=== PATIENT | male | born 1960 | race Caucasian/White ===

== ENCOUNTER 2017-04-27 00:42 | Inpatient (IN) | payer BC ==
[~2017-04-27] VITALS: Ht 233.7 cm; Wt 84.9 kg
[2017-04-27] VITALS (7 sets, daily range): BP systolic 104–166; BP diastolic 61–104; PULSE 52–72; RESP 16–20; TEMP 98–98.3; O2SAT 96–99
[~2017-04-27 00:42] MED LIST: Z.0.NO CURRENT MEDS
--- NOTE | 2017-04-27 03:53 | PD ---
HPI Chief Complaint: Pain: Acute or Chronic Time Seen by Provider: 03:51 Travel History International Travel<30 days: No Contact w/Intl Traveler<30days: No Traveled to known affect area: No History of Present Illness HPI Patient is a 56-year-old male who 3 days ago went to an urgent care for right- sided pain that they diagnosed as pneumonia was put on prednisone Levaquin and an anti-inflammatory now tonight the pain is on the left side it is a dull pressure without radiation he denies chest pain he denies dysuria denies fever denies nausea vomit or diarrhea pain is intermittent without radiation he has not seen another doctor since this left pain started however he did see someone for the right sided pain that was diagnosed as pneumonia [facility] Social History Tobacco Use: No Allergies-Medications (Allergen,Severity, Reaction): Coded Allergies: No Known Allergies (Verified Allergy, Unknown, 04/27/17) Reported Meds & Prescriptions Reported Meds & Active Scripts Active Review of Systems Except as stated in HPI: all other systems reviewed are Neg Gastrointestinal: Positive: Abdominal Pain Genitourinary: Positive: Flank Pain (left sided ) Physical Exam Narrative GENERAL: Patient is nontoxic-appearing nonseptic appearing afebrile holding his left side seems to be lying in the stretcher in a way to avoid. SKIN: Warm and dry. HEAD: Atraumatic. Normocephalic. EYES: Pupils equal and round. No scleral icterus. No injection or drainage. ENT: No nasal bleeding or discharge. Mucous membranes pink and moist. NECK: Trachea midline. No JVD. CARDIOVASCULAR: Regular rate and rhythm. RESPIRATORY: No accessory muscle use. Clear to auscultation. Breath sounds equal bilaterally. GASTROINTESTINAL: Abdomen palpation of his lower ribs does not elicit the pain palpation of his left lower abdomen does not elicit the pain however percussion of the CVA area does re-create the pain in the lateral CVA area soft, LLQ and CVA tender, nondistended. MUSCULOSKELETAL: Extremities without clubbing, cyanosis, or edema. No obvious deformities. NEUROLOGICAL: Awake and alert. No obvious cranial nerve deficits. Motor grossly within normal limits. Five out of 5 muscle strength in the arms and legs. Normal speech. PSYCHIATRIC: Appropriate mood and affect; insight and judgment normal. Data Data Last Documented VS Vital Signs Date Time Temp Pulse Resp B/P (MAP) Pulse Ox O2 Delivery O2 Flow Rate FiO2 04/27/17 05:26 18 04/27/17 03:56 72 166/75 (105) 98 Room Air 04/27/17 00:48 98.0 Orders Orders Complete Blood Count With Diff (04/27/17 03:53) Comprehensive Metabolic Panel (04/27/17 03:53) Troponin I (04/27/17 03:53) Lipase (04/27/17 03:53) Urinalysis - C+S If Indicated (04/27/17 03:53) Chest, Pa & Lat (04/27/17 03:53) Ketorolac Inj (Toradol Inj) (04/27/17 04:30) Morphine Inj (Morphine Inj) (04/27/17 04:30) Ct Abd/Pel W/O Iv Contrast (04/27/17 ) Ondansetron Inj (Zofran Inj) (04/27/17 04:28) Ondansetron Odt (Zofran Odt) (04/27/17 04:45) Hydromorphone Pf Inj (Dilaudid Pf Inj) (04/27/17 05:30) Ct Abd/Pel W Iv Contrast(Rout) (04/27/17 ) Ct Thorax/ Chest W Iv Contrast (04/27/17 ) Hydromorphone Pf Inj (Dilaudid Pf Inj) (04/27/17 05:45) Place In Observation (04/27/17 ) Vital Signs (Adult) Q4H (04/27/17 05:42) Activity Oob Ad Azucena (04/27/17 05:42) Intake + Output JAZZMINE.QSHIFT (04/27/17 05:42) Sodium Chlor 0.9% 1000 Ml Inj (Ns 1000 M (04/27/17 05:42) Sodium Chloride 0.9% Flush (Ns Flush) (04/27/17 05:45) Sodium Chloride 0.9% Flush (Ns Flush) (04/27/17 09:00) Ondansetron Inj (Zofran Inj) (04/27/17 05:45) Basic Metabolic Panel (Bmp) (04/28/17 06:00) Complete Blood Count With Diff (04/28/17 06:00) Case Management Consult (04/27/17 05:42) Scd Bilateral/Knee High JAZZMINE.BID (04/27/17 05:42) Naloxone Inj (Narcan Inj) (04/27/17 05:45) Consult Medical Oncology (04/27/17 ) Hydromorphone Pf Inj (Dilaudid Pf Inj) (04/27/17 05:45) Admit Order (Ed Use Only) (04/27/17 05:52) Labs Laboratory Tests Test 04/27/17 04:00 White Blood Count 10.7 TH/MM3 Red Blood Count 5.23 MIL/MM3 Hemoglobin 16.1 GM/DL Hematocrit 46.9 % Mean Corpuscular Volume 89.7 FL Mean Corpuscular Hemoglobin 30.8 PG Mean Corpuscular Hemoglobin Concent 34.4 % Red Cell Distribution Width 13.1 % Platelet Count 349 TH/MM3 Mean Platelet Volume 6.4 FL Neutrophils (%) (Auto) 77.4 % Lymphocytes (%) (Auto) 13.9 % Monocytes (%) (Auto) 8.0 % Eosinophils (%) (Auto) 0.2 % Basophils (%) (Auto) 0.5 % Neutrophils # (Auto) 8.3 TH/MM3 Lymphocytes # (Auto) 1.5 TH/MM3 Monocytes # (Auto) 0.9 TH/MM3 Eosinophils # (Auto) 0.0 TH/MM3 Basophils # (Auto) 0.0 TH/MM3 CBC Comment DIFF FINAL Differential Comment Urine Color YELLOW Urine Turbidity HAZY Urine pH 5.5 Urine Specific [place] 1.026 Urine Protein 30 mg/dL Urine Glucose (UA) NEG mg/dL Urine Ketones NEG mg/dL Urine Occult Blood TRACE Urine Nitrite NEG Urine Bilirubin NEG Urine Urobilinogen LESS THAN 2.0 MG/DL Urine Leukocyte Esterase NEG Urine RBC LESS THAN 1 /hpf Urine WBC 2 /hpf Urine Bacteria OCC /hpf Urine Mucus MANY /lpf Microscopic Urinalysis Comment CULT NOT INDICATED Blood Urea Nitrogen 26 MG/DL Creatinine 1.45 MG/DL Random Glucose 102 MG/DL Total Protein 7.7 GM/DL Albumin 3.6 GM/DL Calcium Level 9.3 MG/DL Alkaline Phosphatase 121 U/L Aspartate Amino Transf (AST/SGOT) 87 U/L Alanine Aminotransferase (ALT/SGPT) 39 U/L Total Bilirubin 0.5 MG/DL Sodium Level 138 MEQ/L Potassium Level 4.1 MEQ/L Chloride Level 102 MEQ/L Carbon Dioxide Level 27.2 MEQ/L Anion Gap 9 MEQ/L Estimat Glomerular Filtration Rate 50 ML/MIN Lactate Dehydrogenase 1124 U/L Troponin I LESS THAN 0.02 NG/ML Lipase 162 U/L [facility] Medical Decision Making Medical Screen Exam Complete: Yes Emergency Medical Condition: Yes Differential Diagnosis pt has Tenderness reported to his left flank area , and left abdo ddx could be renal colic, gastritis pancreatitis , GB disease , PNA, Bronchitis other Narrative Course pt has flank pain and I order CT to rule out renal cause possible stone hydronephosis, --> CT shows lesions throughout liver very worrisome for metastatic disease no primary identified on non contrast CT , I sent pt back for CT with IV contrast and then pancreatic mass identified as well as Pulmonary Embolisms which explain his bilateral lung pain right and left lower , I heparinize 5000 Units and start heparin drip to prophylax against further clots and I admit to medicine for ONCOLOGY consult and possible liver biopsy. I gently explain first findings to patient and and need for IV CT for confirmation of liver CA and search for source ,, They understand, asks if Dr Perez is available for ONC doctor and I place consult for Dr Perez Diagnosis Primary Impression: Pulmonary embolism Qualified Codes: I26.99 - Other pulmonary embolism without acute cor pulmonale Additional Impressions: Liver mass Pancreatic mass Admitting Information Admitting Physician Requests: Admit Philip Flores MD Apr 27, 2017 03:53
[2017-04-27 04:09] LABS: AUTOMATED NEUTROPHIL # 8.3 TH/MM3 (1.8-7.7); BASOPHIL % 0.5 % (0.0-2.0); EOSINOPHIL % 0.2 % (0.0-4.0); HEMATOCRIT 46.9 % (39.0-51.0); HEMOGLOBIN 16.1 GM/DL (13.0-17.0); LYMPH % 13.9 % (9.0-44.0); LYMPHOCYTE # 1.5 TH/MM3 (1.0-4.8); MEAN CELL VOLUME 89.7 FL (80.0-100.0); MEAN CORPUSCULAR HEMOGLOBIN 30.8 PG (27.0-34.0); MEAN CORPUSCULAR HGB CONC 34.4 % (32.0-36.0); MEAN PLATELET VOLUME 6.4 FL (7.0-11.0); MONOCYTE # 0.9 TH/MM3 (0-0.9); NEUT % 77.4 % (16.0-70.0); PLATELET COUNT 349 TH/MM3 (150-450); RED BLOOD COUNT 5.23 MIL/MM3 (4.50-5.90); RED CELL DISTRIBUTION WIDTH 13.1 % (11.6-17.2); WHITE BLOOD COUNT 10.7 TH/MM3 (4.0-11.0)
[2017-04-27 04:14] LABS: BACTERIA, URINE OCC /hpf; BILIRUBIN, URINE NEG (NEG); BLOOD, URINE TRACE (NEG); GLUCOSE,URINE NEG (NEG); KETONE, URINE NEG (NEG); MUCUS URINE MANY /lpf (OCC); NITRITE,URINE NEG (NEG); PH, URINE 5.5 (5.0-8.5); URINE COLOR YELLOW (YELLW/STRAW); URINE LEUKOCYTE ESTERASE NEG (NEG)
[2017-04-27] MEDS ORDERED: ONDANSETRON HCL 4 MG/2 ML VIAL ONE (04:28)
[2017-04-27 04:30] LABS: ALBUMIN 3.6 GM/DL (3.4-5.0); AST (GOT) 87 U/L (15-37); BICARBONATE 27.2 MEQ/L (21.0-32.0); BLOOD UREA NITROGEN 26 MG/DL (7-18); CALCIUM 9.3 MG/DL (8.5-10.1); CHLORIDE 102 MEQ/L (98-107); CREATININE 1.45 MG/DL (0.60-1.30); GLOMERULAR FILTRATION RATE 50 ML/MIN (>89); GLUCOSE,RANDOM 102 MG/DL (74-106); SODIUM (NA) 138 MEQ/L (136-145)
[2017-04-27] MEDS ORDERED: KETOROLAC TROMETHAMINE 30 MG/ML (IVP) VIAL IV PUSH ONE (04:30)
[2017-04-27] MEDS ORDERED: MORPHINE SULFATE 2 MG/ML INJ IV PUSH ONE (04:30)
--- NOTE | 2017-04-27 04:40 | RADRPT ---
EXAM DATE/TIME: 04/27/2017 04:02 [facility] COMPARISON: No previous studies available for comparison. INDICATIONS : Severe left flank pain, anterior, and lateral. MEDICAL HISTORY : None. SURGICAL HISTORY : None. ENCOUNTER: Initial ACUITY: 2 days PAIN SCORE: 7/10 LOCATION: Left chest FINDINGS: PA and lateral views of the chest demonstrate the lungs to be symmetrically aerated with linear plate like atelectatic changes posterior and medially in the right lung base. Lungs are otherwise clear wit h no confluent infiltrate or effusion. The cardiomediastinal contours are unremarkable. Osseous str uctures are intact with some degenerative spurring of the dorsal spine. CONCLUSION: 1. Isolated platelike atelectasis posteromedially in the right lung base. Lungs otherwise clear. 2. Degenerative spurring of the dorsal spine. Damon Oden MD on April 27, 2017 at 4:37 Board Certified Radiologist. This report was verified electronically.
[2017-04-27] MEDS ORDERED: ONDANSETRON ODT 4 MG TAB PO ONE (04:45)
[2017-04-27 04:51] LABS: ALKALINE PHOSPHATASE 121 U/L (45-117); ALT (GPT) 39 U/L (12-78); TOTAL BILIRUBIN ADULT 0.5 MG/DL (0.2-1.0); TOTAL PROTEIN 7.7 GM/DL (6.4-8.2); TROPONIN I LESS THAN 0.02 NG/ML (0.02-0.05)
--- NOTE | 2017-04-27 04:54 | RADRPT ---
EXAM DATE/TIME: 04/27/2017 04:34 [facility] COMPARISON: No previous studies available for comparison. INDICATIONS : Left flank pain. ORAL CONTRAST: No oral contrast ingested. RADIATION DOSE: 8.67 CTDIvol (mGy) MEDICAL HISTORY : None SURGICAL HISTORY : None. ENCOUNTER: Initial ACUITY: 2 days PAIN SCALE: 7/10 LOCATION: Left flank TECHNIQUE: Volumetric scanning of the abdomen and pelvis was performed. Using automated exposure control and ad justment of the mA and/or kV according to patient size, radiation dose was kept as low as reasonably achievable to obtain optimal diagnostic quality images. DICOM format image data is available electro nically for review and comparison. FINDINGS: LOWER LUNGS: The visualized lower lungs are clear. LIVER: Multiple low density lesions throughout the liver concerning for extensive metastatic disease. Larges t lesion is seen on the first image bridging the left and right hepatic lobes measuring 10.8 x 12.8 c m. There is no dilation of the biliary tree. No calcified gallstones. SPLEEN: Normal size without lesion. PANCREAS: Within normal limits. KIDNEYS: Normal in size and shape. Bilateral renal cortical cysts, the largest in the medial right upper pole measuring 5.5 cm in diameter. ADRENAL GLANDS: Within normal limits. VASCULAR: There is no aortic aneurysm. BOWEL/MESENTERY: The stomach, small bowel, and colon demonstrate no acute abnormality. There is no free intraperitone al air or fluid. A few diverticula in the sigmoid colon without diverticulitis ABDOMINAL WALL: Within normal limits. RETROPERITONEUM: There is no lymphadenopathy. BLADDER: No wall thickening or mass. REPRODUCTIVE: Within normal limits. INGUINAL: Bilateral inguinal hernias measuring 2.8 cm on the right and 2.3 on the left, both of which only cont ain fat. MUSCULOSKELETAL: Within normal limits for patient age. Bridging osteophyte at the right SI joint. CONCLUSION: 1. Multiple low density lesions scattered throughout the visualized portions of the liver very concer jason for extensive metastatic disease. Primary source is not identified. 2. Mild disease of the sigmoid colon without diverticulitis. 3. Bilateral inguinal hernias which only contains fat. Damon Oden MD on April 27, 2017 at 4:46 Board Certified Radiologist. This report was verified electronically.
[2017-04-27] MEDS ORDERED: HYDROmorphone HCL PF 1 MG/ML VIAL IV PUSH ONE (05:30)
[2017-04-27] MEDS ORDERED: NALOXONE HCL 0.4 MG/ML AMP IV PUSH PRN (05:45)
[2017-04-27] MEDS ORDERED: HYDROmorphone HCL PF 2 MG/ML VIAL IV PUSH ONE (05:45)
[2017-04-27] MEDS ORDERED: SODIUM CHLORIDE 0.9% FLUSH 10 ML FLUSH IV FLUSH PRN (05:45)
[2017-04-27] MEDS ORDERED: IOHEXOL 350 MG/ML 10 ML VIAL (for RAD DIAG) IVCONTRAST ONE (05:55)
[2017-04-27] MEDS: SODIUM CHLOR 0.9% 1000 ML INJ 1,000 ML IV SCH ×2 (06:02→15:42)
--- NOTE | 2017-04-27 06:08 | RADRPT ---
EXAM DATE/TIME: 04/27/2017 05:33 [facility] COMPARISON: CT ABDOMEN & PELVIS W/O CONTRAST, April 27, 2017, 4:34. INDICATIONS : Abdominal pain. Evaluate possible metastatic disease seen on prior scan. IV CONTRAST: 100 cc Omnipaque 350 (iohexol) IV ; Cumulative dose for multiple exams. ORAL CONTRAST: No oral contrast ingested. RADIATION DOSE: 17.38 CTDIvol (mGy) ; Combined studies - Thorax/Abdomen/Pelvis MEDICAL HISTORY : None SURGICAL HISTORY : None. ENCOUNTER: Initial ACUITY: 1 day PAIN SCALE: 6/10 LOCATION: Abdomen. TECHNIQUE: Volumetric scanning of the abdomen and pelvis was performed. Using automated exposure control and ad justment of the mA and/or kV according to patient size, radiation dose was kept as low as reasonably achievable to obtain optimal diagnostic quality images. DICOM format image data is available electro nically for review and comparison. FINDINGS: LOWER LUNGS: Airspace consolidation in the right base. There appear to be bilateral pulmonary emboli. LIVER: Multiple heterogeneous enhancing mass lesions, largest in the dome measuring 13.9 x 11 cm. SPLEEN: Normal size without lesion. PANCREAS: Mass lesion in the tail of the pancreas which invades into the hilum of the spleen measuring 6.2 x 6. 9 cm. There is nonocclusive thrombus identified in the adjacent splenic vein. KIDNEYS: Normal in size and shape. There is no mass, stone or hydronephrosis. Bilateral renal cortical cysts. ADRENAL GLANDS: Within normal limits. VASCULAR: There is no aortic aneurysm. BOWEL/MESENTERY: The stomach, small bowel, and colon demonstrate no acute abnormality. There is no free intraperitone al air or fluid. ABDOMINAL WALL: Within normal limits. RETROPERITONEUM: There is no lymphadenopathy. BLADDER: No wall thickening or mass. REPRODUCTIVE: Within normal limits. INGUINAL: Bilateral inguinal hernias only contain fat. MUSCULOSKELETAL: Within normal limits for patient age. CONCLUSION: 1. Postcontrast CT scan confirms multiple enhancing mass lesions characteristic of metastatic disease . Largest lesion in the hepatic dome measures 14 x 11 cm. 2. I believe the source of the metastatic disease is the pancreatic tail where there is a 6.2 x 6.9 c m mass lesion invading the splenic hilum and regional parenchyma. Concomitant nonocclusive thrombus i n the adjacent splenic vein. 3. Bilateral pulmonary emboli. 4. Bilateral benign-appearing renal cortical cysts. 5. Bilateral inguinal hernias which only contains fat. Damon dOen MD on April 27, 2017 at 5:59 Board Certified Radiologist. This report was verified electronically.
--- NOTE | 2017-04-27 06:12 | RADRPT ---
EXAM DATE/TIME: 04/27/2017 05:33 [facility] COMPARISON: No previous studies available for comparison. INDICATIONS : Rightt side chest pain. Recently diagnosed with pneumonia. IV CONTRAST: 100 cc Omnipaque 350 (iohexol) IV ; Cumulative dose for multiple exams. RADIATION DOSE: 17.38 CTDIvol (mGy) ; Combined studies - Thorax/Abdomen/Pelvis MEDICAL HISTORY : None SURGICAL HISTORY : None. ENCOUNTER: Initial ACUITY: 3 days PAIN SCALE: 7/10 LOCATION: chest TECHNIQUE: Volumetric scanning of the chest was performed. Using automated exposure control and adjustment of t he mA and/or kV according to patient size, radiation dose was kept as low as reasonably achievable to obtain optimal diagnostic quality images. DICOM format image data is available electronically for review and comparison. Follow-up recommendations for detected pulmonary nodules are based at a minimum on nodule size and pa tient risk factors according to Fleischner Society Guidelines. FINDINGS: LUNGS: Airspace consolidation posteriorly in the right base. PLEURA: There is no pleural thickening or pleural effusion. MEDIASTINUM: The heart and great vessels demonstrate no acute abnormality. There is no mediastinal or hilar lymph adenopathy. Bilateral pulmonary emboli, predominately in the lower lobe pulmonary arteries. AXILLAE: Within normal limits. No lymphadenopathy. SKELETAL: Within normal limits for patient age. MISCELLANEOUS: The visualized upper abdominal organs demonstrate extensive metastatic disease to the liver with an a pparent mass lesion in the pancreatic tail invading the splenic hilum. Please see the report on CT sc an of the abdomen for further characterization. CONCLUSION: 1. Bilateral pulmonary emboli, predominately involving the lower lobe pulmonary arteries. 2. Airspace consolidation posteriorly in the right base. While this could represent acute infiltrate, findings could also be associated with the right lower lobe pulmonary artery embolus. 3. Extensive metastatic disease to the liver. Mass lesion in the tail of the pancreas invading the sp lenic hilum. Damon Oden MD on April 27, 2017 at 6:07 Board Certified Radiologist. This report was verified electronically.
[2017-04-27] MEDS: ONDANSETRON HCL 4 MG/2 ML VIAL IVP PRN ×2 (06:46→17:02)
[2017-04-27] MEDS ORDERED: HEPARIN SODIUM - IV 10,000 UNITS/10 ML VIAL IV PUSH ONE (07:30)
[2017-04-27] MEDS: SODIUM CHLORIDE 0.9% FLUSH 10 ML FLUSH IV FLUSH SCH ×2 (09:00→21:00)
[2017-04-27 09:12] LABS: INTERNATIONAL NORMALIZED RATIO 1.1 RATIO; PROTHROMBIN TIME - PATIENT 11.1 SEC (9.8-11.6)
[2017-04-27] MEDS: HEPARIN-D5W 25,000 U/250 ML 250 ML IV PRN ×2 (09:21→23:28)
[2017-04-27] MEDS: HYDROmorphone HCL PF 2 MG/ML VIAL IV PUSH PRN ×4 (11:38→23:22)
--- NOTE | 2017-04-27 15:04 | HHI.HP ---
[facility] Service [facility] Primary Care Physician No Primary Care Physician Admission Diagnosis Liver lesion ? cancer Diagnoses: Chief Complaint: Left chest pain, flank pain Travel History International Travel<30 Days: No Contact w/Intl Traveler <30 Da: No Traveled to Known Affected Are: No History of Present Illness Written by Jorge Clark, acting as scribe for Dr. Collier on 04/27/17 at 15:04. Patient is a pleasant 56-year-old male with no significant primary medical history who came into the hospital for evaluation of left chest pain, flank pain. at the bedside. Patient states that a few weeks ago he had right chest pain and went to the urgent care center was diagnosed with pneumonia and he was given prednisone and Levaquin. Then 2 days ago, he started to have left chest pain, flank pain described as stabbing, pinching pain. He denies any shortness of breath or dyspnea. Denies any fevers, chills , nausea, vomiting, diarrhea. States he continues to have some chest discomfort , left-sided, radiating to his back, 07/22, does not know what aggravates or alleviates the problem. Patient also states that he has not been eating well within the past 2 weeks and attributes it to having the pneumonia. CT of the chest showed 1. Bilateral pulmonary emboli, predominantly involving the lower lobe pulmonary arteries. 2. Airspace consolidation posteriorly in the right base. While this could represent acute infiltrate, findings could also be associated with a right lower lobe pulmonary artery embolus. 3. Extensive metastatic disease to the liver. Mass lesion in the tail the pancreas invading the splenic helium CT of the abdomen and pelvis showed 1. Post contrast CT scan confirms multiple enhancing mass lesions characteristic of metastatic disease. Largest lesion in the hepatic dome measures 14 x 11 cm. 2. It is believed that the source of the metastatic disease is the pancreatic tail where there is a 6.2 x 6.9 cm mass lesion invading the splenic helium and regional parenchyma. Concomitant nonocclusive thrombus in the adjacent splenic vein. 3. Bilateral pulmonary emboli. 4. Bilateral benign appearing renal cortical cyst.5. Bilateral inguinal hernias which only contains fat. Chest x-ray showed 1. Isolated platelike atelectasis posterior medially in the right lung base. Lungs otherwise clear. 2. Degenerative spurring of the dorsal spine. 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 fall in construction site Reported Medications None Allergies: Coded Allergies: No Known Allergies (Verified Allergy, Unknown, 04/27/17) Active Ordered Medications Current Medications Medications (Trade) Dose Ordered Sig/Mago Route Start Time Stop Time Status Last Admin Sodium Chloride 1,000 ml @ 100 mls/hr Q10H IV 04/27/17 05:42 04/27/17 06:02 (NS Flush) 2 ml UNSCH PRN IV FLUSH 04/27/17 05:45 (NS Flush) 2 ml BID IV FLUSH 04/27/17 09:00 (Zofran Inj) 4 mg Q6H PRN IVP 04/27/17 05:45 04/27/17 06:46 (Narcan Inj) 0.4 mg UNSCH PRN IV PUSH 04/27/17 05:45 (Dilaudid Pf Inj) 1 mg Q4H PRN IV PUSH 04/27/17 05:45 04/27/17 11:38 Heparin Sodium/ Dextrose 250 ml @ 18 mls/hr TITRATE PRN IV 04/27/17 07:30 04/27/17 09:21 Family History Mother with breast cancer, brother with lung cancer who is a smoker Father has heart disease Social History Occasional alcohol use Denies tobacco use Denies illicit drug use Physical Exam Vital Signs Vital Signs Date Time Temp Pulse Resp B/P (MAP) Pulse Ox O2 Delivery O2 Flow Rate FiO2 04/27/17 12:42 54 18 105/64 (78) 98 Room Air 04/27/17 12:24 18 04/27/17 09:00 52 18 104/61 (75) 98 Room Air 04/27/17 06:04 16 04/27/17 06:02 64 16 136/67 (90) 97 Room Air 04/27/17 05:26 18 04/27/17 04:57 16 04/27/17 03:56 72 16 166/75 (105) 98 Room Air 04/27/17 00:48 98.0 66 18 152/104 (120) 99 Physical Exam GENERAL: This is a well-nourished, well-developed patient, in no apparent distress. SKIN: No rashes, ecchymoses or lesions. Cool and dry. HEAD: Atraumatic. Normocephalic. No temporal or scalp tenderness. EYES: Pupils equal round and reactive. Extraocular motions intact. No scleral icterus. No injection or drainage. ENT: Nose without bleeding. Throat without erythema. Uvula midline. Airway patent. NECK: Trachea midline. CARDIOVASCULAR: Regular rate and rhythm without murmurs, gallops, or rubs. RESPIRATORY: Diminished bases. No wheezes, rales, or rhonchi. Tenderness to palpate left flank area. GASTROINTESTINAL: Abdomen soft, non-tender, nondistended. No hepato-splenomegaly , or palpable masses. No guarding. MUSCULOSKELETAL: Extremities without clubbing, cyanosis, or edema. NEUROLOGICAL: Awake and alert. Cranial nerves II through XII intact. Motor and sensory grossly within normal limits. Normal speech. Laboratory Laboratory Tests Test 04/27/17 04:00 04/27/17 07:00 White Blood Count 10.7 Red Blood Count 5.23 Hemoglobin 16.1 Hematocrit 46.9 Mean Corpuscular Volume 89.7 Mean Corpuscular Hemoglobin 30.8 Mean Corpuscular Hemoglobin Concent 34.4 Red Cell Distribution Width 13.1 Platelet Count 349 Mean Platelet Volume 6.4 Neutrophils (%) (Auto) 77.4 Lymphocytes (%) (Auto) 13.9 Monocytes (%) (Auto) 8.0 Eosinophils (%) (Auto) 0.2 Basophils (%) (Auto) 0.5 Neutrophils # (Auto) 8.3 Lymphocytes # (Auto) 1.5 Monocytes # (Auto) 0.9 Eosinophils # (Auto) 0.0 Basophils # (Auto) 0.0 CBC Comment DIFF FINAL Differential Comment Urine Color YELLOW Urine Turbidity HAZY Urine pH 5.5 Urine Specific Brownell 1.026 Urine Protein 30 Urine Glucose (UA) NEG Urine Ketones NEG Urine Occult Blood TRACE Urine Nitrite NEG Urine Bilirubin NEG Urine Urobilinogen LESS THAN 2.0 Urine Leukocyte Esterase NEG Urine RBC LESS THAN 1 Urine WBC 2 Urine Bacteria OCC Urine Mucus MANY Microscopic Urinalysis Comment CULT NOT INDICATED Blood Urea Nitrogen 26 Creatinine 1.45 Random Glucose 102 Total Protein 7.7 Albumin 3.6 Calcium Level 9.3 Alkaline Phosphatase 121 Aspartate Amino Transf (AST/SGOT) 87 Alanine Aminotransferase (ALT/SGPT) 39 Total Bilirubin 0.5 Sodium Level 138 Potassium Level 4.1 Chloride Level 102 Carbon Dioxide Level 27.2 Anion Gap 9 Estimat Glomerular Filtration Rate 50 Troponin I LESS THAN 0.02 Lipase 162 Prothrombin Time 11.1 Prothromb Time International Ratio 1.1 Activated Partial Thromboplast Time 24.0 Result Diagram: 04/27/17 0400 04/27/17 0400 Imaging Last Impressions Chest X-Ray 04/27/17 0353 Signed Impressions: Service Date/Time: Thursday, April 27, 2017 04:02 - CONCLUSION: 1. Isolated platelike atelectasis posteromedially in the right lung base. Lungs otherwise clear. 2. Degenerative spurring of the dorsal spine. Damon Oden MD Chest CT 04/27/17 0000 Signed Impressions: Service Date/Time: Thursday, April 27, 2017 05:33 - CONCLUSION: 1. Bilateral pulmonary emboli, predominately involving the lower lobe pulmonary arteries. 2. Airspace consolidation posteriorly in the right base. While this could represent acute infiltrate, findings could also be associated with the right lower lobe pulmonary artery embolus. 3. Extensive metastatic disease to the liver. Mass lesion in the tail of the pancreas invading the splenic hilum. Damon Oden MD Abdomen/Pelvis CT 04/27/17 0000 Signed Impressions: Service Date/Time: Thursday, April 27, 2017 05:33 - CONCLUSION: 1. Postcontrast CT scan confirms multiple enhancing mass lesions characteristic of metastatic disease. Largest lesion in the hepatic dome measures 14 x 11 cm. 2. I believe the source of the metastatic disease is the pancreatic tail where there is a 6.2 x 6.9 cm mass lesion invading the splenic hilum and regional parenchyma. Concomitant nonocclusive thrombus in the adjacent splenic vein. 3. Bilateral pulmonary emboli. 4. Bilateral benign-appearing renal cortical cysts. 5. Bilateral inguinal hernias which only contains fat. MD Jaleel Simmons VTE Risk Assessment Caprini VTE Risk Assessment: Mod/High Risk (score >= 2) Caprini Risk Assessment Model Point Value = 1 Point Value = 2 Point Value = 3 Point Value = 5 Age 41-60 Minor surgery BMI > 25 kg/m2 Swollen legs Varicose veins or History of unexplained or recurrent spontaneous Oral contraceptives or hormone replacement Sepsis (< 1 month) Serious lung disease, including pneumonia (< 1 month) Abnormal pulmonary function Acute myocardial infarction Congestive heart failure (< 1 month) History of inflammatory bowel disease Medical patient at bed rest Age 61-74 Arthroscopic surgery Major open surgery (> 45 min) Laparoscopic surgery (> 45 min) Malignancy Confined to bed (> 72 hours) Immobilizing plaster cast Central venous access Age >= 75 History of VTE Family history of VTE Factor V Leiden Prothrombin [id number] Lupus anticoagulant Anticardiolipin antibodies Elevated serum homocysteine Heparin-induced thrombocytopenia Other congenital or acquired thrombophilia Stroke (< 1 month) Elective arthroplasty Hip, pelvis, or leg fracture Acute spinal cord injury (< 1 month) Prophylaxis Regimen Total Risk Factor Score Risk Level Prophylaxis Regimen 0-1 Low Early ambulation 2 Moderate Order ONE of the following: *Sequential Compression Device (SCD) *Heparin 5000 units SQ BID 3-4 Higher Order ONE of the following medications: *Heparin 5000 units SQ TID *Enoxaparin/Lovenox 40 mg SQ daily (WT < 150 kg, CrCl > 30 mL/min) *Enoxaparin/Lovenox 30 mg SQ daily (WT < 150 kg, CrCl > 10-29 mL/min) *Enoxaparin/Lovenox 30 mg SQ BID (WT < 150 kg, CrCl > 30 mL/min) AND/OR *Sequential Compression Device (SCD) 5 or more Highest Order ONE of the following medications: *Heparin 5000 units SQ TID (Preferred with Epidurals) *Enoxaparin/Lovenox 40 mg SQ daily (WT < 150 kg, CrCl > 30 mL/min) *Enoxaparin/Lovenox 30 mg SQ daily (WT < 150 kg, CrCl > 10-29 mL/min) *Enoxaparin/Lovenox 30 mg SQ BID (WT < 150 kg, CrCl > 30 mL/min) AND *Sequential Compression Device (SCD) Assessment and Plan Problem List: (1) Pulmonary embolism ICD Code: I26.99 - Other pulmonary embolism without acute cor pulmonale (2) Liver mass ICD Code: R16.0 - Hepatomegaly, not elsewhere classified (3) Pancreatic mass ICD Code: K86.9 - Disease of pancreas, unspecified Assessment and Plan Patient is a pleasant 56 year old male with no significant primary medical history who came into the hospital for evaluation of left chest, flank pain. Pulmonary embolism, acute -CT of the chest showed 1. Bilateral pulmonary emboli, predominantly involving the lower lobe pulmonary arteries. 2. Airspace consolidation posteriorly in the right base. While this could represent acute infiltrate, findings could also be associated with a right lower lobe pulmonary artery embolus. 3. Extensive metastatic disease to the liver. Mass lesion in the tail the pancreas invading the splenic helium -CT of the abdomen and pelvis showed 1. Post contrast CT scan confirms multiple enhancing mass lesions characteristic of metastatic disease. Largest lesion in the hepatic dome measures 14 x 11 cm. 2. It is believed that the source of the metastatic disease is the pancreatic tail where there is a 6.2 x 6.9 cm mass lesion invading the splenic helium and regional parenchyma. Concomitant nonocclusive thrombus in the adjacent splenic vein. 3. Bilateral pulmonary emboli. 4. Bilateral benign appearing renal cortical cyst.5. Bilateral inguinal hernias which only contains fat. -Chest x-ray showed 1. Isolated platelike atelectasis posterior medially in the right lung base. Lungs otherwise clear. 2. Degenerative spurring of the dorsal spine. -Heparin drip for now. Monitor PTT -Discussed extensively with patient and plan for switching to p.o. anticoagulant after recommendations from oncology. -Monitor lab values. Monitor respiratory status. Liver mass Pancreatic mass Metastatic disease -No known diagnosis of any cancer, mass or lesion. This is new to the patient. -Oncology consulted for further evaluation and recommendations. -Pain management as needed DVT prop on heparin drip This note was transcribed by EZEQUIEL Sylvester. I, Dr. Aneta Collier personally performed the history, physical exam, and medical decision making; and confirmed the accuracy of the information in the transcribed note. Authenticated by Dr. Aneta Collier on 04/27/17 at 15:04. Code Status Full Code Discussed Condition With Patient, , nursing Jorge Fatima Apr 27, 2017 15:04 Aneta Collier MD Apr 27, 2017 15:06
[2017-04-27 16:53] LABS: HEMATOCRIT 40.5 % (39.0-51.0); HEMOGLOBIN 13.9 GM/DL (13.0-17.0); MEAN CORPUSCULAR HEMOGLOBIN 30.5 PG (27.0-34.0); MEAN CORPUSCULAR HGB CONC 34.3 % (32.0-36.0); MEAN PLATELET VOLUME 7.2 FL (7.0-11.0); PLATELET COUNT 311 TH/MM3 (150-450); RED BLOOD COUNT 4.56 MIL/MM3 (4.50-5.90); RED CELL DISTRIBUTION WIDTH 13.2 % (11.6-17.2); WHITE BLOOD COUNT 8.7 TH/MM3 (4.0-11.0)
--- NOTE | 2017-04-27 18:30 | PD.CONS ---
History of Present Illness Service Hematology/oncology Consult Requested By Hospitalist service Reason for Consult Mass involving the tail of the pancreas with extensive bulky liver metastases. Bilateral submassive pulmonary emboli. Primary Care Physician No Primary Care Physician Diagnoses: (1) Pancreatic mass (2) Liver mass (3) Pulmonary embolism History of Present Illness Chief complaint: 1. Two-week history of right upper quadrant abdominal pain. 2. Increasing difficulty breathing associated with cough and right-sided pleuritic chest pain. History of presenting illness: Mr. John is a very pleasant 56-year-old male who reports being in his usual excellent state of health up until 2 weeks ago. He denies having any medical comorbid conditions, he rarely sees a PCP but tells me he does going for routine blood work at [facility] where he undergoes CBC, CMP as well as cholesterol checks. The patient reports noticing a right upper quadrant abdominal pain/right-sided flank pain initially about 2 weeks ago. He tells me he had lifted his granddaughter and felt he may have pulled a muscle. The symptoms persisted and in fact worsened, he developed worsening pain involving his right lower chest posteriorly, this was associated with a cough producing scant blood. He presented to a local urgent care where he was diagnosed with pneumonia and was provided Levaquin oral antibiotic. 48 hours later he noticed worsening pain in his left upper quadrant. Overall his symptoms continue to worsen and breathing became more and more difficult. He was brought into the emergency department by his late at night on 04/26/[address] angiogram performed in the emergency department on 04/26/2017 revealed bilateral pulmonary emboli, the CT imaging which evaluated the upper portion of the abdomen revealed massive tumors within the liver. A dedicated CT scan of the abdomen with IV contrast performed on 04/27/2017 revealed Multiple enhancing masses within the liver with the largest lesion measuring 14 x 11 cm, a pancreatic tail mass was noted measuring 6.2 x 6.9 cm which invaded the splenic hilum directly. The patient has been initiated on IV heparin infusion for management of his pulmonary emboli and the oncology service has been asked to see him for further workup and management. Review of Systems ROS Limitations: Clinical Condition Constitutional: COMPLAINS OF: Fatigue (None.), Weight loss, Change in appetite (Decreased appetite), DENIES: Diaphoretic episodes, Fever, Weight gain, Chills, Dizziness, Night Sweats Endocrine: DENIES: Heat/cold intolerance, Polydipsia, Polyuria, Polyphagia Eyes: DENIES: Blurred vision, Diplopia, Eye inflammation, Eye pain, Vision loss , Photosensitivity, Double Vision Ears, nose, mouth, throat: DENIES: Tinnitus, Hearing loss, Vertigo, Nasal discharge, Oral lesions, Throat pain, Hoarseness, Ear Pain, Running Nose, Epistaxis, Sinus Pain, Toothache, Odynophagia Respiratory: COMPLAINS OF: Cough, Hemoptysis, Shortness of breath, DENIES: Apneas, Snoring, Wheezing, Sputum production Cardiovascular: COMPLAINS OF: Chest pain, Palpitations, Dyspnea on Exertion, DENIES: Syncope, PND, Lower Extremity Edema, Orthopnea, Claudication Gastrointestinal: COMPLAINS OF: Abdominal pain, DENIES: Black stools, Bloody stools, Constipation, Diarrhea, Nausea, Vomiting, Difficulty Swallowing, Anorexia Genitourinary: DENIES: Sexual dysfunction, Urinary frequency, Urinary incontinence, Urgency, Hematuria, Dysuria, Nocturia, Penile Discharge, Testicular Pain, Testicular Swelling Musculoskeletal: DENIES: Joint pain, Muscle aches, Stiffness, Joint Swelling, Back pain, Neck pain Integumentary: DENIES: Abnormal pigmentation, Nail changes, Pruritus, Rash Hematologic/lymphatic: DENIES: Bruising, Lymphadenopathy Immunologic/allergic: DENIES: Eczema, Urticaria Neurologic: DENIES: Abnormal gait, Headache, Localized weakness, Paresthesias, Seizures, Speech Problems, Tremor, Poor Balance Psychiatric: DENIES: Anxiety, Confusion, Mood changes, Depression, Hallucinations, Agitation, Suicidal Ideation, Homicidal Ideation, Delusions Past Family Social History Allergies: Coded Allergies: No Known Allergies (Verified Allergy, Unknown, 04/27/17) Past Medical History Denies any chronic medical conditions. Past Surgical History Polytrauma involving leg fractures at the age of 19. Did not require surgical intervention. 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 Reported Medications He is not on oral outpatient medications. Active Ordered Medications Inpatient medications: 1. Heparin infusion per protocol Normal saline 100 cc/h Dilaudid 1 mg IV every 4 hours as needed for pain Dilaudid 0.5 mg IV 1 Ketorolac 30 mg IV 1 Ondansetron 4 mg IV every 6 hours needed for nausea and vomiting. Family History Mother: at the age of 84, she had a history of breast cancer and colonic polyps. Father at the age of 64 of myocardial infarction. Brother is living with lung cancer, he is an active smoker. Social History Patient is originally from [place], he has lived in [place] for about 14 years, he is to his current of 12 years who is with him at bedside. The patient had one biologic son who last year of drug overdose. Patient reports being a lifelong non-smoker, he denies alcohol abuse. 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 Physical Exam Vital Signs Vital Signs Date Time Temp Pulse Resp B/P (MAP) Pulse Ox O2 Delivery O2 Flow Rate FiO2 04/27/17 16:29 98.2 68 20 148/90 (109) 96 04/27/17 12:42 54 18 105/64 (78) 98 Room Air 04/27/17 12:24 18 04/27/17 09:00 52 18 104/61 (75) 98 Room Air 04/27/17 06:04 16 04/27/17 06:02 64 16 136/67 (90) 97 Room Air 04/27/17 05:26 18 04/27/17 04:57 16 04/27/17 03:56 72 16 166/75 (105) 98 Room Air 04/27/17 00:48 98.0 66 18 152/104 (120) 99 Physical Exam GENERAL: Mr. John is a middle-aged male, he short and muscular build, he appears to be no acute distress is a pleasant disposition. SKIN: No rashes, ecchymoses or lesions. Cool and dry. HEAD: Atraumatic. Normocephalic. No temporal or scalp tenderness. EYES: Pupils equal round and reactive. Extraocular motions intact. No scleral icterus. No injection or drainage. ENT: Nose without bleeding, purulent drainage or septal hematoma. Throat without erythema, tonsillar hypertrophy or exudate. Uvula midline. Airway patent. NECK: Trachea midline. No JVD or lymphadenopathy. Supple, nontender, no meningeal signs. CARDIOVASCULAR: Regular rate and rhythm without murmurs, gallops, or rubs. RESPIRATORY: Pleural rub auscultated at the right base, good air movement bilaterally otherwise without any added rhonchi wheezes or crepitus. GASTROINTESTINAL: Abdomen is without distention, there is no obvious organ enlargement and no definite tenderness, positive bowel sounds, splenomegaly is not noted, the liver is palpable 2 cm below the costal margin on the right side with inspiration. MUSCULOSKELETAL: Extremities without clubbing, cyanosis, or edema. No joint tenderness, effusion, or edema noted. No calf tenderness. Negative Homans sign bilaterally. NEUROLOGICAL: Awake and alert. Cranial nerves II through XII intact. Motor and sensory grossly within normal limits. Five out of 5 muscle strength in all muscle groups. Normal speech. Laboratory Laboratory Tests Test 04/27/17 04:00 04/27/17 07:00 04/27/17 15:06 White Blood Count 10.7 8.7 Red Blood Count 5.23 4.56 Hemoglobin 16.1 13.9 Hematocrit 46.9 40.5 Mean Corpuscular Volume 89.7 89.0 Mean Corpuscular Hemoglobin 30.8 30.5 Mean Corpuscular Hemoglobin Concent 34.4 34.3 Red Cell Distribution Width 13.1 13.2 Platelet Count 349 311 Mean Platelet Volume 6.4 7.2 Neutrophils (%) (Auto) 77.4 Lymphocytes (%) (Auto) 13.9 Monocytes (%) (Auto) 8.0 Eosinophils (%) (Auto) 0.2 Basophils (%) (Auto) 0.5 Neutrophils # (Auto) 8.3 Lymphocytes # (Auto) 1.5 Monocytes # (Auto) 0.9 Eosinophils # (Auto) 0.0 Basophils # (Auto) 0.0 CBC Comment DIFF FINAL Differential Comment Urine Color YELLOW Urine Turbidity HAZY Urine pH 5.5 Urine Specific [place] 1.026 Urine Protein 30 Urine Glucose (UA) NEG Urine Ketones NEG Urine Occult Blood TRACE Urine Nitrite NEG Urine Bilirubin NEG Urine Urobilinogen LESS THAN 2.0 Urine Leukocyte Esterase NEG Urine RBC LESS THAN 1 Urine WBC 2 Urine Bacteria OCC Urine Mucus MANY Microscopic Urinalysis Comment CULT NOT INDICATED Blood Urea Nitrogen 26 Creatinine 1.45 Random Glucose 102 Total Protein 7.7 Albumin 3.6 Calcium Level 9.3 Alkaline Phosphatase 121 Aspartate Amino Transf (AST/SGOT) 87 Alanine Aminotransferase (ALT/SGPT) 39 Total Bilirubin 0.5 Sodium Level 138 Potassium Level 4.1 Chloride Level 102 Carbon Dioxide Level 27.2 Anion Gap 9 Estimat Glomerular Filtration Rate 50 Troponin I LESS THAN 0.02 Lipase 162 Prothrombin Time 11.1 Prothromb Time International Ratio 1.1 Activated Partial Thromboplast Time 24.0 35.2 Result Diagram: 04/27/17 1506 04/27/[address] chest dated 04/27/2017: Bilateral pulmonary emboli prominently involving the lower lobe pulmonary arteries. Airspace consolidation posteriorly in the right base, while this could represent acute infiltrates, findings could be associated with the right lower lobe pulmonary artery embolus. Extensive metastatic disease throughout the liver, mass noted in the tail the pancreas with invasion of the splenic hilum. CT scan of the abdomen pelvis with IV contrast dated 04/27/2017: Postcontrast CT scan confirms multiple enhancing masses characteristic of metastatic carcinoma involving the liver, the largest lesion measures 14 x 11 cm. There is also a mass involving the pancreatic tail which measures 6.2 x 6.9 cm, this is likely the primary, the pancreatic tail tumor directly invades the splenic hilum. Assessment and Plan Assessment and Plan 56-year-old male who had been in otherwise excellent health developed right upper quadrant abdominal pain 2 weeks ago, this was followed by pain along the right lower posterior chest associate with cough and difficulty breathing. He presented to a local urgent care where he was assessed to have pneumonia and was initiated on oral antibiotic therapy. Over the next 4 days his condition worsened and his pain in particular progressed. He presented to [facility] emergency department where he underwent imaging studies the chest abdomen pelvis, he was found to have massive enhancing lesions involving the liver as well as a mass involving the tail of the pancreas with direct invasion into the splenic hilum. Bilateral pulmonary emboli were also noted. The oncology service and asked to see him for further workup and management. Plan: 1. Bilateral pulmonary emboli: Continue heparin infusion for now, obtain echocardiogram to rule out right heart strain. The goal is to maintain PTT at twice the upper limit of normal. Should he have right heart strain I would hesitate to recommend TPA administration given his malignancy in the abdomen. 2. Pancreatic tail mass associated with extensive liver masses: He will need an image guided biopsy of 1 of the liver lesions; this will be a diagnostic and stage defining biopsy. The biopsy will need to be timed in such a manner so that the minimum duration of heparin infusion interruption is caused. I will request baseline labs including CEA and CA-19-9 levels. LDH level will also be obtained. I did talk to the patient and his in detail at bedside, we reviewed labs as well as CT images of the chest and abdomen. I highlighted the pulmonary emboli as well as the pancreatic tail mass and massive liver metastases. Their questions were answered to their satisfaction. I have purposely not discussed prognosis because we at this point do not have a diagnostic biopsy. Problem Qualifiers (1) Pulmonary embolism: Toño Galindo MD Apr 27, 2017 18:30
[2017-04-27 21:05] LABS: CARCINOEMBRYONIC ANTIGEN 0.4 NG/ML (0.2-5.0)
[2017-04-27 21:43] LABS: CA 19-9 31.8 U/ML (0.0-35.0)
--- NOTE | 2017-04-27 22:32 | RADRPT ---
EXAM DATE/TIME: 04/27/2017 19:23 [place] COMPARISON: No previous studies available for comparison. INDICATIONS : Bilateral pulmonary embolism. MEDICAL HISTORY : Palpitations. Cough. Dyspnea. Abdominal pain. SURGICAL HISTORY : None. ENCOUNTER: Initial ACUITY: 3 days PAIN SCORE: 2/10 LOCATION: Bilateral legs. TECHNIQUE: Venous ultrasound of the left and right leg was performed from the inguinal ligament to the proximal calf. Real-time, color Doppler and spectral tracing, compression and augmentation techniques were us ed. FINDINGS: RIGHT LEG: There is normal compressibility of the deep venous system from the inguinal region to the proximal ca lf. No echogenic clot is seen in the lumen of the common femoral, femoral, popliteal, and posterior tibial veins. There is a normal response of the venous system to proximal and distal augmentation an d respiration. LEFT LEG: There is normal compressibility of the deep venous system from the inguinal region to the proximal ca lf. No echogenic clot is seen in the lumen of the common femoral, femoral, popliteal, and posterior tibial veins. There is a normal response of the venous system to proximal and distal augmentation an d respiration. CONCLUSION: Negative study. No venous thrombosis of either lower extremity. Gregor Santiago MD on April 27, 2017 at 22:29 Board Certified Radiologist. This report was verified electronically.
[2017-04-28] VITALS (25 sets, daily range): BP systolic 123–135; BP diastolic 73–78; PULSE 60–76; RESP 16–18; TEMP 97.9–99.5; O2SAT 94–100
[2017-04-28] MEDS: ONDANSETRON HCL 4 MG/2 ML VIAL IVP PRN (00:07)
[2017-04-28] MEDS: SODIUM CHLOR 0.9% 1000 ML INJ 1,000 ML IV SCH ×3 (00:49→20:15)
[2017-04-28] MEDS: HYDROmorphone HCL PF 2 MG/ML VIAL IV PUSH PRN ×4 (03:54→20:12)
[2017-04-28 04:49] LABS: AUTOMATED NEUTROPHIL # 6.1 TH/MM3 (1.8-7.7); BASOPHIL % 0.4 % (0.0-2.0); EOSINOPHIL % 0.2 % (0.0-4.0); HEMATOCRIT 38.7 % (39.0-51.0); HEMOGLOBIN 13.1 GM/DL (13.0-17.0); LYMPH % 16.7 % (9.0-44.0); LYMPHOCYTE # 1.4 TH/MM3 (1.0-4.8); MEAN CELL VOLUME 90.1 FL (80.0-100.0); MEAN CORPUSCULAR HEMOGLOBIN 30.5 PG (27.0-34.0); MEAN CORPUSCULAR HGB CONC 33.9 % (32.0-36.0); MEAN PLATELET VOLUME 6.9 FL (7.0-11.0); MONO % 9.8 % (0.0-8.0); MONOCYTE # 0.8 TH/MM3 (0-0.9); NEUT % 72.9 % (16.0-70.0); PLATELET COUNT 276 TH/MM3 (150-450); RED CELL DISTRIBUTION WIDTH 13.1 % (11.6-17.2); WHITE BLOOD COUNT 8.4 TH/MM3 (4.0-11.0)
[2017-04-28 05:21] LABS: BICARBONATE 21.7 MEQ/L (21.0-32.0); CALCIUM 8.2 MG/DL (8.5-10.1); CREATININE 1.22 MG/DL (0.60-1.30)
--- NOTE | 2017-04-28 08:59 | PD.ONC.PN ---
Subjective Subjective Remarks Afebrile overnight. Patient denies pain at present. tolerating heparin gtt. hoping to go for biopsy today. no bleeding. Objective Data Date Time Temp Pulse Resp B/P (MAP) Pulse Ox O2 Delivery O2 Flow Rate FiO2 04/28/17 06:00 66 04/28/17 05:00 62 04/28/17 04:00 98.4 65 16 127/74 (91) 97 04/28/17 04:00 63 04/28/17 00:48 60 04/28/17 00:20 98.0 60 16 126/76 (93) 100 04/27/17 19:42 98.3 64 16 143/73 (96) 98 04/27/17 16:29 98.2 68 20 148/90 (109) 96 04/27/17 12:42 54 18 105/64 (78) 98 Room Air 04/27/17 12:24 18 04/27/17 09:00 52 18 104/61 (75) 98 Room Air 04/28/17 04/28/17 04/28/17 07:00 15:00 23:00 Intake Total 1250 ml Balance 1250 ml Result Diagram: 04/28/17 0330 04/28/17 0330 Laboratory Results Laboratory Tests Test 04/27/17 15:06 04/27/17 20:11 04/28/17 01:12 04/28/17 03:30 White Blood Count 8.7 TH/MM3 8.4 TH/MM3 Red Blood Count 4.56 MIL/MM3 4.30 MIL/MM3 Hemoglobin 13.9 GM/DL 13.1 GM/DL Hematocrit 40.5 % 38.7 % Mean Corpuscular Volume 89.0 FL 90.1 FL Mean Corpuscular Hemoglobin 30.5 PG 30.5 PG Mean Corpuscular Hemoglobin Concent 34.3 % 33.9 % Red Cell Distribution Width 13.2 % 13.1 % Platelet Count 311 TH/MM3 276 TH/MM3 Mean Platelet Volume 7.2 FL 6.9 FL Activated Partial Thromboplast Time 35.2 SEC 35.0 SEC Carcinoembryonic Antigen 0.4 NG/ML CA 19-9 Antigen 31.8 U/ML Neutrophils (%) (Auto) 72.9 % Lymphocytes (%) (Auto) 16.7 % Monocytes (%) (Auto) 9.8 % Eosinophils (%) (Auto) 0.2 % Basophils (%) (Auto) 0.4 % Neutrophils # (Auto) 6.1 TH/MM3 Lymphocytes # (Auto) 1.4 TH/MM3 Monocytes # (Auto) 0.8 TH/MM3 Eosinophils # (Auto) 0.0 TH/MM3 Basophils # (Auto) 0.0 TH/MM3 CBC Comment DIFF FINAL Differential Comment Blood Urea Nitrogen 29 MG/DL Creatinine 1.22 MG/DL Random Glucose 94 MG/DL Calcium Level 8.2 MG/DL Sodium Level 138 MEQ/L Potassium Level 4.2 MEQ/L Chloride Level 106 MEQ/L Carbon Dioxide Level 21.7 MEQ/L Anion Gap 10 MEQ/L Estimat Glomerular Filtration Rate 61 ML/MIN Administered Medications Medications (Trade) Dose Ordered Sig/Mago Route PRN Reason Start Time Stop Time Status Last Admin Dose Admin Sodium Chloride 1,000 ml @ 100 mls/hr Q10H IV 04/27/17 05:42 04/28/17 00:49 Ondansetron HCl (Zofran Inj) 4 mg Q6H PRN IVP NAUSEA OR VOMITING 04/27/17 05:45 04/28/17 00:07 Hydromorphone HCl (Dilaudid Pf Inj) 1 mg Q4H PRN IV PUSH pain 04/27/17 05:45 04/28/17 03:54 Heparin Sodium/ Dextrose 250 ml @ 18 mls/hr TITRATE PRN IV Coagulation Management 04/27/17 07:30 04/27/17 23:28 Objective Remarks GENERAL: Middle aged male, sitting up in bed in [facility]. SKIN: Warm and dry. HEAD: Normocephalic. EYES: No injection or drainage. NECK: Supple, trachea midline. CARDIOVASCULAR: Regular rate and rhythm RESPIRATORY: Breath sounds equal bilaterally. No accessory muscle use. GASTROINTESTINAL: Abdomen soft, non-tender, nondistended. EXTREMITIES: No cyanosis NEUROLOGICAL: awake and alert. normal speech. Assessment/Plan Assessment 56y/o male with pancreatic mass and liver lesions as well as newly diagnosed bilateral pulmonary emboli. Plan 1. continue heparin gtt. 2. await liver biopsy 3. once liver biopsy is obtained, I will switch the patient to Lovenox 1mg/kg BID. Attending Statement The exam, history, and the medical decision-making described in the above note were completed with the assistance of the mid-level provider. I reviewed and agree with the findings presented. I attest that I had a [id number] encounter with the patient on the same day, and personally performed and documented my assessment and findings in the medical record. doing well and comfortable on heparin. marker studies not helpful. will need liver bx which should take place next week. abdomen soft and no swelling of legs. Filomena Quezada Apr 28, 2017 08:59 Eloy Baptiste MD Apr 28, 2017 13:43
[2017-04-28] MEDS: SODIUM CHLORIDE 0.9% FLUSH 10 ML FLUSH IV FLUSH SCH ×2 (10:11→20:13)
--- NOTE | 2017-04-28 11:53 | HHI.PR ---
Subjective Remarks Follow-up pancreatic mass with liver lesion/bilateral pulmonary emboli 04/28/17-patient seen and examined, some abdominal and chest pain with deep inspiration. Currently afebrile. Awaiting for possible CT-guided biopsy. Family by the bedside Objective Vitals Vital Signs Date Time Temp Pulse Resp B/P (MAP) Pulse Ox O2 Delivery O2 Flow Rate FiO2 04/28/17 10:00 97.9 04/28/17 08:00 65 16 123/73 (90) 95 04/28/17 06:00 66 04/28/17 05:00 62 04/28/17 04:00 98.4 65 16 127/74 (91) 97 04/28/17 04:00 63 04/28/17 00:48 60 04/28/17 00:20 98.0 60 16 126/76 (93) 100 04/27/17 19:42 98.3 64 16 143/73 (96) 98 04/27/17 16:29 98.2 68 20 148/90 (109) 96 04/27/17 12:42 54 18 105/64 (78) 98 Room Air 04/27/17 12:24 18 I/O 04/27/17 04/27/17 04/27/17 04/28/17 04/28/17 04/28/17 07:00 15:00 23:00 07:00 15:00 23:00 Intake Total 1250 ml Balance 1250 ml Intake IV Total 1250 ml # Voids 1 Result Diagram: 04/28/17 0330 04/28/17 0330 Imaging Last Impressions Chest X-Ray 04/27/17 0353 Signed Impressions: Service Date/Time: Thursday, April 27, 2017 04:02 - CONCLUSION: 1. Isolated platelike atelectasis posteromedially in the right lung base. Lungs otherwise clear. 2. Degenerative spurring of the dorsal spine. Damon Oden MD Lower Extremity Ultrasound 04/27/17 0000 Signed Impressions: Service Date/Time: Thursday, April 27, 2017 19:23 - CONCLUSION: Negative study. No venous thrombosis of either lower extremity. Gregor Santiago MD Chest CT 04/27/17 0000 Signed Impressions: Service Date/Time: Thursday, April 27, 2017 05:33 - CONCLUSION: 1. Bilateral pulmonary emboli, predominately involving the lower lobe pulmonary arteries. 2. Airspace consolidation posteriorly in the right base. While this could represent acute infiltrate, findings could also be associated with the right lower lobe pulmonary artery embolus. 3. Extensive metastatic disease to the liver. Mass lesion in the tail of the pancreas invading the splenic hilum. Damon Oden MD Abdomen/Pelvis CT 04/27/17 0000 Signed Impressions: Service Date/Time: Thursday, April 27, 2017 05:33 - CONCLUSION: 1. Postcontrast CT scan confirms multiple enhancing mass lesions characteristic of metastatic disease. Largest lesion in the hepatic dome measures 14 x 11 cm. 2. I believe the source of the metastatic disease is the pancreatic tail where there is a 6.2 x 6.9 cm mass lesion invading the splenic hilum and regional parenchyma. Concomitant nonocclusive thrombus in the adjacent splenic vein. 3. Bilateral pulmonary emboli. 4. Bilateral benign-appearing renal cortical cysts. 5. Bilateral inguinal hernias which only contains fat. Damon Oden MD Objective Remarks GENERAL: NAD SKIN: Warm and dry. HEAD: Normocephalic. EYES: No scleral icterus. No injection or drainage. NECK: Supple, trachea midline. No JVD or lymphadenopathy. CARDIOVASCULAR: Regular rate and rhythm without murmurs, gallops, or rubs. RESPIRATORY: Breath sounds equal bilaterally. No accessory muscle use. GASTROINTESTINAL: Abdomen soft, non-tender, nondistended. MUSCULOSKELETAL: No cyanosis, or edema. BACK: Nontender without obvious deformity. No CVA tenderness. A/P Problem List: (1) Pulmonary embolism ICD Code: I26.99 - Other pulmonary embolism without acute cor pulmonale (2) Liver mass ICD Code: R16.0 - Hepatomegaly, not elsewhere classified (3) Pancreatic mass ICD Code: K86.9 - Disease of pancreas, unspecified Assessment and Plan 56 year-old man with Bilateral pulmonary emboli Currently on heparin drip Switch to Lovenox subcutaneous every 12 hours after biopsy Pancreatic mass with liver lesions Appreciate input from oncology Awaiting for CT-guided biopsy of lesion Elevated LDH, normal CA-19-9 DVT prophylaxis: Heparin Problem Qualifiers (1) Pulmonary embolism: Modesto Grover MD Apr 28, 2017 11:53
[2017-04-28] MEDS: HEPARIN-D5W 25,000 U/250 ML 250 ML IV PRN (13:14)
[2017-04-29] VITALS (13 sets, daily range): BP systolic 132–139; BP diastolic 77–90; PULSE 64–78; RESP 16–18; TEMP 98.2–99.4; O2SAT 94–96
[2017-04-29] MEDS: HEPARIN-D5W 25,000 U/250 ML 250 ML IV PRN ×2 (03:48→17:55)
[2017-04-29] MEDS: SODIUM CHLOR 0.9% 1000 ML INJ 1,000 ML IV SCH (05:45)
[2017-04-29] MEDS: SODIUM CHLORIDE 0.9% FLUSH 10 ML FLUSH IV FLUSH SCH ×2 (09:00→21:00)
--- NOTE | 2017-04-29 10:24 | PD.ONC.PN ---
Subjective Subjective Remarks Afebrile overnight. Patient feeling constipated. He does not ordinarily get constipated at home. Pain is well controlled on current regimen. waiting for biopsy. Objective Data Date Time Temp Pulse Resp B/P (MAP) Pulse Ox O2 Delivery O2 Flow Rate FiO2 04/29/17 08:00 99.1 74 18 139/90 (106) 96 04/29/17 04:00 98.8 67 16 138/86 (103) 95 04/29/17 02:58 68 04/29/17 02:00 68 04/29/17 01:00 66 04/29/17 00:26 99.4 69 16 135/77 (96) 94 04/29/17 00:03 65 04/28/17 23:00 68 04/28/17 22:00 68 04/28/17 21:00 68 04/28/17 20:40 18 04/28/17 20:16 99.5 69 18 126/78 (94) 94 04/28/17 20:00 68 04/28/17 19:00 70 04/28/17 18:00 72 04/28/17 17:00 70 04/28/17 16:00 72 04/28/17 15:09 98.4 66 18 135/76 (95) 96 04/28/17 15:00 74 04/28/17 14:00 70 04/28/17 13:00 76 04/28/17 12:04 98.9 67 18 127/78 (94) 95 04/28/17 12:00 64 04/28/17 11:00 64 04/29/17 04/29/17 04/29/17 07:00 15:00 23:00 Intake Total 900 ml Output Total 1700 ml Balance -800 ml Result Diagram: 04/28/17 0330 04/28/17 0330 Laboratory Results Laboratory Tests Test 04/28/17 11:10 04/28/17 18:45 04/29/17 04:00 Activated Partial Thromboplast Time 42.0 SEC 29.8 SEC 40.5 SEC Administered Medications Medications (Trade) Dose Ordered Sig/Mago Route PRN Reason Start Time Stop Time Status Last Admin Dose Admin Sodium Chloride 1,000 ml @ 100 mls/hr Q10H IV 04/27/17 05:42 04/29/17 05:45 Sodium Chloride (NS Flush) 2 ml BID IV FLUSH 04/27/17 09:00 04/28/17 20:13 Ondansetron HCl (Zofran Inj) 4 mg Q6H PRN IVP NAUSEA OR VOMITING 04/27/17 05:45 04/28/17 00:07 Hydromorphone HCl (Dilaudid Pf Inj) 1 mg Q4H PRN IV PUSH pain 04/27/17 05:45 04/28/17 20:12 Heparin Sodium/ Dextrose 250 ml @ 18 mls/hr TITRATE PRN IV Coagulation Management 04/27/17 07:30 04/29/17 03:48 Objective Remarks GENERAL: Middle aged male, upright in bed in [facility]. SKIN: Warm and dry. HEAD: Normocephalic. EYES: No injection or drainage. NECK: Supple, trachea midline. CARDIOVASCULAR: Regular rate and rhythm RESPIRATORY: Breath sounds equal bilaterally. No accessory muscle use. GASTROINTESTINAL: Abdomen soft, non-tender, nondistended. EXTREMITIES: No cyanosis NEUROLOGICAL: awake, alert. no obvious focal deficit. Assessment/Plan Assessment 56y/o male with pancreatic mass and liver lesions as well as newly diagnosed bilateral pulmonary emboli. Plan 1. continue heparin gtt. 2. monitor CBC 3. start estefani-colace scheduled and PRN laxatives. Attending Statement The exam, history, and the medical decision-making described in the above note were completed with the assistance of the mid-level provider. I reviewed and agree with the findings presented. I attest that I had a [id number] encounter with the patient on the same day, and personally performed and documented my assessment and findings in the medical record. doing well. no sob or abd pain. hopefully will have liver bx sunday and will need heparin held prior to bx. Dr. Galindo will be back in am. Filomena Quezada Apr 29, 2017 10:24 Eloy Baptiste MD Apr 29, 2017 13:50
[2017-04-29] MEDS ORDERED: BISACODYL 10 MG SUPP RECTAL PRN (10:30)
[2017-04-29] MEDS ORDERED: SENNOSIDES 8.6 MG TAB PO PRN (10:30)
[2017-04-29] MEDS ORDERED: LACTULOSE SYRUP 20 GM/30 ML CUP PO PRN (10:30)
[2017-04-29] MEDS ORDERED: MAGNESIUM HYDROXIDE SUSP 30 ML CUP PO PRN (10:30)
--- NOTE | 2017-04-29 11:37 | HHI.PR ---
Subjective Remarks Follow-up pancreatic mass with liver lesion/bilateral pulmonary emboli 04/28/17-patient seen and examined, some abdominal and chest pain with deep inspiration. Currently afebrile. Awaiting for possible CT-guided biopsy. Family by the bedside 04/29/17-patient seen and examined, reports some improvement of shortness of breath and denies any chest pain. No acute event overnight. Objective Vitals Vital Signs Date Time Temp Pulse Resp B/P (MAP) Pulse Ox O2 Delivery O2 Flow Rate FiO2 04/29/17 10:00 78 04/29/17 09:00 68 04/29/17 08:00 99.1 74 18 139/90 (106) 96 04/29/17 08:00 76 04/29/17 07:00 72 04/29/17 04:00 98.8 67 16 138/86 (103) 95 04/29/17 02:58 68 04/29/17 02:00 68 04/29/17 01:00 66 04/29/17 00:26 99.4 69 16 135/77 (96) 94 04/29/17 00:03 65 04/28/17 23:00 68 04/28/17 22:00 68 04/28/17 21:00 68 04/28/17 20:40 18 04/28/17 20:16 99.5 69 18 126/78 (94) 94 04/28/17 20:00 68 04/28/17 19:00 70 04/28/17 18:00 72 04/28/17 17:00 70 04/28/17 16:00 72 04/28/17 15:09 98.4 66 18 135/76 (95) 96 04/28/17 15:00 74 04/28/17 14:00 70 04/28/17 13:00 76 04/28/17 12:04 98.9 67 18 127/78 (94) 95 04/28/17 12:00 64 I/O 04/28/17 04/28/17 04/28/17 04/29/17 04/29/17 04/29/17 07:00 15:00 23:00 07:00 15:00 23:00 Intake Total 1250 ml 1080 ml 900 ml Output Total 1700 ml Balance 1250 ml 1080 ml -800 ml Intake Oral 1080 ml 900 ml IV Total 1250 ml Output Urine Total 1700 ml # Voids 4 Result Diagram: 04/28/17 0330 04/28/17 0330 Objective Remarks GENERAL: NAD SKIN: Warm and dry. HEAD: Normocephalic. EYES: No scleral icterus. No injection or drainage. NECK: Supple, trachea midline. No JVD or lymphadenopathy. CARDIOVASCULAR: Regular rate and rhythm without murmurs, gallops, or rubs. RESPIRATORY: Breath sounds equal bilaterally. No accessory muscle use. GASTROINTESTINAL: Abdomen soft, non-tender, nondistended. MUSCULOSKELETAL: No cyanosis, or edema. BACK: Nontender without obvious deformity. No CVA tenderness. A/P Problem List: (1) Pulmonary embolism ICD Code: I26.99 - Other pulmonary embolism without acute cor pulmonale (2) Liver mass ICD Code: R16.0 - Hepatomegaly, not elsewhere classified (3) Pancreatic mass ICD Code: K86.9 - Disease of pancreas, unspecified Assessment and Plan 56 year-old man with Bilateral pulmonary emboli Currently on heparin drip Switch to Lovenox subcutaneous every 12 hours after biopsy 04/30/17 Pancreatic mass with liver lesions Appreciate input from oncology Awaiting for CT-guided biopsy of lesion possible 04/30/17 Elevated LDH, normal CA-19-9 DVT prophylaxis: Heparin Problem Qualifiers (1) Pulmonary embolism: Modesto Grover MD Apr 29, 2017 11:37
[2017-04-29] MEDS: DOCUSATE SODIUM 50 MG/SENNA 8.6 MG TAB PO SCH ×2 (12:00→21:00)
[2017-04-30] VITALS (10 sets, daily range): BP systolic 102–141; BP diastolic 52–87; PULSE 70–77; RESP 16–18; TEMP 97.5–99.2; O2SAT 90–98
[2017-04-30 07:18] LABS: HEMATOCRIT 40.9 % (39.0-51.0); HEMOGLOBIN 14.1 GM/DL (13.0-17.0); MEAN CORPUSCULAR HEMOGLOBIN 30.3 PG (27.0-34.0); MEAN CORPUSCULAR HGB CONC 34.4 % (32.0-36.0); MEAN PLATELET VOLUME 6.9 FL (7.0-11.0); PLATELET COUNT 343 TH/MM3 (150-450); RED BLOOD COUNT 4.65 MIL/MM3 (4.50-5.90); RED CELL DISTRIBUTION WIDTH 12.9 % (11.6-17.2); WHITE BLOOD COUNT 7.7 TH/MM3 (4.0-11.0)
--- NOTE | 2017-04-30 07:47 | PD.ONC.PN ---
Subjective Subjective Remarks Patient seen and examined, vital signs, labs, medications and events over the weekend were reviewed. Subjectively; Mr. Chavez reports feeling well, he tells me his breathing is back to normal and the pain he was experiencing along his right posterior chest wall has resolved. He has been getting up out of bed and walking, he denies chest pain, overt bleeding, abdominal pain, nausea or vomiting. He remains on a heparin drip, awaiting CT guided liver biopsy later today. Objective Data Date Time Temp Pulse Resp B/P (MAP) Pulse Ox O2 Delivery O2 Flow Rate FiO2 04/30/17 00:00 70 16 141/87 (105) 98 04/29/17 20:00 98.7 72 16 135/82 (99) 96 04/29/17 16:02 98.2 71 16 132/80 (97) 96 04/29/17 12:58 98.9 64 16 133/82 (99) 04/29/17 10:00 78 04/29/17 09:00 68 04/29/17 08:00 99.1 74 18 139/90 (106) 96 04/29/17 08:00 76 Result Diagram: 04/30/17 0606 04/28/17 0330 Laboratory Results Laboratory Tests Test 04/29/17 10:39 04/30/17 06:06 Activated Partial Thromboplast Time 41.4 SEC 45.9 SEC White Blood Count 7.7 TH/MM3 Red Blood Count 4.65 MIL/MM3 Hemoglobin 14.1 GM/DL Hematocrit 40.9 % Mean Corpuscular Volume 88.0 FL Mean Corpuscular Hemoglobin 30.3 PG Mean Corpuscular Hemoglobin Concent 34.4 % Red Cell Distribution Width 12.9 % Platelet Count 343 TH/MM3 Mean Platelet Volume 6.9 FL Culture Results Microbiology Date/Time Source Procedure Growth Status 04/29/17 13:08 Stool Stool Stool Occult Blood (ANGLE) - Final HEMOCCULT NEGATIVE Complete Administered Medications Medications (Trade) Dose Ordered Sig/Mago Route PRN Reason Start Time Stop Time Status Last Admin Dose Admin Sodium Chloride (NS Flush) 2 ml BID IV FLUSH 04/27/17 09:00 04/28/17 20:13 Ondansetron HCl (Zofran Inj) 4 mg Q6H PRN IVP NAUSEA OR VOMITING 04/27/17 05:45 04/28/17 00:07 Hydromorphone HCl (Dilaudid Pf Inj) 1 mg Q4H PRN IV PUSH pain 04/27/17 05:45 04/28/17 20:12 Heparin Sodium/ Dextrose 250 ml @ 18 mls/hr TITRATE PRN IV Coagulation Management 04/27/17 07:30 04/29/17 17:55 Senna/Docusate Sodium (Amairani-Colace) 1 tab BID PO 04/29/17 10:30 04/29/17 12:00 Objective Remarks GENERAL: Mr. John is a middle-aged male, he short and muscular build, he appears to be no acute distress is a pleasant disposition. SKIN: No rashes, ecchymoses or lesions. Cool and dry. HEAD: Atraumatic. Normocephalic. No temporal or scalp tenderness. EYES: Pupils equal round and reactive. Extraocular motions intact. No scleral icterus. No injection or drainage. ENT: Nose without bleeding, purulent drainage or septal hematoma. Throat without erythema, tonsillar hypertrophy or exudate. Uvula midline. Airway patent. NECK: Trachea midline. No JVD or lymphadenopathy. Supple, nontender, no meningeal signs. CARDIOVASCULAR: Regular rate and rhythm without murmurs, gallops, or rubs. RESPIRATORY: Pleural rub auscultated at the right base, good air movement bilaterally otherwise without any added rhonchi wheezes or crepitus. GASTROINTESTINAL: Abdomen is without distention, there is no obvious organ enlargement and no definite tenderness, positive bowel sounds, splenomegaly is not noted, the liver is palpable 2 cm below the costal margin on the right side with inspiration. MUSCULOSKELETAL: Extremities without clubbing, cyanosis, or edema. No joint tenderness, effusion, or edema noted. No calf tenderness. Negative Homans sign bilaterally. NEUROLOGICAL: Awake and alert. Cranial nerves II through XII intact. Motor and sensory grossly within normal limits. Five out of 5 muscle strength in all muscle groups. Normal speech. Assessment/Plan Assessment 56y/o male with pancreatic tail mass and liver lesions as well as newly diagnosed bilateral pulmonary emboli. Awaiting CT guided biopsy of one of the shared services representative liver masses later today. He remains on heparin drip for management of his bilateral pulmonary emboli. CA-19-9 level, CEA levels within normal limits. LDH level is raised more than 4 times the upper limit of normal. Plan 1. Pancreatic tail mass associated with liver masses: Await CT guided biopsy later today. Heparin drip will be put on hold 3-4 hours prior to procedure. I have communicated with the nursing staff as well as the invasive radiology department to communicate timing of the procedure. The patient has expressed his wishes to be discharged home after the procedure. Because he has no insurance, I will request our continuous pillowcase cutter to provide him with a coupon for either Eliquis or Xarelto that he may initiate as an outpatient hopefully free of charge or minimal cost. 2. Bilateral pulmonary emboli: Currently on heparin infusion, I will can transition him from heparin drip to an oral factor X a inhibitor after he completes the CT-guided biopsy. Outpatient follow-up will be scheduled me later this week to review the results of the biopsy and planned outpatient therapy. From an oncologic standpoint he may be discharged home after both of the following have been accomplished:1. he has safely undergone CT-guided liver biopsy and after he has been monitored to assess for bleeding as per interventional radiology protocols. 2. Arrangements for outpatient anticoagulation with either an oral factor X a inhibitor through a coupon or Lovenox with bridging to warfarin. Toño Galindo MD Apr 30, 2017 07:47
[2017-04-30] MEDS: DOCUSATE SODIUM 50 MG/SENNA 8.6 MG TAB PO SCH ×2 (09:00→21:00)
--- NOTE | 2017-04-30 09:59 | HHI.PR ---
Subjective Remarks Follow-up pancreatic mass with liver lesion/bilateral pulmonary emboli 04/28/17-patient seen and examined, some abdominal and chest pain with deep inspiration. Currently afebrile. Awaiting for possible CT-guided biopsy. Family by the bedside 04/29/17-patient seen and examined, reports some improvement of shortness of breath and denies any chest pain. No acute event overnight. 04/30/17-patient seen and examined, no acute event overnight and stable. Pending CT-guided biopsy Objective Vitals Vital Signs Date Time Temp Pulse Resp B/P (MAP) Pulse Ox O2 Delivery O2 Flow Rate FiO2 04/30/17 08:13 73 18 122/76 (91) 96 04/30/17 08:11 99.2 04/30/17 00:00 70 16 141/87 (105) 98 04/29/17 20:00 98.7 72 16 135/82 (99) 96 04/29/17 16:02 98.2 71 16 132/80 (97) 96 04/29/17 12:58 98.9 64 16 133/82 (99) 04/29/17 10:00 78 I/O 04/29/17 04/29/17 04/29/17 04/30/17 04/30/17 04/30/17 07:00 15:00 23:00 07:00 15:00 23:00 Intake Total 900 ml 240 ml Output Total 1700 ml 550 ml 550 ml Balance -800 ml -550 ml -310 ml Intake Oral 900 ml 240 ml Output Urine Total 1700 ml 550 ml 550 ml Result Diagram: 04/30/17 0606 04/28/17 0330 Objective Remarks GENERAL: NAD SKIN: Warm and dry. HEAD: Normocephalic. EYES: No scleral icterus. No injection or drainage. NECK: Supple, trachea midline. No JVD or lymphadenopathy. CARDIOVASCULAR: Regular rate and rhythm without murmurs, gallops, or rubs. RESPIRATORY: Breath sounds equal bilaterally. No accessory muscle use. GASTROINTESTINAL: Abdomen soft, non-tender, nondistended. MUSCULOSKELETAL: No cyanosis, or edema. BACK: Nontender without obvious deformity. No CVA tenderness. A/P Problem List: (1) Pulmonary embolism ICD Code: I26.99 - Other pulmonary embolism without acute cor pulmonale (2) Liver mass ICD Code: R16.0 - Hepatomegaly, not elsewhere classified (3) Pancreatic mass ICD Code: K86.9 - Disease of pancreas, unspecified Assessment and Plan 56 year-old man with Bilateral pulmonary emboli Currently on heparin drip Switch to Lovenox subcutaneous every 12 hours after biopsy 04/30/17 Pancreatic mass with liver lesions Appreciate input from oncology Awaiting for CT-guided biopsy of lesion today 04/30/17 Elevated LDH, normal CA-19-9 DVT prophylaxis: Heparin Problem Qualifiers (1) Pulmonary embolism: Modesto Grover MD Apr 30, 2017 09:59
[2017-04-30] MEDS ORDERED: LIDOCAINE HCL 1% 20 ML VIAL ONE (14:02)
[2017-04-30] MEDS ORDERED: MIDAZOLAM HCL 2 MG/2 ML VIAL ONE ×2 (14:17→14:51)
--- NOTE | 2017-04-30 15:30 | RADRPT ---
EXAM DATE/TIME: 04/30/2017 14:46 [facility] COMPARISON: No previous studies available for comparison. INDICATIONS : Liver mass. SEDATION TIME: 40 minutes BIOPSY SITE: liver MEDICATION(S): 1.) 4 mg midazolam (Versed) IV 2.) 200 mcg fentanyl (Sublimaze) IV DEVICE(S): 1.) 16 gauge Temno core biopsy needle MEDICAL HISTORY : pulmonary embolism SURGICAL HISTORY : None. ENCOUNTER: Initial ACUITY: 1 day PAIN SCORE: 0/10 LOCATION: Bilateral abdomen A total of one core specimen(s) were obtained and sent to the laboratory for pathologic evaluation. PROCEDURE: 1. CT guided liver biopsy. 2. Conscious sedation with continuous EKG and oximetry monitoring. 3. EKG and oximetry remained stable throughout the procedure. Prior to the procedure informed consent was obtained. Any appropriate prior imaging studies were rev iewed. Using automated exposure control and adjustment of the mA and/or kV according to patient size, radiat ion dose was kept as low as reasonably achievable to obtain optimal diagnostic quality images. DICOM format image data is available electronically for review and comparison. The site was prepped in a sterile fashion. Full sterile technique was used, including cap, mask, freeman rile gloves and gown and a large sterile sheet. Hand hygiene and 2% chlorhexidine and/or betadine/al cohol prep was utilized per protocol for cutaneous antisepsis. The skin and subcutaneous tissues wer e infiltrated with local anesthetic solution. With CT guidance the previously identified target was localized. Biopsy was performed using the presc ribed needle as above. Adequate hemostasis was obtained with compression at the puncture site. Follow-up CT scan reveals no hemorrhage. The patient tolerated the procedure well and there were no complications. The patient was returned to the Radiology Outpatient Unit in stable condition. CONCLUSION: Uncomplicated CT guided core liver mass biopsy. Gregor Lance MD on April 30, 2017 at 15:26 Board Certified Radiologist. This report was verified electronically.
--- NOTE | 2017-04-30 19:51 | ECHRPT ---
Indication: chf assessment CONCLUSIONS Normal left ventricular size. The left ventricular systolic function is low normal with an estimated ejection fraction in the rang e of 55- 60%. Mild mitral valve regurgitation. There is mild tricuspid valve regurgitation. The estimated pulmonary arterial pressure is 33 mmHg. BP: / HR: Rhythm: MEASUREMENTS (Male / Female) Normal Values Technical Quality:Good 2D ECHO LV Diastolic Diameter PLAX 4.1 cm 4.2 - 5.9 / 3.9 - 5.3 cm LV Systolic Diameter PLAX 3.2 cm IVS Diastolic Thickness 1.6 cm 0.6 - 1.0 / 0.6 - 0.9 cm LVPW Diastolic Thickness 1.0 cm 0.6 - 1.0 / 0.6 - 0.9 cm LV Relative Wall Thickness 0.6 RV Internal Dim ED PLAX 3.0 cm M-MODE Aortic Root Diameter MM 3.8 cm LA Systolic Diameter MM 3.8 cm LA Ao Ratio MM 1.0 AV Cusp Separation MM 2.4 cm DOPPLER Mitral E Point Velocity 43.9 cm/s Mitral A Point Velocity 69.6 cm/s Mitral E to A Ratio 0.6 LV E' Lateral Velocity 8.7 cm/s Mitral E to LV E' Lateral Ratio 5.1 LV E' Septal Velocity 5.6 cm/s Mitral E to LV E' Septal Ratio 7.9 TR Peak Velocity 238.0 cm/s TR Peak Gradient 22.7 mmHg Right Atrial Pressure 10.0 mmHg Pulmonary Artery Systolic Pressu 32.7 mmHg Right Ventricular Systolic Press 32.7 mmHg FINDINGS LEFT VENTRICLE Normal left ventricular size. The left ventricular systolic function is low normal with an estimated ejection fraction in the rang e of 55- 60%. RIGHT VENTRICLE Normal right ventricular size and systolic function. LEFT ATRIUM The left atrial size is normal. RIGHT ATRIUM The right atrial size is normal. ATRIAL SEPTUM Normal atrial septal thickness without atrial level shunting by limited color doppler interrogation. AORTA The aortic root and proximal ascending aorta are normal in size on limited imaging. MITRAL VALVE Structurally normal mitral valve. Mild mitral valve regurgitation. AORTIC VALVE Trileaflet aortic valve. No aortic valve regurgitation. No aortic valve stenosis. TRICUSPID VALVE Structurally normal tricuspid valve. There is mild tricuspid valve regurgitation. The estimated pulmonary arterial pressure is 32.7 mmHg. PULMONARY VALVE No pulmonary valve regurgitation or stenosis. VESSELS The inferior vena cava is normal in size. PERICARDIUM No pericardial effusion. Rachel Stewart MD, FACC (Electronically Signed) Final Date:30 April 2017 19:50
[2017-04-30] MEDS: SODIUM CHLORIDE 0.9% FLUSH 10 ML FLUSH IV FLUSH SCH (21:36)
[2017-05-01 01:03] VITALS: BP 140/82; PULSE 72; RESP 18; TEMP 98.4; O2SAT 96
[2017-05-01] MEDS: HYDROmorphone HCL PF 2 MG/ML VIAL IV PUSH PRN (01:05)
[2017-05-01 05:21] VITALS: BP 100/62; PULSE 70; RESP 18; TEMP 97.9; O2SAT 95
--- NOTE | 2017-05-01 07:54 | PD.ONC.PN ---
Subjective Subjective Remarks Patient seen and examined, vital signs, labs, medications, procedure note and procedure images were reviewed. Subjectively; patient reports having had abdominal pain associated with the biopsy last night, he received a single dose of hydromorphone and that relieved the pain. He slept for the rest at night. He is awake and alert this morning and feels well. He denies difficulty breathing, hemoptysis or pleuritic chest pain. He tells me he is looking forward to going home today. Objective Data Date Time Temp Pulse Resp B/P (MAP) Pulse Ox O2 Delivery O2 Flow Rate FiO2 05/01/17 05:21 97.9 70 18 100/62 (75) 95 05/01/17 01:03 98.4 72 18 140/82 (101) 96 04/30/17 21:34 98.4 75 18 130/78 (95) 96 04/30/17 17:10 77 16 113/52 (72) 95 04/30/17 17:00 97.5 71 18 140/82 (101) 95 04/30/17 16:40 75 16 102/65 (77) 95 04/30/17 16:10 74 16 117/78 (91) 94 04/30/17 15:40 77 16 111/62 (78) 93 04/30/17 15:25 97.9 77 16 120/67 (84) 90 04/30/17 08:13 73 18 122/76 (91) 96 04/30/17 08:11 99.2 05/01/17 05/01/17 05/01/17 07:00 15:00 23:00 Intake Total 240 ml Balance 240 ml Result Diagram: 04/30/17 0606 04/28/17 0330 Culture Results Microbiology Date/Time Source Procedure Growth Status 04/29/17 13:08 Stool Stool Stool Occult Blood (ANGLE) - Final HEMOCCULT NEGATIVE Complete Administered Medications Medications (Trade) Dose Ordered Sig/Mago Route PRN Reason Start Time Stop Time Status Last Admin Dose Admin Sodium Chloride (NS Flush) 2 ml BID IV FLUSH 04/27/17 09:00 04/30/17 21:36 Ondansetron HCl (Zofran Inj) 4 mg Q6H PRN IVP NAUSEA OR VOMITING 04/27/17 05:45 04/28/17 00:07 Hydromorphone HCl (Dilaudid Pf Inj) 1 mg Q4H PRN IV PUSH pain 04/27/17 05:45 05/01/17 01:05 Senna/Docusate Sodium (Amairani-Colace) 1 tab BID PO 04/29/17 10:30 04/29/17 12:00 Objective Remarks GENERAL: Mr. John is a middle-aged male, he short and muscular build, he appears to be no acute distress is a pleasant disposition. SKIN: No rashes, ecchymoses or lesions. Cool and dry. HEAD: Atraumatic. Normocephalic. No temporal or scalp tenderness. EYES: Pupils equal round and reactive. Extraocular motions intact. No scleral icterus. No injection or drainage. ENT: Nose without bleeding, purulent drainage or septal hematoma. Throat without erythema, tonsillar hypertrophy or exudate. Uvula midline. Airway patent. NECK: Trachea midline. No JVD or lymphadenopathy. Supple, nontender, no meningeal signs. CARDIOVASCULAR: Regular rate and rhythm without murmurs, gallops, or rubs. RESPIRATORY: Pleural rub auscultated at the right base, good air movement bilaterally otherwise without any added rhonchi wheezes or crepitus. GASTROINTESTINAL: Abdomen is without distention, there is no obvious organ enlargement and no definite tenderness, positive bowel sounds, splenomegaly is not noted, the liver is palpable 2 cm below the costal margin on the right side with inspiration. MUSCULOSKELETAL: Extremities without clubbing, cyanosis, or edema. No joint tenderness, effusion, or edema noted. No calf tenderness. Negative Homans sign bilaterally. NEUROLOGICAL: Awake and alert. Cranial nerves II through XII intact. Motor and sensory grossly within normal limits. Five out of 5 muscle strength in all muscle groups. Normal speech. Assessment/Plan Assessment 56y/o male with pancreatic tail mass and liver lesions as well as newly diagnosed bilateral pulmonary emboli. 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 He remains on heparin drip for management of his bilateral pulmonary emboli. CA-19-9 level, CEA levels within normal limits. LDH level is raised more than 4 times the upper limit of normal. Plan 1. Pancreatic tail mass associated with liver masses: CT-guided liver biopsy performed on 04/30/2017. Biopsy results expected in the next 48-72 hours. The heparin drip has been on hold since 4 hours prior to the procedure. This morning I will initiate the patient on Xarelto 15 MG by mouth twice a day as loading dose. I've requested the oncology physicians senior office assistant to provide the patient with a Xarelto coupon for him to have initiate outpatient therapy. 2. Bilateral pulmonary emboli: He will be transitioned to Xarelto 15 MG by mouth twice a day loading dose. I will schedule the patient for outpatient oncology follow-up with me on Sunday this week at my [place] office. We will review the results of the liver biopsy at that time. I did update the patient's in person about the plan of care including recommendations with regards to management of anticoagulation as well as outpatient follow-up. For management of pain of advised the patient to avoid nonsteroidal anti- inflammatories in any form, I mentioned aspirin, ibuprofen, Advil, naproxen and Aleve by name. He may be discharged home on a dose of tramadol 50 MG by mouth as needed every 8 hours, I would not write him more than 15 tablets. Toño Galindo MD May 01, 2017 07:54
[2017-05-01 08:17] VITALS: BP 130/76; PULSE 73; RESP 18; TEMP 97.5; O2SAT 94
[2017-05-01] MEDS: SODIUM CHLORIDE 0.9% FLUSH 10 ML FLUSH IV FLUSH SCH (08:25)
[2017-05-01] MEDS: DOCUSATE SODIUM 50 MG/SENNA 8.6 MG TAB PO SCH (08:30)
[2017-05-01] MEDS ORDERED: RIVAROXABAN 15 MG TAB PO SCH (09:00)
[2017-05-01] MEDS ORDERED: XARE15TA PO (10:27)
--- NOTE | 2017-05-01 10:31 | HHI.PR ---
Subjective Remarks Follow-up pancreatic mass with liver lesion/bilateral pulmonary emboli 04/28/17-patient seen and examined, some abdominal and chest pain with deep inspiration. Currently afebrile. Awaiting for possible CT-guided biopsy. Family by the bedside 04/29/17-patient seen and examined, reports some improvement of shortness of breath and denies any chest pain. No acute event overnight. 04/30/17-patient seen and examined, no acute event overnight and stable. Pending CT-guided biopsy 05/01/17-patient seen and examined status post CT-guided liver biopsy yesterday. No chest pain or shortness of breath with ambulation. Given first loading dose of Xarelto this morning Objective Vitals Vital Signs Date Time Temp Pulse Resp B/P (MAP) Pulse Ox O2 Delivery O2 Flow Rate FiO2 05/01/17 08:17 97.5 73 18 130/76 (94) 94 05/01/17 05:21 97.9 70 18 100/62 (75) 95 05/01/17 01:03 98.4 72 18 140/82 (101) 96 04/30/17 21:34 98.4 75 18 130/78 (95) 96 04/30/17 17:10 77 16 113/52 (72) 95 04/30/17 17:00 97.5 71 18 140/82 (101) 95 04/30/17 16:40 75 16 102/65 (77) 95 04/30/17 16:10 74 16 117/78 (91) 94 04/30/17 15:40 77 16 111/62 (78) 93 04/30/17 15:25 97.9 77 16 120/67 (84) 90 I/O 04/30/17 04/30/17 04/30/17 05/01/17 05/01/17 05/01/17 07:00 15:00 23:00 07:00 15:00 23:00 Intake Total 240 ml 240 ml Output Total 550 ml Balance -310 ml 240 ml Intake Oral 240 ml 240 ml Output Urine Total 550 ml # Voids 1 Result Diagram: 04/30/17 0606 04/28/17 0330 Imaging Last Impressions Liver Biopsy CT 04/30/17 0000 Signed Impressions: Service Date/Time: Sunday, April 30, 2017 14:46 - CONCLUSION: Uncomplicated CT guided core liver mass biopsy. Gregor Lance MD Chest X-Ray 04/27/17 0353 Signed Impressions: Service Date/Time: Thursday, April 27, 2017 04:02 - CONCLUSION: 1. Isolated platelike atelectasis posteromedially in the right lung base. Lungs otherwise clear. 2. Degenerative spurring of the dorsal spine. Damon Oden MD Lower Extremity Ultrasound 04/27/17 0000 Signed Impressions: Service Date/Time: Thursday, April 27, 2017 19:23 - CONCLUSION: Negative study. No venous thrombosis of either lower extremity. Gregor Santiago MD Chest CT 04/27/17 0000 Signed Impressions: Service Date/Time: Thursday, April 27, 2017 05:33 - CONCLUSION: 1. Bilateral pulmonary emboli, predominately involving the lower lobe pulmonary arteries. 2. Airspace consolidation posteriorly in the right base. While this could represent acute infiltrate, findings could also be associated with the right lower lobe pulmonary artery embolus. 3. Extensive metastatic disease to the liver. Mass lesion in the tail of the pancreas invading the splenic hilum. Damon Oden MD Abdomen/Pelvis CT 04/27/17 0000 Signed Impressions: Service Date/Time: Thursday, April 27, 2017 05:33 - CONCLUSION: 1. Postcontrast CT scan confirms multiple enhancing mass lesions characteristic of metastatic disease. Largest lesion in the hepatic dome measures 14 x 11 cm. 2. I believe the source of the metastatic disease is the pancreatic tail where there is a 6.2 x 6.9 cm mass lesion invading the splenic hilum and regional parenchyma. Concomitant nonocclusive thrombus in the adjacent splenic vein. 3. Bilateral pulmonary emboli. 4. Bilateral benign-appearing renal cortical cysts. 5. Bilateral inguinal hernias which only contains fat. Damon Oden MD Objective Remarks GENERAL: NAD SKIN: Warm and dry. HEAD: Normocephalic. EYES: No scleral icterus. No injection or drainage. NECK: Supple, trachea midline. No JVD or lymphadenopathy. CARDIOVASCULAR: Regular rate and rhythm without murmurs, gallops, or rubs. RESPIRATORY: Breath sounds equal bilaterally. No accessory muscle use. GASTROINTESTINAL: Abdomen soft, non-tender, nondistended. MUSCULOSKELETAL: No cyanosis, or edema. BACK: Nontender without obvious deformity. No CVA tenderness. Procedures none A/P Problem List: (1) Pulmonary embolism ICD Code: I26.99 - Other pulmonary embolism without acute cor pulmonale (2) Liver mass ICD Code: R16.0 - Hepatomegaly, not elsewhere classified (3) Pancreatic mass ICD Code: K86.9 - Disease of pancreas, unspecified Assessment and Plan 56 year-old man with Bilateral pulmonary emboli s/p heparin drip and currently on Xarelto 15 mg by mouth twice a day Assessment per hematology Pancreatic mass with liver lesions Appreciate input from oncology s/p CT-guided biopsy of liver lesion, 04/30/17 Elevated LDH, normal CA-19-9 DVT prophylaxis: Xarelto Problem Qualifiers (1) Pulmonary embolism: Modesto Grover MD May 01, 2017 10:31
--- NOTE | 2017-05-01 10:33 | HHI.DS ---
Discharge Summary Admission Date Apr 27, 2017 at 16:20 Discharge Date: May 01, 2017 Admitting Diagnosis Liver lesion ? cancer (1) Pulmonary embolism ICD Code: I26.99 - Other pulmonary embolism without acute cor pulmonale (2) Liver mass ICD Code: R16.0 - Hepatomegaly, not elsewhere classified (3) Pancreatic mass ICD Code: K86.9 - Disease of pancreas, unspecified Procedures none Brief History - From Admission Written by Jorge Clark, acting as scribe for Dr. Collier on 04/27/17 at 15:04. Patient is a pleasant 56-year-old male with no significant primary medical history who came into the hospital for evaluation of left chest pain, flank pain. at the bedside. Patient states that a few weeks ago he had right chest pain and went to the urgent care center was diagnosed with pneumonia and he was given prednisone and Levaquin. Then 2 days ago, he started to have left chest pain, flank pain described as stabbing, pinching pain. He denies any shortness of breath or dyspnea. Denies any fevers, chills , nausea, vomiting, diarrhea. States he continues to have some chest discomfort , left-sided, radiating to his back, 07/22, does not know what aggravates or alleviates the problem. Patient also states that he has not been eating well within the past 2 weeks and attributes it to having the pneumonia. CT of the chest showed 1. Bilateral pulmonary emboli, predominantly involving the lower lobe pulmonary arteries. 2. Airspace consolidation posteriorly in the right base. While this could represent acute infiltrate, findings could also be associated with a right lower lobe pulmonary artery embolus. 3. Extensive metastatic disease to the liver. Mass lesion in the tail the pancreas invading the splenic helium CT of the abdomen and pelvis showed 1. Post contrast CT scan confirms multiple enhancing mass lesions characteristic of metastatic disease. Largest lesion in the hepatic dome measures 14 x 11 cm. 2. It is believed that the source of the metastatic disease is the pancreatic tail where there is a 6.2 x 6.9 cm mass lesion invading the splenic helium and regional parenchyma. Concomitant nonocclusive thrombus in the adjacent splenic vein. 3. Bilateral pulmonary emboli. 4. Bilateral benign appearing renal cortical cyst.5. Bilateral inguinal hernias which only contains fat. Chest x-ray showed 1. Isolated platelike atelectasis posterior medially in the right lung base. Lungs otherwise clear. 2. Degenerative spurring of the dorsal spine. CBC/BMP: 04/30/17 0606 04/28/17 0330 Significant Findings Laboratory Tests Test 04/28/17 11:10 04/28/17 18:45 04/29/17 04:00 04/29/17 10:39 Activated Partial Thromboplast Time 42.0 SEC (24.3-30.1) 40.5 SEC (24.3-30.1) 41.4 SEC (24.3-30.1) Test 04/30/17 06:06 Mean Platelet Volume 6.9 FL (7.0-11.0) Activated Partial Thromboplast Time 45.9 SEC (24.3-30.1) Imaging Last Impressions Liver Biopsy CT 04/30/17 0000 Signed Impressions: Service Date/Time: Sunday, April 30, 2017 14:46 - CONCLUSION: Uncomplicated CT guided core liver mass biopsy. Gregor Lance MD Chest X-Ray 04/27/17 0353 Signed Impressions: Service Date/Time: Thursday, April 27, 2017 04:02 - CONCLUSION: 1. Isolated platelike atelectasis posteromedially in the right lung base. Lungs otherwise clear. 2. Degenerative spurring of the dorsal spine. Damon Oden MD Lower Extremity Ultrasound 04/27/17 0000 Signed Impressions: Service Date/Time: Thursday, April 27, 2017 19:23 - CONCLUSION: Negative study. No venous thrombosis of either lower extremity. Gregor Santiago MD Chest CT 04/27/17 0000 Signed Impressions: Service Date/Time: Thursday, April 27, 2017 05:33 - CONCLUSION: 1. Bilateral pulmonary emboli, predominately involving the lower lobe pulmonary arteries. 2. Airspace consolidation posteriorly in the right base. While this could represent acute infiltrate, findings could also be associated with the right lower lobe pulmonary artery embolus. 3. Extensive metastatic disease to the liver. Mass lesion in the tail of the pancreas invading the splenic hilum. Damon Oden MD Abdomen/Pelvis CT 04/27/17 0000 Signed Impressions: Service Date/Time: Thursday, April 27, 2017 05:33 - CONCLUSION: 1. Postcontrast CT scan confirms multiple enhancing mass lesions characteristic of metastatic disease. Largest lesion in the hepatic dome measures 14 x 11 cm. 2. I believe the source of the metastatic disease is the pancreatic tail where there is a 6.2 x 6.9 cm mass lesion invading the splenic hilum and regional parenchyma. Concomitant nonocclusive thrombus in the adjacent splenic vein. 3. Bilateral pulmonary emboli. 4. Bilateral benign-appearing renal cortical cysts. 5. Bilateral inguinal hernias which only contains fat. Damon Oden MD PE at Discharge GENERAL: NAD SKIN: Warm and dry. HEAD: Normocephalic. EYES: No scleral icterus. No injection or drainage. NECK: Supple, trachea midline. No JVD or lymphadenopathy. CARDIOVASCULAR: Regular rate and rhythm without murmurs, gallops, or rubs. RESPIRATORY: Breath sounds equal bilaterally. No accessory muscle use. GASTROINTESTINAL: Abdomen soft, non-tender, nondistended. MUSCULOSKELETAL: No cyanosis, or edema. BACK: Nontender without obvious deformity. No CVA tenderness. Hospital Course While in the hospital, patient was treated for: Bilateral pulmonary emboli s/p heparin drip and Started on Xarelto 15 mg by mouth twice a day on by hematology oncology Pancreatic mass with liver lesions Appreciate input from oncology s/p CT-guided biopsy of liver lesion pending biopsy report, 04/30/17 Elevated LDH, normal CA-19-9 DVT prophylaxis: Xarelto Pt Condition on Discharge: Good Discharge Disposition: Discharge Home Discharge Time: <= 30 minutes Discharge Instructions DIET: Follow Instructions for: Heart Healthy Diet Activities you can perform: Regular-No Restrictions Follow up Referrals: Oncology - 1 Week PCP Follow-up - 1 Week New Medications: Rivaroxaban (Xarelto) 15 Mg Tab 15 MG PO BID for Prevent Blood Clot, #60 TAB 3 Refills Modesto Grover MD May 01, 2017 10:33
== END 2017-05-01 11:02 | disposition home or self-care (01) | DRG 176 ==
LOC: NEPE 00:42 → NEDA 05:54 → NEDH 10:06 → NEPHCDU 12:59 → OBSVTOIN 16:20 → HCIN 23:58
PROVIDERS: ADMIT Hospitalist; ATTEND Hospitalist
PROC: 0FB03ZX Excision of Liver, Percutaneous Approach, Diagnostic (ICD-10-PCS; principal; 2017-04-30)
DX: I26.99 Other pulmonary embolism without acute cor pulmonale (principal); R16.0 Hepatomegaly, not elsewhere classified; K86.9 Disease of pancreas, unspecified
CPT/HCPCS: 47000; 71046; 71260; 74176; 74177; 77012; 80048; 80053; 81001; 82272; 82378; 83615; 83690; 84484; 85025; 85027; 85610; 85730; 86301; 88307; 88341; 88342; 93308; 93970; 96374; 96375; J1170; J1644; J1885; J2250; J2270; J2405; J3010; J7030; Q9967

== ENCOUNTER 2017-05-06 02:47 | Inpatient (IN) | payer BC ==
[2017-05-06] VITALS (17 sets, daily range): BP systolic 107–128; BP diastolic 66–74; PULSE 65–88; RESP 16–18; TEMP 97.3–98.8; O2SAT 95–99
[~2017-05-06 02:47] MED LIST changes: +XARE15TA PO; -Z.0.NO CURRENT MEDS
[2017-05-06] MEDS ORDERED: IOHEXOL 350 MG/ML 10 ML VIAL (for RAD DIAG) IVCONTRAST ONE (02:48)
[2017-05-06] MEDS ORDERED: SODIUM CHLOR 0.9% 1000 ML INJ 1,000 ML IV SCH (03:45)
--- NOTE | 2017-05-06 03:51 | PD ---
HPI Chief Complaint: Pain: Acute or Chronic Time Seen by Provider: 03:45 Travel History International Travel<30 days: No Contact w/Intl Traveler<30days: No Traveled to known affect area: No History of Present Illness HPI 56-year-old male presents to the emergency department by private vehicle for complaint of severe truncal pain. Patient complains of chest pain and abdominal pain. Patient reports intermittent severe spasms of the chest and abdomen. No nausea no vomiting no diarrhea no melena no hematochezia and no coffee-ground emesis or hematemesis. Patient is currently on Xarelto for recent diagnosis of bilateral pulmonary embolism and is also diagnosed with multiple lesions of the liver with recent anticipated diagnosis of hepatocellular carcinoma. Patient had biopsy and was told that he does not have lymphoma and does not have pancreatic cancer. Patient has severe pain on evening that resolved spontaneously was seen by his oncologist Dr. Galindo on Sunday who has ordered some further diagnostic testing and offered the patient some pain medication the patient declined pain medication and was having no symptoms on Sunday when being evaluated by oncology. Patient did well all day Sunday and most of Sunday but Sunday evening had an episode of severe abdominal pain and chest pain. Patient presents now because of recurrent spasm type pain to the chest and abdomen. Presently patient is pain- free. Patient states pain is so severe that he does break out into a sweat and feels near syncopal but has had no loss of consciousness. Patient denies other concerns or complaints. 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) Neurologic: No Psychiatric: No Reproductive: No Respiratory: Yes (PE) Immunizations Current: Yes Radiation Therapy: No Sleep Apnea: No Thyroid Disease: No Past Surgical History Other Surgery: Yes Social History Alcohol Use: No Tobacco Use: No Substance Use: No Allergies-Medications (Allergen,Severity, Reaction): Coded Allergies: No Known Allergies (Verified Allergy, Unknown, 05/06/17) Reported Meds & Prescriptions Reported Meds & Active Scripts Active Xarelto (Rivaroxaban) 15 Mg Tab 15 Mg PO BID Review of Systems Except as stated in HPI: all other systems reviewed are Neg General / Constitutional: No: Fever, Chills HENT: No: Congestion Cardiovascular: Positive: Diaphoresis, No: Chest Pain or Discomfort Respiratory: No: Shortness of Breath Gastrointestinal: Positive: Nausea, Abdominal Pain (Intermittent crampy right upper quadrant), No: Vomiting Genitourinary: Positive: Flank Pain, No: Dysuria, Hematuria Musculoskeletal: No: Myalgias (Right-sided), Arthralgias, Weakness, Cramping, Edema, Pain Skin: No Rash Neurologic: No: Weakness, Dizziness, Syncope, Focal Abnormalities, Coordination Problem Psychiatric: No: Anxiety Endocrine: No: Heat Intolerance, Cold Intolerance Hematologic/Lymphatic: No: Easy Bruising Physical Exam Narrative GENERAL: Well-developed well-nourished male no acute distress no respiratory distress SKIN: Warm and dry. HEAD: Normocephalic. EYES: No scleral icterus. No injection or drainage. NECK: Supple, trachea midline. No JVD or lymphadenopathy. CARDIOVASCULAR: Regular rate and rhythm without murmurs, gallops, or rubs. RESPIRATORY: Breath sounds equal bilaterally. No accessory muscle use. GASTROINTESTINAL: Abdomen soft, non-tender, nondistended. MUSCULOSKELETAL: No cyanosis, or edema. BACK: Nontender without obvious deformity. No CVA tenderness. Data Data Last Documented VS Vital Signs Date Time Temp Pulse Resp B/P (MAP) Pulse Ox O2 Delivery O2 Flow Rate FiO2 05/06/17 04:25 73 16 107/66 (80) 98 Room Air 05/06/17 02:51 97.3 Orders Orders Complete Blood Count With Diff (05/06/17 03:45) Comprehensive Metabolic Panel (05/06/17 03:45) Lipase (05/06/17 03:45) Lactic Acid (05/06/17 03:45) Prothrombin Time / Inr (Pt) (05/06/17 03:45) Act Partial Throm Time (Ptt) (05/06/17 03:45) Urinalysis - C+S If Indicated (05/06/17 03:45) Iv Access Insert/Monitor (05/06/17 03:45) Ecg Monitoring (05/06/17 03:45) Oximetry (05/06/17 03:45) Sodium Chlor 0.9% 1000 Ml Inj (Ns 1000 M (05/06/17 03:45) Sodium Chloride 0.9% Flush (Ns Flush) (05/06/17 03:45) Electrocardiogram (05/06/17 03:45) Chest, Single Ap (05/06/17 03:45) Troponin I (05/06/17 03:45) Magnesium (Mg) (05/06/17 03:45) Morphine Inj (Morphine Inj) (05/06/17 04:30) Ondansetron Inj (Zofran Inj) (05/06/17 04:30) Ct Pulmonary Angiogram (05/06/17 ) Ct Abd/Pel W Iv Contrast(Rout) (05/06/17 ) Iohexol 350 Inj (Omnipaque 350 Inj) (05/06/17 02:48) Hydromorphone Pf Inj (Dilaudid Pf Inj) (05/06/17 07:00) Labs Laboratory Tests Test 05/06/17 03:45 White Blood Count 9.5 TH/MM3 Red Blood Count 4.42 MIL/MM3 Hemoglobin 13.8 GM/DL Hematocrit 39.7 % Mean Corpuscular Volume 89.8 FL Mean Corpuscular Hemoglobin 31.1 PG Mean Corpuscular Hemoglobin Concent 34.7 % Red Cell Distribution Width 13.5 % Platelet Count 307 TH/MM3 Mean Platelet Volume 7.3 FL Neutrophils (%) (Auto) 81.0 % Lymphocytes (%) (Auto) 10.3 % Monocytes (%) (Auto) 7.9 % Eosinophils (%) (Auto) 0.5 % Basophils (%) (Auto) 0.3 % Neutrophils # (Auto) 7.7 TH/MM3 Lymphocytes # (Auto) 1.0 TH/MM3 Monocytes # (Auto) 0.8 TH/MM3 Eosinophils # (Auto) 0.0 TH/MM3 Basophils # (Auto) 0.0 TH/MM3 CBC Comment DIFF FINAL Differential Comment Prothrombin Time 12.7 SEC Prothromb Time International Ratio 1.3 RATIO Activated Partial Thromboplast Time 26.4 SEC Blood Urea Nitrogen 23 MG/DL Creatinine 1.02 MG/DL Random Glucose 126 MG/DL Total Protein 7.1 GM/DL Albumin 3.2 GM/DL Calcium Level 9.0 MG/DL Magnesium Level 1.8 MG/DL Alkaline Phosphatase 451 U/L Aspartate Amino Transf (AST/SGOT) 412 U/L Alanine Aminotransferase (ALT/SGPT) 536 U/L Total Bilirubin 2.2 MG/DL Sodium Level 138 MEQ/L Potassium Level 4.0 MEQ/L Chloride Level 103 MEQ/L Carbon Dioxide Level 23.3 MEQ/L Anion Gap 12 MEQ/L Estimat Glomerular Filtration Rate 75 ML/MIN Lactic Acid Level 1.5 mmol/L Troponin I LESS THAN 0.02 NG/ML Lipase 185 U/L MDM Medical Decision Making Medical Screen Exam Complete: Yes Emergency Medical Condition: Yes Medical Record Reviewed: Yes Interpretation(s) EKG normal sinus rhythm no acute ST elevation injury pattern or ectopy noted Vital Signs Date Time Temp Pulse Resp B/P (MAP) Pulse Ox O2 Delivery O2 Flow Rate FiO2 05/06/17 04:25 73 16 107/66 (80) 98 Room Air 05/06/17 03:47 16 98 Room Air 05/06/17 03:12 82 16 119/72 (88) 98 Room Air 05/06/17 02:51 97.3 88 16 128/74 (92) 99 CBC & BMP Diagram 05/06/17 03:45 Total Protein 7.1, Albumin 3.2 L, Calcium Level 9.0, Magnesium Level 1.8, Alkaline Phosphatase 451 H, Aspartate Amino Transf (AST/SGOT) 412 H, Alanine Aminotransferase (ALT/SGPT) 536 H, Total Bilirubin 2.[address] pulmonary angiogram: CONCLUSION: 1. Pulmonary emboli with a long thin saddle embolus which crosses from the right main pulmonary artery into the left. Smaller bilateral areas of pulmonary emboli present as well. 2. Small area consolidation in the right lower lobe. Ehsan Argueta MD on May 06, 2017 at 6:58 Board Certified Radiologist. This report was verified electronically. CT abd/pel: CONCLUSION: 1. The large tumor mass in the central liver appear slightly larger in size. There are additional metastatic lesions in the liver which are not significant change. 2. The gallbladder is more prominent and now contains a central area of high density which is concerning for possible hemorrhage or blood clot. Vicarious excretion of contrast contrast into the gallbladder can have a similar appearance however usually appears more homogeneous and diffuse. 3. The central splenic mass is not significantly changed. 4. Bilateral renal cysts. Ehsan Argueta MD on May 06, 2017 at 7:04 Board Certified Radiologist. This report was verified electronically. Differential Diagnosis Breakthrough pain, ACS, UT, extending PE, inadequate anticoagulation, intra- abdominal viscus injury anemia and electrolyte disturbance bowel obstruction Narrative Course IV access obtained specimens collected and sent for resulting EKG performed Patient with episode of severe pain administered morphine sulfate 4 mg IV and Zofran 4 mg IV as well as maintenance fluids at 1 25 cc an hour patient's vital signs stable Lab values resulted and patient identified to have acutely worsening liver functions patient continues to complain of increased pain additional pain medicine administered and patient sent for CT abdomen and pelvis as well as CT pulmonary angiogram CT pulmonary injury gram now shows a saddle embolism as well as shows worsening mass formation in the liver and concern for blood in the gallbladder. Patient is on Xarelto. Concern is that episodic severe pain is related to potentially biliary colic secondary to gallbladder expanding due to blood in the gallbladder. 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 Physician Communication Physician Communication discussed with Dr Rowland Diagnosis Primary Impression: Liver mass Additional Impression: Pulmonary embolism Qualified Codes: I26.92 - Saddle embolus of pulmonary artery without acute cor pulmonale Admitting Information Admitting Physician Requests: Admit Ivy Jay MD May 06, 2017 03:51
[2017-05-06 04:20] LABS: ALBUMIN 3.2 GM/DL (3.4-5.0); ALT (GPT) 536 U/L (12-78); AST (GOT) 412 U/L (15-37); AUTOMATED NEUTROPHIL # 7.7 TH/MM3 (1.8-7.7); BASOPHIL % 0.3 % (0.0-2.0); BICARBONATE 23.3 MEQ/L (21.0-32.0); BLOOD UREA NITROGEN 23 MG/DL (7-18); CHLORIDE 103 MEQ/L (98-107); CREATININE 1.02 MG/DL (0.60-1.30); EOSINOPHIL % 0.5 % (0.0-4.0); GLOMERULAR FILTRATION RATE 75 ML/MIN (>89); GLUCOSE,RANDOM 126 MG/DL (74-106); HEMATOCRIT 39.7 % (39.0-51.0); HEMOGLOBIN 13.8 GM/DL (13.0-17.0); LYMPH % 10.3 % (9.0-44.0); MAGNESIUM 1.8 MG/DL (1.5-2.5); MEAN CELL VOLUME 89.8 FL (80.0-100.0); MEAN CORPUSCULAR HEMOGLOBIN 31.1 PG (27.0-34.0); MEAN CORPUSCULAR HGB CONC 34.7 % (32.0-36.0); MEAN PLATELET VOLUME 7.3 FL (7.0-11.0); MONO % 7.9 % (0.0-8.0); MONOCYTE # 0.8 TH/MM3 (0-0.9); PLATELET COUNT 307 TH/MM3 (150-450); RED BLOOD COUNT 4.42 MIL/MM3 (4.50-5.90); RED CELL DISTRIBUTION WIDTH 13.5 % (11.6-17.2); SODIUM (NA) 138 MEQ/L (136-145); WHITE BLOOD COUNT 9.5 TH/MM3 (4.0-11.0)
[2017-05-06 04:25] LABS: ALKALINE PHOSPHATASE 451 U/L (45-117); TOTAL BILIRUBIN ADULT 2.2 MG/DL (0.2-1.0); TOTAL PROTEIN 7.1 GM/DL (6.4-8.2); TROPONIN I LESS THAN 0.02 NG/ML (0.02-0.05)
[2017-05-06 04:26] LABS: INTERNATIONAL NORMALIZED RATIO 1.3 RATIO; PROTHROMBIN TIME - PATIENT 12.7 SEC (9.8-11.6)
[2017-05-06] MEDS ORDERED: ONDANSETRON HCL 4 MG/2 ML VIAL IV PUSH ONE (04:30)
[2017-05-06] MEDS ORDERED: MORPHINE SULFATE 2 MG/ML SYRINGE IV PUSH ONE (04:30)
--- NOTE | 2017-05-06 04:44 | RADRPT ---
EXAM DATE/TIME: 05/06/2017 03:55 [facility] COMPARISON: No previous studies available for comparison. INDICATIONS : Chest pain. Please evaluate for free air. MEDICAL HISTORY : Pulmonary embolism SURGICAL HISTORY : None. ENCOUNTER: Initial ACUITY: 1 day PAIN SCORE: 10/10 LOCATION: Bilateral chest FINDINGS: A single view of the chest demonstrates the lungs to be symmetrically aerated without evidence of mas s, infiltrate or effusion. The cardiomediastinal contours are unremarkable. Osseous structures are intact. There is no evidence of free air. The upper abdomen is unremarkable. CONCLUSION: No acute disease. There is no evidence of free air. Ehsan Argueta MD on May 06, 2017 at 4:40 Board Certified Radiologist. This report was verified electronically.
[2017-05-06] MEDS ORDERED: HYDROmorphone HCL PF 2 MG/ML VIAL IV PUSH ONE (07:00)
--- NOTE | 2017-05-06 07:06 | RADRPT ---
EXAM DATE/TIME: 05/06/2017 06:19 [facility] COMPARISON: CHEST SINGLE AP, May 06, 2017, 3:55. INDICATIONS : Shortnee sof breath. History of emoli. IV CONTRAST: 75 cc Omnipaque 350 (iohexol) IV ; Cumulative dose for multiple exams. RADIATION DOSE: 21.45 CTDIvol (mGy) MEDICAL HISTORY : Chronic obstructive pulmonary disease. Carcinoma, pancreas. Liver cancer PE SURGICAL HISTORY : None. ENCOUNTER: Initial ACUITY: 1 day PAIN SCALE: 0/10 LOCATION: Bilateral chest TECHNIQUE: Volumetric scanning of the chest was performed using a pulmonary embolism protocol MIP images were re constructed. Using automated exposure control and adjustment of the mA and/or kV according to patien t size, radiation dose was kept as low as reasonably achievable to obtain optimal diagnostic quality images. DICOM format image data is available electronically for review and comparison. Follow-up recommendations for detected pulmonary nodules are based at a minimum on nodule size and pa tient risk factors according to Fleischner Society Guidelines. FINDINGS: PULMONARY ARTERIES: There is a 6 cm long 1 cm wide pulmonary embolus extending across the right mainstem bronchus across and into the left mainstem bronchus. The main pulmonary trunk is patent with no filling defects. Ther e are small areas of bilateral pulmonary emboli in the lower lobes and right upper lobe. LUNGS: There is no pneumothorax . The is a small area of consolidation in the right lower lobe which could i ndicate a small area of pneumonia. Lungs otherwise clear. No concerning pulmonary nodule is visualize d. PLEURAE: There is no pleural thickening or pleural effusion. MEDIASTINUM: There is good visualization of the great vessels of the middle mediastinum. No evidence of mediastin al or hilar adenopathy/mass. MUSCULOSKELETAL: Within normal limits for patient age. MISCELLANEOUS: The visualized upper abdominal organs demonstrate no acute abnormality. CONCLUSION: 1. Pulmonary emboli with a long thin saddle embolus which crosses from the right main pulmonary arter y into the left. Smaller bilateral areas of pulmonary emboli present as well. 2. Small area consolidation in the right lower lobe. Ehsan Argueta MD on May 06, 2017 at 6:58 Board Certified Radiologist. This report was verified electronically.
--- NOTE | 2017-05-06 07:16 | RADRPT ---
EXAM DATE/TIME: 05/06/2017 06:19 [place] COMPARISON: CT ABDOMEN & PELVIS W CONTRAST, April 27, 2017, 5:33. INDICATIONS : Abdomen pain. Metastatic cancer.. IV CONTRAST: 75 cc Omnipaque 350 (iohexol) IV ; Cumulative dose for multiple exams. ORAL CONTRAST: No oral contrast ingested. RADIATION DOSE: 10.16 CTDIvol (mGy) MEDICAL HISTORY : Chronic obstructive pulmonary disease. Carcinoma, pancreas. Liver cancer SURGICAL HISTORY : None. ENCOUNTER: Initial ACUITY: 1 day PAIN SCALE: 6/10 LOCATION: abdomen TECHNIQUE: Volumetric scanning of the abdomen and pelvis was performed. Using automated exposure control and adjustment of the mA and/or kV according to patient size, radiation dose was kept as low as reasonably achievable to obtain optimal diagnostic quality images. DICOM format image data is av ailable electronically for review and comparison. FINDINGS: LOWER LUNGS: There is an area consolidation again noted in the right lower lobe. LIVER: Metastatic disease is again noted involving a large portion of the liver. Large central ma ss appears slightly increased in size measures up to approximately 15.5 by 12.6 cm on the current oren dy. There are smaller scattered areas of metastatic disease which do not appear significantly changed . The gallbladder is more prominent and now contains a central area of high density of concern for po ssible hemorrhage. This is new from the prior study. SPLEEN: Stable appearance with large ill-defined mass again noted centrally. PANCREAS: Within normal limits. KIDNEYS: Normal in size and shape. There is no solid mass, stone or hydronephrosis. There are bi lateral simple cysts again noted. ADRENAL GLANDS: Within normal limits. VASCULAR: There is no aortic aneurysm. BOWEL/MESENTERY: The stomach, small bowel, and colon demonstrate no acute abnormality. There is no free intraperitoneal air or fluid. ABDOMINAL WALL: Within normal limits. RETROPERITONEUM: There is no lymphadenopathy. BLADDER: No wall thickening or mass. REPRODUCTIVE: Within normal limits. INGUINAL: There is no lymphadenopathy or hernia. MUSCULOSKELETAL: Within normal limits for patient age. CONCLUSION: 1. The large tumor mass in the central liver appear slightly larger in size. There are additional met astatic lesions in the liver which are not significant change. 2. The gallbladder is more prominent and now contains a central area of high density which is concern ing for possible hemorrhage or blood clot. Vicarious excretion of contrast contrast into the gallblad hay can have a similar appearance however usually appears more homogeneous and diffuse. 3. The central splenic mass is not significantly changed. 4. Bilateral renal cysts. Ehsan Argueta MD on May 06, 2017 at 7:04 Board Certified Radiologist. This report was verified electronically.
[2017-05-06] MEDS ORDERED: KETOROLAC TROMETHAMINE 30 MG/ML (IVP) VIAL IV PUSH ONE (08:15)
[2017-05-06] MEDS ORDERED: RESP: ALBUTEROL 2.5 MG/IPRATROPIUM 0.5 MG NEB (PRN) INH (09:00)
[2017-05-06] MEDS ORDERED: HYDROmorphone HCL PF 2 MG/ML VIAL IV PUSH PRN (09:00)
[2017-05-06] MEDS ORDERED: oxyCODONE/ACETAMINOPHEN 5 MG/325 MG TAB PO PRN (09:00)
[2017-05-06] MEDS: SODIUM CHLOR 0.9% 1000 ML INJ 1,000 ML IV SCH ×2 (11:15→22:09)
[2017-05-06] MEDS: PANTOPRAZOLE SODIUM 40 MG VIAL IV PUSH SCH (11:16)
[2017-05-06] MEDS: RIVAROXABAN 15 MG TAB PO SCH ×2 (11:17→22:08)
--- NOTE | 2017-05-06 11:18 | PD.CONS ---
HPI Service [facility] Consult Requested By Primary Care Physician No Primary Care Physician Diagnoses: History of Present Illness Mr. Chavez is a 56-year-old male. He came into the hospital secondary to severe upper abdominal pain. The pain also included his chest. This patient has a history of liver cancer and has been on Xarelto as an outpatient. No signs of active bleeding reported by the patient such as bright red blood per rectum, melena, or hematemesis. At his last hospitalization he was diagnosed with hepatocellular carcinoma. Subtle pulmonary embolus was diagnosed about one week ago when he was here for his abdominal pain related to liver cancer. He has been on a blood thinner since then first heparin and presently he is on Xarelto. Imaging today shows evidence of also hematoma at the gallbladder. Pain is improved and patient is seen. Etiology is likely biliary colic and may be related to obstruction versus hematoma. Review of Systems Constitutional: DENIES: Fatigue, Fever, Chills Eyes: DENIES: Blurred vision, Diplopia, Eye inflammation, Eye pain Ears, nose, mouth, throat: DENIES: Tinnitus, Hearing loss, Vertigo Respiratory: DENIES: Cough, Wheezing, Shortness of breath Cardiovascular: COMPLAINS OF: Chest pain, DENIES: Palpitations, Syncope Gastrointestinal: COMPLAINS OF: Abdominal pain, DENIES: Black stools, Bloody stools Musculoskeletal: DENIES: Joint pain, Muscle aches, Stiffness, Joint Swelling Integumentary: DENIES: Abnormal pigmentation, Nail changes, Pruritus, Rash Hematologic/lymphatic: DENIES: Bruising, Lymphadenopathy Immunologic/allergic: DENIES: Eczema, Urticaria Neurologic: DENIES: Abnormal gait, Headache, Paresthesias Psychiatric: DENIES: Anxiety, Confusion, Hallucinations Past Family Social History Allergies: Coded Allergies: No Known Allergies (Verified Allergy, Unknown, 05/06/17) Past Medical History Liver cancer Hepatocellular carcinoma Pulmonary embolism Past Surgical History Liver biopsy Reported Medications Reported Meds & Active Scripts Active Xarelto (Rivaroxaban) 15 Mg Tab 15 Mg PO BID Active Ordered Medications Administered Medications Medications (Trade) Dose Ordered Sig/Mago Route PRN Reason Start Time Stop Time Status Last Admin Dose Admin Sodium Chloride 1,000 ml @ 125 mls/hr Q8H IV 05/06/17 03:45 05/06/17 11:44 05/06/17 03:52 Social History No smoking No Alcohol abuse No Illicit drug abuse Physical Exam Vital Signs Vital Signs Date Time Temp Pulse Resp B/P (MAP) Pulse Ox O2 Delivery O2 Flow Rate FiO2 05/06/17 09:13 98.1 74 16 123/71 (88) 95 05/06/17 08:16 98.6 71 18 121/68 (85) 96 Room Air 05/06/17 04:25 73 16 107/66 (80) 98 Room Air 05/06/17 03:47 16 98 Room Air 05/06/17 03:12 82 16 119/72 (88) 98 Room Air 05/06/17 02:51 97.3 88 16 128/74 (92) 99 Physical Exam GENERAL: This is a well-nourished, well-developed patient, in no apparent distress. SKIN: No rashes, ecchymoses or lesions. Cool and dry. HEAD: Atraumatic. Normocephalic. No temporal or scalp tenderness. EYES: Pupils equal round and reactive. Extraocular motions intact. No scleral icterus. No injection or drainage. ENT: Nose without bleeding, purulent drainage or septal hematoma. Throat without erythema, tonsillar hypertrophy or exudate. Uvula midline. Airway patent. NECK: Trachea midline. No JVD or lymphadenopathy. Supple, nontender, no meningeal signs. CARDIOVASCULAR: Regular rate and rhythm without murmurs, gallops, or rubs. RESPIRATORY: Clear to auscultation. Breath sounds equal bilaterally. No wheezes , rales, or rhonchi. GASTROINTESTINAL: Abdomen soft, non-tender, nondistended. No hepato-splenomegaly , or palpable masses. No guarding. MUSCULOSKELETAL: Extremities without clubbing, cyanosis, or edema. No joint tenderness, effusion, or edema noted. No calf tenderness. Negative Homans sign bilaterally. NEUROLOGICAL: Awake and alert. Cranial nerves II through XII intact. Motor and sensory grossly within normal limits. Five out of 5 muscle strength in all muscle groups. Normal speech. Laboratory Laboratory Tests Test 05/06/17 03:45 White Blood Count 9.5 Red Blood Count 4.42 Hemoglobin 13.8 Hematocrit 39.7 Mean Corpuscular Volume 89.8 Mean Corpuscular Hemoglobin 31.1 Mean Corpuscular Hemoglobin Concent 34.7 Red Cell Distribution Width 13.5 Platelet Count 307 Mean Platelet Volume 7.3 Neutrophils (%) (Auto) 81.0 Lymphocytes (%) (Auto) 10.3 Monocytes (%) (Auto) 7.9 Eosinophils (%) (Auto) 0.5 Basophils (%) (Auto) 0.3 Neutrophils # (Auto) 7.7 Lymphocytes # (Auto) 1.0 Monocytes # (Auto) 0.8 Eosinophils # (Auto) 0.0 Basophils # (Auto) 0.0 CBC Comment DIFF FINAL Differential Comment Prothrombin Time 12.7 Prothromb Time International Ratio 1.3 Activated Partial Thromboplast Time 26.4 Blood Urea Nitrogen 23 Creatinine 1.02 Random Glucose 126 Total Protein 7.1 Albumin 3.2 Calcium Level 9.0 Magnesium Level 1.8 Alkaline Phosphatase 451 Aspartate Amino Transf (AST/SGOT) 412 Alanine Aminotransferase (ALT/SGPT) 536 Total Bilirubin 2.2 Sodium Level 138 Potassium Level 4.0 Chloride Level 103 Carbon Dioxide Level 23.3 Anion Gap 12 Estimat Glomerular Filtration Rate 75 Lactic Acid Level 1.5 Troponin I LESS THAN 0.02 Lipase 185 Result Diagram: 05/06/17 0345 05/06/17 0345 Assessment and Plan Problem List: (1) Liver mass ICD Code: R16.0 - Hepatomegaly, not elsewhere classified (2) Pulmonary embolism ICD Code: I26.99 - Other pulmonary embolism without acute cor pulmonale (3) Pancreatic mass ICD Code: K86.9 - Disease of pancreas, unspecified Assessment and Plan 56-year-old male admitted secondary to acute abdominal pain and presence of saddle embolus pulmonary emboli, on Xarelto with new finding of possible gallbladder hematoma. Abdominal pain Biliary colic Possible biliary hematoma versus obstruction Xarelto on hold Monitor respiratory status Consult gastroenterology Consult general surgery Continue pain treatment is needed Continue a regular diet for now Bilateral pulmonary emboli Saddle pulmonary embolus Xarelto on hold as above Monitor respiratory status Hepatocellular carcinoma Specification of identification pending Oncology has been consulted Treatments pending final diagnosis DVT prophylaxis SCDs Problem Qualifiers (1) Pulmonary embolism: Qualified Codes: I26.92 - Saddle embolus of pulmonary artery without acute cor pulmonale Alfonso Iyer MD May 06, 2017 11:18
--- NOTE | 2017-05-06 13:54 | HHI.HP ---
[facility] Primary Care Physician Admission Diagnosis abdominal pain; metastatic hepatocellular CA; saddle pulmonary embol Diagnoses: (1) Liver mass (2) Pulmonary embolism (3) Pancreatic mass Travel History International Travel<30 Days: No Contact w/Intl Traveler <30 Da: No Traveled to Known Affected Are: No History of Present Illness Mr. Chavez is a 56-year-old male. He came into the hospital secondary to severe upper abdominal pain. The pain also included his chest. This patient has a history of liver cancer and has been on Xarelto as an outpatient. No signs of active bleeding reported by the patient such as bright red blood per rectum, melena, or hematemesis. At his last hospitalization he was diagnosed with hepatocellular carcinoma. Subtle pulmonary embolus was diagnosed about one week ago when he was here for his abdominal pain related to liver cancer. He has been on a blood thinner since then first heparin and presently he is on Xarelto. Imaging today shows evidence of also hematoma at the gallbladder. Pain is improved and patient is seen. Etiology is likely biliary colic and may be related to obstruction versus hematoma. Review of Systems Constitutional: DENIES: Fatigue, Fever, Chills Eyes: DENIES: Blurred vision, Diplopia, Eye inflammation, Eye pain Ears, nose, mouth, throat: DENIES: Vertigo, Nasal discharge, Oral lesions Cardiovascular: DENIES: Chest pain, Palpitations, Syncope Gastrointestinal: COMPLAINS OF: Abdominal pain, DENIES: Black stools, Bloody stools, Constipation Musculoskeletal: DENIES: Joint pain, Muscle aches, Stiffness Integumentary: DENIES: Abnormal pigmentation, Nail changes, Pruritus, Rash Hematologic/lymphatic: DENIES: Bruising, Lymphadenopathy Immunologic/allergic: DENIES: Eczema, Urticaria Neurologic: DENIES: Abnormal gait, Headache, Paresthesias Psychiatric: DENIES: Anxiety, Confusion, Hallucinations Past Family Social History Past Medical History Liver cancer Hepatocellular carcinoma Pulmonary embolism Past Surgical History Liver biopsy Reported Medications Reported Meds & Active Scripts Active Xarelto (Rivaroxaban) 15 Mg Tab 15 Mg PO BID Allergies: Coded Allergies: No Known Allergies (Verified Allergy, Unknown, 3/25/18) Family History Mother with breast cancer, brother with lung cancer who is a smoker Father has heart disease Social History No smoking No alcohol abuse No illicit drug abuse Physical Exam Vital Signs Vital Signs Date Time Temp Pulse Resp B/P (MAP) Pulse Ox O2 Delivery O2 Flow Rate FiO2 05/06/17 13:02 97.9 66 18 112/71 (85) 96 05/06/17 09:13 98.1 74 16 123/71 (88) 95 05/06/17 08:16 98.6 71 18 121/68 (85) 96 Room Air 05/06/17 04:25 73 16 107/66 (80) 98 Room Air 05/06/17 03:47 16 98 Room Air 05/06/17 03:12 82 16 119/72 (88) 98 Room Air 05/06/17 02:51 97.3 88 16 128/74 (92) 99 Physical Exam GENERAL: NAD, A&Ox3 HEAD: Normocephalic. NECK: Supple, trachea midline. No lymphadenopathy. EYES: No scleral icterus. No injection or drainage. CARDIOVASCULAR: Regular rate and rhythm without murmurs, gallops, or rubs. RESPIRATORY: Breath sounds equal bilaterally. No accessory muscle use. GASTROINTESTINAL: Abdomen soft, non-tender, nondistended. Right upper quadrant tenderness. MUSCULOSKELETAL: No cyanosis, or edema. SKIN: Warm and dry. NEURO: No focal neurological deficitis. Laboratory Laboratory Tests Test 05/06/17 03:45 White Blood Count 9.5 Red Blood Count 4.42 Hemoglobin 13.8 Hematocrit 39.7 Mean Corpuscular Volume 89.8 Mean Corpuscular Hemoglobin 31.1 Mean Corpuscular Hemoglobin Concent 34.7 Red Cell Distribution Width 13.5 Platelet Count 307 Mean Platelet Volume 7.3 Neutrophils (%) (Auto) 81.0 Lymphocytes (%) (Auto) 10.3 Monocytes (%) (Auto) 7.9 Eosinophils (%) (Auto) 0.5 Basophils (%) (Auto) 0.3 Neutrophils # (Auto) 7.7 Lymphocytes # (Auto) 1.0 Monocytes # (Auto) 0.8 Eosinophils # (Auto) 0.0 Basophils # (Auto) 0.0 CBC Comment DIFF FINAL Differential Comment Prothrombin Time 12.7 Prothromb Time International Ratio 1.3 Activated Partial Thromboplast Time 26.4 Blood Urea Nitrogen 23 Creatinine 1.02 Random Glucose 126 Total Protein 7.1 Albumin 3.2 Calcium Level 9.0 Magnesium Level 1.8 Alkaline Phosphatase 451 Aspartate Amino Transf (AST/SGOT) 412 Alanine Aminotransferase (ALT/SGPT) 536 Total Bilirubin 2.2 Sodium Level 138 Potassium Level 4.0 Chloride Level 103 Carbon Dioxide Level 23.3 Anion Gap 12 Estimat Glomerular Filtration Rate 75 Lactic Acid Level 1.5 Troponin I LESS THAN 0.02 Lipase 185 Result Diagram: 05/06/1734405/06/17344 Caprini VTE Risk Assessment Caprini VTE Risk Assessment: No/Low Risk (score <= 1) Caprini Risk Assessment Model Point Value = 1 Point Value = 2 Point Value = 3 Point Value = 5 Age 41-60 Minor surgery BMI > 25 kg/m2 Swollen legs Varicose veins or History of unexplained or recurrent spontaneous Oral contraceptives or hormone replacement Sepsis (< 1 month) Serious lung disease, including pneumonia (< 1 month) Abnormal pulmonary function Acute myocardial infarction Congestive heart failure (< 1 month) History of inflammatory bowel disease Medical patient at bed rest Age 61-74 Arthroscopic surgery Major open surgery (> 45 min) Laparoscopic surgery (> 45 min) Malignancy Confined to bed (> 72 hours) Immobilizing plaster cast Central venous access Age >= 75 History of VTE Family history of VTE Factor V Leiden Prothrombin [id number] Lupus anticoagulant Anticardiolipin antibodies Elevated serum homocysteine Heparin-induced thrombocytopenia Other congenital or acquired thrombophilia Stroke (< 1 month) Elective arthroplasty Hip, pelvis, or leg fracture Acute spinal cord injury (< 1 month) Prophylaxis Regimen Total Risk Factor Score Risk Level Prophylaxis Regimen 0-1 Low Early ambulation 2 Moderate Order ONE of the following: *Sequential Compression Device (SCD) *Heparin 5000 units SQ BID 3-4 Higher Order ONE of the following medications: *Heparin 5000 units SQ TID *Enoxaparin/Lovenox 40 mg SQ daily (WT < 150 kg, CrCl > 30 mL/min) *Enoxaparin/Lovenox 30 mg SQ daily (WT < 150 kg, CrCl > 10-29 mL/min) *Enoxaparin/Lovenox 30 mg SQ BID (WT < 150 kg, CrCl > 30 mL/min) AND/OR *Sequential Compression Device (SCD) 5 or more Highest Order ONE of the following medications: *Heparin 5000 units SQ TID (Preferred with Epidurals) *Enoxaparin/Lovenox 40 mg SQ daily (WT < 150 kg, CrCl > 30 mL/min) *Enoxaparin/Lovenox 30 mg SQ daily (WT < 150 kg, CrCl > 10-29 mL/min) *Enoxaparin/Lovenox 30 mg SQ BID (WT < 150 kg, CrCl > 30 mL/min) AND *Sequential Compression Device (SCD) Assessment and Plan Problem List: (1) Liver mass ICD Code: R16.0 - Hepatomegaly, not elsewhere classified (2) Pulmonary embolism ICD Code: I26.99 - Other pulmonary embolism without acute cor pulmonale (3) Pancreatic mass ICD Code: K86.9 - Disease of pancreas, unspecified Assessment and Plan 56-year-old male admitted secondary to acute abdominal pain and presence of saddle embolus pulmonary emboli, on Xarelto with new finding of possible gallbladder hematoma. Abdominal pain Biliary colic Possible biliary hematoma versus obstruction Xarelto on hold Monitor respiratory status Consult gastroenterology Consult general surgery Continue pain treatment is needed Continue a regular diet for now Bilateral pulmonary emboli Saddle pulmonary embolus Xarelto on hold as above Monitor respiratory status Hepatocellular carcinoma Specification of identification pending Oncology has been consulted Treatments pending final diagnosis DVT prophylaxis SCDs Physician Certification 2 Midnight Certification Type: Admission for Inpatient Services Order for Inpatient Services The services are ordered in accordance with Medicare regulations or non- Medicare payer requirements, as applicable. In the case of services not specified as inpatient-only, they are appropriately provided as inpatient services in accordance with the 2-midnight benchmark. Estimated LOS (days): 3 days is the estimated time the patient will need to remain in the hospital, assuming treatment plan goals are met and no additional complications. Post-Hospital Plan: Home Problem Qualifiers (1) Pulmonary embolism: Qualified Codes: I26.92 - Saddle embolus of pulmonary artery without acute cor pulmonale Alfonso Iyer MD May 06, 2017 13:54
--- NOTE | 2017-05-06 13:58 | HHI.PR ---
Subjective Remarks Discussed care plan with the ED physician. In brief, this is a 56yM with biopsy- proven HCC, widely metastatic. recent admission < 1 wk ago for PE. At that time , had echo without evidence of RV strain. Discussed case with Dr. Galindo, his primary oncologist: very poor prognosis without curative option. discussed case with Dr. Lance who performed biopsy, and biopsy was superficial without any involvement of biliary system, so not likely to cause fluid in the gallbladder/ hematoma. Cannot hold anticoagulation for large PE. Really no therapeutic option at this point. Most likely cause of intractable abdominal pain is liver capsular pain secondary to rapidly enlarging mass (which is larger on this scan than recent prior). Patient remains hemodynamically stable on room air. hgb is stable since prior admission. There is nothing to suggest patient has had changes in hemodynamics consistent with bleeding or RV dysfunction from PE. No need or indication for ICU admission at this time. Active problems: metastatic HCC liver capsular pain bilateral PE recommendations: - admit to med/surg, oncology floor - consult oncologists to follow along - consult palliative care: very poor prognosis without any curative treatment options in this aggressive HCC. - iv pain control. toradol and other NSAIDS tend to work better at liver capsular pain than opiate narcotics, so these should remain part of the treatment regimen, unless contra-indications exist. - continue anticoagulation for PEs. I discussed the case with Dr. Khurram Iyer who agrees to accept and admit the patient. Critical care medicine will sign off. Please re-consult or contact us if we can be of further service. Objective Vital Signs Date Time Temp Pulse Resp B/P (MAP) Pulse Ox O2 Delivery O2 Flow Rate FiO2 05/06/17 13:02 97.9 66 18 112/71 (85) 96 05/06/17 09:13 98.1 74 16 123/71 (88) 95 05/06/17 08:16 98.6 71 18 121/68 (85) 96 Room Air 05/06/17 04:25 73 16 107/66 (80) 98 Room Air 05/06/17 03:47 16 98 Room Air 05/06/17 03:12 82 16 119/72 (88) 98 Room Air 05/06/17 02:51 97.3 88 16 128/74 (92) 99 Result Diagram: 05/06/17 0345 05/06/17 0345 Tomas Molina MD May 06, 2017 13:58
--- NOTE | 2017-05-06 16:19 | PD.CONS ---
HPI History of Present Illness This is a 56 year old M who had no diagnosed PMH until recent admission earlier this month where he was diagnosed with probable HCC. Pts complaint at the time of previous admission was left sided chest and flank pain. CT of the chest showed bilateral PE and extensive metastatic disease to the liver. Mass lesion in the tail of the pancreas invading splenic hilum. A CT abdomen and pelvis was done to further evaluate these findings which showed multiple enhancing mass lesions characteristic of metastatic disease. Largest lesion in the hepatic dome measures 14 x 11 cm. Believed that the source of the metastatic disease in the pancreatic tail where there is a 6.2 x 6.9 cm mass lesion invading the splenic helium and regional parenchyma. Concomitant nonocclusive thrombus in the adjacent splenic vein. Pt was seen by oncology who ordered a liver biopsy which reveals HCC in needle core biopsy of liver. Pt was seen in Dr. Galindo's office on Sunday, however treatment was not decided on because liver biopsy was still pending at that time. Pt is now admitted to the oncology floor. Came in complaining of severe abdominal pain. had an episode of epigastric/RUQ pain after eating [employer] on but it resolved after taking Tylenol so he didnt have the pain evaluated. Pt was then find on Sunday, but yesterday began having intermittent sharp, stabbing abdominal pain again. States he did vomit his dinner hoping it would make him feel better with no relief. He was unable to sleep due to pain so stayed up in his recliner. The pain got so severe at 3 am this morning that it caused him to fall out of the recliner on to the floor where his found him. Denies any nausea or emesis at that time. States has been using only Tylenol for pain, did not fill the prescription pain medication given to him because he does not like taking heavy pain killers. Does report some diarrhea but has not had any in the past 3-4 days. Denies ever having EGD or colonoscopy. Has never seen GI doctor. Denies previous abdominal surgeries. Denies ETOH, smoking, illicit drug use. Denies taking NSAIDs. Our service has been consulted to evaluate pt for CT findings regarding hemorrhage vs blood clot of the gallbladder. has also been consulted. (Amara Fam [facility]) PFSH Past Medical History Hepatocellular carcinoma Pulmonary embolism Past Surgical History Liver biopsy (Amara Fam) Coded Allergies: No Known Allergies (Verified Allergy, Unknown, 05/06/17) Family History Mother with breast cancer, brother with lung cancer who is a smoker Father has heart disease Social History No smoking No alcohol abuse No illicit drug abuse (Amara Fam) Review of Systems Gastrointestinal: COMPLAINS OF: Abdominal pain, Diarrhea, Nausea, Vomiting, DENIES: Black stools, Bloody stools, Constipation, Difficulty Swallowing, Odynophagia, Swelling of Abdomen, Heartburn, Hematemesis (Amara Fam) GI Exam Vitals I&O Vital Signs Date Time Temp Pulse Resp B/P (MAP) Pulse Ox O2 Delivery O2 Flow Rate FiO2 05/06/17 13:02 97.9 66 18 112/71 (85) 96 05/06/17 09:13 98.1 74 16 123/71 (88) 95 05/06/17 08:16 98.6 71 18 121/68 (85) 96 Room Air 05/06/17 04:25 73 16 107/66 (80) 98 Room Air 05/06/17 03:47 16 98 Room Air 05/06/17 03:12 82 16 119/72 (88) 98 Room Air 05/06/17 02:51 97.3 88 16 128/74 (92) 99 Laboratory Test 05/06/17 03:45 White Blood Count 9.5 TH/MM3 Red Blood Count 4.42 MIL/MM3 Hemoglobin 13.8 GM/DL Hematocrit 39.7 % Mean Corpuscular Volume 89.8 FL Mean Corpuscular Hemoglobin 31.1 PG Mean Corpuscular Hemoglobin Concent 34.7 % Red Cell Distribution Width 13.5 % Platelet Count 307 TH/MM3 Mean Platelet Volume 7.3 FL Neutrophils (%) (Auto) 81.0 % Lymphocytes (%) (Auto) 10.3 % Monocytes (%) (Auto) 7.9 % Eosinophils (%) (Auto) 0.5 % Basophils (%) (Auto) 0.3 % Neutrophils # (Auto) 7.7 TH/MM3 Lymphocytes # (Auto) 1.0 TH/MM3 Monocytes # (Auto) 0.8 TH/MM3 Eosinophils # (Auto) 0.0 TH/MM3 Basophils # (Auto) 0.0 TH/MM3 CBC Comment DIFF FINAL Differential Comment Prothrombin Time 12.7 SEC Prothromb Time International Ratio 1.3 RATIO Activated Partial Thromboplast Time 26.4 SEC Blood Urea Nitrogen 23 MG/DL Creatinine 1.02 MG/DL Random Glucose 126 MG/DL Total Protein 7.1 GM/DL Albumin 3.2 GM/DL Calcium Level 9.0 MG/DL Magnesium Level 1.8 MG/DL Alkaline Phosphatase 451 U/L Aspartate Amino Transf (AST/SGOT) 412 U/L Alanine Aminotransferase (ALT/SGPT) 536 U/L Total Bilirubin 2.2 MG/DL Sodium Level 138 MEQ/L Potassium Level 4.0 MEQ/L Chloride Level 103 MEQ/L Carbon Dioxide Level 23.3 MEQ/L Anion Gap 12 MEQ/L Estimat Glomerular Filtration Rate 75 ML/MIN Lactic Acid Level 1.5 mmol/L Troponin I LESS THAN 0.02 NG/ML Lipase 185 U/L Physical Examination HEENT: Normocephalic; atraumatic CHEST: Even/unlabored CARDIAC: RRR ABDOMEN: Soft, nondistended, nontender; bowel sounds active EXTREMITIES: No clubbing, cyanosis, or edema. SKIN: Normal; no rash; no jaundice. OVER HAULER HELPER: No focal deficits; alert and oriented times three. (Amara Fam) Assessment and Plan Plan Assessment: - Abdominal pain- described as intermittent, sharp, stabbing- episode on attributed it to eating [employer], relieved with Tylenol. Fine on Sunday. Worsening pain starting yesterday, so unbearable last night he was unable to sleep. Pain so severe at 3 am it caused him to fall from recliner to floor in pain where found him. Reports emesis earlier in the evening, denies hematemesis and coffee ground emesis. Pain in epigastric/RUQ area. CT abdomen and pelvis --> The large tumor mass in the central liver appear slightly larger in size. Additional metastatic lesions in the liver which are not significant change. The gallbladder is more prominent and now contains a central area of high density which is concerning for possible hemorrhage or old blood clot. Vicarious excretion of contrast into the gallbladder can have a similar appearance however usually appears more homogeneous and diffuse. the central splenic mass is not significantly changed. Bilateral renal cysts Denies ever having EGD, colonoscopy, never seen GI doctor Denies ETOH, smoking, illicit drug use - HCC- newly diagnosed during admission earlier this month, unsure the primary source of the cancer so tx was not started. Liver biopsy is now back consistent with HCC. Pt sees Dr. Galindo LFTs elevated- AST-412 ALT-536 T bili-2.2 Alk phos-451 - Bilateral PE- dx during last admission- Pt on Xarelto BID Plan: Will await GS recommendations regarding gallbladder findings High risk for endoscopic procedures and EGD not emergent at this time Pt on Eliquis for recent dx bilateral PE Protonix Consider Carafate if no relief Further recommendations based on clinical course, appreciate GS input Pt has been seen and examined by myself and Dr. Taylor and this note is written on her behalf (Amara Fam) Physician Comments seen, examined agree with above we will send additional work-up to r/o underlying causes of HCC (Pam Taylor MD) Amara Fam May 06, 2017 16:19 Pam Taylor MD May 06, 2017 18:18
--- NOTE | 2017-05-06 19:42 | EKG ---
Date Performed: 05/06/2017 Time Performed: 03:16:32 PTAGE: 56 years EKG: Sinus rhythm NORMAL ECG NO PREVIOUS TRACING DOCTOR: Emmie Guerrier Interpretating Date/Time 05/06/2017 19:41:15
[2017-05-07] VITALS (32 sets, daily range): BP systolic 124–148; BP diastolic 70–85; PULSE 62–99; RESP 16–24; TEMP 97.1–98.9; O2SAT 92–99
[2017-05-07] MEDS ORDERED: HYDROmorphone HCL PF 2 MG/ML VIAL IV PUSH ONE (03:15)
[2017-05-07] MEDS: SODIUM CHLORIDE 0.9% FLUSH 10 ML FLUSH IV FLUSH PRN ×2 (05:52→20:21)
[2017-05-07] MEDS: ONDANSETRON HCL 4 MG/2 ML VIAL IV PUSH PRN ×3 (05:52→17:45)
[2017-05-07 06:31] LABS: ALBUMIN 2.7 GM/DL (3.4-5.0); ALKALINE PHOSPHATASE 385 U/L (45-117); ALT (GPT) 392 U/L (12-78); AST (GOT) 219 U/L (15-37); BICARBONATE 24.4 MEQ/L (21.0-32.0); BLOOD UREA NITROGEN 24 MG/DL (7-18); CALCIUM 8.2 MG/DL (8.5-10.1); CHLORIDE 106 MEQ/L (98-107); GLOMERULAR FILTRATION RATE 69 ML/MIN (>89); GLUCOSE,RANDOM 100 MG/DL (74-106); SODIUM (NA) 139 MEQ/L (136-145)
[2017-05-07 07:02] LABS: AUTOMATED NEUTROPHIL # 8.6 TH/MM3 (1.8-7.7); BASOPHIL % 0.5 % (0.0-2.0); EOSINOPHIL % 0.4 % (0.0-4.0); HEMATOCRIT 32.7 % (39.0-51.0); HEMOGLOBIN 11.3 GM/DL (13.0-17.0); LYMPH % 7.2 % (9.0-44.0); LYMPHOCYTE # 0.7 TH/MM3 (1.0-4.8); MEAN CORPUSCULAR HEMOGLOBIN 31.2 PG (27.0-34.0); MEAN CORPUSCULAR HGB CONC 34.7 % (32.0-36.0); MEAN PLATELET VOLUME 7.3 FL (7.0-11.0); MONO % 5.6 % (0.0-8.0); MONOCYTE # 0.6 TH/MM3 (0-0.9); NEUT % 86.3 % (16.0-70.0); PLATELET COUNT 284 TH/MM3 (150-450); RED BLOOD COUNT 3.63 MIL/MM3 (4.50-5.90); RED CELL DISTRIBUTION WIDTH 13.4 % (11.6-17.2); WHITE BLOOD COUNT 9.9 TH/MM3 (4.0-11.0)
--- NOTE | 2017-05-07 07:57 | PD.ONC.PN ---
Subjective Subjective Remarks Patient seen and examined, vital signs, labs, medications, imaging studies including CT angiogram of the thorax and CT abdomen were reviewed. Overnight events reviewed. 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 I had also discussed the case with the critical care attending who reviewed the patient's imaging scans and vital signs as well as labs yesterday. Alpha-fetoprotein level noted to be elevated at over 500. Hepatitis panel was negative. Subjectively; the patient reports severe pain which involves his right upper quadrant and right flank, he tells me the pain comes on very suddenly and rises exponentially. He tells me the IV hydromorphone 0.5 mg helps initially but wears off very quickly (usually less than 1 hour). He tells me the pain is so severe causes nausea and affects his ability to eat. He tells me his breathing is comfortable while he is laying still in bed. His is at bedside and they are both eager to discuss the results of the CT imaging as well as alpha-fetoprotein levels and hepatitis panel done yesterday. Objective Data Date Time Temp Pulse Resp B/P (MAP) Pulse Ox O2 Delivery O2 Flow Rate FiO2 05/07/17 06:02 71 05/07/17 05:00 67 05/07/17 04:03 74 05/07/17 03:20 97.7 76 20 148/85 (106) 98 05/07/17 03:02 71 05/07/17 02:04 66 05/07/17 01:04 67 05/07/17 00:55 98.1 68 16 124/72 (89) 98 05/07/17 00:10 66 05/06/17 23:01 65 05/06/17 22:04 69 05/06/17 21:01 65 05/06/17 20:37 98.6 66 18 114/73 (87) 97 05/06/17 20:03 76 05/06/17 19:00 67 05/06/17 17:54 98.8 69 16 118/69 (85) 98 05/06/17 16:41 74 05/06/17 13:02 97.9 66 18 112/71 (85) 96 05/06/17 12:00 73 05/06/17 09:30 65 05/06/17 09:13 98.1 74 16 123/71 (88) 95 05/06/17 08:16 98.6 71 18 121/68 (85) 96 Room Air 05/07/17 05/07/17 05/07/17 07:00 15:00 23:00 Intake Total 900 ml Output Total 300 ml Balance 600 ml Result Diagram: 05/07/17 0545 05/07/17 0545 Laboratory Results Laboratory Tests Test 05/06/17 17:25 05/07/17 05:45 Tumor Marker Alpha Fetoprotein 540.9 NG/ML Hepatitis A IgM Antibody NONREACTIVE Hepatitis B Surface Antigen NONREACTIVE Hepatitis B Core IgM Antibody NONREACTIVE Hepatitis C IgG Antibody NONREACTIVE White Blood Count 9.9 TH/MM3 Red Blood Count 3.63 MIL/MM3 Hemoglobin 11.3 GM/DL Hematocrit 32.7 % Mean Corpuscular Volume 90.0 FL Mean Corpuscular Hemoglobin 31.2 PG Mean Corpuscular Hemoglobin Concent 34.7 % Red Cell Distribution Width 13.4 % Platelet Count 284 TH/MM3 Mean Platelet Volume 7.3 FL Neutrophils (%) (Auto) 86.3 % Lymphocytes (%) (Auto) 7.2 % Monocytes (%) (Auto) 5.6 % Eosinophils (%) (Auto) 0.4 % Basophils (%) (Auto) 0.5 % Neutrophils # (Auto) 8.6 TH/MM3 Lymphocytes # (Auto) 0.7 TH/MM3 Monocytes # (Auto) 0.6 TH/MM3 Eosinophils # (Auto) 0.0 TH/MM3 Basophils # (Auto) 0.0 TH/MM3 CBC Comment DIFF FINAL Differential Comment Blood Urea Nitrogen 24 MG/DL Creatinine 1.10 MG/DL Random Glucose 100 MG/DL Total Protein 6.0 GM/DL Albumin 2.7 GM/DL Calcium Level 8.2 MG/DL Alkaline Phosphatase 385 U/L Aspartate Amino Transf (AST/SGOT) 219 U/L Alanine Aminotransferase (ALT/SGPT) 392 U/L Total Bilirubin 2.0 MG/DL Sodium Level 139 MEQ/L Potassium Level 4.4 MEQ/L Chloride Level 106 MEQ/L Carbon Dioxide Level 24.4 MEQ/L Anion Gap 9 MEQ/L Estimat Glomerular Filtration Rate 69 ML/MIN Administered Medications Medications (Trade) Dose Ordered Sig/Mago Route PRN Reason Start Time Stop Time Status Last Admin Dose Admin Sodium Chloride (NS Flush) 2 ml UNSCH PRN IV FLUSH FLUSH AFTER USING IV ACCESS 05/06/17 03:45 05/07/17 05:52 Sodium Chloride 1,000 ml @ 84 mls/hr [id number] IV 05/06/17 09:00 05/06/17 22:09 Oxycodone/ Acetaminophen (Percocet 5-325 Mg) 1 tab Q4H PRN PO PAIN SCALE 1 TO 5 05/06/17 09:00 05/07/17 02:43 Hydromorphone HCl (Dilaudid Pf Inj) 0.5 mg Q4H PRN IV PUSH PAIN SCALE 6 TO 10 05/06/17 09:00 05/07/17 06:39 Pantoprazole Sodium (Protonix Inj) 40 mg DAILY IV PUSH 05/06/17 09:00 05/06/17 11:16 Ondansetron HCl (Zofran Inj) 4 mg Q6H PRN IV PUSH NAUSEA OR VOMITING 05/06/17 09:00 05/07/17 05:52 Objective Remarks GENERAL: Middle-aged male sitting up in bed, he appears to be comfortable, he is short, he is a muscular built, he at times drifts off to sleep during our conversation. His is at bedside. SKIN: Warm and dry. HEAD: Normocephalic. EYES: No scleral icterus. No injection or drainage. NECK: Supple, trachea midline. No JVD or lymphadenopathy. LYMPHATIC: No adenopathy. CARDIOVASCULAR: Borderline tachycardia, S1 and S2 normal murmurs or gallops. RESPIRATORY: Good air movement bilaterally over upper and middle lung zones, decreased bibasilar breath sounds, patient with obvious pain with deep inspiratory effort. GASTROINTESTINAL: Protuberant belly, tender over the right upper quadrant, hepatomegaly noted. No splenomegaly noted. EXTREMITIES: No cyanosis, or edema. MUSCULOSKELETAL: Good muscle mass, Adequate muscle tone. NEUROLOGICAL: No obvious focal deficit. Awake, alert, and oriented x3. PSYCHIATRIC: Appropriate mood and affect; insight and judgment normal. Assessment/Plan Assessment Mr. 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 Biopsy was performed and pathologic findings were most consistent with hepatocellular carcinoma, he has never been a drinker, he is negative for hepatitis A, B and C and has no evidence or history of hepatic cirrhosis. He at the time of his initial presentation also had bilateral pulmonary emboli. Additional review of his biopsy were underway; i.e. with additional staining studies specific or hepatocellular carcinoma. He presented to the hospital yesterday morning with complaints of worsening pain in the right upper quadrant. Imaging studies performed on 05/06/2017 indicated impairment enlargement of the dominant hepatic mass by about 1 cm in each dimension. CT angiogram of the thorax revealed worsening pulmonary emboli; now with a saddle pulmonary embolus noted. This was despite him being on a loading dose of Xarelto 15 MG by mouth twice a day as an outpatient after having initially been on heparin infusion while in [place] last week. The oncology service is been asked to see him for further workup, management, symptom control and discussion regarding goals of care. Additionally, the palliative care service is also been asked to see him which I think is appropriate. Plan 1. Likely diagnosis of locally advanced hepatocellular carcinoma: Mr. Chavez has tremendous disease burden involving his liver. His LFTs are now deranged and he is increasingly symptomatic. His predisposition to developing venous thromboembolism has overwhelmed even therapeutic dose Xarelto. His pain is severe and he is now requiring long and short acting opioids to manage his pain. Alpha-fetoprotein levels are elevated at over 500 which in this setting; given the enhancement characteristics of his liver tumor regardless of his hepatitis seronegativity and regardless of his previous history of being a nondrinker is highly sensitive and highly specific for diagnosis of hepatocellular carcinoma. Final confirmation will be established once the immunohistochemical staining studies ordered on 05/04/2017 on the initial biopsy of the liver lesion are resulted. I did talk to the patient and his about therapeutic options. I explained to the patient and his that standard of care therapies as well as novel therapies under clinical trial are at best modestly effective. I explained to the patient that his hepatocellular carcinoma is not typical i.e. it is showing signs of very rapid growth and I am not optimistic about standard of care therapies being effective. Standard of care therapies include palliative systemic therapy with a tyrosine kinase inhibitor as initial treatment and the possibility of immunotherapy with Nivolumab in the second line setting. Despite these treatment interventions, his projected survival would be less than or just at 6 months (based on his diagnosis of unresectable hepatocellular carcinoma in a transplanted ineligible patient). However, given this patient's tremendous hepatic disease burden and rapid tempo of progression I suspect Mr. Chavez's prognosis is much more grave. I did communicate this directly to the patient and his . I have offered them palliative systemic therapy and have also explained to them that hospice level of care would also be a reasonable option at this point. For now I have added on long-acting morphine sulfate at 15 mg twice daily, I've increased his hydromorphone dosing to 1 mg IV every 4 hours as needed for breakthrough pain. Await palliative care consultation. 2. For management of his pulmonary emboli, he is now on Lovenox at a therapeutic dose which in my view would be as effective as any other therapeutic interventions we can consider given the prothrombotic nature of his disease and his apparent failure to respond to Xarelto. He is not a candidate for TPA given his hepatic disease burden regardless of cardiac strain. Toño Galindo MD May 07, 2017 07:57
[2017-05-07] MEDS: PANTOPRAZOLE SODIUM 40 MG VIAL IV PUSH SCH (08:53)
[2017-05-07] MEDS: MORPHINE SULFATE 15 MG CONTROLLED RELEASE TAB PO SCH ×2 (08:53→22:15)
[2017-05-07] MEDS: ENOXAPARIN SODIUM 80 MG/0.8 ML SYRINGE SQ SCH ×2 (08:54→22:16)
[2017-05-07] MEDS ORDERED: HYDROmorphone HCL PF 2 MG/ML VIAL IV PUSH PRN ×3 (09:00→14:15)
--- NOTE | 2017-05-07 09:52 | MB ---
cc: Lachelle Cai MD DATE: 05/06/2017 CHIEF COMPLAINT: 1. Stage IV hepatocellular carcinoma. 2. PE. HISTORY OF PRESENT ILLNESS: Mr. Chavez is a 56-year-old man who has previously been seen by my colleague, Dr. Galindo, for evaluation and management of metastatic hepatocellular carcinoma. At that time, he was admitted for further evaluation of left-sided chest and flank pain. CT scan of the chest at that time showed bilateral pulmonary embolism and extensive metastatic disease to the liver, mass lesion in the tail of the pancreas invading the splenic hilum. CT scan of the abdomen and pelvis showed multiple enhancing mass lesions characteristic of metastatic disease. Largest lesion is in the hepatic dome, measures 14 x 11 cm. He also has a large pancreatic tail mass measuring 6.2 x 6.9 cm. He also has nonocclusive thrombus in the adjacent splenic vein. He is status post biopsy of the liver mass, which shows hepatocellular carcinoma. He saw my colleague, Dr. Galindo, on Sunday. He is admitted to the hospital with severe abdominal pain with an episode of epigastric right upper quadrant pain on , and the same thing happened on Sunday, and then on Sunday he developed intermittent, sharp, stabbing abdominal pain. PAST MEDICAL HISTORY: Hepatocellular carcinoma, pulmonary embolism. PAST SURGICAL HISTORY: Liver biopsy. ALLERGIES: NO KNOWN DRUG ALLERGIES. FAMILY HISTORY: Mother with breast cancer. SOCIAL HISTORY: No tobacco, alcohol, or illegal drug use. Lives locally. REVIEW OF SYSTEMS: As above in HPI. LABORATORY STUDIES: White blood cell count 9.5, hemoglobin 13.8, platelet count is 307,000 with a normal differential. Creatinine 1.02. Total bilirubin 2.2, AST 412, ALT 536, alkaline phosphatase 451. AFP 540. PHYSICAL EXAMINATION: GENERAL: Well-developed, well-nourished man in no distress. HEENT: Head is normocephalic, atraumatic. NECK: Supple with no palpable lymphadenopathy. ABDOMEN: Soft, nontender, nondistended, with bowel sounds present. EXTREMITIES: With no edema. SKIN: No rashes. NEUROLOGIC: Grossly nonfocal. ASSESSMENT AND PLAN: 1. Metastatic hepatocellular carcinoma under the care of my colleague, Dr. Galindo. Patient reports that additional laboratory tests on tumor were ordered in clinic on Sunday. Could consider sorafenib. 2. Abdominal pain: This has resolved upon my bedside interview late evening on Sunday. CT scan of the abdomen and pelvis with enlargement of the central liver mass, prominent gallbladder and central area of high density, which is concerning for hemorrhage or blood clot. He has been seen by the gastroenterology service; consultation pending from surgery service. Pain resolved. We will continue to monitor. 3. Venous thromboembolism in a patient with multiple bilateral pulmonary emboli visualized on CT scan from last hospital stay. During this hospital stay he presents with worsening of VTE with now saddle PE. He is currently on loading dose of rivaroxaban 15 mg PO BID. With this hospital stay, the patient with a saddle pulmonary embolus. He is currently on rivaroxaban 15 mg p.o. b.i.d. He reports that he is taking this medicine in a timely manner every 12 hours and with food. Unfortunately clot is worsening on imaging. This was reviewed personally by myself and discussed with radiology. No lower extremity VTE on ultrasound. This is a very difficult situation in a patient with extensive PE and worsening blood clot while on rivaroxaban. Would favor switching to an alternative method of anticoagulation at this point in time. Would favor starting injectable at patient's next dose of anticoagulation, which will be due at 9 a.m. tomorrow when next dose of rivaroxaban would be due. Will start Lovenox 1 mg/kg and would continue this in the outpatient setting. Ok per creatinine clearance to proceed with this medication. MD SONIA Wright/LAST , 12:13 AM , 12:41 AM TERA
[2017-05-07] MEDS: SODIUM CHLOR 0.9% 1000 ML INJ 1,000 ML IV SCH ×2 (10:10→22:18)
[2017-05-07] MEDS ORDERED: HYDROmorphone HCL PF 2 MG/ML VIAL IV PUSH STA (10:22)
--- NOTE | 2017-05-07 11:47 | HHI.GIFU ---
Subjective Remarks Patient is awake, resting in the bed Multiple family members present and lots supportive care Original pain right upper quadrant which has declined now secondary to pain management Afebrile Current hemoglobin 11.3 (Raisa Whittaker) Objective Vitals I&O Vital Signs Date Time Temp Pulse Resp B/P (MAP) Pulse Ox O2 Delivery O2 Flow Rate FiO2 05/07/17 08:57 98.9 70 18 144/70 (94) 99 05/07/17 08:20 67 05/07/17 06:02 71 05/07/17 05:00 67 05/07/17 04:03 74 05/07/17 03:20 97.7 76 20 148/85 (106) 98 05/07/17 03:02 71 05/07/17 02:04 66 05/07/17 01:04 67 05/07/17 00:55 98.1 68 16 124/72 (89) 98 05/07/17 00:10 66 05/06/17 23:01 65 05/06/17 22:04 69 05/06/17 21:01 65 05/06/17 20:37 98.6 66 18 114/73 (87) 97 05/06/17 20:03 76 05/06/17 19:00 67 05/06/17 17:54 98.8 69 16 118/69 (85) 98 05/06/17 16:41 74 05/06/17 13:02 97.9 66 18 112/71 (85) 96 05/06/17 12:00 73 I/O 05/06/17 05/06/17 05/06/17 05/07/17 05/07/17 05/07/17 07:00 15:00 23:00 07:00 15:00 23:00 Intake Total 1960 ml 900 ml Output Total 500 ml 300 ml Balance 1460 ml 600 ml Intake Oral 960 ml 120 ml IV Total 1000 ml 780 ml Output Urine Total 500 ml 300 ml # Voids 2 Laboratory Laboratory Tests Test 05/06/17 17:25 05/07/17 05:45 Tumor Marker Alpha Fetoprotein 540.9 Hepatitis A IgM Antibody NONREACTIVE Hepatitis B Surface Antigen NONREACTIVE Hepatitis B Core IgM Antibody NONREACTIVE Hepatitis C IgG Antibody NONREACTIVE White Blood Count 9.9 Red Blood Count 3.63 Hemoglobin 11.3 Hematocrit 32.7 Mean Corpuscular Volume 90.0 Mean Corpuscular Hemoglobin 31.2 Mean Corpuscular Hemoglobin Concent 34.7 Red Cell Distribution Width 13.4 Platelet Count 284 Mean Platelet Volume 7.3 Neutrophils (%) (Auto) 86.3 Lymphocytes (%) (Auto) 7.2 Monocytes (%) (Auto) 5.6 Eosinophils (%) (Auto) 0.4 Basophils (%) (Auto) 0.5 Neutrophils # (Auto) 8.6 Lymphocytes # (Auto) 0.7 Monocytes # (Auto) 0.6 Eosinophils # (Auto) 0.0 Basophils # (Auto) 0.0 CBC Comment DIFF FINAL Differential Comment Blood Urea Nitrogen 24 Creatinine 1.10 Random Glucose 100 Total Protein 6.0 Albumin 2.7 Calcium Level 8.2 Alkaline Phosphatase 385 Aspartate Amino Transf (AST/SGOT) 219 Alanine Aminotransferase (ALT/SGPT) 392 Total Bilirubin 2.0 Sodium Level 139 Potassium Level 4.4 Chloride Level 106 Carbon Dioxide Level 24.4 Anion Gap 9 Estimat Glomerular Filtration Rate 69 Imaging Last Impressions Chest X-Ray 05/06/17 0345 Signed Impressions: Service Date/Time: Saturday, May 06, 2017 03:55 - CONCLUSION: No acute disease. There is no evidence of free air. Ehsan Argueta MD CT Angiography 05/06/17 0000 Signed Impressions: Service Date/Time: Saturday, May 06, 2017 06:19 - CONCLUSION: 1. Pulmonary emboli with a long thin saddle embolus which crosses from the right main pulmonary artery into the left. Smaller bilateral areas of pulmonary emboli present as well. 2. Small area consolidation in the right lower lobe. Ehsan Argueta MD Abdomen/Pelvis CT 05/06/17 0000 Signed Impressions: Service Date/Time: Saturday, May 06, 2017 06:19 - CONCLUSION: 1. The large tumor mass in the central liver appear slightly larger in size. There are additional metastatic lesions in the liver which are not significant change. 2. The gallbladder is more prominent and now contains a central area of high density which is concerning for possible hemorrhage or blood clot. Vicarious excretion of contrast contrast into the gallbladder can have a similar appearance however usually appears more homogeneous and diffuse. 3. The central splenic mass is not significantly changed. 4. Bilateral renal cysts. Ehsan Argueta MD Physical Exam HEENT: Pupils round and reactive to light; normocephalic; atraumatic; no jaundice. NECK: Neck is supple CHEST: Chest is clear to auscultation and percussion. No obvious rhonchi CARDIAC: Regular rate and rhythm ABDOMEN: Soft, nondistended, mild right upper quadrant tenderness; no hepatosplenomegaly; bowel sounds are soft in all four quadrants. EXTREMITIES: No clubbing, cyanosis, or edema. SKIN: Normal; no rash; no jaundice. [employer]: No focal deficits; alert and oriented times three. (Raisa Whittaker) Assessment and Plan Plan Assessment: - Abdominal pain- described as intermittent, sharp, stabbing- episode on attributed it to eating [employer], relieved with Tylenol. Fine on Sunday. Worsening pain starting yesterday, so unbearable last night he was unable to sleep. Pain so severe at 3 am it caused him to fall from recliner to floor in pain where found him. Reports emesis earlier in the evening, denies hematemesis and coffee ground emesis. Pain in epigastric/RUQ area. CT abdomen and pelvis --> The large tumor mass in the central liver appear slightly larger in size. Additional metastatic lesions in the liver which are not significant change. The gallbladder is more prominent and now contains a central area of high density which is concerning for possible hemorrhage or old blood clot. Vicarious excretion of contrast into the gallbladder can have a similar appearance however usually appears more homogeneous and diffuse. the central splenic mass is not significantly changed. Bilateral renal cysts Denies ever having EGD, colonoscopy, never seen GI doctor Denies ETOH, smoking, illicit drug use - HCC- newly diagnosed during admission earlier this month, unsure the primary source of the cancer so tx was not started. Liver biopsy is now back consistent with HCC. Pt sees Dr. Galindo LFTs elevated- AST-412 ALT-536 T bili-2.2 Alk phos-451 - Bilateral PE- dx during last admission- Pt on Xarelto BID - Appreciate Hemology /Oncology note. Extensive PE, possible transition to an alternate anticoagulation. Will follow in the OP setting. Saddle embolus, central liver tumor mass appears larger in size. Gallbladder more prominent Plan: Will await recommendations regarding gallbladder findings, Currently being managed by oncology hematology team. Consider changing to different anticoagulant. Monitor labs, any acute bleeding Protonix Further recommendations based on clinical course, appreciate GS input, no EGD or colonoscopy recommended for now Supportive care Pt has been seen and examined by myself and Dr. Lopez and this note is written on his behalf (Raisa Whittaker) Physician Comments Patient seen and examined Agree with above Continue with current supportive care Monitor lab General surgery opinion is for continued medical care Patient obviously with advanced and worsening hepatocellular carcinoma best options at this point as per the hematology oncology services palliative care and even hospice We will defer to above services to control patient's pain Not much to add from a GI perspective we will sign off (Chet Lopez MD) Raisa Whittaker May 07, 2017 11:47 Chet Lopez MD May 07, 2017 22:41
--- NOTE | 2017-05-07 11:58 | PD.CONS ---
Consult Service Palliative Care . Consult Requested By Dr. Molina . Primary Care Physician No Primary Care Physician . Reason for Consultation a. To assist with evaluation and management of symptoms including: Pain, nausea, decreased appetite b. To assist medical decision maker(s) with: better understanding of current medical conditions; weighing benefits/burdens of medical treatment options; making medical treatment decisions. . (Oralia Lewis) HPI History of Present Illness Mr. Chavez is a 56-year-old male who presented to [facility] ED on 2017 with severe upper abdominal pain that involved the chest. Patient described pain as intermittent severe spasms of the chest and abdomen. Patient reported the pain becomes so severe that he breaks into a sweat and feels dizzy. He had no other concerns or complaints. No signs of active bleeding were reported; patient denied n/v, BRB per rectum, melena, hematochezia or hematemesis. Earlier this month the patient was diagnosed with hepatocellular carcinoma and bilateral pulmonary emboli. He has been on blood thinners since that time, initially heparin and now Xarelto. Additional diagnostic data: * Vital signs: Pulse 88, respirations 16, BP 128/74, oxygen saturation 98% on room air and oral temperature of 97.3 * WBC: 9.5, hemoglobin 13.8, hematocrit 39.7, platelets 307, neutrophils 81.0% * Sodium: 138, potassium 4.0, chloride 103, glucose 126, calcium 9.0, magnesium 1.8 * BUN: 23, creatinine 1.02, GFR 75 * Lactic acid: 1.5 * Total bilirubin: 2.2, AST 412, ALT 536, alkaline phosphatase 451 * Troponin: <0.02 * Total protein 7.1, albumin 3.2 * PT: 12.7, INR 1.3, APTT 26.4 * Chest x-ray revealed no acute disease, there was no evidence of free air * CT abdomen/pelvis with IV contrast showed a large tumor mass in the central liver that appears slightly larger in size; there were additional metastatic lesions in the liver. The gallbladder is more prominent and now contains an central area of high density which is concerning for possible hemorrhage or blood clot. Vicarious excretion of contrast into the gallbladder can have a similar appearance however usually appears more homogenous and diffuse. The central splenic mass is not significantly changed; bilateral renal cysts. * CT pulmonary angiogram showed pulmonary emboli with a long thin saddle embolus which crosses from the right main pulmonary artery into the left. Smaller bilateral areas of pulmonary emboli present as well. Small area of consolidation in the right lower lobe. Patient admitted for further evaluation and medical management. Gastroenterology, general surgery as well as oncology have been consulted. Patient has extensive pulmonary emboli and worsening blood clot on Xarelto. Xarelto was discontinued and the patient was started on Lovenox every 12 hours SQ. Alpha-fetoprotein level >500. Hepatitis panel negative. Patient continues to report severe pain that involves the right upper quadrant and right flank which has required increased dosing and frequency of pain medication. Patient states the pain is so severe it causes him to be nauseated which is affecting his nutritional intake. He denies shortness of breath as long as he is lying still. Patient required STAT hydromorphone dose orders x 2 overnight and this morning. New orders for pain management: = Oramorph 15 mg PO q 12 hours ATC = Hydromorphone 1.5mg IV every 2 hours PRN for breakthrough pain. Dr. Galindo spoke to the patient and his about therapeutic options this morning. He explained that his hepatocellular carcinoma was showing signs of rapid growth and he was concerned that standard of care therapies with likely be ineffective. (Standard of care therapies being palliative systemic therapy with tyrosine kinase inhibitor as initial treatment and the possibility of immunotherapy with inability nivolumab as the second line therapy). Despite these treatment interventions, patient's projected survivor would be <6 months at best and likely less. After discussing palliative systemic therapy, Dr. Galindo explained to the patient and his that hospice services would also be a reasonable option at this time. Palliative Care was consulted to assist with symptom management and to discuss with the family the benefits and burdens of his current illnesses and the options regarding future care. . Function/Cognitive Trajectory Patient reports his baseline health was excellent until he was recently diagnosed with hepatic cellular carcinoma. (Oralia Lewis) Review of Systems Constitutional: COMPLAINS OF: Fatigue, Weight loss, Change in appetite ( Decreased appetite), Pain (Severe, sudden pain reported), Generalized weakness Cardiovascular: COMPLAINS OF: Chest pain Gastrointestinal: COMPLAINS OF: Abdominal pain, Nausea, Anorexia (Oralia Lewis) Past Family Social History Coded Allergies: No Known Allergies (Verified Allergy, Unknown, 05/06/17) Past Medical History Hepatocellular carcinoma Pulmonary embolism . 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 . Reported Medications Xarelto (Rivaroxaban) 15 Mg Tab 15 Mg PO BID . Current Medications Medications (Trade) Dose Ordered Sig/Mago Route Start Time Stop Time Status Last Admin (NS Flush) 2 ml UNSCH PRN IV FLUSH 05/06/17 03:45 05/07/17 05:52 Sodium Chloride 1,000 ml @ 84 mls/hr [id number] IV 05/06/17 09:00 05/07/17 10:10 (Protonix Inj) 40 mg DAILY IV PUSH 05/06/17 09:00 05/07/17 08:53 (Zofran Inj) 4 mg Q6H PRN IV PUSH 05/06/17 09:00 05/07/17 05:52 (Duoneb Neb) 1 ampule Q2HR NEB PRN INH 05/06/17 09:00 (Lovenox Inj) 80 mg Q12HR SQ 05/07/17 09:00 05/07/17 08:54 (Oramorph Sr) 15 mg Q12HR PO 05/07/17 09:00 05/07/17 08:53 (Dilaudid Pf Inj) 1.5 mg Q2HR PRN IV PUSH 05/07/17 11:00 UNV Family History Mother at the age of 84; she had a history of breast cancer and polyps. Father at the age of 64 secondary to a myocardial infarction Brother is living with lung cancer. . Substance Use Tobacco: Patient reports he never smoked Alcohol: Patient denied alcohol Prescription med abuse: None known Illicits: None known . Psychosocial History Patient is originally from [place]. He has lived in [place] for about 14 years. 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 He is currently to Maria Victoria; they have been for 12 years. Patient had one biological son who last year from a drug overdose last year. Maria Victoria has 3 adult children - Casa (-Makayla), Landen (-Effie) and Angelica. They are very close to their stepfather. Casa and Makayla are in the [employer], currently stationed in [place]. Palliative care has contacted the [facility] for emergency notification/request for presence. . Spiritual/Cultural Factors Buddhist theodore . (Oralia Lewis) Health Care Surrogate(s): Per [place] statutes, in the absence of written advanced directives healthcare proxy decision making falls to the patient's . . Documented care wishes: No known written advanced directives have been completed. . Today's verbally stated goals: Patient is having difficulty "wrapping his brain around" his newly diagnosed hepatocellular carcinoma. He states he does not feel he can make any decisions until his pain is better managed, but he would like to lorne to be aggressive. He is having difficulty believing this is true because it was so sudden, and he was so healthy at baseline. Family/friends goals: Patient's family privately verbalized their understanding that patient's overall prognosis is quite poor, but they will honor the patient's goals and wishes regarding his medical care. . Ethical and Legal Issues No known ethical or legal issues impacting care at this time. . (Oralia Lewis) Physical Exam Vital Signs Date Time Temp Pulse Resp B/P (MAP) Pulse Ox O2 Delivery O2 Flow Rate FiO2 05/07/17 08:57 98.9 70 18 144/70 (94) 99 05/07/17 08:20 67 05/07/17 06:02 71 05/07/17 05:00 67 05/07/17 04:03 74 05/07/17 03:20 97.7 76 20 148/85 (106) 98 05/07/17 03:02 71 05/07/17 02:04 66 05/07/17 01:04 67 05/07/17 00:55 98.1 68 16 124/72 (89) 98 05/07/17 00:10 66 05/06/17 23:01 65 05/06/17 22:04 69 05/06/17 21:01 65 05/06/17 20:37 98.6 66 18 114/73 (87) 97 05/06/17 20:03 76 05/06/17 19:00 67 05/06/17 17:54 98.8 69 16 118/69 (85) 98 05/06/17 16:41 74 05/06/17 13:02 97.9 66 18 112/71 (85) 96 05/06/17 12:00 73 . Exam CONSTITUTIONAL/GENERAL: Patient is a middle aged male who appears healthy in no apparent distress. TUBES/LINES/DRAINS: PIV SKIN: No jaundice, rashes, or lesions. No wounds seen anteriorly. Skin temperature appropriate. Not diaphoretic. HEAD: Atraumatic. Normocephalic. EYES: Pupils equal and round and reactive. Extraocular motions intact. No scleral icterus. No injection or drainage. Fundi not examined. ENT: Hearing grossly normal. Nose without bleeding or purulent drainage. Throat without visible erythema, exudates, masses, or lesions. NECK: Trachea midline. Supple, nontender. No palpable thyroid enlargement or nodularity. CARDIOVASCULAR: Regular rate and rhythm without murmurs, gallops, or rubs. No JVD. Peripheral pulses symmetric. RESPIRATORY/CHEST: Symmetric, unlabored respirations. Clear to auscultation. Breath sounds equal bilaterally. No wheezes, rales, or rhonchi. GASTROINTESTINAL: Abdomen soft, non-tender, nondistended. Bowel sounds present. GENITOURINARY: Without palpable bladder distension. MUSCULOSKELETAL: No obvious deformities. Extremities without clubbing, cyanosis , or edema. No mottling or clubbing. LYMPHATICS: No palpable cervical or supraclavicular adenopathy. NEUROLOGICAL: Awake and alert. Cognitively sharp. Moves all extremities. PSYCHIATRIC: No obvious anxiety/depression. No apparent hallucinations or other psychotic thought process. . (Oralia Lewis) Diagnostic Tests Laboratory Laboratory Tests Test 05/06/17 03:45 05/06/17 17:25 05/07/17 05:45 White Blood Count 9.5 TH/MM3 (4.0-11.0) 9.9 TH/MM3 (4.0-11.0) Red Blood Count 4.42 MIL/MM3 (4.50-5.90) 3.63 MIL/MM3 (4.50-5.90) Hemoglobin 13.8 GM/DL (13.0-17.0) 11.3 GM/DL (13.0-17.0) Hematocrit 39.7 % (39.0-51.0) 32.7 % (39.0-51.0) Mean Corpuscular Volume 89.8 FL (80.0-100.0) 90.0 FL (80.0-100.0) Mean Corpuscular Hemoglobin 31.1 PG (27.0-34.0) 31.2 PG (27.0-34.0) Mean Corpuscular Hemoglobin Concent 34.7 % (32.0-36.0) 34.7 % (32.0-36.0) Red Cell Distribution Width 13.5 % (11.6-17.2) 13.4 % (11.6-17.2) Platelet Count 307 TH/MM3 (150-450) 284 TH/MM3 (150-450) Mean Platelet Volume 7.3 FL (7.0-11.0) 7.3 FL (7.0-11.0) Neutrophils (%) (Auto) 81.0 % (16.0-70.0) 86.3 % (16.0-70.0) Lymphocytes (%) (Auto) 10.3 % (9.0-44.0) 7.2 % (9.0-44.0) Monocytes (%) (Auto) 7.9 % (0.0-8.0) 5.6 % (0.0-8.0) Eosinophils (%) (Auto) 0.5 % (0.0-4.0) 0.4 % (0.0-4.0) Basophils (%) (Auto) 0.3 % (0.0-2.0) 0.5 % (0.0-2.0) Neutrophils # (Auto) 7.7 TH/MM3 (1.8-7.7) 8.6 TH/MM3 (1.8-7.7) Lymphocytes # (Auto) 1.0 TH/MM3 (1.0-4.8) 0.7 TH/MM3 (1.0-4.8) Monocytes # (Auto) 0.8 TH/MM3 (0-0.9) 0.6 TH/MM3 (0-0.9) Eosinophils # (Auto) 0.0 TH/MM3 (0-0.4) 0.0 TH/MM3 (0-0.4) Basophils # (Auto) 0.0 TH/MM3 (0-0.2) 0.0 TH/MM3 (0-0.2) CBC Comment DIFF FINAL DIFF FINAL Differential Comment Prothrombin Time 12.7 SEC (9.8-11.6) Prothromb Time International Ratio 1.3 RATIO Activated Partial Thromboplast Time 26.4 SEC (24.3-30.1) Blood Urea Nitrogen 23 MG/DL (7-18) 24 MG/DL (7-18) Creatinine 1.02 MG/DL (0.60-1.30) 1.10 MG/DL (0.60-1.30) Random Glucose 126 MG/DL (74-106) 100 MG/DL (74-106) Total Protein 7.1 GM/DL (6.4-8.2) 6.0 GM/DL (6.4-8.2) Albumin 3.2 GM/DL (3.4-5.0) 2.7 GM/DL (3.4-5.0) Calcium Level 9.0 MG/DL (8.5-10.1) 8.2 MG/DL (8.5-10.1) Magnesium Level 1.8 MG/DL (1.5-2.5) Alkaline Phosphatase 451 U/L (45-117) 385 U/L (45-117) Aspartate Amino Transf (AST/SGOT) 412 U/L (15-37) 219 U/L (15-37) Alanine Aminotransferase (ALT/SGPT) 536 U/L (12-78) 392 U/L (12-78) Total Bilirubin 2.2 MG/DL (0.2-1.0) 2.0 MG/DL (0.2-1.0) Sodium Level 138 MEQ/L (136-145) 139 MEQ/L (136-145) Potassium Level 4.0 MEQ/L (3.5-5.1) 4.4 MEQ/L (3.5-5.1) Chloride Level 103 MEQ/L (98-107) 106 MEQ/L (98-107) Carbon Dioxide Level 23.3 MEQ/L (21.0-32.0) 24.4 MEQ/L (21.0-32.0) Anion Gap 12 MEQ/L (5-15) 9 MEQ/L (5-15) Estimat Glomerular Filtration Rate 75 ML/MIN (>89) 69 ML/MIN (>89) Lactic Acid Level 1.5 mmol/L (0.4-2.0) Troponin I LESS THAN 0.02 NG/ML Lipase 185 U/L (73-393) Tumor Marker Alpha Fetoprotein 540.9 NG/ML (0.5-8.0) Hepatitis A IgM Antibody NONREACTIVE (NONREACTIVE) Hepatitis B Surface Antigen NONREACTIVE (NONREACTIVE) Hepatitis B Core IgM Antibody NONREACTIVE (NONREACTIVE) Hepatitis C IgG Antibody NONREACTIVE (NONREACTIVE) . (Oralia Lewis) Result Diagram: 05/07/17 0545 05/07/17 0545 Imaging Last 72 hours Impressions Chest X-Ray 05/06/17 0345 Signed Impressions: Service Date/Time: Saturday, May 06, 2017 03:55 - CONCLUSION: No acute disease. There is no evidence of free air. Ehsan Argueta MD CT Angiography 05/06/17 0000 Signed Impressions: Service Date/Time: Saturday, May 06, 2017 06:19 - CONCLUSION: 1. Pulmonary emboli with a long thin saddle embolus which crosses from the right main pulmonary artery into the left. Smaller bilateral areas of pulmonary emboli present as well. 2. Small area consolidation in the right lower lobe. Ehsan Argueta MD Abdomen/Pelvis CT 05/06/17 0000 Signed Impressions: Service Date/Time: Saturday, May 06, 2017 06:19 - CONCLUSION: 1. The large tumor mass in the central liver appear slightly larger in size. There are additional metastatic lesions in the liver which are not significant change. 2. The gallbladder is more prominent and now contains a central area of high density which is concerning for possible hemorrhage or blood clot. Vicarious excretion of contrast contrast into the gallbladder can have a similar appearance however usually appears more homogeneous and diffuse. 3. The central splenic mass is not significantly changed. 4. Bilateral renal cysts. Ehsan Argueta MD . (Oralia Lewis) Patient/Family Conference Present at Family Conference: Met with patient and (Maria Victoria). Also present son, Landen and [id number] Cindy. Family Conference Location: Bedside Issues Discussed: * Palliative care role, purpose, approach * Additional medical, psychosocial, and spiritual history * Patients general health, functional status, and cognitive changes in the months leading up to the current hospitalization * Patient/family understanding of the current medical problems * Patient/family understanding of prognosis * Patients goals of care as best understood from advance directives and/or conversations and/or values * Current medical treatment options and benefits/burdens of those options * Likely scenarios comparing ongoing aggressive care with a transition to comfort measures only * Questions answered to the best of my ability * Palliative care contact information provided . (Oralia Lewis) Assessment and Plan Disease Oriented Problem List: (1) Pulmonary embolism (2) Liver mass (3) Hepatocellular carcinoma Symptom Scale: (1) Pain (2) Decrease in appetite (3) Nausea Pertinent Non-Medical Issues Psychosocial: Patient is originally from [place]. He has lived in [place] for about 14 years. 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 He is currently to Maria Victoria; they have been for 12 years. Patient had one biological son who last year from a drug overdose last year. Maria Victoria has 3 adult children - Casa (-Makalya), Landen (-Effie) and Angelica. They are very close to their stepfather. Casa and Makayla are in the [employer], currently stationed in [place]. Palliative care has contacted the [facility] for emergency notification/request for presence. Spiritual: Buddhist theodore Legal: Per [place] statutes, in the absence of written advanced directives healthcare proxy decision making falls to the patient's . Ethical issues impacting care: No ethical issues impacting care at this time. Important Contacts Maria Victoria John, spouse: [phone] or [phone]?? Kathy (son and DIL): [phone] . Prognosis 56-year-old male patient with newly diagnosed hepatocellular carcinoma that is showing signs of rapid growth. CT angiogram of the thorax revealed worsening pulmonary emboli; now with a saddle pulmonary embolus noted. Patient has been offered palliative systemic therapy, although transitioning to hospice services would also be a reasonable option at this point. Projected survival is approximately 6 months and likely less. . Code Status: Full Code Plan * FULL CODE * Per [place] statutes, in the absence of written advanced directives healthcare proxy decision making falls to the patient's . * AGGRESSIVE GOALS. Patient is having difficulty "wrapping his brain around" his newly diagnosed hepatocellular carcinoma. He states he does not feel he can make any decisions until his pain is better managed, but he would like to try to be aggressive. He is having difficulty believing this is true because it was so sudden, and he was so healthy at baseline. * Patient's family privately verbalized their understanding that patient's overall prognosis is quite poor, but they will honor the patient's goals and wishes regarding his medical care. * Dr. Galindo spoke to the patient and his about therapeutic options this morning. He explained that his hepatocellular carcinoma was showing signs of rapid growth and he was concerned that standard of care therapies with likely be ineffective. (Standard of care therapies being palliative systemic therapy with tyrosine kinase inhibitor as initial treatment and the possibility of immunotherapy with inability nivolumab as the second line therapy). Despite these treatment interventions, patient's projected survivor would be <6 months at best and likely less. After discussing palliative systemic therapy, Dr. Galindo explained to the patient and his that hospice services would also be a reasonable option at this time. * Discussed patient with Mela Quezada and Sanjana OLIVARES. * Patient's stepson and [id number] (Casa and Makayla) are in the [employer], currently stationed in [place]. Palliative care has contacted the [facility] for emergency notification/request for presence. * Palliative care contact information provided to the patient/family. * Symptom management: = Pain: Patient continues to report severe pain that involves the right upper quadrant and right flank which has required increased dosing and frequency of pain medication. Patient required STAT hydromorphone dose orders x 2 overnight and this morning. New orders for pain management: Oramorph 15 mg PO q 12 hours ATC and Hydromorphone 1.5mg IV every 2 hours PRN for breakthrough pain. Palliative will monitor PRN requirements and make recommendations as indicated. = Nausea: Patient reports nausea associated to episodes of severe pain that has restricted patient's nutritional intake. Ondansetron 4 mg IV is ordered PRN for nausea and vomiting. May want to consider scheduling ondansetron initially while attempting to adjust medications for better symptom management. * Palliative care will continue to follow this patient throughout his hospitalization to establish trust, assist with symptom management and clarification of medical treatment goals. . (Oralia Lewis) Thank you for the opportunity to participate in the care of Mr. Chavez. (Oralia Lewis) Attestation Chart reviewed. Case discussed with palliative care RETAIL CLIENT SOLUTIONS ANALYST. Above RETAIL CLIENT SOLUTIONS ANALYST note reviewed and I concur. . (Rakesh Gamez MD) Oralia Lewis May 07, 2017 11:58 Rakesh Gamez MD May 20, 2017 14:42
--- NOTE | 2017-05-07 12:10 | HHI.PR ---
Subjective Remarks Patient reports he still experiencing right upper quadrant pain radiating to his back. Pain medication is helping. He denies shortness of breath. Objective Vitals Vital Signs Date Time Temp Pulse Resp B/P (MAP) Pulse Ox O2 Delivery O2 Flow Rate FiO2 05/07/17 08:57 98.9 70 18 144/70 (94) 99 05/07/17 08:20 67 05/07/17 06:02 71 05/07/17 05:00 67 05/07/17 04:03 74 05/07/17 03:20 97.7 76 20 148/85 (106) 98 05/07/17 03:02 71 05/07/17 02:04 66 05/07/17 01:04 67 05/07/17 00:55 98.1 68 16 124/72 (89) 98 05/07/17 00:10 66 05/06/17 23:01 65 05/06/17 22:04 69 05/06/17 21:01 65 05/06/17 20:37 98.6 66 18 114/73 (87) 97 05/06/17 20:03 76 05/06/17 19:00 67 05/06/17 17:54 98.8 69 16 118/69 (85) 98 05/06/17 16:41 74 05/06/17 13:02 97.9 66 18 112/71 (85) 96 I/O 05/06/17 05/06/17 05/06/17 05/07/17 05/07/17 05/07/17 07:00 15:00 23:00 07:00 15:00 23:00 Intake Total 1960 ml 900 ml Output Total 500 ml 300 ml Balance 1460 ml 600 ml Intake Oral 960 ml 120 ml IV Total 1000 ml 780 ml Output Urine Total 500 ml 300 ml # Voids 2 Result Diagram: 05/07/17 0545 05/07/17 0545 Imaging Last Impressions Chest X-Ray 05/06/17 0345 Signed Impressions: Service Date/Time: Saturday, May 06, 2017 03:55 - CONCLUSION: No acute disease. There is no evidence of free air. Ehsan Argueta MD CT Angiography 05/06/17 0000 Signed Impressions: Service Date/Time: Saturday, May 06, 2017 06:19 - CONCLUSION: 1. Pulmonary emboli with a long thin saddle embolus which crosses from the right main pulmonary artery into the left. Smaller bilateral areas of pulmonary emboli present as well. 2. Small area consolidation in the right lower lobe. Ehsan Argueta MD Abdomen/Pelvis CT 05/06/17 0000 Signed Impressions: Service Date/Time: Saturday, May 06, 2017 06:19 - CONCLUSION: 1. The large tumor mass in the central liver appear slightly larger in size. There are additional metastatic lesions in the liver which are not significant change. 2. The gallbladder is more prominent and now contains a central area of high density which is concerning for possible hemorrhage or blood clot. Vicarious excretion of contrast contrast into the gallbladder can have a similar appearance however usually appears more homogeneous and diffuse. 3. The central splenic mass is not significantly changed. 4. Bilateral renal cysts. Ehsan Argueta MD Objective Remarks GENERAL: This is a well-nourished, well-developed patient, in no apparent distress. CARDIOVASCULAR: Normal rate and regular rhythm without murmurs, gallops, or rubs. RESPIRATORY: Good respiratory efforts. Breath sounds equal and clear to auscultation bilaterally. GASTROINTESTINAL: Abdomen soft, tender to palpation over the right upper quadrant. Normal active bowel sounds. MUSCULOSKELETAL: Extremities without cyanosis, or edema. NEURO: Alert & Oriented x4 to person, place, time, situation. Moves all ext x4 PSYCH: Appropriate mood and affect. A/P Problem List: (1) Hepatocellular carcinoma ICD Code: C22.0 - Liver cell carcinoma Plan: Probably locally advanced per oncology. Final confirmation pending. Palliative treatment offered to patient. Hospice can also be considered. Palliative care consulted. Pain control. Currently requiring IV Dilaudid. (2) Pulmonary embolism ICD Code: I26.99 - Other pulmonary embolism without acute cor pulmonale Plan: Appreciate input from hematology/oncology. Patient failed outpatient Xarelto. Continue Lovenox. 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 - General surgery has been consulted Problem Qualifiers (1) Pulmonary embolism: Qualified Codes: I26.92 - Saddle embolus of pulmonary artery without acute cor pulmonale Shannon Dixon MD May 07, 2017 12:10
--- NOTE | 2017-05-07 13:31 | PD.CONS ---
cc: Kathryn Rivera MD HPI Service General Surgery Consult Requested By Dr. Iyer Reason for Consult Biliary colic Primary Care Physician No Primary Care Physician History of Present Illness This is a 56 year old male with a recent diagnosis of hepatocellular carcinoma and pulmonary emboli and Xarelto. The patient presented to the ED with complains of abdominal pain with associated nausea and vomiting that began Sunday evening about 5PM. He reports low appetite. A CT abdomen/pelvis was obtained which shows a large liver mass that is larger in comparisons to prior scans; there are also visualized metastatic lesions; the gallbladder is prominent. A CTA of the chest was obtained which shows a saddle pulmonary emboli. The patient's liver enzymes are elevated. The patient is followed by Dr. Galindo who saw the patient in consultation this morning. A General Surgery consultation has been requested. Review of Systems Constitutional: COMPLAINS OF: Change in appetite, DENIES: Fatigue, Chills Endocrine: DENIES: Polydipsia, Polyuria, Polyphagia Eyes: DENIES: Diplopia, Eye inflammation Ears, nose, mouth, throat: DENIES: Hearing loss Respiratory: DENIES: Apneas Cardiovascular: DENIES: Chest pain Gastrointestinal: COMPLAINS OF: Abdominal pain, Nausea, Vomiting Genitourinary: DENIES: Hematuria Musculoskeletal: DENIES: Joint pain Integumentary: DENIES: Abnormal pigmentation Hematologic/lymphatic: DENIES: Bruising Immunologic/allergic: DENIES: Eczema Neurologic: DENIES: Headache, Localized weakness Psychiatric: DENIES: Mood changes, Depression, Hallucinations Past Family Social History Past Medical History Recent diagnosis of liver cancer Pulmonary emboli on Xarelto Past Surgical History Liver biopsy Reported Medications Xarelto Allergies: Coded Allergies: No Known Allergies (Verified Allergy, Unknown, 05/06/17) Active Ordered Medications Current Medications Medications (Trade) Dose Ordered Sig/Mago Route Start Time Stop Time Status Last Admin (NS Flush) 2 ml UNSCH PRN IV FLUSH 05/06/17 03:45 05/07/17 05:52 Sodium Chloride 1,000 ml @ 84 mls/hr [id number] IV 05/06/17 09:00 05/07/17 10:10 (Protonix Inj) 40 mg DAILY IV PUSH 05/06/17 09:00 05/07/17 08:53 (Zofran Inj) 4 mg Q6H PRN IV PUSH 05/06/17 09:00 05/07/17 05:52 (Duoneb Neb) 1 ampule Q2HR NEB PRN INH 05/06/17 09:00 (Lovenox Inj) 80 mg Q12HR SQ 05/07/17 09:00 05/07/17 08:54 (Oramorph Sr) 15 mg Q12HR PO 05/07/17 09:00 05/07/17 08:53 (Dilaudid Pf Inj) 1.5 mg Q2HR PRN IV PUSH 05/07/17 11:00 05/07/17 12:47 Family History Mother with breast cancer, brother with lung cancer Social History Denies tobacco use Denies ETOH use Denies illicit drug use He is . Physical Exam Vital Signs Vital Signs Date Time Temp Pulse Resp B/P (MAP) Pulse Ox O2 Delivery O2 Flow Rate FiO2 05/07/17 12:39 98.1 69 20 126/79 (95) 92 05/07/17 08:57 98.9 70 18 144/70 (94) 99 05/07/17 08:20 67 05/07/17 06:02 71 05/07/17 05:00 67 05/07/17 04:03 74 05/07/17 03:20 97.7 76 20 148/85 (106) 98 05/07/17 03:02 71 05/07/17 02:04 66 05/07/17 01:04 67 05/07/17 00:55 98.1 68 16 124/72 (89) 98 05/07/17 00:10 66 05/06/17 23:01 65 05/06/17 22:04 69 05/06/17 21:01 65 05/06/17 20:37 98.6 66 18 114/73 (87) 97 05/06/17 20:03 76 05/06/17 19:00 67 05/06/17 17:54 98.8 69 16 118/69 (85) 98 05/06/17 16:41 74 Physical Exam GENERAL: Pleasant 56 year old male resting in bed in no acute distress. SKIN: Warm and dry. HEAD: Atraumatic. Normocephalic. EYES: Pupils equal and round. No scleral icterus. No injection or drainage. ENT: No nasal bleeding or discharge. Mucous membranes pink and moist. NECK: Trachea midline. CARDIOVASCULAR: Regular rate and rhythm. RESPIRATORY: No accessory muscle use. Clear to auscultation. Breath sounds equal bilaterally. GASTROINTESTINAL: Abdomen soft; nondistended; RUQ tenderness with palpation. MUSCULOSKELETAL: Extremities without clubbing, cyanosis, or edema. No obvious deformities. NEUROLOGICAL: Awake and alert. No obvious cranial nerve deficits. Motor grossly within normal limits. Five out of 5 muscle strength in the arms and legs. Normal speech. PSYCHIATRIC: Appropriate mood and affect; insight and judgment normal. Laboratory Laboratory Tests Test 05/06/17 17:25 05/07/17 05:45 Tumor Marker Alpha Fetoprotein 540.9 Hepatitis A IgM Antibody NONREACTIVE Hepatitis B Surface Antigen NONREACTIVE Hepatitis B Core IgM Antibody NONREACTIVE Hepatitis C IgG Antibody NONREACTIVE White Blood Count 9.9 Red Blood Count 3.63 Hemoglobin 11.3 Hematocrit 32.7 Mean Corpuscular Volume 90.0 Mean Corpuscular Hemoglobin 31.2 Mean Corpuscular Hemoglobin Concent 34.7 Red Cell Distribution Width 13.4 Platelet Count 284 Mean Platelet Volume 7.3 Neutrophils (%) (Auto) 86.3 Lymphocytes (%) (Auto) 7.2 Monocytes (%) (Auto) 5.6 Eosinophils (%) (Auto) 0.4 Basophils (%) (Auto) 0.5 Neutrophils # (Auto) 8.6 Lymphocytes # (Auto) 0.7 Monocytes # (Auto) 0.6 Eosinophils # (Auto) 0.0 Basophils # (Auto) 0.0 CBC Comment DIFF FINAL Differential Comment Blood Urea Nitrogen 24 Creatinine 1.10 Random Glucose 100 Total Protein 6.0 Albumin 2.7 Calcium Level 8.2 Alkaline Phosphatase 385 Aspartate Amino Transf (AST/SGOT) 219 Alanine Aminotransferase (ALT/SGPT) 392 Total Bilirubin 2.0 Sodium Level 139 Potassium Level 4.4 Chloride Level 106 Carbon Dioxide Level 24.4 Anion Gap 9 Estimat Glomerular Filtration Rate 69 Result Diagram: 05/07/17 0545 05/07/17 0545 Imaging Last 48 hours Impressions Chest X-Ray 05/06/17 0345 Signed Impressions: Service Date/Time: Saturday, May 06, 2017 03:55 - CONCLUSION: No acute disease. There is no evidence of free air. Ehsan Argueta MD CT Angiography 05/06/17 0000 Signed Impressions: Service Date/Time: Saturday, May 06, 2017 06:19 - CONCLUSION: 1. Pulmonary emboli with a long thin saddle embolus which crosses from the right main pulmonary artery into the left. Smaller bilateral areas of pulmonary emboli present as well. 2. Small area consolidation in the right lower lobe. Ehsan Argueta MD Abdomen/Pelvis CT 05/06/17 0000 Signed Impressions: Service Date/Time: Saturday, May 06, 2017 06:19 - CONCLUSION: 1. The large tumor mass in the central liver appear slightly larger in size. There are additional metastatic lesions in the liver which are not significant change. 2. The gallbladder is more prominent and now contains a central area of high density which is concerning for possible hemorrhage or blood clot. Vicarious excretion of contrast contrast into the gallbladder can have a similar appearance however usually appears more homogeneous and diffuse. 3. The central splenic mass is not significantly changed. 4. Bilateral renal cysts. Ehsan Argueta MD Assessment and Plan Assessment and Plan 56 year old male with hepatocellular carcinoma; pulmonary emboli in Xarelto -Likely RUQ pain from HHC of the liver -Continue anticoagulation for PE -Oncology following -Recommend pain regimen -Palliative Care following -No surgical plans SEEN WITH WALLPAPER SCRAPER WHO DOCUMENTED OUR VISIT. PT KNOWN TO ME HIS IS MY PATIENT. WE HAD A LONG DISCUSSION ABOUT PAIN MANAGEMENT I DO NOT THINK HIS RUQ PAIN IS HIS GALLBLADDER. 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 AGREE WITH SECOND OPINION [facility]. KATHRYN RIVERA MD FACS Discussed Condition With Dr. Juan Jose OLIVARES Mr. Chavez + family at bedside Sanjana Wilkins/Facilities Custodian ELISE May 07, 2017 13:31 Kathryn Rivera MD May 14, 2017 11:58
[2017-05-07] MEDS: HYDROmorphone HCL PF 2 MG/ML VIAL IV PUSH PRN ×3 (17:40→22:13)
[2017-05-07 21:42] LABS: % SATURATION IRON PROFILE 11.2 % (20-50); FERRITIN 264 NG/ML (26-388); IRON (FE) 35 MCG/DL (65-175); TOTAL IRON BINDING CAPACITY 314 MCG/DL (250-450)
[2017-05-08] VITALS (27 sets, daily range): BP systolic 114–141; BP diastolic 66–80; PULSE 79–92; RESP 18–20; TEMP 97.8–98.9; O2SAT 91–97
[2017-05-08] MEDS: HYDROmorphone HCL PF 2 MG/ML VIAL IV PUSH PRN ×3 (01:23→08:23)
[2017-05-08] MEDS: SODIUM CHLORIDE 0.9% FLUSH 10 ML FLUSH IV FLUSH PRN ×3 (01:24→21:18)
[2017-05-08 07:22] LABS: HEMATOCRIT 32.6 % (39.0-51.0); HEMOGLOBIN 11.2 GM/DL (13.0-17.0); MEAN CORPUSCULAR HEMOGLOBIN 31.1 PG (27.0-34.0); MEAN CORPUSCULAR HGB CONC 34.2 % (32.0-36.0); MEAN PLATELET VOLUME 7.4 FL (7.0-11.0); PLATELET COUNT 294 TH/MM3 (150-450); RED BLOOD COUNT 3.58 MIL/MM3 (4.50-5.90); RED CELL DISTRIBUTION WIDTH 13.6 % (11.6-17.2); WHITE BLOOD COUNT 8.5 TH/MM3 (4.0-11.0)
--- NOTE | 2017-05-08 07:46 | PD.ONC.PN ---
Subjective Subjective Remarks Patient seen and examined, vital signs, labs, medications and overnight events reviewed. Forensic Sergeant notes including general surgery and palliative care notes also reviewed. Yesterday afternoon the patient became oversedated after an IV dose of hydromorphone, he had some respiratory suppression with desaturation, he required oxygen supplementation and gradually recovered. Since then his hydromorphone bolus doses have been decreased. This morning, he feels more comfortable. He tells me he has been making large quantities of urine but his urine has been extremely dark, a urinal is noted at bedside, the urine is indeed very dark consistent with hyperbilirubinemia. The patient and his today wishes to discuss the results of additional immune chemical staining studies ordered on his original biopsy. He also wishes to discuss their decision to obtain a second opinion with a GI/hepatobiliary cancer specialists at the [facility]. Objective Data Date Time Temp Pulse Resp B/P (MAP) Pulse Ox O2 Delivery O2 Flow Rate FiO2 05/08/17 06:01 81 05/08/17 05:06 88 05/08/17 04:25 98.7 83 18 114/80 (91) 94 05/08/17 04:01 87 05/08/17 03:00 88 05/08/17 02:10 85 05/08/17 01:01 84 05/08/17 01:00 98.9 80 18 118/66 (83) 95 05/07/17 23:30 86 05/07/17 23:06 83 05/07/17 22:01 82 05/07/17 21:05 90 05/07/17 20:22 98.5 81 18 130/84 (99) 95 05/07/17 20:06 84 05/07/17 19:04 88 05/07/17 18:00 82 05/07/17 17:39 90 18 138/83 (101) 94 05/07/17 17:00 90 05/07/17 16:27 97.1 99 24 138/78 (98) 93 05/07/17 16:00 95 05/07/17 15:00 92 05/07/17 14:00 76 05/07/17 13:00 76 05/07/17 12:39 98.1 69 20 126/79 (95) 92 05/07/17 12:00 69 05/07/17 11:00 70 05/07/17 10:00 62 05/07/17 09:00 66 05/07/17 08:57 98.9 70 18 144/70 (94) 99 05/07/17 08:20 67 Result Diagram: 05/08/17 0545 05/07/17 0545 Laboratory Results Laboratory Tests Test 05/07/17 20:10 05/08/17 05:45 05/08/17 05:54 Iron Level 35 MCG/DL Total Iron Binding Capacity 314 MCG/DL Percent Iron Saturation 11.2 % Ferritin 264 NG/ML White Blood Count 8.5 TH/MM3 Red Blood Count 3.58 MIL/MM3 Hemoglobin 11.2 GM/DL Hematocrit 32.6 % Mean Corpuscular Volume 91.0 FL Mean Corpuscular Hemoglobin 31.1 PG Mean Corpuscular Hemoglobin Concent 34.2 % Red Cell Distribution Width 13.6 % Platelet Count 294 TH/MM3 Mean Platelet Volume 7.4 FL Administered Medications Medications (Trade) Dose Ordered Sig/Mago Route PRN Reason Start Time Stop Time Status Last Admin Dose Admin Sodium Chloride (NS Flush) 2 ml UNSCH PRN IV FLUSH FLUSH AFTER USING IV ACCESS 05/06/17 03:45 05/08/17 04:20 Sodium Chloride 1,000 ml @ 84 mls/hr [id number] IV 05/06/17 09:00 05/07/17 22:18 Pantoprazole Sodium (Protonix Inj) 40 mg DAILY IV PUSH 05/06/17 09:00 05/07/17 08:53 Enoxaparin Sodium (Lovenox Inj) 80 mg Q12HR SQ 05/07/17 09:00 05/07/17 22:16 Morphine Sulfate (Oramorph Sr) 15 mg Q12HR PO 05/07/17 09:00 05/07/17 22:15 Ondansetron HCl (Zofran Inj) 4 mg Q4HR PRN IV PUSH NAUSEA OR VOMITING 05/07/17 16:00 05/07/17 17:45 Hydromorphone HCl (Dilaudid Pf Inj) 1 mg Q2HR PRN IV PUSH BREAKTHROUGH PAIN 05/07/17 16:30 05/08/17 04:20 Objective Remarks GENERAL: Middle-aged male sitting up in bed, he appears to be comfortable, he is short, he is a muscular built, he is awake and alert. He is not acutely distressed. His is at bedside. SKIN: Warm and dry. HEAD: Normocephalic. EYES: No scleral icterus. No injection or drainage. NECK: Supple, trachea midline. No JVD or lymphadenopathy. LYMPHATIC: No adenopathy. CARDIOVASCULAR: Borderline tachycardia, S1 and S2 normal murmurs or gallops. RESPIRATORY: Good air movement bilaterally over upper and middle lung zones, decreased bibasilar breath sounds, patient with obvious pain with deep inspiratory effort. GASTROINTESTINAL: Protuberant belly, tender over the right upper quadrant, hepatomegaly noted. No splenomegaly noted. EXTREMITIES: No cyanosis, or edema. MUSCULOSKELETAL: Good muscle mass, Adequate muscle tone. NEUROLOGICAL: No obvious focal deficit. Awake, alert, and oriented x3. PSYCHIATRIC: Appropriate mood and affect; insight and judgment normal. Assessment/Plan Assessment Mr. 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 Biopsy was performed and pathologic findings were most consistent with hepatocellular carcinoma, he has never been a drinker, he is negative for hepatitis A, B and C and has no evidence or history of hepatic cirrhosis. He at the time of his initial presentation also had bilateral pulmonary emboli. Additional review of his biopsy were underway; i.e. with additional staining studies specific or hepatocellular carcinoma. He presented to the hospital yesterday morning with complaints of worsening pain in the right upper quadrant. Imaging studies performed on 05/06/2017 indicated impairment enlargement of the dominant hepatic mass by about 1 cm in each dimension. CT angiogram of the thorax revealed worsening pulmonary emboli; now with a saddle pulmonary embolus noted. This was despite him being on a loading dose of Xarelto 15 MG by mouth twice a day as an outpatient after having initially been on heparin infusion while in [place] last week. The oncology service is been asked to see him for further workup, management, symptom control and discussion regarding goals of care. Additionally, the palliative care service is also been asked to see him which I think is appropriate. Plan 1. Likely diagnosis of advanced /metastatic hepatocellular carcinoma: Await immunohistochemical staining studies which will should confirm this diagnosis. Standard of care therapies include oral tyrosine kinase inhibitor such as Sorafenib and immunotherapy with Nivolumab in the second line setting. Patient his wish to obtain second opinion at the [facility] which is very reasonable given the advanced nature of his disease and overall poor prognosis. 2. Pain control: Palliative care is on board, he is on long-acting morphine sulfate 15 mg twice daily and bolus doses of hydromorphone every 2-3 hours. 3. Bilateral pulmonary emboli: Continue Lovenox which should be continued at discharge at a therapeutic dose of 1 mg/kg every 12 hours. I have advised the patient to let the nurses teach him self administer these injections. Continue ongoing care. Toño Galindo MD May 08, 2017 07:46
[2017-05-08 07:47] LABS: ALBUMIN 2.9 GM/DL (3.4-5.0); AST (GOT) 303 U/L (15-37); BICARBONATE 25.7 MEQ/L (21.0-32.0); BLOOD UREA NITROGEN 28 MG/DL (7-18); CALCIUM 8.4 MG/DL (8.5-10.1); CHLORIDE 106 MEQ/L (98-107); CREATININE 1.02 MG/DL (0.60-1.30); GLOMERULAR FILTRATION RATE 75 ML/MIN (>89); GLUCOSE,RANDOM 89 MG/DL (74-106); SODIUM (NA) 140 MEQ/L (136-145)
[2017-05-08 07:48] LABS: ALT (GPT) 426 U/L (12-78); DIRECT BILIRUBIN ADULT 3.7 MG/DL (0.0-0.2)
[2017-05-08 07:59] LABS: ALKALINE PHOSPHATASE 494 U/L (45-117); TOTAL BILIRUBIN ADULT 4.7 MG/DL (0.2-1.0); TOTAL PROTEIN 6.5 GM/DL (6.4-8.2)
[2017-05-08] MEDS: ENOXAPARIN SODIUM 80 MG/0.8 ML SYRINGE SQ SCH ×2 (08:22→21:10)
[2017-05-08] MEDS: PANTOPRAZOLE SODIUM 40 MG VIAL IV PUSH SCH (08:22)
[2017-05-08] MEDS: MORPHINE SULFATE 15 MG CONTROLLED RELEASE TAB PO SCH (08:23)
[2017-05-08] MEDS: ONDANSETRON HCL 4 MG/2 ML VIAL IV PUSH PRN ×2 (08:27→17:17)
[2017-05-08] MEDS: SODIUM CHLOR 0.9% 1000 ML INJ 1,000 ML IV SCH ×2 (10:21→21:19)
--- NOTE | 2017-05-08 11:38 | HHI.PR ---
Subjective Remarks Evaluated the patient twice today. In the morning he reports that his pain was better controlled. We agree to try Oral Dilaudid for breakthrough pain instead of IV. In the after noon he complained of severe pain and requested IV Dilaudid. Per Discussion with RN, he was given 1mg of IV Dilaudid and he became very lethargic immediately and his oxygen saturation dropped to the 80's. Objective Vitals Vital Signs Date Time Temp Pulse Resp B/P (MAP) Pulse Ox O2 Delivery O2 Flow Rate FiO2 05/08/17 08:17 97.8 81 20 137/78 (97) 91 05/08/17 08:08 85 05/08/17 07:01 90 05/08/17 06:01 81 05/08/17 05:06 88 05/08/17 04:25 98.7 83 18 114/80 (91) 94 05/08/17 04:01 87 05/08/17 03:00 88 05/08/17 02:10 85 05/08/17 01:01 84 05/08/17 01:00 98.9 80 18 118/66 (83) 95 05/07/17 23:30 86 05/07/17 23:06 83 05/07/17 22:01 82 05/07/17 21:05 90 05/07/17 20:22 98.5 81 18 130/84 (99) 95 05/07/17 20:06 84 05/07/17 19:04 88 05/07/17 18:00 82 05/07/17 17:39 90 18 138/83 (101) 94 05/07/17 17:00 90 05/07/17 16:27 97.1 99 24 138/78 (98) 93 05/07/17 16:00 95 05/07/17 15:00 92 05/07/17 14:00 76 05/07/17 13:00 76 05/07/17 12:39 98.1 69 20 126/79 (95) 92 05/07/17 12:00 69 I/O 05/07/17 05/07/17 05/07/17 05/08/17 05/08/17 05/08/17 07:00 15:00 23:00 07:00 15:00 23:00 Intake Total 900 ml 2380 ml 240 ml Output Total 300 ml 1300 ml Balance 600 ml 1080 ml 240 ml Intake Oral 120 ml 1480 ml 240 ml IV Total 780 ml 900 ml Output Urine Total 300 ml 1300 ml # Voids 5 1 Result Diagram: 05/08/17 0545 05/08/17 0554 Objective Remarks GENERAL: This is a well-nourished, well-developed patient, in no apparent distress. CARDIOVASCULAR: Normal rate and regular rhythm without murmurs, gallops, or rubs. RESPIRATORY: Good respiratory efforts. Breath sounds equal and clear to auscultation bilaterally. GASTROINTESTINAL: Abdomen soft, tender to palpation over the right upper quadrant. Normal active bowel sounds. MUSCULOSKELETAL: Extremities without cyanosis, or edema. NEURO: Alert & Oriented x4 to person, place, time, situation. Moves all ext x4 PSYCH: Appropriate mood and affect. A/P Problem List: (1) Hepatocellular carcinoma ICD Code: C22.0 - Liver cell carcinoma Plan: Probably locally advanced per oncology. Final confirmation pending. Palliative treatment offered to patient. Patient wants to seek a second opinion at the [facility]. Hospice can also be considered. Palliative following Pain very difficult to control. Patient did not tolerate oral Dilaudid for breakthrough. Currently requiring IV Dilaudid for breakthrough pain, however highly concerned about him being oversedated and respiratory depression. Discussed the risk of pain medication with the patient and his extensively. He is very concerned about control of his pain. I agreed to increase extended release morphine to 30 mg 3 times daily and to keep available 0.5 mg IV Dilaudid for breakthrough pain. I did advise the patient if at any point respiratory depression becomes an issue, will have to back off on narcotics. He understands the ultimate goal is to control his pain as best as possible on oral medications. Probably locally advanced per oncology. Final confirmation pending. Palliative treatment offered to patient. Hospice can also be considered. Palliative care consulted. Pain control. Currently requiring IV Dilaudid. (2) Pulmonary embolism ICD Code: I26.99 - Other pulmonary embolism without acute cor pulmonale Plan: Appreciate input from hematology/oncology. Patient failed outpatient Xarelto. Continue Lovenox. 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 - General surgery evaluated the patient and recommended pain management. No surgical intervention is planned. Problem Qualifiers (1) Pulmonary embolism: Qualified Codes: I26.92 - Saddle embolus of pulmonary artery without acute cor pulmonale Shannon Dixon MD May 08, 2017 11:38
[2017-05-08] MEDS ORDERED: HYDROmorphone HCL 2 MG TAB PO PRN (11:45)
[2017-05-08] MEDS: DOCUSATE SODIUM 50 MG/SENNA 8.6 MG TAB PO SCH ×2 (12:36→21:09)
[2017-05-08] MEDS ORDERED: MORPHINE SULFATE 15 MG CONTROLLED RELEASE TAB PO SCH (14:00)
--- NOTE | 2017-05-08 14:40 | HHI.HCPN ---
Reason for visit a. To assist with evaluation and management of symptoms including: Pain, nausea, decreased appetite b. To assist medical decision maker(s) with: better understanding of current medical conditions; weighing benefits/burdens of medical treatment options; making medical treatment decisions. . Subjective/Interval History Follow-up visit for symptom management and clarification of medical treatment goals. Patient and his have decided to obtain a second opinion with a GI/ hepatobiliary oncologist at the [facility]. They have contacted the [facility] ( and Dr. Rodriguez) and are awaiting a response. The patient is right upper quadrant pain, this patient states it is better managed today than yesterday. Patient reports pain was 10/10 yesterday at its worse, and today the patient rates his most severe pain as 7/10. Patient is aware that he will likely have some degree of pain at baseline; he states he can tolerate a pain level of 3 out of 10. Apparently the patient became quite sedated yesterday after an IV dose of hydromorphone. He had some respiratory suppression with desaturation requiring supplemental oxygen. Since then, the patient's PRN hydromorphone was decreased. Discussed pain management with Dr. Love (palliative care) as well as Dr. Dixon. Patient's Oramorph SR was increased to 15 mg PO q3 hours and PRN hydromorphone dose and route was changed to 2mg PO q4 hours PRN. Changes were discussed with the patient and his who states their primary goal at this point in time is pain management. They also understand that the patient will need to transition to oral pain medication before he can be discharged. Patient's nutritional intake was slightly better this morning. He continues to have some intermittent nausea and received Zofran 4 mg IV push this morning. CT angiogram of the thorax revealed worsening pulmonary emboli-now with a saddle pulmonary embolus noted. Patient has been on blood thinners since being diagnosed last week, initially a heparin infusion while hospitalized and then transitioning to Xarelto 15 MG by mouth twice a day as an outpatient. Patient is now receiving Lovenox daily SQ; Lovenox should be continued at discharge at a therapeutic dose of 1 mg/kg q12 hours; consider having the nurse teach the patient/ to self administer these injections if they are amenable to this. . Advance Directives Advance Directive Specifics Health Care Surrogate(s): Per [place] statutes, in the absence of written advanced directives healthcare proxy decision making falls to the patient's . . Documented care wishes: No known written advanced directives have been completed. . Significant change in goals: Patient and his have decided to obtain a second opinion with a GI/ hepatobiliary oncologist at the [facility]. . Objective Vital Signs Date Time Temp Pulse Resp B/P (MAP) Pulse Ox O2 Delivery O2 Flow Rate FiO2 05/08/17 12:35 98.0 83 20 127/77 (94) 93 05/08/17 08:17 97.8 81 20 137/78 (97) 91 05/08/17 08:08 85 05/08/17 07:01 90 05/08/17 06:01 81 05/08/17 05:06 88 05/08/17 04:25 98.7 83 18 114/80 (91) 94 05/08/17 04:01 87 05/08/17 03:00 88 05/08/17 02:10 85 05/08/17 01:01 84 05/08/17 01:00 98.9 80 18 118/66 (83) 95 05/07/17 23:30 86 05/07/17 23:06 83 05/07/17 22:01 82 05/07/17 21:05 90 05/07/17 20:22 98.5 81 18 130/84 (99) 95 05/07/17 20:06 84 05/07/17 19:04 88 05/07/17 18:00 82 05/07/17 17:39 90 18 138/83 (101) 94 05/07/17 17:00 90 05/07/17 16:27 97.1 99 24 138/78 (98) 93 05/07/17 16:00 95 05/07/17 15:00 92 Intake & Output 05/08/17 05/08/17 07:00 19:00 Intake Total 240 ml Output Total 400 ml Balance -160 ml Intake Oral 240 ml Output Urine Total 400 ml # Voids 1 . Physical Exam CONSTITUTIONAL/GENERAL: Patient is a middle aged male who appears healthy in no apparent distress. TUBES/LINES/DRAINS: PIV SKIN: No jaundice, rashes, or lesions. No wounds seen anteriorly. Skin temperature appropriate. Not diaphoretic. HEAD: Atraumatic. Normocephalic. EYES: Pupils equal and round and reactive. Extraocular motions intact. No scleral icterus. No injection or drainage. Fundi not examined. ENT: Hearing grossly normal. Nose without bleeding or purulent drainage. Throat without visible erythema, exudates, masses, or lesions. NECK: Trachea midline. Supple, nontender. No palpable thyroid enlargement or nodularity. CARDIOVASCULAR: Regular rate and rhythm without murmurs, gallops, or rubs. No JVD. Peripheral pulses symmetric. RESPIRATORY/CHEST: Symmetric, unlabored respirations. Clear to auscultation. Breath sounds equal bilaterally. No wheezes, rales, or rhonchi. GASTROINTESTINAL: Abdomen soft, non-tender, nondistended. Bowel sounds present. GENITOURINARY: Without palpable bladder distension. MUSCULOSKELETAL: No obvious deformities. Extremities without clubbing, cyanosis , or edema. No mottling or clubbing. LYMPHATICS: No palpable cervical or supraclavicular adenopathy. NEUROLOGICAL: Awake and alert. Cognitively sharp. Moves all extremities. PSYCHIATRIC: No obvious anxiety/depression. No apparent hallucinations or other psychotic thought process. . Diagnostic Tests Laboratory Laboratory Tests Test 05/06/17 03:45 05/06/17 17:25 05/07/17 05:45 05/07/17 20:10 White Blood Count 9.5 TH/MM3 (4.0-11.0) 9.9 TH/MM3 (4.0-11.0) Red Blood Count 4.42 MIL/MM3 (4.50-5.90) 3.63 MIL/MM3 (4.50-5.90) Hemoglobin 13.8 GM/DL (13.0-17.0) 11.3 GM/DL (13.0-17.0) Hematocrit 39.7 % (39.0-51.0) 32.7 % (39.0-51.0) Mean Corpuscular Volume 89.8 FL (80.0-100.0) 90.0 FL (80.0-100.0) Mean Corpuscular Hemoglobin 31.1 PG (27.0-34.0) 31.2 PG (27.0-34.0) Mean Corpuscular Hemoglobin Concent 34.7 % (32.0-36.0) 34.7 % (32.0-36.0) Red Cell Distribution Width 13.5 % (11.6-17.2) 13.4 % (11.6-17.2) Platelet Count 307 TH/MM3 (150-450) 284 TH/MM3 (150-450) Mean Platelet Volume 7.3 FL (7.0-11.0) 7.3 FL (7.0-11.0) Neutrophils (%) (Auto) 81.0 % (16.0-70.0) 86.3 % (16.0-70.0) Lymphocytes (%) (Auto) 10.3 % (9.0-44.0) 7.2 % (9.0-44.0) Monocytes (%) (Auto) 7.9 % (0.0-8.0) 5.6 % (0.0-8.0) Eosinophils (%) (Auto) 0.5 % (0.0-4.0) 0.4 % (0.0-4.0) Basophils (%) (Auto) 0.3 % (0.0-2.0) 0.5 % (0.0-2.0) Neutrophils # (Auto) 7.7 TH/MM3 (1.8-7.7) 8.6 TH/MM3 (1.8-7.7) Lymphocytes # (Auto) 1.0 TH/MM3 (1.0-4.8) 0.7 TH/MM3 (1.0-4.8) Monocytes # (Auto) 0.8 TH/MM3 (0-0.9) 0.6 TH/MM3 (0-0.9) Eosinophils # (Auto) 0.0 TH/MM3 (0-0.4) 0.0 TH/MM3 (0-0.4) Basophils # (Auto) 0.0 TH/MM3 (0-0.2) 0.0 TH/MM3 (0-0.2) CBC Comment DIFF FINAL DIFF FINAL Differential Comment Prothrombin Time 12.7 SEC (9.8-11.6) Prothromb Time International Ratio 1.3 RATIO Activated Partial Thromboplast Time 26.4 SEC (24.3-30.1) Blood Urea Nitrogen 23 MG/DL (7-18) 24 MG/DL (7-18) Creatinine 1.02 MG/DL (0.60-1.30) 1.10 MG/DL (0.60-1.30) Random Glucose 126 MG/DL (74-106) 100 MG/DL (74-106) Total Protein 7.1 GM/DL (6.4-8.2) 6.0 GM/DL (6.4-8.2) Albumin 3.2 GM/DL (3.4-5.0) 2.7 GM/DL (3.4-5.0) Calcium Level 9.0 MG/DL (8.5-10.1) 8.2 MG/DL (8.5-10.1) Magnesium Level 1.8 MG/DL (1.5-2.5) Alkaline Phosphatase 451 U/L (45-117) 385 U/L (45-117) Aspartate Amino Transf (AST/SGOT) 412 U/L (15-37) 219 U/L (15-37) Alanine Aminotransferase (ALT/SGPT) 536 U/L (12-78) 392 U/L (12-78) Total Bilirubin 2.2 MG/DL (0.2-1.0) 2.0 MG/DL (0.2-1.0) Sodium Level 138 MEQ/L (136-145) 139 MEQ/L (136-145) Potassium Level 4.0 MEQ/L (3.5-5.1) 4.4 MEQ/L (3.5-5.1) Chloride Level 103 MEQ/L (98-107) 106 MEQ/L (98-107) Carbon Dioxide Level 23.3 MEQ/L (21.0-32.0) 24.4 MEQ/L (21.0-32.0) Anion Gap 12 MEQ/L (5-15) 9 MEQ/L (5-15) Estimat Glomerular Filtration Rate 75 ML/MIN (>89) 69 ML/MIN (>89) Lactic Acid Level 1.5 mmol/L (0.4-2.0) Troponin I LESS THAN 0.02 NG/ML Lipase 185 U/L (73-393) Tumor Marker Alpha Fetoprotein 540.9 NG/ML (0.5-8.0) Hepatitis A IgM Antibody NONREACTIVE (NONREACTIVE) Hepatitis B Surface Antigen NONREACTIVE (NONREACTIVE) Hepatitis B Core IgM Antibody NONREACTIVE (NONREACTIVE) Hepatitis C IgG Antibody NONREACTIVE (NONREACTIVE) Iron Level 35 MCG/DL (65-175) Total Iron Binding Capacity 314 MCG/DL (250-450) Percent Iron Saturation 11.2 % (20-50) Ferritin 264 NG/ML (26-388) Test 05/08/17 05:45 05/08/17 05:54 White Blood Count 8.5 TH/MM3 (4.0-11.0) Red Blood Count 3.58 MIL/MM3 (4.50-5.90) Hemoglobin 11.2 GM/DL (13.0-17.0) Hematocrit 32.6 % (39.0-51.0) Mean Corpuscular Volume 91.0 FL (80.0-100.0) Mean Corpuscular Hemoglobin 31.1 PG (27.0-34.0) Mean Corpuscular Hemoglobin Concent 34.2 % (32.0-36.0) Red Cell Distribution Width 13.6 % (11.6-17.2) Platelet Count 294 TH/MM3 (150-450) Mean Platelet Volume 7.4 FL (7.0-11.0) Blood Urea Nitrogen 28 MG/DL (7-18) Creatinine 1.02 MG/DL (0.60-1.30) Random Glucose 89 MG/DL (74-106) Total Protein 6.5 GM/DL (6.4-8.2) Albumin 2.9 GM/DL (3.4-5.0) Calcium Level 8.4 MG/DL (8.5-10.1) Alkaline Phosphatase 494 U/L (45-117) Aspartate Amino Transf (AST/SGOT) 303 U/L (15-37) Alanine Aminotransferase (ALT/SGPT) 426 U/L (12-78) Total Bilirubin 4.7 MG/DL (0.2-1.0) Direct Bilirubin 3.7 MG/DL (0.0-0.2) Sodium Level 140 MEQ/L (136-145) Potassium Level 4.2 MEQ/L (3.5-5.1) Chloride Level 106 MEQ/L (98-107) Carbon Dioxide Level 25.7 MEQ/L (21.0-32.0) Anion Gap 8 MEQ/L (5-15) Estimat Glomerular Filtration Rate 75 ML/MIN (>89) . Result Diagram: 05/08/17 0545 05/08/17 0554 Imaging Last 72 hours Impressions Chest X-Ray 05/06/17 0345 Signed Impressions: Service Date/Time: Saturday, May 06, 2017 03:55 - CONCLUSION: No acute disease. There is no evidence of free air. Ehsan Argueta MD CT Angiography 05/06/17 0000 Signed Impressions: Service Date/Time: Saturday, May 06, 2017 06:19 - CONCLUSION: 1. Pulmonary emboli with a long thin saddle embolus which crosses from the right main pulmonary artery into the left. Smaller bilateral areas of pulmonary emboli present as well. 2. Small area consolidation in the right lower lobe. Ehsan Argueta MD Abdomen/Pelvis CT 05/06/17 0000 Signed Impressions: Service Date/Time: Saturday, May 06, 2017 06:19 - CONCLUSION: 1. The large tumor mass in the central liver appear slightly larger in size. There are additional metastatic lesions in the liver which are not significant change. 2. The gallbladder is more prominent and now contains a central area of high density which is concerning for possible hemorrhage or blood clot. Vicarious excretion of contrast contrast into the gallbladder can have a similar appearance however usually appears more homogeneous and diffuse. 3. The central splenic mass is not significantly changed. 4. Bilateral renal cysts. Ehsan Argueta MD . Assessment and Plan Disease Oriented Problem List: (1) Pulmonary embolism (2) Liver mass (3) Hepatocellular carcinoma Symptom Scale: (1) Pain (2) Decrease in appetite (3) Nausea Pertinent Non-Medical Issues Psychosocial: Patient is originally from [place]. He has lived in [place] for about 14 years. 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 He is currently to Maria Victoria; they have been for 12 years. Patient had one biological son who last year from a drug overdose last year. Maria Victoria has 3 adult children - Casa (-Makayla), Landen (-Effie) and Angelica. They are very close to their stepfather. Casa and Makayla are in the [employer], currently stationed in [place]. Palliative care has contacted the [facility] for emergency notification/request for presence. Spiritual: Evangelical theodore Legal: Per [place] statutes, in the absence of written advanced directives healthcare proxy decision making falls to the patient's . Ethical issues impacting care: No ethical issues impacting care at this time. Important Contacts Maria Victoria John, spouse: [phone] or [phone]?? Kathy (son and DIL): [phone] . Prognosis 56-year-old male patient with newly diagnosed hepatocellular carcinoma that is showing signs of rapid growth. CT angiogram of the thorax revealed worsening pulmonary emboli; now with a saddle pulmonary embolus noted. Patient has been offered palliative systemic therapy, although transitioning to hospice services would also be a reasonable option at this point. Projected survival is approximately 6 months and likely less. . Code Status: Full Code Plan * FULL CODE * Per [place] statutes, in the absence of written advanced directives healthcare proxy decision making falls to the patient's . * AGGRESSIVE GOALS. Patient is having difficulty "wrapping his brain around" his newly diagnosed hepatocellular carcinoma. He states he does not feel he can make any decisions until his pain is better managed, but he would like to try to be aggressive. He is having difficulty believing this is true because it was so sudden, and he was so healthy at baseline. 05/08/2017:Patient and his have decided to obtain a second opinion with a GI/hepatobiliary oncologist at the [facility]. They have contacted the [facility] ( and Dr. Rodriguez) and are awaiting a response. * Patient's family privately verbalized their understanding that patient's overall prognosis is quite poor, but they will honor the patient's goals and wishes regarding his medical care. * Dr. Galindo spoke to the patient and his about therapeutic options this morning. He explained that his hepatocellular carcinoma was showing signs of rapid growth and he was concerned that standard of care therapies with likely be ineffective. (Standard of care therapies being palliative systemic therapy with tyrosine kinase inhibitor as initial treatment and the possibility of immunotherapy with inability nivolumab as the second line therapy). Despite these treatment interventions, patient's projected survivor would be <6 months at best and likely less. After discussing palliative systemic therapy, Dr. Galindo explained to the patient and his that hospice services would also be a reasonable option at this time. * Discussed patient with Mela NIEVES, bedside nurse, Ivan Mercedes (palliative_ and Dr. Dixon * Patient's stepson and [id number] (Casa and Makayla) are in the [employer], currently stationed in [place]. Palliative care has contacted the [facility] for emergency notification/request for presence and they should be arriving on , 05/10/2017 * Symptom management: = Pain: Patient continues to report severe pain that involves the right upper quadrant and right flank which has required increased dosing and frequency of pain medication. The patient is right upper quadrant pain, this patient states it is better managed today than yesterday. Patient reports pain was 10/10 yesterday at its worse, and today the patient rates his most severe pain as 7/10. Patient is aware that he will likely have some degree of pain at baseline; he states he can tolerate a pain level of 3 out of 10. Apparently the patient became quite sedated yesterday after an IV dose of hydromorphone. He had some respiratory suppression with desaturation requiring supplemental oxygen. Since then, the patient's PRN hydromorphone was decreased. Patient's Oramorph SR was increased to 15 mg PO q3 hours and PRN hydromorphone dose and route was changed to 2mg PO q4 hours PRN. = Nausea: Patient reports nausea associated to episodes of severe pain that has restricted patient's nutritional intake. Ondansetron 4 mg IV is ordered PRN for nausea and vomiting. May want to consider scheduling ondansetron initially while attempting to adjust medications for better symptom management. * Palliative care will continue to follow this patient throughout his hospitalization to establish trust, assist with symptom management and clarification of medical treatment goals. . Attestation To help prompt me to consider important information that might be impacting today's encounter and assessment, information from prior notes written by myself or my colleagues may have been "brought forward" into today's note. My signature on this note, however, is an attestation that I personally performed the exam, history, and/or decision-making noted today, and, unless otherwise indicated, the interactions with patient, family, and staff as well as the review of records all occurred today. I also attest that the listed assessment and stated plan reflect my best clinical judgment today based on the combination of historical information, prior notes, and today's exam/ interactions. When time spent is documented, it refers only to time spent today by the signer, or if indicated, combined time spent today by collaborating physician/nurse practitioner. . Oralia Lewis May 08, 2017 14:39
[2017-05-08] MEDS ORDERED: HYDROmorphone HCL PF 2 MG/ML VIAL IV PUSH ONE (16:00)
[2017-05-08] MEDS: HYDROmorphone HCL PF 2 MG/ML VIAL IV PRN ×2 (17:45→21:07)
[2017-05-08] MEDS: MORPHINE SULFATE 30 MG CONTROLLED RELEASE TAB PO SCH (21:09)
[2017-05-09] VITALS (25 sets, daily range): BP systolic 117–149; BP diastolic 68–79; PULSE 78–131; RESP 18; TEMP 98–101.1; O2SAT 93–96
[2017-05-09] MEDS: HYDROmorphone HCL PF 2 MG/ML VIAL IV PRN ×5 (00:04→14:22)
[2017-05-09] MEDS: SODIUM CHLORIDE 0.9% FLUSH 10 ML FLUSH IV FLUSH PRN ×2 (00:06→04:39)
[2017-05-09] MEDS: MORPHINE SULFATE 30 MG CONTROLLED RELEASE TAB PO SCH ×3 (05:52→22:58)
--- NOTE | 2017-05-09 07:18 | PD.ONC.PN ---
Subjective Subjective Remarks Patient seen and examined, vital signs, labs, medications and human resource consultant notes reviewed. Updates an addendum to the pathology reports reviewed as well. Also reviewed guidelines on Sorafenib dosing as well as the most recent NCCN guidelines on management of hepatocellular carcinoma which is locally advanced/ nonresectable/metastatic. Subjectively; the patient reports having had a difficult day yesterday. He reports his pain control was suboptimal and due to the numerous changes made to his pain medication regimen he was unable to find relief. His though not in the room at the time of my visit, was on speaker phone and we spent about 20 minutes talking about pain control mostly, the now confirmed diagnosis of HCC, the patient's worsening hepatic function, limited therapeutic interventions available and the possibility of the patient being evaluated at the [facility] or the [facility] for clinical trial. Objective Data Date Time Temp Pulse Resp B/P (MAP) Pulse Ox O2 Delivery O2 Flow Rate FiO2 05/09/17 04:39 98.4 81 132/73 (92) 96 05/09/17 04:08 83 05/09/17 03:07 86 05/09/17 02:08 87 05/09/17 01:05 83 05/09/17 00:06 98.2 78 18 135/75 (95) 95 05/09/17 00:03 78 05/08/17 23:01 82 05/08/17 22:01 87 05/08/17 21:06 79 05/08/17 21:05 98.7 88 18 132/76 (94) 97 05/08/17 20:00 79 05/08/17 19:00 83 05/08/17 17:50 98.2 84 18 141/75 (97) 97 05/08/17 15:00 92 05/08/17 14:00 84 05/08/17 13:00 90 05/08/17 12:35 98.0 83 20 127/77 (94) 93 05/08/17 12:00 84 05/08/17 11:00 84 05/08/17 10:00 82 05/08/17 09:00 84 05/08/17 08:17 97.8 81 20 137/78 (97) 91 05/08/17 08:08 85 05/09/17 05/09/17 05/09/17 07:00 15:00 23:00 Intake Total 360 ml Output Total 925 ml Balance -565 ml Result Diagram: 05/08/17 0545 05/08/17 0554 Administered Medications Medications (Trade) Dose Ordered Sig/Mago Route PRN Reason Start Time Stop Time Status Last Admin Dose Admin Sodium Chloride (NS Flush) 2 ml UNSCH PRN IV FLUSH FLUSH AFTER USING IV ACCESS 05/06/17 03:45 05/09/17 04:39 Sodium Chloride 1,000 ml @ 84 mls/hr [id number] IV 05/06/17 09:00 05/08/17 21:19 Pantoprazole Sodium (Protonix Inj) 40 mg DAILY IV PUSH 05/06/17 09:00 05/08/17 08:22 Enoxaparin Sodium (Lovenox Inj) 80 mg Q12HR SQ 05/07/17 09:00 05/08/17 21:10 Ondansetron HCl (Zofran Inj) 4 mg Q4HR PRN IV PUSH NAUSEA OR VOMITING 05/07/17 16:00 05/08/17 17:17 Senna/Docusate Sodium (Amairani-Colace) 1 tab BID PO 05/08/17 10:00 05/08/17 21:09 Morphine Sulfate (Oramorph Sr) 30 mg Q8HR PO 05/08/17 22:00 05/09/17 05:52 Hydromorphone HCl (Dilaudid Pf Inj) 0.5 mg Q3H PRN IV BREAKTHROUGH PAIN 05/08/17 17:30 05/09/17 04:34 Objective Remarks GENERAL: Middle-aged male sitting up in bed, he appears to be comfortable at this time, his skin appears to be increasingly icteric. He continues to at times fade out during midsentence off to sleep. His is at bedside. SKIN: Warm and dry. HEAD: Normocephalic. EYES: No scleral icterus. No injection or drainage. NECK: Supple, trachea midline. No JVD or lymphadenopathy. LYMPHATIC: No adenopathy. CARDIOVASCULAR: Borderline tachycardia, S1 and S2 normal murmurs or gallops. RESPIRATORY: Good air movement bilaterally over upper and middle lung zones, decreased bibasilar breath sounds, patient with obvious pain with deep inspiratory effort. GASTROINTESTINAL: Protuberant belly, tender over the right upper quadrant, hepatomegaly noted. No splenomegaly noted. EXTREMITIES: No cyanosis, or edema. MUSCULOSKELETAL: Good muscle mass, Adequate muscle tone. NEUROLOGICAL: No obvious focal deficit. Awake, alert, and oriented x3. PSYCHIATRIC: Appropriate mood and affect; insight and judgment normal. Assessment/Plan Assessment Mr. 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 Biopsy was performed and pathologic findings were most consistent with hepatocellular carcinoma, he has never been a drinker, he is negative for hepatitis A, B and C and has no evidence or history of hepatic cirrhosis. He at the time of his initial presentation also had bilateral pulmonary emboli. Additional review of his biopsy were underway; i.e. with additional staining studies specific or hepatocellular carcinoma. He presented to the hospital yesterday morning with complaints of worsening pain in the right upper quadrant. Imaging studies performed on 05/06/2017 indicated impairment enlargement of the dominant hepatic mass by about 1 cm in each dimension. CT angiogram of the thorax revealed worsening pulmonary emboli; now with a saddle pulmonary embolus noted. This was despite him being on a loading dose of Xarelto 15 MG by mouth twice a day as an outpatient after having initially been on heparin infusion while in [place] last week. The oncology service is been asked to see him for further workup, management, symptom control and discussion regarding goals of care. Additionally, the palliative care service is also been asked to see him which I think is appropriate. Plan 1. Hepatocellular carcinoma (immunohistochemical studies support a diagnosis of HCC, 2 pathologists have concurred with this diagnosis): Non-resectable, likely metastatic (based on presence of a large malignant tumor involving the pancreatic tail with direct extension to the spleen) associated with worsening hepatic function (Grays[place]-Belcher score of 9; class B). NCCN guidelines were reviewed; based on best practice guidelines as published by this organization Mr. Chavez may be considered for palliative first-line systemic therapy with Sorafenib however given his hepatic function corresponding to Grayson Belcher class B disease he is at significant risk for hepatotoxicity related to this agent with only a modest if any benefit. The clinical trials published have included mostly patient's with child's a class hepatic function and these were the patients who had benefit from Sorafenib in the first-line setting. Based on published guidelines for Sorafenib dosing given the patient's current hepatic function a dose of greater than 200 mg once every other day is what his starting dose should be this is a very significant dose reduction given the standard dosing of Sorafenib is 400 mg twice daily for individuals with child's class A hepatic dysfunction. I remain concerned about the tempo of his disease progression. All indicators point towards an extremely poor prognosis and an extremely high risk for treatment associated adverse effects. I did convey this to the patient and his . They desire a second opinion and prefer to go to the [facility] in [place] I am supportive of their goal to get a second opinion. 2. Pain control: He is on basal extended release morphine sulfate now to dose of 30 mg q 8 hours. With short acting opioids as well. The concern is for oversedation as a competing factor to managing his pain. I will defer to the palliative care team to primarily manage his pain control regimen so as to not confound matters. 3. Bilateral pulmonary emboli: Continue Lovenox which should be continued at discharge at a therapeutic dose of 1 mg/kg every 12 hours. I have advised the patient to let the nurses teach him self administer these injections. Continue ongoing care. Toño Galindo MD May 09, 2017 07:18
[2017-05-09] MEDS: DOCUSATE SODIUM 50 MG/SENNA 8.6 MG TAB PO SCH ×2 (08:05→20:32)
[2017-05-09] MEDS: ONDANSETRON HCL 4 MG/2 ML VIAL IV PUSH PRN ×2 (08:05→16:09)
[2017-05-09] MEDS: PANTOPRAZOLE SODIUM 40 MG VIAL IV PUSH SCH (08:06)
[2017-05-09] MEDS: ENOXAPARIN SODIUM 80 MG/0.8 ML SYRINGE SQ SCH ×2 (08:07→20:33)
[2017-05-09 08:10] LABS: ALBUMIN 2.4 GM/DL (3.4-5.0); AST (GOT) 241 U/L (15-37); BICARBONATE 28.9 MEQ/L (21.0-32.0); BLOOD UREA NITROGEN 21 MG/DL (7-18); CHLORIDE 105 MEQ/L (98-107); CREATININE 0.83 MG/DL (0.60-1.30); GLOMERULAR FILTRATION RATE 95 ML/MIN (>89); GLUCOSE,RANDOM 106 MG/DL (74-106); SODIUM (NA) 139 MEQ/L (136-145)
[2017-05-09 08:15] LABS: ALKALINE PHOSPHATASE 464 U/L (45-117); ALT (GPT) 324 U/L (12-78); TOTAL BILIRUBIN ADULT 4.3 MG/DL (0.2-1.0); TOTAL PROTEIN 5.7 GM/DL (6.4-8.2)
[2017-05-09] MEDS: SODIUM CHLOR 0.9% 1000 ML INJ 1,000 ML IV SCH (08:30)
--- NOTE | 2017-05-09 13:15 | HHI.PR ---
Subjective Remarks Patient reports that his pain is better today but is requesting increasing the dose of long acting Morphine. He received 2 doses of the increased dose of Morphine so far. He is still requesting IV Dilaudid every 3 hours Objective Vitals Vital Signs Date Time Temp Pulse Resp B/P (MAP) Pulse Ox O2 Delivery O2 Flow Rate FiO2 05/09/17 11:26 98.0 79 18 129/79 (96) 95 05/09/17 07:45 98.1 80 18 142/79 (100) 96 05/09/17 07:35 79 05/09/17 06:09 85 05/09/17 05:02 85 05/09/17 04:39 98.4 81 132/73 (92) 96 05/09/17 04:08 83 05/09/17 03:07 86 05/09/17 02:08 87 05/09/17 01:05 83 05/09/17 00:06 98.2 78 18 135/75 (95) 95 05/09/17 00:03 78 05/08/17 23:01 82 05/08/17 22:01 87 05/08/17 21:06 79 05/08/17 21:05 98.7 88 18 132/76 (94) 97 05/08/17 20:00 79 05/08/17 19:00 83 05/08/17 17:50 98.2 84 18 141/75 (97) 97 05/08/17 15:00 92 05/08/17 14:00 84 I/O 05/08/17 05/08/17 05/08/17 05/09/17 05/09/17 05/09/17 07:00 15:00 23:00 07:00 15:00 23:00 Intake Total 240 ml 2000 ml 360 ml Output Total 950 ml 925 ml Balance 240 ml 1050 ml -565 ml Intake Oral 240 ml 1000 ml 360 ml IV Total 1000 ml Output Urine Total 950 ml 925 ml # Voids 1 2 Result Diagram: 05/08/17 0545 05/09/17 0731 Objective Remarks GENERAL: This is a well-nourished, well-developed patient, in no apparent distress. CARDIOVASCULAR: Normal rate and regular rhythm without murmurs, gallops, or rubs. RESPIRATORY: Good respiratory efforts. Breath sounds equal and clear to auscultation bilaterally. GASTROINTESTINAL: Abdomen soft, tender to palpation over the right upper quadrant. Normal active bowel sounds. MUSCULOSKELETAL: Extremities without cyanosis, or edema. NEURO: Alert & Oriented x4 to person, place, time, situation. Moves all ext x4 PSYCH: Appropriate mood and affect. A/P Problem List: (1) Hepatocellular carcinoma ICD Code: C22.0 - Liver cell carcinoma Plan: Locally advanced hepatocellular carcinoma confirmed. Discussed with oncologist today Dr. Galindo. Prognosis is poor. Palliative treatment offered to patient. Hospice can also be considered. Palliative care consulted. Pain control. Currently requiring IV Dilaudid. (2) Intractable pain ICD Code: R52 - Pain, unspecified Plan: Probably liver capsule pain. Very difficult to control the patient's pain safely. He required IV Dilaudid, however at higher dose he had 2 episodes where he immediately become unresponsive after receiving IV Dilaudid and oxygen saturation dropped in the 80s. He had no response to oral Dilaudid. Patient requested increase in basal morphine today. He only received two doses of the increased dose of Oramorph from yesterday so far. Ideally changes should be made after monitoring response for at least 24 hrs. Oramorph can only be increased by 15 mg after discussion with the pharmacy which would be a total increase of 45 mg which would be over the total dose of breakthrough equivalent IV Dilaudid. I discussed with the patient and family, they agreed to hold off on any changes for now. Keep 30 mg Oramorph and Patient has a sadle PE which is very concerning for oversedation, respiratory depression which can lead to resp failure. Palliative care following. Defer any further changes of pain management to palliative care. (3) Pulmonary embolism ICD Code: I26.99 - Other pulmonary embolism without acute cor pulmonale Plan: Appreciate input from hematology/oncology. Patient failed outpatient Xarelto. Continue Lovenox. 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 - General surgery evaluated the patient and recommended pain management. No surgical intervention is planned. Discharge Planning Pending improvement in pain control. Problem Qualifiers (1) Pulmonary embolism: Qualified Codes: I26.92 - Saddle embolus of pulmonary artery without acute cor pulmonale Shannon Dixon MD May 09, 2017 13:15
[2017-05-09] MEDS ORDERED: MORPHINE SULFATE 30 MG CONTROLLED RELEASE TAB PO SCH (14:00)
[2017-05-09 14:17] LABS: SMOOTH MUSCLE TOTAL AUTOABS Negative (Negative)
[2017-05-09 15:16] LABS: ALPHA-1-ANTITRYPSIN 190 mg/dL (100 - 190)
--- NOTE | 2017-05-09 17:23 | HHI.HCPN ---
Reason for visit a. To assist with evaluation and management of symptoms including: Pain, nausea, decreased appetite b. To assist medical decision maker(s) with: better understanding of current medical conditions; weighing benefits/burdens of medical treatment options; making medical treatment decisions. . Subjective/Interval History Follow-up visit for symptom management and clarification of medical treatment goals. Dr. Galindo spoke to the patient at length this morning while his participated on speaker phone regarding patient's now confirmed diagnosis of HCC , worsening hepatic functioning and limited therapeutic interventions available as well as the possible evaluation at the [facility]'s or [facility] for clinical trials. Patient and his have contacted the [facility] for possible second opinion. CT angiogram of the thorax revealed worsening pulmonary emboli-now with a saddle pulmonary embolus noted. Patient has been on blood thinners since being diagnosed last week, initially a heparin infusion while hospitalized and then transitioning to Xarelto 15 MG by mouth twice a day as an outpatient. Patient is now receiving Lovenox daily SQ; Lovenox should be continued at discharge at a therapeutic dose of 1 mg/kg q12 hours; consider having the nurse teach the patient/ to self administer these injections if they are amenable to this. The patient is having ongoing, persistent pain despite numerous changes in his pain medications. He did have an episode of oversedation earlier this week so we are trying to balance that concern with adequate pain management palliative care was consulted to manage patient's pain control regimen. He is currently receiving Oramorph SR 30 mg PO q8 hours and hydromorphone 1 mg IV every 3 hours PRN for breakthrough pain Of note, 1 mg of hydromorphone IV is equivalent to approximately 15mg oral morphine (with a 25% reduction for incomplete cross tolerance). Recommendation to monitor patient for at least 48 hours before making any additional changes in the medication regimen. . Family/friend interactions Spoke with patient's son (Landen) via telephone earlier this morning and met with the patient's this afternoon to discuss how we can provide patient with better symptom management moving forward. Collaborated with nurse (Lucia ), charge nurse (Majo), community health director (Jae) as well as Dr. Galindo. The charge nurse has a call out to Dr. Yepez and is awaiting his return phone call. . Advance Directives Advance Directive Specifics Health Care Surrogate(s): Per [place] statutes, in the absence of written advanced directives healthcare proxy decision making falls to the patient's . . Documented care wishes: No known written advanced directives have been completed. . Objective Vital Signs Date Time Temp Pulse Resp B/P (MAP) Pulse Ox O2 Delivery O2 Flow Rate FiO2 05/09/17 15:50 98.7 83 18 149/76 (100) 93 05/09/17 15:06 05/09/17 15:04 88 05/09/17 11:26 98.0 79 18 129/79 (96) 95 05/09/17 07:45 98.1 80 18 142/79 (100) 96 05/09/17 07:35 79 05/09/17 06:09 85 05/09/17 05:02 85 05/09/17 04:39 98.4 81 132/73 (92) 96 05/09/17 04:08 83 05/09/17 03:07 86 05/09/17 02:08 87 05/09/17 01:05 83 05/09/17 00:06 98.2 78 18 135/75 (95) 95 05/09/17 00:03 78 05/08/17 23:01 82 05/08/17 22:01 87 05/08/17 21:06 79 05/08/17 21:05 98.7 88 18 132/76 (94) 97 05/08/17 20:00 79 05/08/17 19:00 83 05/08/17 17:50 98.2 84 18 141/75 (97) 97 Intake & Output 05/09/17 05/09/17 07:00 19:00 Intake Total 2360 ml Output Total 1875 ml Balance 485 ml Intake Oral 1360 ml IV Total 1000 ml Output Urine Total 1875 ml # Voids 2 . Physical Exam CONSTITUTIONAL/GENERAL: Patient is a middle aged male who appears healthy in no apparent distress. TUBES/LINES/DRAINS: PIV SKIN: Slight jaundice no wounds seen anteriorly. Skin temperature appropriate. Not diaphoretic. HEAD: Atraumatic. Normocephalic. EYES: Pupils equal and round and reactive. Extraocular motions intact. No scleral icterus. No injection or drainage. Fundi not examined. ENT: Hearing grossly normal. Nose without bleeding or purulent drainage. Throat without visible erythema, exudates, masses, or lesions. NECK: Trachea midline. Supple, nontender. No palpable thyroid enlargement or nodularity. CARDIOVASCULAR: Regular rate and rhythm without murmurs, gallops, or rubs. No JVD. Peripheral pulses symmetric. RESPIRATORY/CHEST: Symmetric, unlabored respirations. Clear to auscultation. Breath sounds equal bilaterally. No wheezes, rales, or rhonchi. GASTROINTESTINAL: Abdomen firm, tender to palpation over the right upper quadrant. + hepatomegaly. GENITOURINARY: Without palpable bladder distension. MUSCULOSKELETAL: No obvious deformities. Extremities without clubbing, cyanosis , or edema. No mottling or clubbing. LYMPHATICS: No palpable cervical or supraclavicular adenopathy. NEUROLOGICAL: Lethargic, arousable to verbal stimuli but appears to drift off during conversation PSYCHIATRIC: No obvious anxiety/depression. No apparent hallucinations or other psychotic thought process. . Diagnostic Tests Laboratory Laboratory Tests Test 05/06/17 17:25 05/07/17 05:45 05/07/17 20:10 05/08/17 05:45 Tumor Marker Alpha Fetoprotein 540.9 NG/ML (0.5-8.0) Hepatitis A IgM Antibody NONREACTIVE (NONREACTIVE) Hepatitis B Surface Antigen NONREACTIVE (NONREACTIVE) Hepatitis B Core IgM Antibody NONREACTIVE (NONREACTIVE) Hepatitis C IgG Antibody NONREACTIVE (NONREACTIVE) White Blood Count 9.9 TH/MM3 (4.0-11.0) 8.5 TH/MM3 (4.0-11.0) Red Blood Count 3.63 MIL/MM3 (4.50-5.90) 3.58 MIL/MM3 (4.50-5.90) Hemoglobin 11.3 GM/DL (13.0-17.0) 11.2 GM/DL (13.0-17.0) Hematocrit 32.7 % (39.0-51.0) 32.6 % (39.0-51.0) Mean Corpuscular Volume 90.0 FL (80.0-100.0) 91.0 FL (80.0-100.0) Mean Corpuscular Hemoglobin 31.2 PG (27.0-34.0) 31.1 PG (27.0-34.0) Mean Corpuscular Hemoglobin Concent 34.7 % (32.0-36.0) 34.2 % (32.0-36.0) Red Cell Distribution Width 13.4 % (11.6-17.2) 13.6 % (11.6-17.2) Platelet Count 284 TH/MM3 (150-450) 294 TH/MM3 (150-450) Mean Platelet Volume 7.3 FL (7.0-11.0) 7.4 FL (7.0-11.0) Neutrophils (%) (Auto) 86.3 % (16.0-70.0) Lymphocytes (%) (Auto) 7.2 % (9.0-44.0) Monocytes (%) (Auto) 5.6 % (0.0-8.0) Eosinophils (%) (Auto) 0.4 % (0.0-4.0) Basophils (%) (Auto) 0.5 % (0.0-2.0) Neutrophils # (Auto) 8.6 TH/MM3 (1.8-7.7) Lymphocytes # (Auto) 0.7 TH/MM3 (1.0-4.8) Monocytes # (Auto) 0.6 TH/MM3 (0-0.9) Eosinophils # (Auto) 0.0 TH/MM3 (0-0.4) Basophils # (Auto) 0.0 TH/MM3 (0-0.2) CBC Comment DIFF FINAL Differential Comment Blood Urea Nitrogen 24 MG/DL (7-18) Creatinine 1.10 MG/DL (0.60-1.30) Random Glucose 100 MG/DL (74-106) Total Protein 6.0 GM/DL (6.4-8.2) Albumin 2.7 GM/DL (3.4-5.0) Calcium Level 8.2 MG/DL (8.5-10.1) Alkaline Phosphatase 385 U/L (45-117) Aspartate Amino Transf (AST/SGOT) 219 U/L (15-37) Alanine Aminotransferase (ALT/SGPT) 392 U/L (12-78) Total Bilirubin 2.0 MG/DL (0.2-1.0) Sodium Level 139 MEQ/L (136-145) Potassium Level 4.4 MEQ/L (3.5-5.1) Chloride Level 106 MEQ/L (98-107) Carbon Dioxide Level 24.4 MEQ/L (21.0-32.0) Anion Gap 9 MEQ/L (5-15) Estimat Glomerular Filtration Rate 69 ML/MIN (>89) Iron Level 35 MCG/DL (65-175) Total Iron Binding Capacity 314 MCG/DL (250-450) Percent Iron Saturation 11.2 % (20-50) Ferritin 264 NG/ML (26-388) [id number]-[id number] 190 mg/dL (100 - 190) Anti-Nuclear Antibody Screen NEG (NEG) Anti-Smooth Muscle Antibody Negative (Negative) Test 05/08/17 05:54 05/09/17 07:31 Blood Urea Nitrogen 28 MG/DL (7-18) 21 MG/DL (7-18) Creatinine 1.02 MG/DL (0.60-1.30) 0.83 MG/DL (0.60-1.30) Random Glucose 89 MG/DL (74-106) 106 MG/DL (74-106) Total Protein 6.5 GM/DL (6.4-8.2) 5.7 GM/DL (6.4-8.2) Albumin 2.9 GM/DL (3.4-5.0) 2.4 GM/DL (3.4-5.0) Calcium Level 8.4 MG/DL (8.5-10.1) 8.0 MG/DL (8.5-10.1) Alkaline Phosphatase 494 U/L (45-117) 464 U/L (45-117) Aspartate Amino Transf (AST/SGOT) 303 U/L (15-37) 241 U/L (15-37) Alanine Aminotransferase (ALT/SGPT) 426 U/L (12-78) 324 U/L (12-78) Total Bilirubin 4.7 MG/DL (0.2-1.0) 4.3 MG/DL (0.2-1.0) Direct Bilirubin 3.7 MG/DL (0.0-0.2) Sodium Level 140 MEQ/L (136-145) 139 MEQ/L (136-145) Potassium Level 4.2 MEQ/L (3.5-5.1) 4.1 MEQ/L (3.5-5.1) Chloride Level 106 MEQ/L (98-107) 105 MEQ/L (98-107) Carbon Dioxide Level 25.7 MEQ/L (21.0-32.0) 28.9 MEQ/L (21.0-32.0) Anion Gap 8 MEQ/L (5-15) 5 MEQ/L (5-15) Estimat Glomerular Filtration Rate 75 ML/MIN (>89) 95 ML/MIN (>89) . Result Diagram: 05/08/17 0545 05/09/17 0731 Assessment and Plan Disease Oriented Problem List: (1) Pulmonary embolism (2) Liver mass (3) Hepatocellular carcinoma Symptom Scale: (1) Pain 0-10 Scale: Unable to quantify (2) Decrease in appetite 0-10 Scale: Unable to quantify (3) Nausea 0-10 Scale: Unable to quantify Pertinent Non-Medical Issues Psychosocial: Patient is originally from [place]. He has lived in [place] for about 14 years. 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 He is currently to Maria Victoria; they have been for 12 years. Patient had one biological son who last year from a drug overdose last year. Maria Victoria has 3 adult children - Casa (-Makayla), Landen (-Effie) and Angelica. They are very close to their stepfather. Casa and Makayla are in the [employer], currently stationed in [place]. Palliative care has contacted the [facility] for emergency notification/request for presence. Spiritual: Cheondoism theodore Legal: Per [place] statutes, in the absence of written advanced directives healthcare proxy decision making falls to the patient's . Ethical issues impacting care: No ethical issues impacting care at this time. Important Contacts Maria Victoria John, spouse: [phone] or [phone]?? Kathy (son and DIL): [phone] . Prognosis 56-year-old male patient with newly diagnosed hepatocellular carcinoma that is showing signs of rapid growth. CT angiogram of the thorax revealed worsening pulmonary emboli; now with a saddle pulmonary embolus noted. Patient has been offered palliative systemic therapy, although transitioning to hospice services would also be a reasonable option at this point. Projected survival is approximately 6 months and likely less. . Code Status: No Code Plan * NO CODE * Code status changed to NO CODE per pt/ request. Patient had to withdraw his mother from artificial life support. Because of this, Khurram and Nithya have had ongoing conversations about what they would want, medically, in various situations and they patient does not want to be put on artificial life support if doing so would only prolong the process of dying.Patient has stated to his multiple time, " If I cant hug you, let me go." * Per [place] statutes, in the absence of written advanced directives healthcare proxy decision making falls to the patient's . * Collaborated with nurse (Lucia), charge nurse (Majo), community health director (Jea) as well as Dr. Galindo. The charge nurse has a call out to Dr. Yepez and is awaiting his return phone call. * Dr. Galindo spoke to the patient at length this morning while his participated on speaker phone regarding patient's now confirmed diagnosis of HCC , worsening hepatic functioning and limited therapeutic interventions available as well as the possible evaluation at the [facility]'s or [facility] for clinical trials. Palliative care later met with the patient's to discuss prognosis. She understands that her has a life limiting condition and there is a good chance he will not survive to participate in a clinical trial. She will hope for the past while preparing for the worse. * Patient's stepson and [id number] (Casa and Makayla) are in the [employer], currently stationed in [place]. Palliative care has contacted the [facility] for emergency notification/request for presence and they should be arriving on , 05/10/2017 * Symptom management: = Pain: Patient is having ongoing, persistent pain despite numerous changes in his pain medications. He did have an episode of oversedation earlier this week so we are trying to balance that concern with adequate pain management Palliative care was consulted to manage patient's pain control regimen and is happy to do so. He is currently receiving Oramorph SR 30 mg PO q8 hours and hydromorphone 1 mg IV every 3 hours PRN for breakthrough pain Of note, 1 mg of hydromorphone IV is equivalent to approximately 15mg oral morphine (with a 25% reduction for incomplete cross tolerance). Recommendation to monitor patient for at least 48 hours before making any additional changes in the medication regimen. = Nausea: Patient reports nausea associated to episodes of severe pain that has restricted patient's nutritional intake. Ondansetron 4 mg IV is ordered PRN for nausea and vomiting. May want to consider scheduling ondansetron initially while attempting to adjust medications for better symptom management. * Palliative care will continue to follow this patient throughout his hospitalization to establish trust, assist with symptom management and clarification of medical treatment goals. . Attestation To help prompt me to consider important information that might be impacting today's encounter and assessment, information from prior notes written by myself or my colleagues may have been "brought forward" into today's note. My signature on this note, however, is an attestation that I personally performed the exam, history, and/or decision-making noted today, and, unless otherwise indicated, the interactions with patient, family, and staff as well as the review of records all occurred today. I also attest that the listed assessment and stated plan reflect my best clinical judgment today based on the combination of historical information, prior notes, and today's exam/ interactions. When time spent is documented, it refers only to time spent today by the signer, or if indicated, combined time spent today by collaborating physician/nurse practitioner. . Oralia Lewis May 09, 2017 17:23
[2017-05-09] MEDS ORDERED: ACETAMINOPHEN 325 MG TAB PO ONE (20:45)
[2017-05-09 21:35] LABS: HEMATOCRIT 28.8 % (39.0-51.0); HEMOGLOBIN 9.8 GM/DL (13.0-17.0)
[2017-05-10] VITALS (16 sets, daily range): BP systolic 99–118; BP diastolic 62–66; PULSE 77–92; RESP 16–18; TEMP 97.9–98.9; O2SAT 96–99
[2017-05-10 00:36] LABS: BACTERIA, URINE RARE /hpf; BILIRUBIN, URINE MOD (NEG); BLOOD, URINE NEG (NEG); GLUCOSE,URINE NEG (NEG); HYALINE CAST, URINE 3 /lpf (RARE); KETONE, URINE NEG (NEG); MUCUS URINE FEW /lpf (OCC); NITRITE,URINE NEG (NEG); PH, URINE 5.5 (5.0-8.5); RENAL EPITHELIAL CELLS <1 /hpf; SQUAMOUS EPITHELIAL CELL URINE <1 /hpf (0-5); URINE LEUKOCYTE ESTERASE TRACE (NEG); WHITE BLOOD CELL CAST, URINE 28 /lpf
[2017-05-10 00:37] LABS: URINE COLOR DARK-BROWN (YELLW/STRAW)
[2017-05-10] MEDS: MORPHINE SULFATE 30 MG CONTROLLED RELEASE TAB PO SCH ×3 (06:12→20:20)
--- NOTE | 2017-05-10 08:18 | PD.ONC.PN ---
Subjective Subjective Remarks Patient seen and examined, vital signs, labs, medications and campaign consultant notes reviewed. Patient reports having had 4 dark melanotic stools between 8 PM last night and 5 AM this morning. He reports his abdominal pain has near completely resolved and is very happy with the current pain medication regimen. He has not required IV hydromorphone for breakthrough pain. He denies difficulty breathing, denies cough and denies hemoptysis. He tells me he felt fine adding up out of bed and moving to the bathroom. His and stepson are in the room with him this morning. The patient tells me he feels his appetite is improved and is looking forward to having something to eat. Objective Data Date Time Temp Pulse Resp B/P (MAP) Pulse Ox O2 Delivery O2 Flow Rate FiO2 05/10/17 04:28 98.1 81 16 100/65 (77) 99 05/10/17 04:00 79 05/10/17 03:00 80 05/10/17 02:00 86 05/10/17 01:00 90 05/10/17 00:00 88 05/10/17 00:00 88 05/10/17 00:00 98.6 90 16 99/62 (74) 97 05/09/17 23:00 100 05/09/17 22:00 116 05/09/17 21:55 98.8 05/09/17 21:30 100.8 05/09/17 21:29 101.1 131 18 117/68 (84) 93 05/09/17 21:00 118 05/09/17 20:00 130 05/09/17 20:00 127 05/09/17 19:00 120 05/09/17 18:00 108 05/09/17 17:00 106 05/09/17 16:00 86 05/09/17 15:50 98.7 83 18 149/76 (100) 93 05/09/17 15:06 05/09/17 15:04 88 05/09/17 11:26 98.0 79 18 129/79 (96) 95 05/10/17 05/10/17 05/10/17 07:00 15:00 23:00 Intake Total 150 ml Output Total 100 ml Balance 50 ml Result Diagram: 05/09/17203705/09/17730 Laboratory Results Laboratory Tests Test 05/09/17 20:38 05/10/17 00:15 Hemoglobin 9.8 GM/DL Hematocrit 28.8 % Urine Color DARK-BROWN Urine Turbidity HAZY Urine pH 5.5 Urine Specific [place] 1.025 Urine Protein 30 mg/dL Urine Glucose (UA) NEG mg/dL Urine Ketones NEG mg/dL Urine Occult Blood NEG Urine Nitrite NEG Urine Bilirubin MOD Urine Urobilinogen 8.0 MG/DL Urine Leukocyte Esterase TRACE Urine RBC 1 /hpf Urine WBC 3 /hpf Urine Squamous Epithelial Cells <1 /hpf Urine Renal Epithelial Cells <1 /hpf Urine Bacteria RARE /hpf Urine Hyaline Casts 3 /lpf Urine White Blood Cell Casts 28 /lpf Urine Mucus FEW /lpf Microscopic Urinalysis Comment CULTURE INDICATED Culture Results Microbiology Date/Time Source Procedure Growth Status 05/10/17 00:15 Urine Clean Catch Urine Culture Pending Received Administered Medications Medications (Trade) Dose Ordered Sig/Mago Route PRN Reason Start Time Stop Time Status Last Admin Dose Admin Sodium Chloride (NS Flush) 2 ml UNSCH PRN IV FLUSH FLUSH AFTER USING IV ACCESS 05/06/17 03:45 05/09/17 04:39 Pantoprazole Sodium (Protonix Inj) 40 mg DAILY IV PUSH 05/06/17 09:00 05/09/17 08:06 Ondansetron HCl (Zofran Inj) 4 mg Q4HR PRN IV PUSH NAUSEA OR VOMITING 05/07/17 16:00 05/09/17 16:09 Senna/Docusate Sodium (Amairani-Colace) 1 tab BID PO 05/08/17 10:00 05/09/17 08:05 Hydromorphone HCl (Dilaudid Pf Inj) 0.5 mg Q3H PRN IV BREAKTHROUGH PAIN 05/08/17 17:30 05/09/17 14:22 Morphine Sulfate (Oramorph Sr) 30 mg Q8HR PO 05/09/17 16:00 05/10/17 06:12 Objective Remarks Middle-aged male sitting up in bed, he appears to be comfortable at this time, he does not appear to be uncomfortable. He is awake and alert. His is at bedside. SKIN: Warm and dry. HEAD: Normocephalic. EYES: No scleral icterus. No injection or drainage. NECK: Supple, trachea midline. No JVD or lymphadenopathy. LYMPHATIC: No adenopathy. CARDIOVASCULAR: Borderline tachycardia, S1 and S2 normal murmurs or gallops. RESPIRATORY: Good air movement bilaterally over upper and middle lung zones, decreased bibasilar breath sounds, patient with obvious pain with deep inspiratory effort. GASTROINTESTINAL: Protuberant belly, tender over the right upper quadrant, hepatomegaly noted. No splenomegaly noted. EXTREMITIES: No cyanosis, or edema. MUSCULOSKELETAL: Good muscle mass, Adequate muscle tone. NEUROLOGICAL: No obvious focal deficit. Awake, alert, and oriented x3. PSYCHIATRIC: Appropriate mood and affect; insight and judgment normal. Assessment/Plan Assessment Mr. 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 Biopsy was performed and pathologic findings were most consistent with hepatocellular carcinoma, he has never been a drinker, he is negative for hepatitis A, B and C and has no evidence or history of hepatic cirrhosis. He at the time of his initial presentation also had bilateral pulmonary emboli. Additional review of his biopsy were underway; i.e. with additional staining studies specific or hepatocellular carcinoma. He presented to the hospital yesterday morning with complaints of worsening pain in the right upper quadrant. Imaging studies performed on 05/06/2017 indicated impairment enlargement of the dominant hepatic mass by about 1 cm in each dimension. CT angiogram of the thorax revealed worsening pulmonary emboli; now with a saddle pulmonary embolus noted. This was despite him being on a loading dose of Xarelto 15 MG by mouth twice a day as an outpatient after having initially been on heparin infusion while in [place] last week. The oncology service is been asked to see him for further workup, management, symptom control and discussion regarding goals of care. Additionally, the palliative care service is also been asked to see him which I think is appropriate. Plan 1. Hepatocellular carcinoma (immunohistochemical studies support a diagnosis of HCC, 2 pathologists have concurred with this diagnosis): Non-resectable, likely metastatic (based on presence of a large malignant tumor involving the pancreatic tail with direct extension to the spleen) associated with worsening hepatic function (Grayson-Belcher score of 9; class B). 2. Pain control: He is on basal extended release morphine sulfate now to dose of 30 mg q 8 hours. Overnight he was started on dexamethasone 2 mg every 12 hours and this seems to have made a big impact on his pain control. He has not required short acting IV hydromorphone for breakthrough pain. 3. Bilateral pulmonary emboli: He had been on therapeutic anticoagulation with Lovenox 1 mg/kg twice daily. This is currently on hold due to GI bleeding and drop in hemoglobin and hematocrit. If anticoagulation is contraindicated he will require an IVC filter. He did convey this to the patient and his . 4. Melanotic stools: Likely secondary to upper GI bleeding. I have reconsult that the [facility] neurology service and spoke directly to the on-call attending. We did review the previous CT scan performed earlier this hospitalization which revealed possible bleeding in the gallbladder fossa. Anticoagulation has been prone hold. Serial hemoglobin and hematocrit to been ordered every 6 hours. PT PTT INR have been ordered to be done urgently. Patient has been made nothing by mouth. Likely upper GI scope at some point today. Toño Galindo MD May 10, 2017 08:18
[2017-05-10 08:48] LABS: AUTOMATED NEUTROPHIL # 7.6 TH/MM3 (1.8-7.7); BASOPHIL % 0.2 % (0.0-2.0); EOSINOPHIL % 0.2 % (0.0-4.0); HEMATOCRIT 25.8 % (39.0-51.0); HEMOGLOBIN 8.9 GM/DL (13.0-17.0); LYMPH % 8.3 % (9.0-44.0); LYMPHOCYTE # 0.8 TH/MM3 (1.0-4.8); MEAN CELL VOLUME 91.5 FL (80.0-100.0); MEAN CORPUSCULAR HEMOGLOBIN 31.6 PG (27.0-34.0); MEAN CORPUSCULAR HGB CONC 34.6 % (32.0-36.0); MEAN PLATELET VOLUME 7.4 FL (7.0-11.0); MONO % 9.9 % (0.0-8.0); MONOCYTE # 0.9 TH/MM3 (0-0.9); NEUT % 81.4 % (16.0-70.0); PLATELET COUNT 315 TH/MM3 (150-450); RED BLOOD COUNT 2.82 MIL/MM3 (4.50-5.90); RED CELL DISTRIBUTION WIDTH 13.9 % (11.6-17.2); WHITE BLOOD COUNT 9.3 TH/MM3 (4.0-11.0)
[2017-05-10 08:54] LABS: INTERNATIONAL NORMALIZED RATIO 1.1 RATIO; PROTHROMBIN TIME - PATIENT 11.4 SEC (9.8-11.6)
[2017-05-10] MEDS: DOCUSATE SODIUM 50 MG/SENNA 8.6 MG TAB PO SCH ×2 (09:00→21:00)
--- NOTE | 2017-05-10 09:26 | PD.CONS ---
HPI History of Present Illness This is a 56 year old M who had no diagnosed PMH until recent admission earlier this month where he was diagnosed with probable HCC. Pts complaint at the time of previous admission was left sided chest and flank pain. CT of the chest showed bilateral PE and extensive metastatic disease to the liver. Mass lesion in the tail of the pancreas invading splenic hilum. A CT abdomen and pelvis was done to further evaluate these findings which showed multiple enhancing mass lesions characteristic of metastatic disease. Largest lesion in the hepatic dome measures 14 x 11 cm. Believed that the source of the metastatic disease in the pancreatic tail where there is a 6.2 x 6.9 cm mass lesion invading the splenic helium and regional parenchyma. Concomitant nonocclusive thrombus in the adjacent splenic vein. Pt was seen by oncology who ordered a liver biopsy which reveals HCC in needle core biopsy of liver. Pt was seen in Dr. Galindo's office on Sunday, however treatment was not decided on because liver biopsy was still pending at that time. Pt is now admitted to the oncology floor. Came in complaining of severe abdominal pain. had an episode of epigastric/RUQ pain after eating [employer] on but it resolved after taking Tylenol so he didnt have the pain evaluated. Pt was then find on Sunday, but yesterday began having intermittent sharp, stabbing abdominal pain again. States he did vomit his dinner hoping it would make him feel better with no relief. He was unable to sleep due to pain so stayed up in his recliner. The pain got so severe at 3 am this morning that it caused him to fall out of the recliner on to the floor where his found him. Denies any nausea or emesis at that time. States has been using only Tylenol for pain, did not fill the prescription pain medication given to him because he does not like taking heavy pain killers. Does report some diarrhea but has not had any in the past 3-4 days. Denies ever having EGD or colonoscopy. Has never seen GI doctor. Denies previous abdominal surgeries. Denies ETOH, smoking, illicit drug use. Denies taking NSAIDs. Our service has been consulted to evaluate pt for CT findings regarding hemorrhage vs blood clot of the gallbladder. GS has also been consulted. RECONSULT FOR MELENA: Pt reports having four episodes of melena over night. H/H dropped significantly since two days ago, was 11.3/32.7 currently 8.9/25.8. Denies history of GIB. History as above. Lovenox currently on hold for active GIB. (Amara Fam) PFSH Past Medical History Hepatocellular carcinoma Pulmonary embolism . 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 . (Amara Fam) Coded Allergies: No Known Allergies (Verified Allergy, Unknown, 05/06/17) Family History Mother at the age of 84; she had a history of breast cancer and polyps. Father at the age of 64 secondary to a myocardial infarction Brother is living with lung cancer. . Social History No smoking No alcohol abuse No illicit drug abuse (Amara Fam) Review of Systems Gastrointestinal: COMPLAINS OF: Black stools, DENIES: Abdominal pain, Nausea, Vomiting (Amara Fam) GI Exam Vitals I&O Vital Signs Date Time Temp Pulse Resp B/P (MAP) Pulse Ox O2 Delivery O2 Flow Rate FiO2 05/10/17 08:10 97.9 78 18 116/66 (83) 97 05/10/17 04:28 98.1 81 16 100/65 (77) 99 05/10/17 04:00 79 05/10/17 03:00 80 05/10/17 02:00 86 05/10/17 01:00 90 05/10/17 00:00 88 05/10/17 00:00 88 05/10/17 00:00 98.6 90 16 99/62 (74) 97 05/09/17 23:00 100 05/09/17 22:00 116 05/09/17 21:55 98.8 05/09/17 21:30 100.8 05/09/17 21:29 101.1 131 18 117/68 (84) 93 05/09/17 21:00 118 05/09/17 20:00 130 05/09/17 20:00 127 05/09/17 19:00 120 05/09/17 18:00 108 05/09/17 17:00 106 05/09/17 16:00 86 05/09/17 15:50 98.7 83 18 149/76 (100) 93 05/09/17 15:06 05/09/17 15:04 88 05/09/17 11:26 98.0 79 18 129/79 (96) 95 I/O 05/09/17 05/09/17 05/09/17 05/10/17 05/10/17 05/10/17 07:00 15:00 23:00 07:00 15:00 23:00 Intake Total 360 ml 3000 ml 150 ml Output Total 925 ml 1200 ml 100 ml Balance -565 ml 1800 ml 50 ml Intake Oral 360 ml 3000 ml 150 ml Output Urine Total 925 ml 1200 ml 100 ml # Voids 1 1 # Bowel Movements 1 2 Imaging Last Impressions Chest X-Ray 05/06/17 0345 Signed Impressions: Service Date/Time: Saturday, May 06, 2017 03:55 - CONCLUSION: No acute disease. There is no evidence of free air. Ehsan Argueta MD CT Angiography 05/06/17 0000 Signed Impressions: Service Date/Time: Saturday, May 06, 2017 06:19 - CONCLUSION: 1. Pulmonary emboli with a long thin saddle embolus which crosses from the right main pulmonary artery into the left. Smaller bilateral areas of pulmonary emboli present as well. 2. Small area consolidation in the right lower lobe. Ehsan Argueta MD Abdomen/Pelvis CT 05/06/17 0000 Signed Impressions: Service Date/Time: Saturday, May 06, 2017 06:19 - CONCLUSION: 1. The large tumor mass in the central liver appear slightly larger in size. There are additional metastatic lesions in the liver which are not significant change. 2. The gallbladder is more prominent and now contains a central area of high density which is concerning for possible hemorrhage or blood clot. Vicarious excretion of contrast contrast into the gallbladder can have a similar appearance however usually appears more homogeneous and diffuse. 3. The central splenic mass is not significantly changed. 4. Bilateral renal cysts. Ehsan Argueta MD Laboratory Test 05/09/17 20:38 05/10/17 00:15 05/10/17 08:20 Hemoglobin 9.8 GM/DL 8.9 GM/DL Hematocrit 28.8 % 25.8 % Urine Color DARK-BROWN Urine Turbidity HAZY Urine pH 5.5 Urine Specific [place] 1.025 Urine Protein 30 mg/dL Urine Glucose (UA) NEG mg/dL Urine Ketones NEG mg/dL Urine Occult Blood NEG Urine Nitrite NEG Urine Bilirubin MOD Urine Urobilinogen 8.0 MG/DL Urine Leukocyte Esterase TRACE Urine RBC 1 /hpf Urine WBC 3 /hpf Urine Squamous Epithelial Cells <1 /hpf Urine Renal Epithelial Cells <1 /hpf Urine Bacteria RARE /hpf Urine Hyaline Casts 3 /lpf Urine White Blood Cell Casts 28 /lpf Urine Mucus FEW /lpf Microscopic Urinalysis Comment CULTURE INDICATED White Blood Count 9.3 TH/MM3 Red Blood Count 2.82 MIL/MM3 Mean Corpuscular Volume 91.5 FL Mean Corpuscular Hemoglobin 31.6 PG Mean Corpuscular Hemoglobin Concent 34.6 % Red Cell Distribution Width 13.9 % Platelet Count 315 TH/MM3 Mean Platelet Volume 7.4 FL Neutrophils (%) (Auto) 81.4 % Lymphocytes (%) (Auto) 8.3 % Monocytes (%) (Auto) 9.9 % Eosinophils (%) (Auto) 0.2 % Basophils (%) (Auto) 0.2 % Neutrophils # (Auto) 7.6 TH/MM3 Lymphocytes # (Auto) 0.8 TH/MM3 Monocytes # (Auto) 0.9 TH/MM3 Eosinophils # (Auto) 0.0 TH/MM3 Basophils # (Auto) 0.0 TH/MM3 CBC Comment DIFF FINAL Differential Comment Prothrombin Time 11.4 SEC Prothromb Time International Ratio 1.1 RATIO Activated Partial Thromboplast Time 25.8 SEC Date/Time Source Procedure Growth Status 05/10/17 00:15 Urine Clean Catch Urine Culture Pending Received Physical Examination HEENT: Normocephalic; atraumatic; (+) icterus CHEST: Even/unlabored CARDIAC: RRR ABDOMEN: Semi-firm, nondistended, nontender; bowel sounds active EXTREMITIES: No clubbing, cyanosis, or edema. SKIN: Normal; no rash; no jaundice. OPERATING ROOM AIDE: No focal deficits; alert and oriented times three. (Amara FamP) Assessment and Plan Plan Assessment: - Abdominal pain- described as intermittent, sharp, stabbing- episode on attributed it to eating [employer], relieved with Tylenol. Fine on Sunday. Worsening pain starting yesterday, so unbearable last night he was unable to sleep. Pain so severe at 3 am it caused him to fall from recliner to floor in pain where found him. Reports emesis earlier in the evening, denies hematemesis and coffee ground emesis. Pain in epigastric/RUQ area. CT abdomen and pelvis --> The large tumor mass in the central liver appear slightly larger in size. Additional metastatic lesions in the liver which are not significant change. The gallbladder is more prominent and now contains a central area of high density which is concerning for possible hemorrhage or old blood clot. Vicarious excretion of contrast into the gallbladder can have a similar appearance however usually appears more homogeneous and diffuse. the central splenic mass is not significantly changed. Bilateral renal cysts Denies ever having EGD, colonoscopy, never seen GI doctor Denies ETOH, smoking, illicit drug use - HCC- newly diagnosed during admission earlier this month, unsure the primary source of the cancer so tx was not started. Liver biopsy is now back consistent with HCC. Pt sees Dr. Galindo LFTs elevated- AST-412 ALT-536 T bili-2.2 Alk phos-451 - Bilateral PE- dx during last admission- Pt on Xarelto BID- switched to Lovenox on admission- anticoagulation currently on hold RECONSULT FOR MELENA (05/10) Pt reports 4 episodes of black, tarry stools since last night. Significant change in H/H was 11.3/32.7 2 days ago and is currently 8.9/25.8. Denies history of GIB, has never had EGD or colonoscopy. Anticoagulation currently on hold for active GIB. Plan: EGD today Obtain consent Keep NPO Protonix gtt Monitor H/H Transfuse to keep hgb over 8 Further recommendations based on findings of above Pt has been seen and examined by myself and Dr. Lopez and this note is written on his behalf (Amara Fam) Physician Comments Patient seen and examined Agree with above Continue current supportive care Monitor lab Plan for an EGD later today (Chet Lopez MD) Amara Fam May 10, 2017 09:26 Chet Lopez MD May 10, 2017 17:29
[2017-05-10] MEDS ORDERED: PILL SPLITTER OTHER PRN (11:30)
--- NOTE | 2017-05-10 11:31 | HHI.HCPN ---
Reason for visit a. To assist with evaluation and management of symptoms including: Pain, nausea, decreased appetite b. To assist medical decision maker(s) with: better understanding of current medical conditions; weighing benefits/burdens of medical treatment options; making medical treatment decisions. . Subjective/Interval History Follow-up visit for symptom management and clarification of medical treatment goals. Dr. Galindo spoke to the patient at length on 05/09/2017 while his participated on speaker phone regarding patient's now confirmed diagnosis of HCC , worsening hepatic functioning, and limited therapeutic interventions available as well as the possible evaluation at the [facility] or [facility] for clinical trials. Patient and his have contacted the [facility] for possible second opinion. The patient is having ongoing, persistent pain despite numerous changes in his pain medications. He did have an episode of oversedation earlier this week so we are trying to balance that concern with adequate pain management palliative care was consulted to manage patient's pain control regimen. He is currently receiving Oramorph SR 30 mg PO q8 hours and hydromorphone 1 mg IV every 3 hours PRN for breakthrough pain Of note, 1 mg of hydromorphone IV is equivalent to approximately 15mg oral morphine (with a 25% reduction for incomplete cross tolerance). This morning the patient reports he has "no pain at all"; he required no PRN hydromorphone overnight for breakthrough pain. Patient was diagnosed with bilateral PE during his previous admission; CT angiogram of the thorax revealed worsening pulmonary emboli-now with a saddle pulmonary embolus noted. He was receiving Lovenox SQ daily, but it is currently on hold secondary to active GIB. Patient had 4 episodes of melena overnight. His H/H has dropped significantly from 13.8/39.7 on 05/06/2017 to 8.9 /25.8 this morning. GI was reconsulted. Patient states his appetite has improved but he is now NPO for planned EGD later today. After discussing with Dr. Galindo, the patient was started on a small dose of dexamethasone 2mg PO BID which may provide additional management of pain as well as improve the patient's appetite and provide an overall sense of well being. Palliative care has a tentative plan to meet with the family after the patient's son and [id number] have arrived from [place] sometime tomorrow . . Advance Directives Advance Directive Specifics Health Care Surrogate(s): Per [place] statutes, in the absence of written advanced directives healthcare proxy decision making falls to the patient's . . Documented care wishes: No known written advanced directives have been completed. . Objective Vital Signs Date Time Temp Pulse Resp B/P (MAP) Pulse Ox O2 Delivery O2 Flow Rate FiO2 05/10/17 08:10 97.9 78 18 116/66 (83) 97 05/10/17 04:28 98.1 81 16 100/65 (77) 99 05/10/17 04:00 79 05/10/17 03:00 80 05/10/17 02:00 86 05/10/17 01:00 90 05/10/17 00:00 88 05/10/17 00:00 88 05/10/17 00:00 98.6 90 16 99/62 (74) 97 05/09/17 23:00 100 05/09/17 22:00 116 05/09/17 21:55 98.8 05/09/17 21:30 100.8 05/09/17 21:29 101.1 131 18 117/68 (84) 93 05/09/17 21:00 118 05/09/17 20:00 130 05/09/17 20:00 127 05/09/17 19:00 120 05/09/17 18:00 108 05/09/17 17:00 106 05/09/17 16:00 86 05/09/17 15:50 98.7 83 18 149/76 (100) 93 05/09/17 15:06 05/09/17 15:04 88 05/09/17 11:26 98.0 79 18 129/79 (96) 95 Intake & Output 05/10/17 05/10/17 07:00 19:00 Intake Total 150 ml Output Total 100 ml Balance 50 ml Intake Oral 150 ml Output Urine Total 100 ml # Voids 2 # Bowel Movements 3 Physical Exam CONSTITUTIONAL/GENERAL: Patient is a middle aged male who appears healthy in no apparent distress. TUBES/LINES/DRAINS: PIV SKIN: Slight jaundice no wounds seen anteriorly. Skin temperature appropriate. Not diaphoretic. HEAD: Atraumatic. Normocephalic. EYES: Pupils equal and round and reactive. Extraocular motions intact. No scleral icterus. No injection or drainage. Fundi not examined. ENT: Hearing grossly normal. Nose without bleeding or purulent drainage. Throat without visible erythema, exudates, masses, or lesions. NECK: Trachea midline. Supple, nontender. No palpable thyroid enlargement or nodularity. CARDIOVASCULAR: Regular rate and rhythm without murmurs, gallops, or rubs. No JVD. Peripheral pulses symmetric. RESPIRATORY/CHEST: Symmetric, unlabored respirations. Clear to auscultation. Breath sounds equal bilaterally. No wheezes, rales, or rhonchi. GASTROINTESTINAL: Abdomen firm, tender to palpation over the right upper quadrant. + hepatomegaly. GENITOURINARY: Without palpable bladder distension. MUSCULOSKELETAL: No obvious deformities. Extremities without clubbing, cyanosis , or edema. No mottling or clubbing. LYMPHATICS: No palpable cervical or supraclavicular adenopathy. NEUROLOGICAL: Lethargic, arousable to verbal stimuli but appears to drift off during conversation PSYCHIATRIC: No obvious anxiety/depression. No apparent hallucinations or other psychotic thought process. . Diagnostic Tests Laboratory Laboratory Tests Test 05/07/17 20:10 05/08/17 05:45 05/08/17 05:54 05/09/17 07:31 Iron Level 35 MCG/DL (65-175) Total Iron Binding Capacity 314 MCG/DL (250-450) Percent Iron Saturation 11.2 % (20-50) Ferritin 264 NG/ML (26-388) [id number] 190 mg/dL (100 - 190) Anti-Nuclear Antibody Screen NEG (NEG) Anti-Smooth Muscle Antibody Negative (Negative) White Blood Count 8.5 TH/MM3 (4.0-11.0) Red Blood Count 3.58 MIL/MM3 (4.50-5.90) Hemoglobin 11.2 GM/DL (13.0-17.0) Hematocrit 32.6 % (39.0-51.0) Mean Corpuscular Volume 91.0 FL (80.0-100.0) Mean Corpuscular Hemoglobin 31.1 PG (27.0-34.0) Mean Corpuscular Hemoglobin Concent 34.2 % (32.0-36.0) Red Cell Distribution Width 13.6 % (11.6-17.2) Platelet Count 294 TH/MM3 (150-450) Mean Platelet Volume 7.4 FL (7.0-11.0) Blood Urea Nitrogen 28 MG/DL (7-18) 21 MG/DL (7-18) Creatinine 1.02 MG/DL (0.60-1.30) 0.83 MG/DL (0.60-1.30) Random Glucose 89 MG/DL (74-106) 106 MG/DL (74-106) Total Protein 6.5 GM/DL (6.4-8.2) 5.7 GM/DL (6.4-8.2) Albumin 2.9 GM/DL (3.4-5.0) 2.4 GM/DL (3.4-5.0) Calcium Level 8.4 MG/DL (8.5-10.1) 8.0 MG/DL (8.5-10.1) Alkaline Phosphatase 494 U/L (45-117) 464 U/L (45-117) Aspartate Amino Transf (AST/SGOT) 303 U/L (15-37) 241 U/L (15-37) Alanine Aminotransferase (ALT/SGPT) 426 U/L (12-78) 324 U/L (12-78) Total Bilirubin 4.7 MG/DL (0.2-1.0) 4.3 MG/DL (0.2-1.0) Direct Bilirubin 3.7 MG/DL (0.0-0.2) Sodium Level 140 MEQ/L (136-145) 139 MEQ/L (136-145) Potassium Level 4.2 MEQ/L (3.5-5.1) 4.1 MEQ/L (3.5-5.1) Chloride Level 106 MEQ/L (98-107) 105 MEQ/L (98-107) Carbon Dioxide Level 25.7 MEQ/L (21.0-32.0) 28.9 MEQ/L (21.0-32.0) Anion Gap 8 MEQ/L (5-15) 5 MEQ/L (5-15) Estimat Glomerular Filtration Rate 75 ML/MIN (>89) 95 ML/MIN (>89) Test 05/09/17 20:38 05/10/17 00:15 05/10/17 08:20 Hemoglobin 9.8 GM/DL (13.0-17.0) 8.9 GM/DL (13.0-17.0) Hematocrit 28.8 % (39.0-51.0) 25.8 % (39.0-51.0) Urine Color DARK-BROWN (YELLW/STRAW) Urine Turbidity HAZY (CLEAR) Urine pH 5.5 (5.0-8.5) Urine Specific Challenge 1.025 (1.002-1.035) Urine Protein 30 mg/dL (NEG-TRACE) Urine Glucose (UA) NEG mg/dL (NEG) Urine Ketones NEG mg/dL (NEG) Urine Occult Blood NEG (NEG) Urine Nitrite NEG (NEG) Urine Bilirubin MOD (NEG) Urine Urobilinogen 8.0 MG/DL (LESS THAN Urine Leukocyte Esterase TRACE (NEG) Urine RBC 1 /hpf (0-3) Urine WBC 3 /hpf (0-5) Urine Squamous Epithelial Cells <1 /hpf (0-5) Urine Renal Epithelial Cells <1 /hpf (NONE) Urine Bacteria RARE /hpf (NONE) Urine Hyaline Casts 3 /lpf (RARE) Urine White Blood Cell Casts 28 /lpf (NONE) Urine Mucus FEW /lpf (OCC) Microscopic Urinalysis Comment CULTURE INDICATED White Blood Count 9.3 TH/MM3 (4.0-11.0) Red Blood Count 2.82 MIL/MM3 (4.50-5.90) Mean Corpuscular Volume 91.5 FL (80.0-100.0) Mean Corpuscular Hemoglobin 31.6 PG (27.0-34.0) Mean Corpuscular Hemoglobin Concent 34.6 % (32.0-36.0) Red Cell Distribution Width 13.9 % (11.6-17.2) Platelet Count 315 TH/MM3 (150-450) Mean Platelet Volume 7.4 FL (7.0-11.0) Neutrophils (%) (Auto) 81.4 % (16.0-70.0) Lymphocytes (%) (Auto) 8.3 % (9.0-44.0) Monocytes (%) (Auto) 9.9 % (0.0-8.0) Eosinophils (%) (Auto) 0.2 % (0.0-4.0) Basophils (%) (Auto) 0.2 % (0.0-2.0) Neutrophils # (Auto) 7.6 TH/MM3 (1.8-7.7) Lymphocytes # (Auto) 0.8 TH/MM3 (1.0-4.8) Monocytes # (Auto) 0.9 TH/MM3 (0-0.9) Eosinophils # (Auto) 0.0 TH/MM3 (0-0.4) Basophils # (Auto) 0.0 TH/MM3 (0-0.2) CBC Comment DIFF FINAL Differential Comment Prothrombin Time 11.4 SEC (9.8-11.6) Prothromb Time International Ratio 1.1 RATIO Activated Partial Thromboplast Time 25.8 SEC (24.3-30.1) Result Diagram: 05/10/17 0820 05/09/17 0731 Microbiology Microbiology Date/Time Source Procedure Growth Status 05/10/17 00:15 Urine Clean Catch Urine Culture Pending Received Assessment and Plan Disease Oriented Problem List: (1) Pulmonary embolism (2) Liver mass (3) Hepatocellular carcinoma Symptom Scale: (1) Pain 0-10 Scale: Unable to quantify (2) Decrease in appetite 0-10 Scale: Unable to quantify (3) Nausea 0-10 Scale: Unable to quantify Pertinent Non-Medical Issues Psychosocial: Patient is originally from [place]. He has lived in [place] for about 14 years. 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 He is currently to Maria Victoria; they have been for 12 years. Patient had one biological son who last year from a drug overdose last year. Maria Victoria has 3 adult children - Casa (-Makayla), Landen (-Effie) and Angelica. They are very close to their stepfather. Casa and Makayla are in the [employer], currently stationed in [place]. Palliative care has contacted the [facility] for emergency notification/request for presence. Spiritual: Cheondoism theodore Legal: Per [place] statutes, in the absence of written advanced directives healthcare proxy decision making falls to the patient's . Ethical issues impacting care: No ethical issues impacting care at this time. Important Contacts Maria Victoria John, spouse: [phone] or [phone]?? Kathy (son and DIL): [phone] . Prognosis 56-year-old male patient with newly diagnosed hepatocellular carcinoma that is showing signs of rapid growth. CT angiogram of the thorax revealed worsening pulmonary emboli; now with a saddle pulmonary embolus noted. Patient has been offered palliative systemic therapy, although transitioning to hospice services would also be a reasonable option at this point. Projected survival is approximately 6 months and likely less. . Code Status: No Code Plan * NO CODE * Code status changed to NO CODE per pt/ request. Patient had to withdraw his mother from artificial life support. Because of this, Khurram and Nithya have had ongoing conversations about what they would want, medically, in various situations and they patient does not want to be put on artificial life support if doing so would only prolong the process of dying.Patient has stated to his multiple time, " If I cant hug you, let me go." * Per [place] statutes, in the absence of written advanced directives healthcare proxy decision making falls to the patient's . * Patient's stepson and [id number] (Casa and Makayla) are in the [employer], currently stationed in [place]. Palliative care has contacted the [facility] for emergency notification/request for presence and they should be arriving on , 05/10/2017 * Palliative care met with the patient's on 05/09/17 to discuss prognosis. She understands that her has a life limiting condition and there is a good chance he will not survive to participate in a clinical trial. She will hope for the past while preparing for the worse. She verbalizes concern that her adult children are not accepting that the patient is terminally ill. Palliative care has a tentative plan to meet with the family after the patient' s son and [id number] have arrived from [place] sometime tomorrow 05/11/2017. * Patient had 4 episodes of melena overnight. His H/H has dropped significantly from 13.8/39.7 on 05/06/2017 to 8.9/25.8 this morning. GI was reconsulted; Lovenox is currently on hold secondary to active GIB. Plan for EGD later today. * Symptom management: = Pain: The patient is having ongoing, persistent pain despite numerous changes in his pain medications. He did have an episode of oversedation earlier this week so we are trying to balance that concern with adequate pain management palliative care was consulted to manage patient's pain control regimen. He is currently receiving Oramorph SR 30 mg PO q8 hours and hydromorphone 1 mg IV every 3 hours PRN for breakthrough pain Of note, 1 mg of hydromorphone IV is equivalent to approximately 15mg oral morphine (with a 25% reduction for incomplete cross tolerance). This morning the patient reports he has "no pain at all"; he required no PRN hydromorphone overnight for breakthrough pain. = Nausea: Patient reports nausea associated to episodes of severe pain that has restricted patient's nutritional intake. Ondansetron 4 mg IV is ordered PRN for nausea and vomiting. May want to consider scheduling ondansetron initially while attempting to adjust medications for better symptom management. = Decreased appetite: Patient reports appetite has slowly improved, however he is currently NPO for planned procedure later today. After discussing with Dr. Galindo, the patient was started on a small dose of dexamethasone 2mg PO BID which may provide additional management of pain as well as improve the patient's appetite and provide an overall sense of well being. * Palliative care will continue to follow this patient throughout his hospitalization to establish trust, assist with symptom management and clarification of medical treatment goals. . Time Spent Total Floor Time (mins): 40 Face to Face Time (mins): 30 >50% Counseling/Coord of Care: Yes Attestation To help prompt me to consider important information that might be impacting today's encounter and assessment, information from prior notes written by myself or my colleagues may have been "brought forward" into today's note. My signature on this note, however, is an attestation that I personally performed the exam, history, and/or decision-making noted today, and, unless otherwise indicated, the interactions with patient, family, and staff as well as the review of records all occurred today. I also attest that the listed assessment and stated plan reflect my best clinical judgment today based on the combination of historical information, prior notes, and today's exam/ interactions. When time spent is documented, it refers only to time spent today by the signer, or if indicated, combined time spent today by collaborating physician/nurse practitioner. . Oralia Lewis May 10, 2017 11:31
[2017-05-10] MEDS: PANTOPRAZOLE INJ 80 MG in SODIUM CHLORIDE 0.9% INJ 100 ML IV SCH (11:39)
[2017-05-10] MEDS ORDERED: PHENYLEPH/NS 1000 MCG/10 ML SYR IV ONE (12:00)
[2017-05-10] MEDS ORDERED: PROPOFOL 200 MG/20 ML AMP IV ONE (12:00)
--- NOTE | 2017-05-10 13:07 | HHI.PR ---
Subjective Remarks Pain is currently better controlled today Discussed with patient denies any pain at this time Is scheduled to go for procedures with GI later today due to the GI bleeding I have discussed with oncology as well as nursing and RN and family and my colleague Continue current treatments Objective Vitals Vital Signs Date Time Temp Pulse Resp B/P (MAP) Pulse Ox O2 Delivery O2 Flow Rate FiO2 05/10/17 11:10 98.9 79 18 118/65 (82) 97 05/10/17 08:10 97.9 78 18 116/66 (83) 97 05/10/17 04:28 98.1 81 16 100/65 (77) 99 05/10/17 04:00 79 05/10/17 03:00 80 05/10/17 02:00 86 05/10/17 01:00 90 05/10/17 00:00 88 05/10/17 00:00 88 05/10/17 00:00 98.6 90 16 99/62 (74) 97 05/09/17 23:00 100 05/09/17 22:00 116 05/09/17 21:55 98.8 05/09/17 21:30 100.8 05/09/17 21:29 101.1 131 18 117/68 (84) 93 05/09/17 21:00 118 05/09/17 20:00 130 05/09/17 20:00 127 05/09/17 19:00 120 05/09/17 18:00 108 05/09/17 17:00 106 05/09/17 16:00 86 05/09/17 15:50 98.7 83 18 149/76 (100) 93 05/09/17 15:06 05/09/17 15:04 88 I/O 05/09/17 05/09/17 05/09/17 05/10/17 05/10/17 05/10/17 07:00 15:00 23:00 07:00 15:00 23:00 Intake Total 360 ml 3000 ml 150 ml Output Total 925 ml 1200 ml 100 ml Balance -565 ml 1800 ml 50 ml Intake Oral 360 ml 3000 ml 150 ml Output Urine Total 925 ml 1200 ml 100 ml # Voids 1 1 # Bowel Movements 1 2 Result Diagram: 05/10/17 1210 05/09/17 0731 Other Results Laboratory Tests Test 05/07/17 20:10 05/08/17 05:45 05/08/17 05:54 05/09/17 07:31 Iron Level 35 MCG/DL Total Iron Binding Capacity 314 MCG/DL Percent Iron Saturation 11.2 % Ferritin 264 NG/ML [id number] 190 mg/dL Anti-Nuclear Antibody Screen NEG Anti-Smooth Muscle Antibody Negative White Blood Count 8.5 TH/MM3 Red Blood Count 3.58 MIL/MM3 Hemoglobin 11.2 GM/DL Hematocrit 32.6 % Mean Corpuscular Volume 91.0 FL Mean Corpuscular Hemoglobin 31.1 PG Mean Corpuscular Hemoglobin Concent 34.2 % Red Cell Distribution Width 13.6 % Platelet Count 294 TH/MM3 Mean Platelet Volume 7.4 FL Blood Urea Nitrogen 28 MG/DL 21 MG/DL Creatinine 1.02 MG/DL 0.83 MG/DL Random Glucose 89 MG/DL 106 MG/DL Total Protein 6.5 GM/DL 5.7 GM/DL Albumin 2.9 GM/DL 2.4 GM/DL Calcium Level 8.4 MG/DL 8.0 MG/DL Alkaline Phosphatase 494 U/L 464 U/L Aspartate Amino Transf (AST/SGOT) 303 U/L 241 U/L Alanine Aminotransferase (ALT/SGPT) 426 U/L 324 U/L Total Bilirubin 4.7 MG/DL 4.3 MG/DL Direct Bilirubin 3.7 MG/DL Sodium Level 140 MEQ/L 139 MEQ/L Potassium Level 4.2 MEQ/L 4.1 MEQ/L Chloride Level 106 MEQ/L 105 MEQ/L Carbon Dioxide Level 25.7 MEQ/L 28.9 MEQ/L Anion Gap 8 MEQ/L 5 MEQ/L Estimat Glomerular Filtration Rate 75 ML/MIN 95 ML/MIN Test 05/09/17 20:38 05/10/17 00:15 05/10/17 08:20 05/10/17 12:10 Hemoglobin 9.8 GM/DL 8.9 GM/DL 8.7 GM/DL Hematocrit 28.8 % 25.8 % Urine Color DARK-BROWN Urine Turbidity HAZY Urine pH 5.5 Urine Specific [place] 1.025 Urine Protein 30 mg/dL Urine Glucose (UA) NEG mg/dL Urine Ketones NEG mg/dL Urine Occult Blood NEG Urine Nitrite NEG Urine Bilirubin MOD Urine Urobilinogen 8.0 MG/DL Urine Leukocyte Esterase TRACE Urine RBC 1 /hpf Urine WBC 3 /hpf Urine Squamous Epithelial Cells <1 /hpf Urine Renal Epithelial Cells <1 /hpf Urine Bacteria RARE /hpf Urine Hyaline Casts 3 /lpf Urine White Blood Cell Casts 28 /lpf Urine Mucus FEW /lpf Microscopic Urinalysis Comment CULTURE INDICATED White Blood Count 9.3 TH/MM3 Red Blood Count 2.82 MIL/MM3 Mean Corpuscular Volume 91.5 FL Mean Corpuscular Hemoglobin 31.6 PG Mean Corpuscular Hemoglobin Concent 34.6 % Red Cell Distribution Width 13.9 % Platelet Count 315 TH/MM3 Mean Platelet Volume 7.4 FL Neutrophils (%) (Auto) 81.4 % Lymphocytes (%) (Auto) 8.3 % Monocytes (%) (Auto) 9.9 % Eosinophils (%) (Auto) 0.2 % Basophils (%) (Auto) 0.2 % Neutrophils # (Auto) 7.6 TH/MM3 Lymphocytes # (Auto) 0.8 TH/MM3 Monocytes # (Auto) 0.9 TH/MM3 Eosinophils # (Auto) 0.0 TH/MM3 Basophils # (Auto) 0.0 TH/MM3 CBC Comment DIFF FINAL Differential Comment Prothrombin Time 11.4 SEC Prothromb Time International Ratio 1.1 RATIO Activated Partial Thromboplast Time 25.8 SEC Imaging Last Impressions Chest X-Ray 05/06/17 0345 Signed Impressions: Service Date/Time: Saturday, May 06, 2017 03:55 - CONCLUSION: No acute disease. There is no evidence of free air. Ehsan Argueta MD CT Angiography 05/06/17 0000 Signed Impressions: Service Date/Time: Saturday, May 06, 2017 06:19 - CONCLUSION: 1. Pulmonary emboli with a long thin saddle embolus which crosses from the right main pulmonary artery into the left. Smaller bilateral areas of pulmonary emboli present as well. 2. Small area consolidation in the right lower lobe. Ehsan Argueta MD Abdomen/Pelvis CT 05/06/17 0000 Signed Impressions: Service Date/Time: Saturday, May 06, 2017 06:19 - CONCLUSION: 1. The large tumor mass in the central liver appear slightly larger in size. There are additional metastatic lesions in the liver which are not significant change. 2. The gallbladder is more prominent and now contains a central area of high density which is concerning for possible hemorrhage or blood clot. Vicarious excretion of contrast contrast into the gallbladder can have a similar appearance however usually appears more homogeneous and diffuse. 3. The central splenic mass is not significantly changed. 4. Bilateral renal cysts. Ehsan Argueta MD Objective Remarks GENERAL: Awake alert oriented 3 talkative and cooperative SKIN: Warm and dry. HEAD: Atraumatic. Normocephalic. EYES: Pupils equal and round. No scleral icterus. No injection or drainage. Extraocular muscles are intact ENT: No nasal bleeding or discharge. Mucous membranes pink and moist. Tongue is midline NECK: Trachea midline. No JVD. Supple CARDIOVASCULAR: Regular rate and rhythm. S1-S2 no S3 or S4 RESPIRATORY: No accessory muscle use. Clear to auscultation. Breath sounds equal bilaterally. GASTROINTESTINAL: Abdomen soft, non-tender, nondistended. Hepatic and splenic margins not palpable. MUSCULOSKELETAL: Extremities without clubbing, cyanosis, or edema. No obvious deformities. NEUROLOGICAL: Awake and alert. No obvious cranial nerve deficits. Motor grossly within normal limits. Five out of 5 muscle strength in the arms and legs. Normal speech. PSYCHIATRIC: Appropriate mood and affect; insight and judgment normal. Medications and IVs Current Medications Sodium Chloride 1,000 ml @ 125 mls/hr Q8H IV Last administered on 05/06/17 03 :52; Start 05/06/17 at 03:45; Stop 05/06/17 at 11:44; Status DC Sodium Chloride (NS Flush) 2 ml UNSCH PRN IV FLUSH FLUSH AFTER USING IV ACCESS Last administered on 05/09/17 04:39; Start 05/06/17 at 03:45 Morphine Sulfate (Morphine Inj) 4 mg ONCE ONCE IV PUSH Last administered on 04:22; Start 05/06/17 at 04:30; Stop 05/06/17 at 04:31; Status DC Ondansetron HCl (Zofran Inj) 4 mg ONCE ONCE IV PUSH Last administered on 04:23; Start 05/06/17 at 04:30; Stop 05/06/17 at 04:31; Status DC Iohexol (Omnipaque 350 Inj) 75 ml STK-MED ONCE IVCONTRAST Last administered on 05/06/17 02:48; Start 05/06/17 at 02:48; Stop 05/06/17 at 06:33; Status DC Hydromorphone HCl (Dilaudid Pf Inj) 1 mg ONCE ONCE IV PUSH Last administered on 05/06/17at 07:07; Start 05/06/17 at 07:00; Stop 05/06/17 at 07:05; Status DC Ketorolac Tromethamine (Toradol Inj) 15 mg STAT ONCE IV PUSH Last administered on 05/06/17at 08:16; Start 05/06/17 at 08:15; Stop 05/06/17 at 08:16 ; Status DC Sodium Chloride 1,000 ml @ 84 mls/hr [id number] IV Last administered on at 21:19; Start 05/06/17 at 09:00; Stop 05/09/17 at 13:20; Status DC Oxycodone/ Acetaminophen (Percocet 5-325 Mg) 1 tab Q4H PRN PO PAIN SCALE 1 TO 5 Last administered on 05/07/17at 02:43; Start 05/06/17 at 09:00; Stop 05/07/17 at 07:45; Status DC Hydromorphone HCl (Dilaudid Pf Inj) 0.5 mg Q4H PRN IV PUSH PAIN SCALE 6 TO 10 Last administered on 05/07/17at 06:39; Start 05/06/17 at 09:00; Stop 05/07/17 at 07:45; Status DC Pantoprazole Sodium (Protonix Inj) 40 mg DAILY IV PUSH Last administered on at 08:06; Start 05/06/17 at 09:00; Stop 05/10/17 at 09:15; Status DC Ondansetron HCl (Zofran Inj) 4 mg Q6H PRN IV PUSH NAUSEA OR VOMITING Last administered on 05/07/17at 13:34; Start 05/06/17 at 09:00; Stop 05/07/17 at 14:37 ; Status DC Albuterol/ Ipratropium (Duoneb Neb) 1 ampule Q2HR NEB PRN INH WHEEZING; Start 05/06/17 at 09:00 Rivaroxaban (Xarelto) 15 mg BID PO Last administered on 05/06/17at 22:08; Start 05/06/17 at 09:00; Stop 05/07/17 at 00:18; Status DC Enoxaparin Sodium (Lovenox Inj) 80 mg Q12HR SQ Last administered on 05/09/17at 20:33; Start 05/07/17 at 09:00; Stop 05/10/17 at 08:10; Status DC Hydromorphone HCl (Dilaudid Pf Inj) 1 mg ONCE ONCE IV PUSH Last administered on 05/07/17at 03:23; Start 05/07/17 at 03:15; Stop 05/07/17 at 03:18; Status DC Hydromorphone HCl (Dilaudid Pf Inj) 1 mg Q4H PRN IV PUSH BREAKTHROUGH PAIN Last administered on 05/07/17at 08:47; Start 05/07/17 at 09:00; Stop 05/07/17 at 10:54; Status DC Morphine Sulfate (Oramorph Sr) 15 mg Q12HR PO Last administered on 05/08/17at 08 :23; Start 05/07/17 at 09:00; Stop 05/08/17 at 12:32; Status DC Hydromorphone HCl (Dilaudid Pf Inj) 2 mg NOW STAT IV PUSH Last administered on 05/07/17at 10:25; Start 05/07/17 at 10:22; Stop 05/07/17 at 10:23; Status DC Hydromorphone HCl (Dilaudid Pf Inj) 1.5 mg Q2HR PRN IV PUSH BREAKTHROUGH PAIN Last administered on 05/07/17at 12:47; Start 05/07/17 at 11:00; Stop 05/07/17 at 14:05; Status DC Hydromorphone HCl (Dilaudid Pf Inj) 2 mg Q2HR PRN IV PUSH BREAKTHROUGH PAIN Last administered on 05/07/17at 14:27; Start 05/07/17 at 14:15; Stop 05/07/17 at 16:26; Status DC Ondansetron HCl (Zofran Inj) 4 mg Q4HR PRN IV PUSH NAUSEA OR VOMITING Last administered on 05/09/17at 16:09; Start 05/07/17 at 16:00 Hydromorphone HCl (Dilaudid Pf Inj) 1 mg Q2HR PRN IV PUSH BREAKTHROUGH PAIN Last administered on 05/08/17at 08:23; Start 05/07/17 at 16:30; Stop 05/08/17 at 11:38; Status DC Senna/Docusate Sodium (Amairani-Colace) 1 tab BID PO Last administered on at 08:05; Start 05/08/17 at 10:00 Hydromorphone HCl (Dilaudid) 2 mg Q4H PRN PO BREAKTHROUGH PAIN Last administered on 05/08/17at 12:36; Start 05/08/17 at 11:45; Stop 05/08/17 at 17:27 ; Status DC Morphine Sulfate (Oramorph Sr) 15 mg Q8HR PO Last administered on 05/08/17at 14: 00; Start 05/08/17 at 14:00; Stop 05/08/17 at 17:23; Status DC Hydromorphone HCl (Dilaudid Pf Inj) 1 mg ONCE ONCE IV PUSH Last administered on 05/08/17at 15:22; Start 05/08/17 at 16:00; Stop 05/08/17 at 16:01; Status DC Morphine Sulfate (Oramorph Sr) 30 mg Q8HR PO Last administered on 05/09/17at 05: 52; Start 05/08/17 at 22:00; Stop 05/09/17 at 13:20; Status DC Hydromorphone HCl (Dilaudid Pf Inj) 0.5 mg Q3H PRN IV BREAKTHROUGH PAIN Last administered on 05/09/17at 14:22; Start 05/08/17 at 17:30 Morphine Sulfate (Oramorph Sr) 40 mg Q8HR PO ; Start 05/09/17 at 14:00; Stop at 14:53; Status DC Morphine Sulfate (Oramorph Sr) 30 mg Q8HR PO Last administered on 05/10/17at 06: 12; Start 05/09/17 at 16:00 Acetaminophen (Tylenol) 650 mg ONCE ONCE PO Last administered on 05/09/17at 21: 09; Start 05/09/17 at 20:45; Stop 05/09/17 at 20:50; Status DC Pantoprazole Sodium 80 mg/ Sodium Chloride 100 ml @ 10 mls/hr Q10H IV Last administered on 05/10/17at 11:39; Start 05/10/17 at 11:00 Dexamethasone (Decadron) 2 mg BID PO ; Start 05/10/17 at 14:00 Miscellaneous (Pill Splitter) 1 ea UNSCH PRN OTHER SEE LABEL COMMENTS; Start at 11:30 A/P Problem List: (1) Hepatocellular carcinoma ICD Code: C22.0 - Liver cell carcinoma Plan: Locally advanced hepatocellular carcinoma confirmed. Discussed with oncologist today Dr. Galindo. Prognosis is poor. Palliative treatment offered to patient. Hospice can also be considered. Palliative care consulted. Pain control. Currently requiring IV Dilaudid. Pain is being controlled by palliative care now (2) Intractable pain ICD Code: R52 - Pain, unspecified Plan: Probably liver capsule pain. Very difficult to control the patient's pain safely. He required IV Dilaudid, however at higher dose he had 2 episodes where he immediately become unresponsive after receiving IV Dilaudid and oxygen saturation dropped in the 80s. He had no response to oral Dilaudid. Patient requested increase in basal morphine today. He only received two doses of the increased dose of Oramorph from yesterday so far. Ideally changes should be made after monitoring response for at least 24 hrs. Oramorph can only be increased by 15 mg after discussion with the pharmacy which would be a total increase of 45 mg which would be over the total dose of breakthrough equivalent IV Dilaudid. I discussed with the patient and family, they agreed to hold off on any changes for now. Keep 30 mg Oramorph and Patient has a sadle PE which is very concerning for oversedation, respiratory depression which can lead to resp failure. Palliative care following. Defer any further changes of pain management to palliative care. Pain is now being controlled by palliative care (3) Pulmonary embolism ICD Code: I26.99 - Other pulmonary embolism without acute cor pulmonale Plan: Appreciate input from hematology/oncology. Patient failed outpatient Xarelto. Continue Lovenox. He is to be discharged on Lovenox To undergo GI procedures today due to anemia and GI bleeding (4) Liver mass ICD Code: R16.0 - Hepatomegaly, not elsewhere classified Plan: Will defer to oncology. 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 - General surgery evaluated the patient and recommended pain management. No surgical intervention is planned. Assessment and Plan Hepatocellular carcinoma with metastasis continue on current treatment with pain control Bilateral pulmonary emboli with saddle embolus will need to be back on anticoagulation as soon as GI clears him for that GI bleeding and anemia to undergo GI procedures later today Pain control will defer to palliative care Will need long-term anticoagulation after discharge Discharge Planning Pending GI and oncology clearance and pain being well controlled Problem Qualifiers (1) Pulmonary embolism: Qualified Codes: I26.92 - Saddle embolus of pulmonary artery without acute cor pulmonale Greg Casas DO May 10, 2017 13:07
[2017-05-10 13:54] LABS: ENDOMYSIAL AB SCREEN ND (NEGATIVE); ENDOMYSIAL AB TITER ND (<1:5)
[2017-05-10] MEDS ORDERED: DEXAMETHASONE 4 MG TAB PO SCH (14:00)
--- NOTE | 2017-05-10 17:41 | PD.PROCEDR ---
GI Procedure PROCEDURE PERFORMED EGD INDICATION FOR PROCEDURE Melena PROCEDURE: The procedure, risks and benefits were discussed with Ms. Ingram and informed consent was obtained. Anesthesia sedated her with Diprivan. She was placed in the left lateral decubitus position. EGD: The Pentax videoscope was introduced through the oropharynx and advanced to the second portion of the duodenum under direct visualization. Retroflexion was performed in the stomach. FINDINGS: The esophagus this appeared to be unremarkable and within normal limits The stomach there looks like a grade 1 gastric varix but no stigmata of any recent bleeding or active bleeding the rest of the gastric mucosa was basically unremarkable The duodenum this was normal ESTIMATED BLOOD LOSS: None SPECIMENS REMOVED: None COMPLICATIONS: None IMPRESSION: Gastric varices no stigmata of bleeding PLAN: Case discussed with Dr. Galindo No obvious source of bleeding from the esophagus stomach or duodenum Not much to add from a GI perspective at this point we will sign off Chet Lopez MD May 10, 2017 17:41
[2017-05-10] MEDS: DEXAMETHASONE 4 MG TAB PO SCH (18:26)
[2017-05-10 23:53] LABS: MITOCHONDRIAL ABS LESS THAN 20.0 U (<=20.0)
[2017-05-11] VITALS (17 sets, daily range): BP systolic 106–139; BP diastolic 60–81; PULSE 71–83; RESP 16–18; TEMP 97.1–98.8; O2SAT 94–98
[2017-05-11 03:22] LABS: AUTOMATED NEUTROPHIL # 5.7 TH/MM3 (1.8-7.7); BASOPHIL % 0.1 % (0.0-2.0); EOSINOPHIL % 0.2 % (0.0-4.0); HEMATOCRIT 23.8 % (39.0-51.0); HEMOGLOBIN 8.2 GM/DL (13.0-17.0); LYMPH % 9.2 % (9.0-44.0); LYMPHOCYTE # 0.6 TH/MM3 (1.0-4.8); MEAN CORPUSCULAR HEMOGLOBIN 31.9 PG (27.0-34.0); MEAN CORPUSCULAR HGB CONC 34.7 % (32.0-36.0); MEAN PLATELET VOLUME 7.2 FL (7.0-11.0); MONOCYTE # 0.6 TH/MM3 (0-0.9); NEUT % 81.5 % (16.0-70.0); PLATELET COUNT 317 TH/MM3 (150-450); RED BLOOD COUNT 2.58 MIL/MM3 (4.50-5.90); RED CELL DISTRIBUTION WIDTH 14.1 % (11.6-17.2); WHITE BLOOD COUNT 6.9 TH/MM3 (4.0-11.0)
[2017-05-11 03:41] LABS: INTERNATIONAL NORMALIZED RATIO 1.1 RATIO; PROTHROMBIN TIME - PATIENT 10.7 SEC (9.8-11.6)
[2017-05-11 03:57] LABS: ALBUMIN 2.4 GM/DL (3.4-5.0); ALT (GPT) 208 U/L (12-78); AST (GOT) 187 U/L (15-37); BICARBONATE 28.2 MEQ/L (21.0-32.0); BLOOD UREA NITROGEN 26 MG/DL (7-18); CHLORIDE 104 MEQ/L (98-107); GLOMERULAR FILTRATION RATE 77 ML/MIN (>89); GLUCOSE,RANDOM 101 MG/DL (74-106); MAGNESIUM 2.1 MG/DL (1.5-2.5); PHOSPHORUS 2.8 MG/DL (2.5-4.9); SODIUM (NA) 138 MEQ/L (136-145)
[2017-05-11 04:08] LABS: ALKALINE PHOSPHATASE 377 U/L (45-117); FREE T4 1.09 NG/DL (0.76-1.46); TOTAL BILIRUBIN ADULT 1.5 MG/DL (0.2-1.0); TOTAL PROTEIN 5.9 GM/DL (6.4-8.2)
[2017-05-11] MEDS: PANTOPRAZOLE INJ 80 MG in SODIUM CHLORIDE 0.9% INJ 100 ML IV SCH ×4 (04:39→21:01)
[2017-05-11] MEDS: MORPHINE SULFATE 30 MG CONTROLLED RELEASE TAB PO SCH ×3 (04:43→21:02)
[2017-05-11] MEDS: DEXAMETHASONE 4 MG TAB PO SCH ×2 (04:48→13:30)
[2017-05-11] MEDS: DOCUSATE SODIUM 50 MG/SENNA 8.6 MG TAB PO SCH ×2 (07:55→21:00)
--- NOTE | 2017-05-11 08:44 | PD.ONC.PN ---
Subjective Subjective Remarks Region seen and examined, vital signs, labs, medications and overnight events as well as procedure notes were reviewed. Subjectively; the patient tells me his pain is very well-controlled, he is not requiring breakthrough IV hydromorphone injections. He tells me he is looking forward to eat as soon as he is done with his procedures. He will be undergoing IVC filter placement later this morning. The patient denies difficulty breathing. He tells me he had dark-colored stool last night. Objective Data Date Time Temp Pulse Resp B/P (MAP) Pulse Ox O2 Delivery O2 Flow Rate FiO2 05/11/17 07:47 98.3 80 18 120/69 (86) 95 05/11/17 04:35 97.1 76 18 139/81 (100) 96 05/11/17 04:06 83 05/11/17 03:00 74 05/11/17 02:00 76 05/11/17 01:00 74 05/11/17 00:26 76 05/11/17 00:19 98.8 81 16 106/60 (75) 94 05/10/17 23:00 88 05/10/17 22:00 82 05/10/17 21:00 86 05/10/17 20:15 90 05/10/17 20:00 98.9 81 18 111/66 (81) 96 05/10/17 19:00 92 05/10/17 17:36 98.5 91 18 101/58 (72) 96 05/10/17 12:30 78 05/10/17 11:10 98.9 79 18 118/65 (82) 97 05/11/17 05/11/17 05/11/17 07:00 15:00 23:00 Intake Total 820 ml Output Total 725 ml Balance 95 ml Result Diagram: 05/11/17 0252 05/11/17 0252 Laboratory Results Laboratory Tests Test 05/10/17 12:10 05/10/17 21:06 05/11/17 02:52 Hemoglobin 8.7 GM/DL 8.0 GM/DL 8.2 GM/DL White Blood Count 6.9 TH/MM3 Red Blood Count 2.58 MIL/MM3 Hematocrit 23.8 % Mean Corpuscular Volume 92.0 FL Mean Corpuscular Hemoglobin 31.9 PG Mean Corpuscular Hemoglobin Concent 34.7 % Red Cell Distribution Width 14.1 % Platelet Count 317 TH/MM3 Mean Platelet Volume 7.2 FL Neutrophils (%) (Auto) 81.5 % Lymphocytes (%) (Auto) 9.2 % Monocytes (%) (Auto) 9.0 % Eosinophils (%) (Auto) 0.2 % Basophils (%) (Auto) 0.1 % Neutrophils # (Auto) 5.7 TH/MM3 Lymphocytes # (Auto) 0.6 TH/MM3 Monocytes # (Auto) 0.6 TH/MM3 Eosinophils # (Auto) 0.0 TH/MM3 Basophils # (Auto) 0.0 TH/MM3 CBC Comment DIFF FINAL Differential Comment Prothrombin Time 10.7 SEC Prothromb Time International Ratio 1.1 RATIO Blood Urea Nitrogen 26 MG/DL Creatinine 1.00 MG/DL Random Glucose 101 MG/DL Total Protein 5.9 GM/DL Albumin 2.4 GM/DL Calcium Level 8.0 MG/DL Phosphorus Level 2.8 MG/DL Magnesium Level 2.1 MG/DL Alkaline Phosphatase 377 U/L Aspartate Amino Transf (AST/SGOT) 187 U/L Alanine Aminotransferase (ALT/SGPT) 208 U/L Total Bilirubin 1.5 MG/DL Sodium Level 138 MEQ/L Potassium Level 4.0 MEQ/L Chloride Level 104 MEQ/L Carbon Dioxide Level 28.2 MEQ/L Anion Gap 6 MEQ/L Estimat Glomerular Filtration Rate 77 ML/MIN Free Thyroxine 1.09 NG/DL Thyroid Stimulating Hormone 3rd Gen 4.150 uIU/ML Culture Results Microbiology Date/Time Source Procedure Growth Status 05/11/17 07:25 Stool Stool Stool Occult Blood (ANGLE) Pending Received 05/10/17 00:15 Urine Clean Catch Urine Culture Pending Received Administered Medications Medications (Trade) Dose Ordered Sig/Mago Route PRN Reason Start Time Stop Time Status Last Admin Dose Admin Sodium Chloride (NS Flush) 2 ml UNSCH PRN IV FLUSH FLUSH AFTER USING IV ACCESS 05/06/17 03:45 05/09/17 04:39 Ondansetron HCl (Zofran Inj) 4 mg Q4HR PRN IV PUSH NAUSEA OR VOMITING 05/07/17 16:00 05/09/17 16:09 Senna/Docusate Sodium (Amairani-Colace) 1 tab BID PO 05/08/17 10:00 05/09/17 08:05 Hydromorphone HCl (Dilaudid Pf Inj) 0.5 mg Q3H PRN IV BREAKTHROUGH PAIN 05/08/17 17:30 05/09/17 14:22 Morphine Sulfate (Oramorph Sr) 30 mg Q8HR PO 05/09/17 16:00 05/11/17 04:43 Pantoprazole Sodium 80 mg/ Sodium Chloride 100 ml @ 10 mls/hr Q10H IV 05/10/17 11:00 05/11/17 04:39 Dexamethasone (Decadron) 2 mg BID@0600,1400 PO 05/10/17 15:45 05/11/17 04:48 Objective Remarks Middle-aged male sitting up in bed, he appears to be comfortable at this time, he does not appear to be uncomfortable. He is awake and alert. His is at bedside. SKIN: Warm and dry. HEAD: Normocephalic. EYES: No scleral icterus. No injection or drainage. NECK: Supple, trachea midline. No JVD or lymphadenopathy. LYMPHATIC: No adenopathy. CARDIOVASCULAR: Borderline tachycardia, S1 and S2 normal murmurs or gallops. RESPIRATORY: Good air movement bilaterally over upper and middle lung zones, decreased bibasilar breath sounds, patient with obvious pain with deep inspiratory effort. GASTROINTESTINAL: Protuberant belly, tender over the right upper quadrant, hepatomegaly noted. No splenomegaly noted. EXTREMITIES: No cyanosis, or edema. MUSCULOSKELETAL: Good muscle mass, Adequate muscle tone. NEUROLOGICAL: No obvious focal deficit. Awake, alert, and oriented x3. PSYCHIATRIC: Appropriate mood and affect; insight and judgment normal. Assessment/Plan Assessment Mr. 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 Biopsy was performed and pathologic findings were most consistent with hepatocellular carcinoma, he has never been a drinker, he is negative for hepatitis A, B and C and has no evidence or history of hepatic cirrhosis. He at the time of his initial presentation also had bilateral pulmonary emboli. Additional review of his biopsy were underway; i.e. with additional staining studies specific or hepatocellular carcinoma. He presented to the hospital yesterday morning with complaints of worsening pain in the right upper quadrant. Imaging studies performed on 05/06/2017 indicated impairment enlargement of the dominant hepatic mass by about 1 cm in each dimension. CT angiogram of the thorax revealed worsening pulmonary emboli; now with a saddle pulmonary embolus noted. This was despite him being on a loading dose of Xarelto 15 MG by mouth twice a day as an outpatient after having initially been on heparin infusion while in [place] last week. The oncology service is been asked to see him for further workup, management, symptom control and discussion regarding goals of care. Additionally, the palliative care service is also been asked to see him which I think is appropriate. Plan 1. Hepatocellular carcinoma (immunohistochemical studies support a diagnosis of HCC, 2 pathologists have concurred with this diagnosis): Non-resectable, likely metastatic (based on presence of a large malignant tumor involving the pancreatic tail with direct extension to the spleen) associated with worsening hepatic function (Grayson-Belcher score of 9; class B). He is a candidate for dose modified Sorafenib which will be initiated in the outpatient setting. 2. Pain control: He is on basal extended release morphine sulfate now to dose of 30 mg q 8 hours. Overnight he was started on dexamethasone 2 mg every 12 hours and this seems to have made a big impact on his pain control. He has not required short acting IV hydromorphone for breakthrough pain. 3. Bilateral pulmonary emboli: He had been on therapeutic anticoagulation with Lovenox 1 mg/kg twice daily. At this point therapeutic anticoagulation is content indicated due to active/recent GI bleed. IVC filter placement has been requested and this will be placed later today. The patient had several questions regarding the efficacy, safety and long-term adverse effects associated with IVC filter placement. I talked about the risks and benefits and explained to him that though there are risks and the long-term of having an IVC filter in place, the benefits out weigh the risks for the short/interim term future. 4. Melanotic stools: EGD findings discussed with ship purser yesterday afternoon. No altered lesions were identified and there was no evidence of active bleeding or stigmata of recent bleeding. Despite this anticoagulation in my view is contraindicated at this point. Disposition: IVC filter placement at 10:30 AM today. Following this he may be resumed on a diet. Continue trending H&H. Transfused to maintain hemoglobin over 8 g/dL. Consider discharge home once his hemoglobin and hematocrit stabilize. Initiation of Sorafenib palliative systemic therapy in the outpatient setting. Toño Galindo MD May 11, 2017 08:44
[2017-05-11] MEDS ORDERED: MIDAZOLAM HCL 2 MG/2 ML VIAL ONE (10:54)
--- NOTE | 2017-05-11 11:48 | PD.RAD ---
Post Procedure Progress Note Pre Procedure Diagnosis: (1) Pancreatic mass (2) Liver mass Post Procedure Diagnosis: (1) Pancreatic mass (2) Hepatocellular carcinoma (3) Pulmonary embolism Procedure Date: May 11, 2017 Supervising Radiologist: Damon Oden Proceduralist/Assist: Lucina Murillo, RT(R), Raoul Luong, RT(R) Anesthesia: Local, Analgesia, Conscious Sedation Plan of Activity Patient to Unit: ROPU Patient Condition: Good See PACS Report for procedural detail/treatment Vascular-Venous Procedure Procedure 1 Procedure Site: Abdominal Procedure(s): Permanent IVC Filter (VenaTech), Venogram Access Access Site(s): Right Jugular Vein Closure Site(s): Right manual pressure Damon Oden MD May 11, 2017 11:48
[2017-05-11] MEDS ORDERED: IOHEXOL 350 MG/ML 50 ML BTL (for RAD DIAG) OTHER ONE (11:49)
--- NOTE | 2017-05-11 15:48 | RADRPT ---
EXAM DATE/TIME: 05/11/2017 11:17 [place] COMPARISON: No previous studies available for comparison. INDICATIONS : Patient presents with recurrent pulmonary embolisms in need of filter placement. MEDICAL HISTORY : Liver cancer Hepatocellular carcinoma Pulmonary embolism SURGICAL HISTORY : Liver biopsy ENCOUNTER: Initial ACUITY: 4 - 6 days PAIN SCORE: 0/10 LOCATION: N/A FLUORO TIME: 1.3 minutes IMAGE SERIES: 2 ACCESS SITE: Right Internal jugular vein SEDATION TIME: 30 minutes CONTRAST: 1.) 20 cc Omnipaque (iohexol) 350 MEDICATION(S): 1.) 1.5 mg midazolam (Versed) IV 2.) 75 mcg fentanyl (Sublimaze) IV DEVICE(S): 1.) Right Inferior vena cava 7FR B Liu Venatech filter PROCEDURE : 1. Ultrasound-guided venipuncture. 2. Inferior venacavogram. 3. Inferior vena cava filter placement. 4. Conscious sedation with continuous EKG and oximetry monitoring. The risks, benefits and alternatives to the procedure were explained and verbal and written consent w as obtained. The site was prepped in sterile fashion. Full sterile technique was used, including ca p, mask, sterile gloves and gown and a large sterile sheet. Hand hygiene and 2% chlorhexidine and/or betadine/alcohol prep was utilized per protocol for cutaneous antisepsis. Sterile gel and sterile p robe cover were utilized for ultrasound guidance. The skin and subcutaneous tissues were infiltrated with local anesthetic solution. With ultrasound and fluoroscopic guidance the targeted vein was punctured and a vascular sheath was p laced. Inferior venacavogram was performed to demonstrate level of renal veins. No caval thrombus was identified. The prescribed filter was deployed in the infrarenal inferior vena cava. Following deplo yment the filter was identified in good position. Conscious sedation was performed with the prescribed dosages and duration as above in the presence of an independent trained radiology nurse to assist in the monitoring of the patient. EKG and oximetry remained stable throughout the procedure. The patient tolerated the procedure well and there were n o complications. The patient was sent to post anesthesia recovery in stable condition. CONCLUSION: Uncomplicated inferior vena cava filter placement as above. Damon Oden MD on May 11, 2017 at 15:45 Board Certified Radiologist. This report was verified electronically.
--- NOTE | 2017-05-11 16:07 | HHI.PR ---
Subjective Remarks Pain is currently better controlled today Discussed with patient denies any pain at this time Is scheduled to go for procedures with GI later today due to the GI bleeding I have discussed with oncology as well as nursing and RN and family and my colleague Continue current treatments 05-11 sp IVC FILTER ON 05-11 SP EGD ON 05-10 AM LABS IF STABLE DC TOMORROW IF HGB LOW TRANSFUSE AND DC TOMORROW DW RN AND PT PAIN CONTROLLED AT THIS TIME WILL NEED SENNA PLUS BID AT DC Objective Vitals Vital Signs Date Time Temp Pulse Resp B/P (MAP) Pulse Ox O2 Delivery O2 Flow Rate FiO2 05/11/17 13:31 98.3 83 18 136/76 (96) 97 05/11/17 12:25 71 16 120/74 (89) 96 05/11/17 11:55 73 16 120/62 (81) 98 05/11/17 11:40 98.4 76 18 113/65 (81) 94 05/11/17 08:00 82 05/11/17 07:47 98.3 80 18 120/69 (86) 95 05/11/17 04:35 97.1 76 18 139/81 (100) 96 05/11/17 04:06 83 05/11/17 03:00 74 05/11/17 02:00 76 05/11/17 01:00 74 05/11/17 00:26 76 05/11/17 00:19 98.8 81 16 106/60 (75) 94 05/10/17 23:00 88 05/10/17 22:00 82 05/10/17 21:00 86 05/10/17 20:15 90 05/10/17 20:00 98.9 81 18 111/66 (81) 96 05/10/17 19:00 92 05/10/17 17:36 98.5 91 18 101/58 (72) 96 I/O 05/10/17 05/10/17 05/10/17 05/11/17 05/11/17 05/11/17 07:00 15:00 23:00 07:00 15:00 23:00 Intake Total 150 ml 1120 ml 820 ml Output Total 100 ml 725 ml Balance 50 ml 1120 ml 95 ml Intake Oral 150 ml 420 ml 720 ml IV Total 100 ml Other 700 ml Output Urine Total 100 ml 725 ml # Voids 1 # Bowel Movements 2 Result Diagram: 05/11/17 0252 05/11/17 0252 Other Results Laboratory Tests Test 05/09/17 07:31 05/09/17 20:38 05/10/17 00:15 05/10/17 08:20 Blood Urea Nitrogen 21 MG/DL Creatinine 0.83 MG/DL Random Glucose 106 MG/DL Total Protein 5.7 GM/DL Albumin 2.4 GM/DL Calcium Level 8.0 MG/DL Alkaline Phosphatase 464 U/L Aspartate Amino Transf (AST/SGOT) 241 U/L Alanine Aminotransferase (ALT/SGPT) 324 U/L Total Bilirubin 4.3 MG/DL Sodium Level 139 MEQ/L Potassium Level 4.1 MEQ/L Chloride Level 105 MEQ/L Carbon Dioxide Level 28.9 MEQ/L Anion Gap 5 MEQ/L Estimat Glomerular Filtration Rate 95 ML/MIN Hemoglobin 9.8 GM/DL 8.9 GM/DL Hematocrit 28.8 % 25.8 % Urine Color DARK-BROWN Urine Turbidity HAZY Urine pH 5.5 Urine Specific [place] 1.025 Urine Protein 30 mg/dL Urine Glucose (UA) NEG mg/dL Urine Ketones NEG mg/dL Urine Occult Blood NEG Urine Nitrite NEG Urine Bilirubin MOD Urine Urobilinogen 8.0 MG/DL Urine Leukocyte Esterase TRACE Urine RBC 1 /hpf Urine WBC 3 /hpf Urine Squamous Epithelial Cells <1 /hpf Urine Renal Epithelial Cells <1 /hpf Urine Bacteria RARE /hpf Urine Hyaline Casts 3 /lpf Urine White Blood Cell Casts 28 /lpf Urine Mucus FEW /lpf Microscopic Urinalysis Comment CULTURE INDICATED White Blood Count 9.3 TH/MM3 Red Blood Count 2.82 MIL/MM3 Mean Corpuscular Volume 91.5 FL Mean Corpuscular Hemoglobin 31.6 PG Mean Corpuscular Hemoglobin Concent 34.6 % Red Cell Distribution Width 13.9 % Platelet Count 315 TH/MM3 Mean Platelet Volume 7.4 FL Neutrophils (%) (Auto) 81.4 % Lymphocytes (%) (Auto) 8.3 % Monocytes (%) (Auto) 9.9 % Eosinophils (%) (Auto) 0.2 % Basophils (%) (Auto) 0.2 % Neutrophils # (Auto) 7.6 TH/MM3 Lymphocytes # (Auto) 0.8 TH/MM3 Monocytes # (Auto) 0.9 TH/MM3 Eosinophils # (Auto) 0.0 TH/MM3 Basophils # (Auto) 0.0 TH/MM3 CBC Comment DIFF FINAL Differential Comment Prothrombin Time 11.4 SEC Prothromb Time International Ratio 1.1 RATIO Activated Partial Thromboplast Time 25.8 SEC Test 05/10/17 12:10 05/10/17 21:06 05/11/17 02:52 Hemoglobin 8.7 GM/DL 8.0 GM/DL 8.2 GM/DL White Blood Count 6.9 TH/MM3 Red Blood Count 2.58 MIL/MM3 Hematocrit 23.8 % Mean Corpuscular Volume 92.0 FL Mean Corpuscular Hemoglobin 31.9 PG Mean Corpuscular Hemoglobin Concent 34.7 % Red Cell Distribution Width 14.1 % Platelet Count 317 TH/MM3 Mean Platelet Volume 7.2 FL Neutrophils (%) (Auto) 81.5 % Lymphocytes (%) (Auto) 9.2 % Monocytes (%) (Auto) 9.0 % Eosinophils (%) (Auto) 0.2 % Basophils (%) (Auto) 0.1 % Neutrophils # (Auto) 5.7 TH/MM3 Lymphocytes # (Auto) 0.6 TH/MM3 Monocytes # (Auto) 0.6 TH/MM3 Eosinophils # (Auto) 0.0 TH/MM3 Basophils # (Auto) 0.0 TH/MM3 CBC Comment DIFF FINAL Differential Comment Prothrombin Time 10.7 SEC Prothromb Time International Ratio 1.1 RATIO Blood Urea Nitrogen 26 MG/DL Creatinine 1.00 MG/DL Random Glucose 101 MG/DL Total Protein 5.9 GM/DL Albumin 2.4 GM/DL Calcium Level 8.0 MG/DL Phosphorus Level 2.8 MG/DL Magnesium Level 2.1 MG/DL Alkaline Phosphatase 377 U/L Aspartate Amino Transf (AST/SGOT) 187 U/L Alanine Aminotransferase (ALT/SGPT) 208 U/L Total Bilirubin 1.5 MG/DL Sodium Level 138 MEQ/L Potassium Level 4.0 MEQ/L Chloride Level 104 MEQ/L Carbon Dioxide Level 28.2 MEQ/L Anion Gap 6 MEQ/L Estimat Glomerular Filtration Rate 77 ML/MIN Free Thyroxine 1.09 NG/DL Thyroid Stimulating Hormone 3rd Gen 4.150 uIU/ML Imaging Last Impressions IVC Filter Placement X-Ray 05/11/17 0000 Signed Impressions: Service Date/Time: Thursday, May 11, 2017 11:17 - CONCLUSION: Uncomplicated inferior vena cava filter placement as above. Damon Oden MD Chest X-Ray 05/06/17 0345 Signed Impressions: Service Date/Time: Saturday, May 06, 2017 03:55 - CONCLUSION: No acute disease. There is no evidence of free air. Ehsan Argueta MD CT Angiography 05/06/17 0000 Signed Impressions: Service Date/Time: Saturday, May 06, 2017 06:19 - CONCLUSION: 1. Pulmonary emboli with a long thin saddle embolus which crosses from the right main pulmonary artery into the left. Smaller bilateral areas of pulmonary emboli present as well. 2. Small area consolidation in the right lower lobe. Ehsan Argueta MD Abdomen/Pelvis CT 05/06/17 0000 Signed Impressions: Service Date/Time: Saturday, May 06, 2017 06:19 - CONCLUSION: 1. The large tumor mass in the central liver appear slightly larger in size. There are additional metastatic lesions in the liver which are not significant change. 2. The gallbladder is more prominent and now contains a central area of high density which is concerning for possible hemorrhage or blood clot. Vicarious excretion of contrast contrast into the gallbladder can have a similar appearance however usually appears more homogeneous and diffuse. 3. The central splenic mass is not significantly changed. 4. Bilateral renal cysts. Ehsan Argueta MD Objective Remarks GENERAL: Awake alert oriented 3 talkative and cooperative SKIN: Warm and dry. HEAD: Atraumatic. Normocephalic. EYES: Pupils equal and round. No scleral icterus. No injection or drainage. Extraocular muscles are intact ENT: No nasal bleeding or discharge. Mucous membranes pink and moist. Tongue is midline NECK: Trachea midline. No JVD. Supple CARDIOVASCULAR: Regular rate and rhythm. S1-S2 no S3 or S4 RESPIRATORY: No accessory muscle use. Clear to auscultation. Breath sounds equal bilaterally. GASTROINTESTINAL: Abdomen soft, non-tender, nondistended. Hepatic and splenic margins not palpable. MUSCULOSKELETAL: Extremities without clubbing, cyanosis, or edema. No obvious deformities. NEUROLOGICAL: Awake and alert. No obvious cranial nerve deficits. Motor grossly within normal limits. Five out of 5 muscle strength in the arms and legs. Normal speech. PSYCHIATRIC: Appropriate mood and affect; insight and judgment normal. Procedures EGD ON 3-29 IVC FILTER ON 05-11 Medications and IVs Current Medications Sodium Chloride 1,000 ml @ 125 mls/hr Q8H IV Last administered on 05/06/17at 03 :52; Start 05/06/17 at 03:45; Stop 05/06/17 at 11:44; Status DC Sodium Chloride (NS Flush) 2 ml UNSCH PRN IV FLUSH FLUSH AFTER USING IV ACCESS Last administered on 05/09/17at 04:39; Start 05/06/17 at 03:45 Morphine Sulfate (Morphine Inj) 4 mg ONCE ONCE IV PUSH Last administered on at 04:22; Start 05/06/17 at 04:30; Stop 05/06/17 at 04:31; Status DC Ondansetron HCl (Zofran Inj) 4 mg ONCE ONCE IV PUSH Last administered on at 04:23; Start 05/06/17 at 04:30; Stop 05/06/17 at 04:31; Status DC Iohexol (Omnipaque 350 Inj) 75 ml STK-MED ONCE IVCONTRAST Last administered on 05/06/17at 02:48; Start 05/06/17 at 02:48; Stop 05/06/17 at 06:33; Status DC Hydromorphone HCl (Dilaudid Pf Inj) 1 mg ONCE ONCE IV PUSH Last administered on 05/06/17at 07:07; Start 05/06/17 at 07:00; Stop 05/06/17 at 07:05; Status DC Ketorolac Tromethamine (Toradol Inj) 15 mg STAT ONCE IV PUSH Last administered on 05/06/17at 08:16; Start 05/06/17 at 08:15; Stop 05/06/17 at 08:16 ; Status DC Sodium Chloride 1,000 ml @ 84 mls/hr [id number] IV Last administered on at 21:19; Start 05/06/17 at 09:00; Stop 05/09/17 at 13:20; Status DC Oxycodone/ Acetaminophen (Percocet 5-325 Mg) 1 tab Q4H PRN PO PAIN SCALE 1 TO 5 Last administered on 05/07/17at 02:43; Start 05/06/17 at 09:00; Stop 05/07/17 at 07:45; Status DC Hydromorphone HCl (Dilaudid Pf Inj) 0.5 mg Q4H PRN IV PUSH PAIN SCALE 6 TO 10 Last administered on 05/07/17at 06:39; Start 05/06/17 at 09:00; Stop 05/07/17 at 07:45; Status DC Pantoprazole Sodium (Protonix Inj) 40 mg DAILY IV PUSH Last administered on at 08:06; Start 05/06/17 at 09:00; Stop 05/10/17 at 09:15; Status DC Ondansetron HCl (Zofran Inj) 4 mg Q6H PRN IV PUSH NAUSEA OR VOMITING Last administered on 05/07/17at 13:34; Start 05/06/17 at 09:00; Stop 05/07/17 at 14:37 ; Status DC Albuterol/ Ipratropium (Duoneb Neb) 1 ampule Q2HR NEB PRN INH WHEEZING; Start 05/06/17 at 09:00 Rivaroxaban (Xarelto) 15 mg BID PO Last administered on 05/06/17at 22:08; Start 05/06/17 at 09:00; Stop 05/07/17 at 00:18; Status DC Enoxaparin Sodium (Lovenox Inj) 80 mg Q12HR SQ Last administered on 05/09/17at 20:33; Start 05/07/17 at 09:00; Stop 05/10/17 at 08:10; Status DC Hydromorphone HCl (Dilaudid Pf Inj) 1 mg ONCE ONCE IV PUSH Last administered on 05/07/17at 03:23; Start 05/07/17 at 03:15; Stop 05/07/17 at 03:18; Status DC Hydromorphone HCl (Dilaudid Pf Inj) 1 mg Q4H PRN IV PUSH BREAKTHROUGH PAIN Last administered on 05/07/17at 08:47; Start 05/07/17 at 09:00; Stop 05/07/17 at 10:54; Status DC Morphine Sulfate (Oramorph Sr) 15 mg Q12HR PO Last administered on 05/08/17at 08 :23; Start 05/07/17 at 09:00; Stop 05/08/17 at 12:32; Status DC Hydromorphone HCl (Dilaudid Pf Inj) 2 mg NOW STAT IV PUSH Last administered on 05/07/17at 10:25; Start 05/07/17 at 10:22; Stop 05/07/17 at 10:23; Status DC Hydromorphone HCl (Dilaudid Pf Inj) 1.5 mg Q2HR PRN IV PUSH BREAKTHROUGH PAIN Last administered on 05/07/17at 12:47; Start 05/07/17 at 11:00; Stop 05/07/17 at 14:05; Status DC Hydromorphone HCl (Dilaudid Pf Inj) 2 mg Q2HR PRN IV PUSH BREAKTHROUGH PAIN Last administered on 05/07/17at 14:27; Start 05/07/17 at 14:15; Stop 05/07/17 at 16:26; Status DC Ondansetron HCl (Zofran Inj) 4 mg Q4HR PRN IV PUSH NAUSEA OR VOMITING Last administered on 05/09/17at 16:09; Start 05/07/17 at 16:00 Hydromorphone HCl (Dilaudid Pf Inj) 1 mg Q2HR PRN IV PUSH BREAKTHROUGH PAIN Last administered on 05/08/17at 08:23; Start 05/07/17 at 16:30; Stop 05/08/17 at 11:38; Status DC Senna/Docusate Sodium (Amairani-Colace) 1 tab BID PO Last administered on at 08:05; Start 05/08/17 at 10:00 Hydromorphone HCl (Dilaudid) 2 mg Q4H PRN PO BREAKTHROUGH PAIN Last administered on 05/08/17at 12:36; Start 05/08/17 at 11:45; Stop 05/08/17 at 17:27 ; Status DC Morphine Sulfate (Oramorph Sr) 15 mg Q8HR PO Last administered on 05/08/17at 14: 00; Start 05/08/17 at 14:00; Stop 05/08/17 at 17:23; Status DC Hydromorphone HCl (Dilaudid Pf Inj) 1 mg ONCE ONCE IV PUSH Last administered on 05/08/17at 15:22; Start 05/08/17 at 16:00; Stop 05/08/17 at 16:01; Status DC Morphine Sulfate (Oramorph Sr) 30 mg Q8HR PO Last administered on 05/09/17at 05: 52; Start 05/08/17 at 22:00; Stop 05/09/17 at 13:20; Status DC Hydromorphone HCl (Dilaudid Pf Inj) 0.5 mg Q3H PRN IV BREAKTHROUGH PAIN Last administered on 05/09/17at 14:22; Start 05/08/17 at 17:30 Morphine Sulfate (Oramorph Sr) 40 mg Q8HR PO ; Start 05/09/17 at 14:00; Stop at 14:53; Status DC Morphine Sulfate (Oramorph Sr) 30 mg Q8HR PO Last administered on 05/11/17at 13: 30; Start 05/09/17 at 16:00 Acetaminophen (Tylenol) 650 mg ONCE ONCE PO Last administered on 05/09/17at 21: 09; Start 05/09/17 at 20:45; Stop 05/09/17 at 20:50; Status DC Pantoprazole Sodium 80 mg/ Sodium Chloride 100 ml @ 10 mls/hr Q10H IV Last administered on 05/11/17at 04:39; Start 05/10/17 at 11:00 Dexamethasone (Decadron) 2 mg BID PO ; Start 05/10/17 at 14:00; Stop 05/10/17 at 15:34; Status DC Miscellaneous (Pill Splitter) 1 ea UNSCH PRN OTHER SEE LABEL COMMENTS; Start at 11:30 Dexamethasone (Decadron) 2 mg BID@0600,1400 PO Last administered on 05/11/17at 13:30; Start 05/10/17 at 15:45 Fentanyl Citrate (fentaNYL INJ) 100 mcg STK-MED ONCE .ROUTE ; Start 05/11/17 at 10:54; Stop 05/11/17 at 10:55; Status DC Midazolam HCl (Versed Inj) 2 mg STK-MED ONCE .ROUTE ; Start 05/11/17 at 10:54; Stop 05/11/17 at 10:55; Status DC Iohexol (Omnipaque 350 Inj) 20 ml STK-MED ONCE OTHER Last administered on at 11:32; Start 05/11/17 at 11:49; Stop 05/11/17 at 11:50; Status DC A/P Problem List: (1) Hepatocellular carcinoma ICD Code: C22.0 - Liver cell carcinoma Plan: Locally advanced hepatocellular carcinoma confirmed. Discussed with oncologist today Dr. Galindo. Prognosis is poor. Palliative treatment offered to patient. Hospice can also be considered. Palliative care consulted. Pain control. Currently requiring IV Dilaudid. Pain is being controlled by palliative care now (2) Intractable pain ICD Code: R52 - Pain, unspecified Plan: Probably liver capsule pain. Very difficult to control the patient's pain safely. He required IV Dilaudid, however at higher dose he had 2 episodes where he immediately become unresponsive after receiving IV Dilaudid and oxygen saturation dropped in the 80s. He had no response to oral Dilaudid. Patient requested increase in basal morphine today. He only received two doses of the increased dose of Oramorph from yesterday so far. Ideally changes should be made after monitoring response for at least 24 hrs. Oramorph can only be increased by 15 mg after discussion with the pharmacy which would be a total increase of 45 mg which would be over the total dose of breakthrough equivalent IV Dilaudid. I discussed with the patient and family, they agreed to hold off on any changes for now. Keep 30 mg Oramorph and Patient has a sadle PE which is very concerning for oversedation, respiratory depression which can lead to resp failure. Palliative care following. Defer any further changes of pain management to palliative care. Pain is now being controlled by palliative care (3) Pulmonary embolism ICD Code: I26.99 - Other pulmonary embolism without acute cor pulmonale Plan: Appreciate input from hematology/oncology. Patient failed outpatient Xarelto. Continue Lovenox. He is to be discharged on Lovenox To undergo GI procedures today due to anemia and GI bleeding SP IVC FILTER 05-11 (4) Liver mass ICD Code: R16.0 - Hepatomegaly, not elsewhere classified Plan: Will defer to oncology. 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 - General surgery evaluated the patient and recommended pain management. No surgical intervention is planned. Assessment and Plan Hepatocellular carcinoma with metastasis continue on current treatment with pain control Bilateral pulmonary emboli with saddle embolus will need to be back on anticoagulation as soon as GI clears him for that --HAD IVC FILTER PLACED 3 GI bleeding and anemia to undergo GI procedures 3 EGD Pain control will defer to palliative care Will need long-term anticoagulation after discharge WILL DEFER TO ONCOLOGY Discharge Planning Pending GI and oncology clearance and pain being well controlled HOPEFULLY HOME TOMORROW Problem Qualifiers (1) Pulmonary embolism: Qualified Codes: I26.92 - Saddle embolus of pulmonary artery without acute cor pulmonale Greg Casas DO May 11, 2017 16:07
--- NOTE | 2017-05-11 16:27 | HHI.HCPN ---
Reason for visit a. To assist with evaluation and management of symptoms including: Pain, nausea, decreased appetite b. To assist medical decision maker(s) with: better understanding of current medical conditions; weighing benefits/burdens of medical treatment options; making medical treatment decisions. . Subjective/Interval History Follow-up visit for symptom management and clarification of medical treatment goals. Patient with biopsy confirmed hepatocellular carcinoma; nonresectable, likely metastatic based on the presence of a large malignant tumor involving the pancreatic tail with direct extension into the spleen and associated worsening hepatic function. Patient is a candidate for dose modified Sorafenib which will be initiated in the outpatient setting. Patient was admitted with intractable abdominal pain right as well as chest pain. Imaging studies performed on 05/06/17 indicated enlargement of the dominant hepatic mass by about 1 cm in each dimension. CT angiogram of the thorax revealed worsening pulmonary emboli now with a saddle pulmonary embolus. Xarelto was discontinued and the patient was started on daily Lovenox SQ. Patient reports no pain on exam today. He is receiving Oramorph SR 30 mg PO q8 hours ATC. Yesterday the patient was started on dexamethasone 2 mg PO every 12 hours which appears to have made a significant impact on pain control. He has required no PRN hydromorphone for breakthrough pain. Appetite is good. Status post EGD yesterday secondary to melanotic stools and drop in H/H. Findings showed no evidence of active bleeding or stigmata of recent bleeding. However, risks of anticoagulation outweigh benefits and the patient was taken for IVC placement today. . Family/friend interactions Met with patients , his 2 stepsons (Casa and Landen) and their wives today. Reviewed hospitalization course, update provided on patient's current clinical condition as well as poor prognosis. Patient will likely be discharged home in the upcoming days. The family continues to plan on going to the [facility] or [facility] for a second opinion. They have an outpatient appointment scheduled with Dr. Galindo on Sunday to begin dose modified Sorafenib. . Advance Directives Advance Directive Specifics Health Care Surrogate(s): Per [place] statutes, in the absence of written advanced directives healthcare proxy decision making falls to the patient's . . Documented care wishes: No known written advanced directives have been completed. . Objective Vital Signs Date Time Temp Pulse Resp B/P (MAP) Pulse Ox O2 Delivery O2 Flow Rate FiO2 05/11/17 13:31 98.3 83 18 136/76 (96) 97 05/11/17 12:25 71 16 120/74 (89) 96 05/11/17 11:55 73 16 120/62 (81) 98 05/11/17 11:40 98.4 76 18 113/65 (81) 94 05/11/17 08:00 82 05/11/17 07:47 98.3 80 18 120/69 (86) 95 05/11/17 04:35 97.1 76 18 139/81 (100) 96 05/11/17 04:06 83 05/11/17 03:00 74 05/11/17 02:00 76 05/11/17 01:00 74 05/11/17 00:26 76 05/11/17 00:19 98.8 81 16 106/60 (75) 94 05/10/17 23:00 88 05/10/17 22:00 82 05/10/17 21:00 86 05/10/17 20:15 90 05/10/17 20:00 98.9 81 18 111/66 (81) 96 05/10/17 19:00 92 05/10/17 17:36 98.5 91 18 101/58 (72) 96 Intake & Output 05/11/17 05/11/17 07:00 19:00 Intake Total 1240 ml Output Total 725 ml Balance 515 ml Intake Oral 1140 ml IV Total 100 ml Output Urine Total 725 ml Physical Exam CONSTITUTIONAL/GENERAL: Patient is a middle aged male who appears healthy in no apparent distress. TUBES/LINES/DRAINS: PIV SKIN: Slight jaundice no wounds seen anteriorly. Skin temperature appropriate. Not diaphoretic. HEAD: Atraumatic. Normocephalic. EYES: Pupils equal and round and reactive. Extraocular motions intact. No scleral icterus. No injection or drainage. Fundi not examined. ENT: Hearing grossly normal. Nose without bleeding or purulent drainage. Throat without visible erythema, exudates, masses, or lesions. NECK: Trachea midline. Supple, nontender. No palpable thyroid enlargement or nodularity. CARDIOVASCULAR: Regular rate and rhythm without murmurs, gallops, or rubs. No JVD. Peripheral pulses symmetric. RESPIRATORY/CHEST: Symmetric, unlabored respirations. Clear to auscultation. Breath sounds equal bilaterally. No wheezes, rales, or rhonchi. GASTROINTESTINAL: Abdomen firm, tender to palpation over the right upper quadrant. + hepatomegaly. GENITOURINARY: Without palpable bladder distension. MUSCULOSKELETAL: No obvious deformities. Extremities without clubbing, cyanosis , or edema. No mottling or clubbing. LYMPHATICS: No palpable cervical or supraclavicular adenopathy. NEUROLOGICAL: Lethargic, arousable to verbal stimuli but appears to drift off during conversation PSYCHIATRIC: No obvious anxiety/depression. No apparent hallucinations or other psychotic thought process. . Diagnostic Tests Laboratory Laboratory Tests Test 05/09/17 07:31 05/09/17 20:38 05/10/17 00:15 05/10/17 08:20 Blood Urea Nitrogen 21 MG/DL (7-18) Creatinine 0.83 MG/DL (0.60-1.30) Random Glucose 106 MG/DL (74-106) Total Protein 5.7 GM/DL (6.4-8.2) Albumin 2.4 GM/DL (3.4-5.0) Calcium Level 8.0 MG/DL (8.5-10.1) Alkaline Phosphatase 464 U/L (45-117) Aspartate Amino Transf (AST/SGOT) 241 U/L (15-37) Alanine Aminotransferase (ALT/SGPT) 324 U/L (12-78) Total Bilirubin 4.3 MG/DL (0.2-1.0) Sodium Level 139 MEQ/L (136-145) Potassium Level 4.1 MEQ/L (3.5-5.1) Chloride Level 105 MEQ/L (98-107) Carbon Dioxide Level 28.9 MEQ/L (21.0-32.0) Anion Gap 5 MEQ/L (5-15) Estimat Glomerular Filtration Rate 95 ML/MIN (>89) Hemoglobin 9.8 GM/DL (13.0-17.0) 8.9 GM/DL (13.0-17.0) Hematocrit 28.8 % (39.0-51.0) 25.8 % (39.0-51.0) Urine Color DARK-BROWN (YELLW/STRAW) Urine Turbidity HAZY (CLEAR) Urine pH 5.5 (5.0-8.5) Urine Specific [facility] 1.025 (1.002-1.035) Urine Protein 30 mg/dL (NEG-TRACE) Urine Glucose (UA) NEG mg/dL (NEG) Urine Ketones NEG mg/dL (NEG) Urine Occult Blood NEG (NEG) Urine Nitrite NEG (NEG) Urine Bilirubin MOD (NEG) Urine Urobilinogen 8.0 MG/DL (LESS THAN Urine Leukocyte Esterase TRACE (NEG) Urine RBC 1 /hpf (0-3) Urine WBC 3 /hpf (0-5) Urine Squamous Epithelial Cells <1 /hpf (0-5) Urine Renal Epithelial Cells <1 /hpf (NONE) Urine Bacteria RARE /hpf (NONE) Urine Hyaline Casts 3 /lpf (RARE) Urine White Blood Cell Casts 28 /lpf (NONE) Urine Mucus FEW /lpf (OCC) Microscopic Urinalysis Comment CULTURE INDICATED White Blood Count 9.3 TH/MM3 (4.0-11.0) Red Blood Count 2.82 MIL/MM3 (4.50-5.90) Mean Corpuscular Volume 91.5 FL (80.0-100.0) Mean Corpuscular Hemoglobin 31.6 PG (27.0-34.0) Mean Corpuscular Hemoglobin Concent 34.6 % (32.0-36.0) Red Cell Distribution Width 13.9 % (11.6-17.2) Platelet Count 315 TH/MM3 (150-450) Mean Platelet Volume 7.4 FL (7.0-11.0) Neutrophils (%) (Auto) 81.4 % (16.0-70.0) Lymphocytes (%) (Auto) 8.3 % (9.0-44.0) Monocytes (%) (Auto) 9.9 % (0.0-8.0) Eosinophils (%) (Auto) 0.2 % (0.0-4.0) Basophils (%) (Auto) 0.2 % (0.0-2.0) Neutrophils # (Auto) 7.6 TH/MM3 (1.8-7.7) Lymphocytes # (Auto) 0.8 TH/MM3 (1.0-4.8) Monocytes # (Auto) 0.9 TH/MM3 (0-0.9) Eosinophils # (Auto) 0.0 TH/MM3 (0-0.4) Basophils # (Auto) 0.0 TH/MM3 (0-0.2) CBC Comment DIFF FINAL Differential Comment Prothrombin Time 11.4 SEC (9.8-11.6) Prothromb Time International Ratio 1.1 RATIO Activated Partial Thromboplast Time 25.8 SEC (24.3-30.1) Test 05/10/17 12:10 05/10/17 21:06 05/11/17 02:52 Hemoglobin 8.7 GM/DL (13.0-17.0) 8.0 GM/DL (13.0-17.0) 8.2 GM/DL (13.0-17.0) White Blood Count 6.9 TH/MM3 (4.0-11.0) Red Blood Count 2.58 MIL/MM3 (4.50-5.90) Hematocrit 23.8 % (39.0-51.0) Mean Corpuscular Volume 92.0 FL (80.0-100.0) Mean Corpuscular Hemoglobin 31.9 PG (27.0-34.0) Mean Corpuscular Hemoglobin Concent 34.7 % (32.0-36.0) Red Cell Distribution Width 14.1 % (11.6-17.2) Platelet Count 317 TH/MM3 (150-450) Mean Platelet Volume 7.2 FL (7.0-11.0) Neutrophils (%) (Auto) 81.5 % (16.0-70.0) Lymphocytes (%) (Auto) 9.2 % (9.0-44.0) Monocytes (%) (Auto) 9.0 % (0.0-8.0) Eosinophils (%) (Auto) 0.2 % (0.0-4.0) Basophils (%) (Auto) 0.1 % (0.0-2.0) Neutrophils # (Auto) 5.7 TH/MM3 (1.8-7.7) Lymphocytes # (Auto) 0.6 TH/MM3 (1.0-4.8) Monocytes # (Auto) 0.6 TH/MM3 (0-0.9) Eosinophils # (Auto) 0.0 TH/MM3 (0-0.4) Basophils # (Auto) 0.0 TH/MM3 (0-0.2) CBC Comment DIFF FINAL Differential Comment Prothrombin Time 10.7 SEC (9.8-11.6) Prothromb Time International Ratio 1.1 RATIO Blood Urea Nitrogen 26 MG/DL (7-18) Creatinine 1.00 MG/DL (0.60-1.30) Random Glucose 101 MG/DL (74-106) Total Protein 5.9 GM/DL (6.4-8.2) Albumin 2.4 GM/DL (3.4-5.0) Calcium Level 8.0 MG/DL (8.5-10.1) Phosphorus Level 2.8 MG/DL (2.5-4.9) Magnesium Level 2.1 MG/DL (1.5-2.5) Alkaline Phosphatase 377 U/L (45-117) Aspartate Amino Transf (AST/SGOT) 187 U/L (15-37) Alanine Aminotransferase (ALT/SGPT) 208 U/L (12-78) Total Bilirubin 1.5 MG/DL (0.2-1.0) Sodium Level 138 MEQ/L (136-145) Potassium Level 4.0 MEQ/L (3.5-5.1) Chloride Level 104 MEQ/L (98-107) Carbon Dioxide Level 28.2 MEQ/L (21.0-32.0) Anion Gap 6 MEQ/L (5-15) Estimat Glomerular Filtration Rate 77 ML/MIN (>89) Free Thyroxine 1.09 NG/DL (0.76-1.46) Thyroid Stimulating Hormone 3rd Gen 4.150 uIU/ML (0.358-3.740) Result Diagram: 05/11/1725105/11/17251 Microbiology Microbiology Date/Time Source Procedure Growth Status 05/11/17 07:25 Stool Stool Stool Occult Blood (ANGLE) - Final HEMOCCULT NEGATIVE Complete 05/10/17 00:15 Urine Clean Catch Urine Culture - Preliminary NO GROWTH IN 24 HOURS. Resulted Assessment and Plan Disease Oriented Problem List: (1) Pulmonary embolism (2) Liver mass (3) Hepatocellular carcinoma Symptom Scale: (1) Pain 0-10 Scale: Unable to quantify (2) Decrease in appetite 0-10 Scale: Unable to quantify (3) Nausea 0-10 Scale: Unable to quantify Pertinent Non-Medical Issues Psychosocial: Patient is originally from [place]. He has lived in [place] for about 14 years. 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 He is currently to Maria Victoria; they have been for 12 years. Patient had one biological son who last year from a drug overdose last year. Maria Victoria has 3 adult children - Casa (-Makayla), Landen (-Effie) and Angelica. They are very close to their stepfather. Casa and Makayla are in the [employer], currently stationed in [place]. Palliative care has contacted the [facility] for emergency notification/request for presence. Spiritual: Jainism theodore Legal: Per [place] statutes, in the absence of written advanced directives healthcare proxy decision making falls to the patient's . Ethical issues impacting care: No ethical issues impacting care at this time. Important Contacts Maria Victoria John, spouse: [phone] Kathy (son and DIL): [phone] . Prognosis 56-year-old male patient with newly diagnosed hepatocellular carcinoma that is showing signs of rapid growth. CT angiogram of the thorax revealed worsening pulmonary emboli; now with a saddle pulmonary embolus noted. Patient has been offered palliative systemic therapy, although transitioning to hospice services would also be a reasonable option at this point. Projected survival is approximately 6 months and likely less. . Code Status: No Code Plan * NO CODE * Code status changed to NO CODE per pt/ request. Patient had to withdraw his mother from artificial life support. Because of this, Khurram and Nithya have had ongoing conversations about what they would want, medically, in various situations and they patient does not want to be put on artificial life support if doing so would only prolong the process of dying.Patient has stated to his multiple time, " If I cant hug you, let me go." * Per [place] statutes, in the absence of written advanced directives healthcare proxy decision making falls to the patient's . * Met with patients , his 2 stepsons (Casa and Landen) and their wives today. Reviewed hospitalization course, update provided on patient's current clinical condition as well as poor prognosis. Patient will likely be discharged home in the upcoming days. The family continues to plan on going to the [facility] or [facility] for a second opinion. They have an outpatient appointment scheduled with Dr. Galindo on Sunday to begin dose modified Sorafenib. * Status post EGD yesterday secondary to melanotic stools and drop in H/H. Findings showed no evidence of active bleeding or stigmata of recent bleeding. However, risks of anticoagulation outweigh benefits and the patient was taken for IVC placement today. * Symptom management: = Pain: The patient is having ongoing, persistent pain despite numerous changes in his pain medications. He did have an episode of oversedation earlier this week so we are trying to balance that concern with adequate pain management palliative care was consulted to manage patient's pain control regimen. He is currently receiving Oramorph SR 30 mg PO q8 hours and hydromorphone 1 mg IV every 3 hours PRN for breakthrough pain Of note, 1 mg of hydromorphone IV is equivalent to approximately 15mg oral morphine (with a 25% reduction for incomplete cross tolerance). This morning the patient reports he has "no pain at all"; he required no PRN hydromorphone overnight for breakthrough pain. = Nausea: Patient reports nausea associated to episodes of severe pain that has restricted patient's nutritional intake. Ondansetron 4 mg IV is ordered PRN for nausea and vomiting. May want to consider scheduling ondansetron initially while attempting to adjust medications for better symptom management. = Decreased appetite: Patient reports appetite has slowly improved, however he is currently NPO for planned procedure later today. After discussing with Dr. Galindo, the patient was started on a small dose of dexamethasone 2mg PO BID which may provide additional management of pain as well as improve the patient's appetite and provide an overall sense of well being. * Palliative care will continue to follow this patient throughout his hospitalization to establish trust, assist with symptom management and clarification of medical treatment goals. . Attestation To help prompt me to consider important information that might be impacting today's encounter and assessment, information from prior notes written by myself or my colleagues may have been "brought forward" into today's note. My signature on this note, however, is an attestation that I personally performed the exam, history, and/or decision-making noted today, and, unless otherwise indicated, the interactions with patient, family, and staff as well as the review of records all occurred today. I also attest that the listed assessment and stated plan reflect my best clinical judgment today based on the combination of historical information, prior notes, and today's exam/ interactions. When time spent is documented, it refers only to time spent today by the signer, or if indicated, combined time spent today by collaborating physician/nurse practitioner. . Oralia Lewis May 11, 2017 16:27
[2017-05-11 20:09] LABS: HEMOGLOBIN A1C 5.4 % (4.3-6.0)
[2017-05-12] VITALS (13 sets, daily range): BP systolic 113–136; BP diastolic 62–76; PULSE 64–83; RESP 18; TEMP 97.9–99; O2SAT 97–99
[2017-05-12] MEDS: DEXAMETHASONE 4 MG TAB PO SCH ×2 (05:19→14:01)
[2017-05-12] MEDS: MORPHINE SULFATE 30 MG CONTROLLED RELEASE TAB PO SCH ×2 (05:20→14:01)
[2017-05-12 07:10] LABS: AUTOMATED NEUTROPHIL # 4.7 TH/MM3 (1.8-7.7); BASOPHIL % 0.4 % (0.0-2.0); EOSINOPHIL # 0.1 TH/MM3 (0-0.4); HEMATOCRIT 24.7 % (39.0-51.0); HEMOGLOBIN 8.5 GM/DL (13.0-17.0); LYMPH % 17.9 % (9.0-44.0); LYMPHOCYTE # 1.2 TH/MM3 (1.0-4.8); MEAN CELL VOLUME 91.8 FL (80.0-100.0); MEAN CORPUSCULAR HEMOGLOBIN 31.6 PG (27.0-34.0); MEAN CORPUSCULAR HGB CONC 34.4 % (32.0-36.0); MEAN PLATELET VOLUME 7.1 FL (7.0-11.0); MONO % 8.6 % (0.0-8.0); MONOCYTE # 0.6 TH/MM3 (0-0.9); NEUT % 72.1 % (16.0-70.0); PLATELET COUNT 375 TH/MM3 (150-450); RED BLOOD COUNT 2.69 MIL/MM3 (4.50-5.90); RED CELL DISTRIBUTION WIDTH 14.8 % (11.6-17.2); WHITE BLOOD COUNT 6.5 TH/MM3 (4.0-11.0)
[2017-05-12 07:20] LABS: ALBUMIN 2.5 GM/DL (3.4-5.0); ALT (GPT) 159 U/L (12-78); AST (GOT) 148 U/L (15-37); BICARBONATE 27.8 MEQ/L (21.0-32.0); BLOOD UREA NITROGEN 23 MG/DL (7-18); CALCIUM 8.3 MG/DL (8.5-10.1); CHLORIDE 105 MEQ/L (98-107); CREATININE 0.95 MG/DL (0.60-1.30); GLOMERULAR FILTRATION RATE 81 ML/MIN (>89); GLUCOSE,RANDOM 96 MG/DL (74-106); MAGNESIUM 2.2 MG/DL (1.5-2.5); PHOSPHORUS 2.6 MG/DL (2.5-4.9); SODIUM (NA) 140 MEQ/L (136-145)
[2017-05-12 07:21] LABS: ALKALINE PHOSPHATASE 327 U/L (45-117); TOTAL PROTEIN 6.1 GM/DL (6.4-8.2)
[2017-05-12] MEDS ORDERED: SODIUM CHLOR 0.9% 250 ML INJ 250 ML IV ONE (07:30)
[2017-05-12] MEDS ORDERED: ACETAMINOPHEN 325 MG TAB PO PRN (07:30)
[2017-05-12] MEDS ORDERED: diphenhydrAMINE HCL 25 MG CAP PO PRN (07:30)
[2017-05-12] MEDS: DOCUSATE SODIUM 50 MG/SENNA 8.6 MG TAB PO SCH (08:04)
--- NOTE | 2017-05-12 08:49 | PD.ONC.PN ---
Subjective Subjective Remarks Afebrile overnight. patient resting in bed in nad. No complaints. states pain is controlled. wants to go home today. Objective Data Date Time Temp Pulse Resp B/P (MAP) Pulse Ox O2 Delivery O2 Flow Rate FiO2 05/12/17 07:00 64 05/12/17 05:15 98.6 71 136/75 (95) 98 05/12/17 04:02 67 05/12/17 00:14 98.4 77 18 127/72 (90) 97 05/12/17 00:00 76 05/11/17 21:08 98.0 74 18 112/73 (86) 97 05/11/17 20:21 73 05/11/17 16:10 98.5 78 16 126/70 (88) 96 05/11/17 16:09 80 05/11/17 13:31 98.3 83 18 136/76 (96) 97 05/11/17 12:25 71 16 120/74 (89) 96 05/11/17 11:55 73 16 120/62 (81) 98 05/11/17 11:40 98.4 76 18 113/65 (81) 94 05/12/17 05/12/17 05/12/17 06:59 14:59 22:59 Intake Total 100 ml Output Total 300 ml Balance -300 ml 100 ml Result Diagram: 05/12/1752405/12/17 0525 Laboratory Results Laboratory Tests Test 05/12/17 05:25 White Blood Count 6.5 TH/MM3 Red Blood Count 2.69 MIL/MM3 Hemoglobin 8.5 GM/DL Hematocrit 24.7 % Mean Corpuscular Volume 91.8 FL Mean Corpuscular Hemoglobin 31.6 PG Mean Corpuscular Hemoglobin Concent 34.4 % Red Cell Distribution Width 14.8 % Platelet Count 375 TH/MM3 Mean Platelet Volume 7.1 FL Neutrophils (%) (Auto) 72.1 % Lymphocytes (%) (Auto) 17.9 % Monocytes (%) (Auto) 8.6 % Eosinophils (%) (Auto) 1.0 % Basophils (%) (Auto) 0.4 % Neutrophils # (Auto) 4.7 TH/MM3 Lymphocytes # (Auto) 1.2 TH/MM3 Monocytes # (Auto) 0.6 TH/MM3 Eosinophils # (Auto) 0.1 TH/MM3 Basophils # (Auto) 0.0 TH/MM3 CBC Comment DIFF FINAL Differential Comment Prothrombin Time 10.0 SEC Prothromb Time International Ratio 1.0 RATIO Blood Urea Nitrogen 23 MG/DL Creatinine 0.95 MG/DL Random Glucose 96 MG/DL Total Protein 6.1 GM/DL Albumin 2.5 GM/DL Calcium Level 8.3 MG/DL Phosphorus Level 2.6 MG/DL Magnesium Level 2.2 MG/DL Alkaline Phosphatase 327 U/L Aspartate Amino Transf (AST/SGOT) 148 U/L Alanine Aminotransferase (ALT/SGPT) 159 U/L Total Bilirubin 1.0 MG/DL Sodium Level 140 MEQ/L Potassium Level 3.4 MEQ/L Chloride Level 105 MEQ/L Carbon Dioxide Level 27.8 MEQ/L Anion Gap 7 MEQ/L Estimat Glomerular Filtration Rate 81 ML/MIN Culture Results Microbiology Date/Time Source Procedure Growth Status 05/11/17 07:25 Stool Stool Stool Occult Blood (ANGLE) - Final HEMOCCULT NEGATIVE Complete 05/10/17 00:15 Urine Clean Catch Urine Culture - Preliminary NO GROWTH IN 24 HOURS. Resulted Administered Medications Medications (Trade) Dose Ordered Sig/Mago Route PRN Reason Start Time Stop Time Status Last Admin Dose Admin Sodium Chloride (NS Flush) 2 ml UNSCH PRN IV FLUSH FLUSH AFTER USING IV ACCESS 05/06/17 03:45 05/09/17 04:39 Ondansetron HCl (Zofran Inj) 4 mg Q4HR PRN IV PUSH NAUSEA OR VOMITING 05/07/17 16:00 05/09/17 16:09 Senna/Docusate Sodium (Amairani-Colace) 1 tab BID PO 05/08/17 10:00 05/09/17 08:05 Hydromorphone HCl (Dilaudid Pf Inj) 0.5 mg Q3H PRN IV BREAKTHROUGH PAIN 05/08/17 17:30 05/09/17 14:22 Morphine Sulfate (Oramorph Sr) 30 mg Q8HR PO 05/09/17 16:00 05/12/17 05:20 Dexamethasone (Decadron) 2 mg BID@0600,1400 PO 05/10/17 15:45 05/12/17 05:19 Objective Remarks GENERAL: Middle aged male, sitting up in bed in [facility]. SKIN: Warm and dry. HEAD: Normocephalic. EYES: No injection or drainage. NECK: Supple, trachea midline. CARDIOVASCULAR: Regular rate and rhythm RESPIRATORY: Breath sounds equal bilaterally. No accessory muscle use. GASTROINTESTINAL: Abdomen soft, non-tender, nondistended. EXTREMITIES: No cyanosis MUSCULOSKELETAL: Adequate muscle tone. NEUROLOGICAL: awake, alert. normal speech. Assessment/Plan Assessment 56y/o male with newly diagnosed hepatocellular carcinoma. HPI (brought forward from Dr. Galnido's note for continuity of care): found to have a large mass involving the right hepatic dome associated with multiple additional enhancing masses involving the liver parenchyma. this is associated with a tumor involving the pancreatic tail with direct extension to the spleen. Biopsy consistent with hepatocellular carcinoma, he has never been a drinker, he is negative for hepatitis A, B and C and has no evidence or history of hepatic cirrhosis. He at the time of his initial presentation also had bilateral pulmonary emboli. This admission he presented with complaints of worsening pain in the right upper quadrant. Imaging studies performed on 05/06/2017 indicated impairment enlargement of the dominant hepatic mass by about 1 cm in each dimension. CT angiogram of the thorax revealed worsening pulmonary emboli; now with a saddle pulmonary embolus noted. This was despite him being on a loading dose of Xarelto 15 MG by mouth twice a day as an outpatient after having initially been on heparin infusion while in [place] last week. --immunohistochemical studies support a diagnosis of HCC, 2 pathologists have concurred with this diagnosis): Non-resectable, likely metastatic (based on presence of a large malignant tumor involving the pancreatic tail with direct extension to the spleen) associated with worsening hepatic function (Grayson- Belcher score of 9; class B). Plan 1. Hepatocellular carcinoma--plan for outpatient follow up on Sunday 05/14 in clinic. additionally, patient is planning on obtaining second opinion at [facility] (his case is currently in review). 2. Pain: primarily being managed by palliative care (appreciate assistance), his pain is currently controlled with Oramorph 30mg PO q 8 + Decadron 2mg PO q 12. 3. Bilateral pulmonary emboli: s/p IVC filter placement after dropping hemoglobin and concern for GI bleed. 4. Anemia: had melanotic stools previously and EGD showed no evidence of bleeding. will give 1 unit pRBC today to increase his reserves prior to discharge Disposition: clear for discharge from oncology perspective. follow up in clinic on Sunday Attending Statement The exam, history, and the medical decision-making described in the above note were completed with the assistance of the mid-level provider. I reviewed and agree with the findings presented. I attest that I had a [id number] encounter with the patient on the same day, and personally performed and documented my assessment and findings in the medical record. Denies CP/SOB. Abdominal pain controlled. No bleeding reported. Eager to go home. He will f/ u with . Filomena Quezada May 12, 2017 08:49 Samuel Luis MD May 12, 2017 11:38
[2017-05-12] MEDS ORDERED: PANTOPRAZOLE SOD 40 MG DELAYED RELEASE TAB PO SCH (09:00)
--- NOTE | 2017-05-12 09:01 | HHI.PR ---
Subjective Remarks Pain is currently better controlled today Discussed with patient denies any pain at this time Is scheduled to go for procedures with GI later today due to the GI bleeding I have discussed with oncology as well as nursing and RN and family and my colleague Continue current treatments 05-11 sp IVC FILTER ON 05-11 SP EGD ON 05-10 AM LABS IF STABLE DC TOMORROW IF HGB LOW TRANSFUSE AND DC TOMORROW DW RN AND PT PAIN CONTROLLED AT THIS TIME WILL NEED SENNA PLUS BID AT DC 05-12 to get blood transfusion today then can be discharged later today We will write prescriptions for pain medications also discuss with oncology. Discussed with RN discussed with patient Wants to go home Objective Vitals Vital Signs Date Time Temp Pulse Resp B/P (MAP) Pulse Ox O2 Delivery O2 Flow Rate FiO2 05/12/17 08:49 99.0 83 18 131/76 (94) 99 05/12/17 07:00 64 05/12/17 05:15 98.6 71 136/75 (95) 98 05/12/17 04:02 67 05/12/17 00:14 98.4 77 18 127/72 (90) 97 05/12/17 00:00 76 05/11/17 21:08 98.0 74 18 112/73 (86) 97 05/11/17 20:21 73 05/11/17 16:10 98.5 78 16 126/70 (88) 96 05/11/17 16:09 80 05/11/17 13:31 98.3 83 18 136/76 (96) 97 05/11/17 12:25 71 16 120/74 (89) 96 05/11/17 11:55 73 16 120/62 (81) 98 05/11/17 11:40 98.4 76 18 113/65 (81) 94 I/O 05/11/17 05/11/17 05/11/17 05/12/17 05/12/17 05/12/17 07:00 15:00 23:00 07:00 15:00 23:00 Intake Total 820 ml 545 ml 100 ml Output Total 725 ml 300 ml Balance 95 ml 545 ml -300 ml 100 ml Intake Oral 720 ml 480 ml IV Total 100 ml 65 ml 100 ml Output Urine Total 725 ml 300 ml # Voids 4 # Bowel Movements 2 Result Diagram: 05/12/17 0525 05/12/17 0525 Other Results Laboratory Tests Test 05/12/17 05:25 White Blood Count 6.5 TH/MM3 Red Blood Count 2.69 MIL/MM3 Hemoglobin 8.5 GM/DL Hematocrit 24.7 % Mean Corpuscular Volume 91.8 FL Mean Corpuscular Hemoglobin 31.6 PG Mean Corpuscular Hemoglobin Concent 34.4 % Red Cell Distribution Width 14.8 % Platelet Count 375 TH/MM3 Mean Platelet Volume 7.1 FL Neutrophils (%) (Auto) 72.1 % Lymphocytes (%) (Auto) 17.9 % Monocytes (%) (Auto) 8.6 % Eosinophils (%) (Auto) 1.0 % Basophils (%) (Auto) 0.4 % Neutrophils # (Auto) 4.7 TH/MM3 Lymphocytes # (Auto) 1.2 TH/MM3 Monocytes # (Auto) 0.6 TH/MM3 Eosinophils # (Auto) 0.1 TH/MM3 Basophils # (Auto) 0.0 TH/MM3 CBC Comment DIFF FINAL Differential Comment Prothrombin Time 10.0 SEC Prothromb Time International Ratio 1.0 RATIO Blood Urea Nitrogen 23 MG/DL Creatinine 0.95 MG/DL Random Glucose 96 MG/DL Total Protein 6.1 GM/DL Albumin 2.5 GM/DL Calcium Level 8.3 MG/DL Phosphorus Level 2.6 MG/DL Magnesium Level 2.2 MG/DL Alkaline Phosphatase 327 U/L Aspartate Amino Transf (AST/SGOT) 148 U/L Alanine Aminotransferase (ALT/SGPT) 159 U/L Total Bilirubin 1.0 MG/DL Sodium Level 140 MEQ/L Potassium Level 3.4 MEQ/L Chloride Level 105 MEQ/L Carbon Dioxide Level 27.8 MEQ/L Anion Gap 7 MEQ/L Estimat Glomerular Filtration Rate 81 ML/MIN Imaging Last Impressions IVC Filter Placement X-Ray 05/11/17 0000 Signed Impressions: Service Date/Time: Thursday, May 11, 2017 11:17 - CONCLUSION: Uncomplicated inferior vena cava filter placement as above. Damon Oden MD Chest X-Ray 05/06/17 0345 Signed Impressions: Service Date/Time: Saturday, May 06, 2017 03:55 - CONCLUSION: No acute disease. There is no evidence of free air. Ehsan Argueta MD CT Angiography 05/06/17 0000 Signed Impressions: Service Date/Time: Saturday, May 06, 2017 06:19 - CONCLUSION: 1. Pulmonary emboli with a long thin saddle embolus which crosses from the right main pulmonary artery into the left. Smaller bilateral areas of pulmonary emboli present as well. 2. Small area consolidation in the right lower lobe. Ehsan Argueta MD Abdomen/Pelvis CT 05/06/17 0000 Signed Impressions: Service Date/Time: Saturday, May 06, 2017 06:19 - CONCLUSION: 1. The large tumor mass in the central liver appear slightly larger in size. There are additional metastatic lesions in the liver which are not significant change. 2. The gallbladder is more prominent and now contains a central area of high density which is concerning for possible hemorrhage or blood clot. Vicarious excretion of contrast contrast into the gallbladder can have a similar appearance however usually appears more homogeneous and diffuse. 3. The central splenic mass is not significantly changed. 4. Bilateral renal cysts. Ehsan Argueta MD Objective Remarks GENERAL: Awake alert oriented 3 talkative and cooperative SKIN: Warm and dry. HEAD: Atraumatic. Normocephalic. EYES: Pupils equal and round. No scleral icterus. No injection or drainage. Extraocular muscles are intact ENT: No nasal bleeding or discharge. Mucous membranes pink and moist. Tongue is midline NECK: Trachea midline. No JVD. Supple CARDIOVASCULAR: Regular rate and rhythm. S1-S2 no S3 or S4 RESPIRATORY: No accessory muscle use. Clear to auscultation. Breath sounds equal bilaterally. GASTROINTESTINAL: Abdomen soft, non-tender, nondistended. Hepatic and splenic margins not palpable. MUSCULOSKELETAL: Extremities without clubbing, cyanosis, or edema. No obvious deformities. NEUROLOGICAL: Awake and alert. No obvious cranial nerve deficits. Motor grossly within normal limits. Five out of 5 muscle strength in the arms and legs. Normal speech. PSYCHIATRIC: Appropriate mood and affect; insight and judgment normal. Procedures EGD ON 05-10 IVC FILTER ON 05-11 Medications and IVs Current Medications Sodium Chloride 1,000 ml @ 125 mls/hr Q8H IV Last administered on 05/06/17at 03 :52; Start 05/06/17 at 03:45; Stop 05/06/17 at 11:44; Status DC Sodium Chloride (NS Flush) 2 ml UNSCH PRN IV FLUSH FLUSH AFTER USING IV ACCESS Last administered on 05/09/17at 04:39; Start 05/06/17 at 03:45 Morphine Sulfate (Morphine Inj) 4 mg ONCE ONCE IV PUSH Last administered on at 04:22; Start 05/06/17 at 04:30; Stop 05/06/17 at 04:31; Status DC Ondansetron HCl (Zofran Inj) 4 mg ONCE ONCE IV PUSH Last administered on at 04:23; Start 05/06/17 at 04:30; Stop 05/06/17 at 04:31; Status DC Iohexol (Omnipaque 350 Inj) 75 ml STK-MED ONCE IVCONTRAST Last administered on 05/06/17at 02:48; Start 05/06/17 at 02:48; Stop 05/06/17 at 06:33; Status DC Hydromorphone HCl (Dilaudid Pf Inj) 1 mg ONCE ONCE IV PUSH Last administered on 05/06/17at 07:07; Start 05/06/17 at 07:00; Stop 05/06/17 at 07:05; Status DC Ketorolac Tromethamine (Toradol Inj) 15 mg STAT ONCE IV PUSH Last administered on 05/06/17at 08:16; Start 05/06/17 at 08:15; Stop 05/06/17 at 08:16 ; Status DC Sodium Chloride 1,000 ml @ 84 mls/hr [id number] IV Last administered on at 21:19; Start 05/06/17 at 09:00; Stop 05/09/17 at 13:20; Status DC Oxycodone/ Acetaminophen (Percocet 5-325 Mg) 1 tab Q4H PRN PO PAIN SCALE 1 TO 5 Last administered on 05/07/17at 02:43; Start 05/06/17 at 09:00; Stop 05/07/17 at 07:45; Status DC Hydromorphone HCl (Dilaudid Pf Inj) 0.5 mg Q4H PRN IV PUSH PAIN SCALE 6 TO 10 Last administered on 05/07/17at 06:39; Start 05/06/17 at 09:00; Stop 05/07/17 at 07:45; Status DC Pantoprazole Sodium (Protonix Inj) 40 mg DAILY IV PUSH Last administered on at 08:06; Start 05/06/17 at 09:00; Stop 05/10/17 at 09:15; Status DC Ondansetron HCl (Zofran Inj) 4 mg Q6H PRN IV PUSH NAUSEA OR VOMITING Last administered on 05/07/17at 13:34; Start 05/06/17 at 09:00; Stop 05/07/17 at 14:37 ; Status DC Albuterol/ Ipratropium (Duoneb Neb) 1 ampule Q2HR NEB PRN INH WHEEZING; Start 05/06/17 at 09:00 Rivaroxaban (Xarelto) 15 mg BID PO Last administered on 05/06/17at 22:08; Start 05/06/17 at 09:00; Stop 05/07/17 at 00:18; Status DC Enoxaparin Sodium (Lovenox Inj) 80 mg Q12HR SQ Last administered on 05/09/17at 20:33; Start 05/07/17 at 09:00; Stop 05/10/17 at 08:10; Status DC Hydromorphone HCl (Dilaudid Pf Inj) 1 mg ONCE ONCE IV PUSH Last administered on 05/07/17at 03:23; Start 05/07/17 at 03:15; Stop 05/07/17 at 03:18; Status DC Hydromorphone HCl (Dilaudid Pf Inj) 1 mg Q4H PRN IV PUSH BREAKTHROUGH PAIN Last administered on 05/07/17at 08:47; Start 05/07/17 at 09:00; Stop 05/07/17 at 10:54; Status DC Morphine Sulfate (Oramorph Sr) 15 mg Q12HR PO Last administered on 05/08/17at 08 :23; Start 05/07/17 at 09:00; Stop 05/08/17 at 12:32; Status DC Hydromorphone HCl (Dilaudid Pf Inj) 2 mg NOW STAT IV PUSH Last administered on 05/07/17at 10:25; Start 05/07/17 at 10:22; Stop 05/07/17 at 10:23; Status DC Hydromorphone HCl (Dilaudid Pf Inj) 1.5 mg Q2HR PRN IV PUSH BREAKTHROUGH PAIN Last administered on 05/07/17at 12:47; Start 05/07/17 at 11:00; Stop 05/07/17 at 14:05; Status DC Hydromorphone HCl (Dilaudid Pf Inj) 2 mg Q2HR PRN IV PUSH BREAKTHROUGH PAIN Last administered on 05/07/17at 14:27; Start 05/07/17 at 14:15; Stop 05/07/17 at 16:26; Status DC Ondansetron HCl (Zofran Inj) 4 mg Q4HR PRN IV PUSH NAUSEA OR VOMITING Last administered on 05/09/17at 16:09; Start 05/07/17 at 16:00 Hydromorphone HCl (Dilaudid Pf Inj) 1 mg Q2HR PRN IV PUSH BREAKTHROUGH PAIN Last administered on 05/08/17at 08:23; Start 05/07/17 at 16:30; Stop 05/08/17 at 11:38; Status DC Senna/Docusate Sodium (Amairani-Colace) 1 tab BID PO Last administered on at 08:05; Start 05/08/17 at 10:00 Hydromorphone HCl (Dilaudid) 2 mg Q4H PRN PO BREAKTHROUGH PAIN Last administered on 05/08/17at 12:36; Start 05/08/17 at 11:45; Stop 05/08/17 at 17:27 ; Status DC Morphine Sulfate (Oramorph Sr) 15 mg Q8HR PO Last administered on 05/08/17at 14: 00; Start 05/08/17 at 14:00; Stop 05/08/17 at 17:23; Status DC Hydromorphone HCl (Dilaudid Pf Inj) 1 mg ONCE ONCE IV PUSH Last administered on 05/08/17at 15:22; Start 05/08/17 at 16:00; Stop 05/08/17 at 16:01; Status DC Morphine Sulfate (Oramorph Sr) 30 mg Q8HR PO Last administered on 05/09/17at 05: 52; Start 05/08/17 at 22:00; Stop 05/09/17 at 13:20; Status DC Hydromorphone HCl (Dilaudid Pf Inj) 0.5 mg Q3H PRN IV BREAKTHROUGH PAIN Last administered on 05/09/17at 14:22; Start 05/08/17 at 17:30 Morphine Sulfate (Oramorph Sr) 40 mg Q8HR PO ; Start 05/09/17 at 14:00; Stop at 14:53; Status DC Morphine Sulfate (Oramorph Sr) 30 mg Q8HR PO Last administered on 05/12/17at 05: 20; Start 05/09/17 at 16:00 Acetaminophen (Tylenol) 650 mg ONCE ONCE PO Last administered on 05/09/17at 21: 09; Start 05/09/17 at 20:45; Stop 05/09/17 at 20:50; Status DC Pantoprazole Sodium 80 mg/ Sodium Chloride 100 ml @ 10 mls/hr Q10H IV Last administered on 05/11/17at 21:01; Start 05/10/17 at 11:00; Stop 05/12/17 at 08:39 ; Status DC Dexamethasone (Decadron) 2 mg BID PO ; Start 05/10/17 at 14:00; Stop 05/10/17 at 15:34; Status DC Miscellaneous (Pill Splitter) 1 ea UNSCH PRN OTHER SEE LABEL COMMENTS; Start at 11:30 Dexamethasone (Decadron) 2 mg BID@0600,1400 PO Last administered on 05/12/17at 05:19; Start 05/10/17 at 15:45 Fentanyl Citrate (fentaNYL INJ) 100 mcg STK-MED ONCE .ROUTE ; Start 05/11/17 at 10:54; Stop 05/11/17 at 10:55; Status DC Midazolam HCl (Versed Inj) 2 mg STK-MED ONCE .ROUTE ; Start 05/11/17 at 10:54; Stop 05/11/17 at 10:55; Status DC Iohexol (Omnipaque 350 Inj) 20 ml STK-MED ONCE OTHER Last administered on at 11:32; Start 05/11/17 at 11:49; Stop 05/11/17 at 11:50; Status DC Sodium Chloride 250 ml @ 15 mls/hr ONCE ONCE IV ; Start 05/12/17 at 07:30; Stop 05/13/17 at 00:09 Acetaminophen (Tylenol) 650 mg Q4H PRN PO SEE LABEL COMMENTS; Start 05/12/17 at 07:30 Diphenhydramine HCl (Benadryl) 25 mg Q4H PRN PO SEE LABEL COMMENTS; Start 05/12 at 07:30 Pantoprazole Sodium (Protonix) 40 mg DAILY PO ; Start 05/12/17 at 09:00; Status UNV A/P Problem List: (1) Hepatocellular carcinoma ICD Code: C22.0 - Liver cell carcinoma Plan: Locally advanced hepatocellular carcinoma confirmed. Discussed with oncologist today Dr. Galindo. Prognosis is poor. Palliative treatment offered to patient. Hospice can also be considered. Palliative care consulted. Pain control. Currently requiring IV Dilaudid. Pain is being controlled by palliative care now (2) Intractable pain ICD Code: R52 - Pain, unspecified Plan: Probably liver capsule pain. Very difficult to control the patient's pain safely. He required IV Dilaudid, however at higher dose he had 2 episodes where he immediately become unresponsive after receiving IV Dilaudid and oxygen saturation dropped in the 80s. He had no response to oral Dilaudid. Patient requested increase in basal morphine today. He only received two doses of the increased dose of Oramorph from yesterday so far. Ideally changes should be made after monitoring response for at least 24 hrs. Oramorph can only be increased by 15 mg after discussion with the pharmacy which would be a total increase of 45 mg which would be over the total dose of breakthrough equivalent IV Dilaudid. I discussed with the patient and family, they agreed to hold off on any changes for now. Keep 30 mg Oramorph and Patient has a sadle PE which is very concerning for oversedation, respiratory depression which can lead to resp failure. Palliative care following. Defer any further changes of pain management to palliative care. Pain is now being controlled by palliative care (3) Pulmonary embolism ICD Code: I26.99 - Other pulmonary embolism without acute cor pulmonale Plan: Appreciate input from hematology/oncology. Patient failed outpatient Xarelto. Continue Lovenox. He is to be discharged on Lovenox To undergo GI procedures today due to anemia and GI bleeding SP IVC FILTER 3-30 (4) Liver mass ICD Code: R16.0 - Hepatomegaly, not elsewhere classified Plan: Will defer to oncology. 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 - General surgery evaluated the patient and recommended pain management. No surgical intervention is planned. Assessment and Plan Hepatocellular carcinoma with metastasis continue on current treatment with pain control Bilateral pulmonary emboli with saddle embolus will need to be back on anticoagulation as soon as GI clears him for that --HAD IVC FILTER PLACED 3-30 GI bleeding and anemia to undergo GI procedures 3- EGD ANEMIA WILL TRANSFUSE ONE UNIT PRBC DC TO HOME TODAY HYPOKALEMIA REPLACE Pain control will defer to palliative care Will need long-term anticoagulation after discharge WILL DEFER TO ONCOLOGY Discharge Planning Discharge to home today after blood transfusion Problem Qualifiers (1) Pulmonary embolism: Qualified Codes: I26.92 - Saddle embolus of pulmonary artery without acute cor pulmonale Greg Casas DO May 12, 2017 09:01
[2017-05-12] MEDS ORDERED: PANT40TA3 PO (09:05)
[2017-05-12] MEDS ORDERED: PERI PO (09:05)
[2017-05-12] MEDS ORDERED: MORP1TAB25 PO (09:05)
[2017-05-12] MEDS ORDERED: DEXA4TAB PO (09:05)
--- NOTE | 2017-05-12 09:11 | HHI.DS ---
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 Chavez is a 56-year-old male. He came into the hospital secondary to severe upper abdominal pain. The pain also included his chest. This patient has a history of liver cancer and has been on Xarelto as an outpatient. No signs of active bleeding reported by the patient such as bright red blood per rectum, melena, or hematemesis. At his last hospitalization he was diagnosed with hepatocellular carcinoma. Subtle pulmonary embolus was diagnosed about one week ago when he was here for his abdominal pain related to liver cancer. He has been on a blood thinner since then first heparin and presently he is on Xarelto. Imaging today shows evidence of also hematoma at the gallbladder. Pain is improved and patient is seen. Etiology is likely biliary colic and may be related to obstruction versus hematoma. CBC/BMP: 05/12/17 0525 05/12/17 0525 Significant Findings Laboratory Tests Test 05/09/17 20:38 05/10/17 00:15 05/10/17 08:20 05/10/17 12:10 Hemoglobin 9.8 GM/DL (13.0-17.0) 8.9 GM/DL (13.0-17.0) 8.7 GM/DL (13.0-17.0) Hematocrit 28.8 % (39.0-51.0) 25.8 % (39.0-51.0) Urine Color DARK-BROWN (YELLW/STRAW) Urine Turbidity HAZY (CLEAR) Urine Protein 30 mg/dL (NEG-TRACE) Urine Bilirubin MOD (NEG) Urine Urobilinogen 8.0 MG/DL (LESS THAN Urine Leukocyte Esterase TRACE (NEG) Urine Bacteria RARE /hpf (NONE) Urine Mucus FEW /lpf (OCC) Red Blood Count 2.82 MIL/MM3 (4.50-5.90) Neutrophils (%) (Auto) 81.4 % (16.0-70.0) Lymphocytes (%) (Auto) 8.3 % (9.0-44.0) Monocytes (%) (Auto) 9.9 % (0.0-8.0) Lymphocytes # (Auto) 0.8 TH/MM3 (1.0-4.8) Test 05/10/17 21:06 05/11/17 02:52 05/12/17 05:25 Hemoglobin 8.0 GM/DL (13.0-17.0) 8.2 GM/DL (13.0-17.0) 8.5 GM/DL (13.0-17.0) Red Blood Count 2.58 MIL/MM3 (4.50-5.90) 2.69 MIL/MM3 (4.50-5.90) Hematocrit 23.8 % (39.0-51.0) 24.7 % (39.0-51.0) Neutrophils (%) (Auto) 81.5 % (16.0-70.0) 72.1 % (16.0-70.0) Monocytes (%) (Auto) 9.0 % (0.0-8.0) 8.6 % (0.0-8.0) Lymphocytes # (Auto) 0.6 TH/MM3 (1.0-4.8) Blood Urea Nitrogen 26 MG/DL (7-18) 23 MG/DL (7-18) Total Protein 5.9 GM/DL (6.4-8.2) 6.1 GM/DL (6.4-8.2) Albumin 2.4 GM/DL (3.4-5.0) 2.5 GM/DL (3.4-5.0) Calcium Level 8.0 MG/DL (8.5-10.1) 8.3 MG/DL (8.5-10.1) Alkaline Phosphatase 377 U/L (45-117) 327 U/L (45-117) Aspartate Amino Transf (AST/SGOT) 187 U/L (15-37) 148 U/L (15-37) Alanine Aminotransferase (ALT/SGPT) 208 U/L (12-78) 159 U/L (12-78) Total Bilirubin 1.5 MG/DL (0.2-1.0) Estimat Glomerular Filtration Rate 77 ML/MIN (>89) 81 ML/MIN (>89) Thyroid Stimulating Hormone 3rd Gen 4.150 uIU/ML (0.358-3.740) Potassium Level 3.4 MEQ/L (3.5-5.1) Imaging Last Impressions IVC Filter Placement X-Ray 05/11/17 0000 Signed Impressions: Service Date/Time: Thursday, May 11, 2017 11:17 - CONCLUSION: Uncomplicated inferior vena cava filter placement as above. Damon Oden MD Chest X-Ray 05/06/17 0345 Signed Impressions: Service Date/Time: Saturday, May 06, 2017 03:55 - CONCLUSION: No acute disease. There is no evidence of free air. Ehsan Argueta MD CT Angiography 05/06/17 0000 Signed Impressions: Service Date/Time: Saturday, May 06, 2017 06:19 - CONCLUSION: 1. Pulmonary emboli with a long thin saddle embolus which crosses from the right main pulmonary artery into the left. Smaller bilateral areas of pulmonary emboli present as well. 2. Small area consolidation in the right lower lobe. Ehsan Argueta MD Abdomen/Pelvis CT 05/06/17 0000 Signed Impressions: Service Date/Time: Saturday, May 06, 2017 06:19 - CONCLUSION: 1. The large tumor mass in the central liver appear slightly larger in size. There are additional metastatic lesions in the liver which are not significant change. 2. The gallbladder is more prominent and now contains a central area of high density which is concerning for possible hemorrhage or blood clot. Vicarious excretion of contrast contrast into the gallbladder can have a similar appearance however usually appears more homogeneous and diffuse. 3. The central splenic mass is not significantly changed. 4. Bilateral renal cysts. Ehsan Argueta MD PE at Discharge GENERAL: Awake alert oriented 3 talkative and cooperative SKIN: Warm and dry. HEAD: Atraumatic. Normocephalic. EYES: Pupils equal and round. No scleral icterus. No injection or drainage. Extraocular muscles are intact ENT: No nasal bleeding or discharge. Mucous membranes pink and moist. Tongue is midline NECK: Trachea midline. No JVD. Supple CARDIOVASCULAR: Regular rate and rhythm. S1-S2 no S3 or S4 RESPIRATORY: No accessory muscle use. Clear to auscultation. Breath sounds equal bilaterally. GASTROINTESTINAL: Abdomen soft, non-tender, nondistended. Hepatic and splenic margins not palpable. MUSCULOSKELETAL: Extremities without clubbing, cyanosis, or edema. No obvious deformities. NEUROLOGICAL: Awake and alert. No obvious cranial nerve deficits. Motor grossly within normal limits. Five out of 5 muscle strength in the arms and legs. Normal speech. PSYCHIATRIC: Appropriate mood and affect; insight and judgment normal. Hospital Course Mr. Chavez is a 56-year-old male. He came into the hospital secondary to severe upper abdominal pain. The pain also included his chest. This patient has a history of liver cancer and has been on Xarelto as an outpatient. No signs of active bleeding reported by the patient such as bright red blood per rectum, melena, or hematemesis. At his last hospitalization he was diagnosed with hepatocellular carcinoma. Subtle pulmonary embolus was diagnosed about one week ago when he was here for his abdominal pain related to liver cancer. He has been on a blood thinner since then first heparin and presently he is on Xarelto. Imaging today shows evidence of also hematoma at the gallbladder. Pain is improved and patient is seen. Etiology is likely biliary colic and may be related to obstruction versus hematoma. Pain is currently better controlled today Discussed with patient denies any pain at this time Is scheduled to go for procedures with GI later today due to the GI bleeding I have discussed with oncology as well as nursing and RN and family and my colleague Continue current treatments 3-30 sp IVC FILTER ON 3-30 SP EGD ON 3-29 AM LABS IF STABLE DC TOMORROW IF HGB LOW TRANSFUSE AND DC TOMORROW DW RN AND PT PAIN CONTROLLED AT THIS TIME WILL NEED SENNA PLUS BID AT DC HEPATOCELLULAR CARCINOMA WITH METS TO PANCREAS AND SPLEEN Pt Condition on Discharge: Good Discharge Disposition: Discharge Home Discharge Time: > 30 minutes Discharge Instructions DIET: Follow Instructions for: Heart Healthy Diet Speech Therapy-Diet Recommends: Regular Activities you can perform: Regular-No Restrictions Follow up Referrals: Oncology/Hematology - 05/14/17 with Toño Galindo MD PCP Follow-up - 1 Week New Medications: Dexamethasone (Dexamethasone) 4 Mg Tab 2 MG PO BID@0600,1400 for Inflammation, #60 TAB Morphine ER (Morphine ER) 30 Mg Tab 30 MG PO Q8HR for Pain Management, #90 TAB Pantoprazole (Pantoprazole) 40 Mg Tab 40 MG PO DAILY for Heartburn Management, #30 TAB Sennosides-Docusate Sodium (Gnp Senna Plus 8.6-50 mg) 8.6 Mg-50 Mg Tab 2 TAB PO BID for Constipation, #120 TAB Discontinued Medications: Rivaroxaban (Xarelto) 15 Mg Tab 15 MG PO BID for Prevent Blood Clot, #60 TAB 3 Refills Greg Casas DO May 12, 2017 09:11
[2017-05-12] MEDS ORDERED: POTASSIUM CHLORIDE 20 MEQ CONTROLLED RELEASE TAB PO ONE (09:15)
--- NOTE | 2017-05-12 12:19 | HHI.GIFU ---
Objective Vitals I&O Vital Signs Date Time Temp Pulse Resp B/P (MAP) Pulse Ox O2 Delivery O2 Flow Rate FiO2 05/12/17 11:59 97.9 68 18 113/62 97 05/12/17 11:42 98.3 70 18 119/72 97 05/12/17 08:49 99.0 83 18 131/76 (94) 99 05/12/17 07:00 64 05/12/17 05:15 98.6 71 136/75 (95) 98 05/12/17 04:02 67 05/12/17 00:14 98.4 77 18 127/72 (90) 97 05/12/17 00:00 76 05/11/17 21:08 98.0 74 18 112/73 (86) 97 05/11/17 20:21 73 05/11/17 16:10 98.5 78 16 126/70 (88) 96 05/11/17 16:09 80 05/11/17 13:31 98.3 83 18 136/76 (96) 97 05/11/17 12:25 71 16 120/74 (89) 96 I/O 05/11/17 05/11/17 05/11/17 05/12/17 05/12/17 05/12/17 07:00 15:00 23:00 07:00 15:00 23:00 Intake Total 820 ml 545 ml 100 ml Output Total 725 ml 300 ml Balance 95 ml 545 ml -300 ml 100 ml Intake Oral 720 ml 480 ml IV Total 100 ml 65 ml 100 ml Output Urine Total 725 ml 300 ml # Voids 4 # Bowel Movements 2 Laboratory Laboratory Tests Test 05/12/17 05:25 White Blood Count 6.5 Red Blood Count 2.69 Hemoglobin 8.5 Hematocrit 24.7 Mean Corpuscular Volume 91.8 Mean Corpuscular Hemoglobin 31.6 Mean Corpuscular Hemoglobin Concent 34.4 Red Cell Distribution Width 14.8 Platelet Count 375 Mean Platelet Volume 7.1 Neutrophils (%) (Auto) 72.1 Lymphocytes (%) (Auto) 17.9 Monocytes (%) (Auto) 8.6 Eosinophils (%) (Auto) 1.0 Basophils (%) (Auto) 0.4 Neutrophils # (Auto) 4.7 Lymphocytes # (Auto) 1.2 Monocytes # (Auto) 0.6 Eosinophils # (Auto) 0.1 Basophils # (Auto) 0.0 CBC Comment DIFF FINAL Differential Comment Prothrombin Time 10.0 Prothromb Time International Ratio 1.0 Blood Urea Nitrogen 23 Creatinine 0.95 Random Glucose 96 Total Protein 6.1 Albumin 2.5 Calcium Level 8.3 Phosphorus Level 2.6 Magnesium Level 2.2 Alkaline Phosphatase 327 Aspartate Amino Transf (AST/SGOT) 148 Alanine Aminotransferase (ALT/SGPT) 159 Total Bilirubin 1.0 Sodium Level 140 Potassium Level 3.4 Chloride Level 105 Carbon Dioxide Level 27.8 Anion Gap 7 Estimat Glomerular Filtration Rate 81 Date/Time Source Procedure Growth Status 05/11/17 07:25 Stool Stool Stool Occult Blood (ANGLE) - Final HEMOCCULT NEGATIVE Complete 05/10/17 00:15 Urine Clean Catch Urine Culture - Final NO GROWTH IN 48 HOURS. Complete Physical Exam HEENT: Pupils round and reactive to light; normocephalic; atraumatic; no jaundice. NECK: Neck is supple CHEST: Chest is clear to auscultation and percussion. No obvious rhonchi CARDIAC: Regular rate and rhythm ABDOMEN: Soft, nondistended, mild right upper quadrant tenderness; no hepatosplenomegaly; bowel sounds are soft in all four quadrants. EXTREMITIES: No clubbing, cyanosis, or edema. SKIN: Normal; no rash; no jaundice. PERIODONTIST: No focal deficits; alert and oriented times three. Assessment and Plan Plan Assessment: - Abdominal pain- described as intermittent, sharp, stabbing- episode on attributed it to eating [employer], relieved with Tylenol. Fine on Sunday. Worsening pain starting yesterday, so unbearable last night he was unable to sleep. Pain so severe at 3 am it caused him to fall from recliner to floor in pain where found him. Reports emesis earlier in the evening, denies hematemesis and coffee ground emesis. Pain in epigastric/RUQ area. CT abdomen and pelvis --> The large tumor mass in the central liver appear slightly larger in size. Additional metastatic lesions in the liver which are not significant change. The gallbladder is more prominent and now contains a central area of high density which is concerning for possible hemorrhage or old blood clot. Vicarious excretion of contrast into the gallbladder can have a similar appearance however usually appears more homogeneous and diffuse. the central splenic mass is not significantly changed. Bilateral renal cysts Denies ever having EGD, colonoscopy, never seen GI doctor Denies ETOH, smoking, illicit drug use - HCC- newly diagnosed during admission earlier this month, unsure the primary source of the cancer so tx was not started. Liver biopsy is now back consistent with HCC. Pt sees Dr. Galindo LFTs elevated- AST-412 ALT-536 T bili-2.2 Alk phos-451 - Bilateral PE- dx during last admission- Pt on Xarelto BID- switched to Lovenox on admission- anticoagulation currently on hold RECONSULT FOR MELENA (05/10) Pt reports 4 episodes of black, tarry stools since last night. Significant change in H/H was 11.3/32.7 2 days ago and is currently 8.9/25.8. Denies history of GIB, has never had EGD or colonoscopy. Anticoagulation currently on hold for active GIB. Plan: EGD today Obtain consent Keep NPO Protonix gtt Monitor H/H Transfuse to keep hgb over 8 Further recommendations based on findings of above Pt has been seen and examined by myself and Dr. Lopez and this note is written on his behalf Raisa Whittaker May 12, 2017 12:19
[2017-05-12 13:54] LABS: CERULOPLASMIN 35 mg/dL (18-36)
[2017-05-12] MEDS ORDERED: PERC10TA27 PO (14:18)
== END 2017-05-12 15:01 | disposition home or self-care (01) | DRG 423 ==
LOC: NEPC 02:47 → NEDA 07:58 → HCIN 08:30
PROVIDERS: ADMIT Hospitalist; ATTEND Hospitalist
PROC: 0DJ08ZZ Inspection of Upper Intestinal Tract, Via Natural or Artificial Opening Endoscopic (ICD-10-PCS; 2017-05-10)
PROC: 06H03DZ Insertion of Intraluminal Device into Inferior Vena Cava, Percutaneous Approach (ICD-10-PCS; principal; 2017-05-10 17:14)
PROC: 30233N1 Transfusion of Nonautologous Red Blood Cells into Peripheral Vein, Percutaneous Approach (ICD-10-PCS; 2017-05-12)
DX: C22.0 Liver cell carcinoma (principal); I26.92 Saddle embolus of pulmonary artery without acute cor pulmonale; I82.890 Acute embolism and thrombosis of other specified veins; C78.7 Secondary malignant neoplasm of liver and intrahepatic bile duct; C78.89 Secondary malignant neoplasm of other digestive organs; K92.1 Melena; N28.1 Cyst of kidney, acquired; E87.6 Hypokalemia; D63.0 Anemia in neoplastic disease; I86.4 Gastric varices; G93.89 Other specified disorders of brain; T40.2X5A Adverse effect of other opioids, initial encounter; K82.9 Disease of gallbladder, unspecified; Z66 Do not resuscitate; Z79.01 Long term (current) use of anticoagulants; Z80.1 Family history of malignant neoplasm of trachea, bronchus and lung; Z80.3 Family history of malignant neoplasm of breast
CPT/HCPCS: 36430; 37191; 71045; 71275; 74177; 80053; 80074; 81001; 82103; 82105; 82248; 82272; 82390; 82728; 82784; 83036; 83516; 83520; 83540; 83550; 83605; 83690; 83735; 84100; 84439; 84443; 84484; 85014; 85018; 85025; 85027; 85610; 85730; 86038; 86255; 86850; 86900; 86901; 86920; 87086; 93005; 96361; 96374; 96375; 99152; 99153; C1769; C1880; C9113; J1170; J1650; J1885; J2250; J2270; J2370; J2405; J3010; J7030; J7050; J8540; P9016; Q9967